=== PATIENT | female | born 1940 | race Caucasian/White ===

== ENCOUNTER → 2018-04-12 15:22 | Outpatient (CLI) | payer MEDICARE, OTHER, SELFPAY ==
[2018-04-11 13:44] VITALS: BMI 29.5
--- NOTE | 2018-04-12 15:36 | MRI_ITS ---
STUDY: MRI BRAIN WITH AND WITHOUT CONTRAST REASON FOR EXAM: Female, 77 years old. Headaches/staging TECHNIQUE: Standardized multiplanar fat and water weighted pulse sequences were obtained. 9 ml of Gadavist contrast material was administered intravenously for the contrast portion of the examination. COMPARISON: None. FINDINGS: There is mild cerebral atrophy with widening of the extra-axial spaces and ventricular dilatation. There are multiple white matter hyperintensities, distributed throughout the deep white matter tracts of the cerebral hemispheres, consistent with moderate chronic white matter ischemic changes. ex Vacuo Dilatation of the left temporal horn. There are prominent perivascular spaces (PVS) involving the basal ganglia. Normal thalami. There is no extra-axial fluid accumulation. Normal flow voids within the major intracranial circulation suggesting patency by spin echo criteria. Normal venous enhancement. There is no enhancing intra-axial or extra-axial abnormality. Normal sella turcica, pituitary gland, infundibular stalk, optic chiasm and hypothalamus. Normal tectal plate and pineal gland. Normal midbrain, michelle and medulla. Normal cerebellum. Normal basal cisterns. 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 Normal bilateral internal auditory canals. No demonstrated orbital abnormality, within the constraints of a routine brain study. Normal visualized paranasal sinuses. Normal calvarium and skull base. Normal visualized soft tissue structures. Normal visualized upper cervical spine. MRI/Brain W/WO Contrast IMPRESSION: Involutional changes of the brain, as described above. Electronically Signed: Lennox Schilling MD at 23:02 EDT , Service support ,
== END ==
PROVIDERS: Family Provider Family Medicine; PCP Family Medicine; Visit Provider Student in an Organized Health Care Education/Training Program
DX: C34.91 Malignant neoplasm of unspecified part of right bronchus or lung (principal)
CPT/HCPCS: 70553; A9585

== ENCOUNTER 2018-04-21 10:51 | Day surgery (SDC) | payer MEDICARE, OTHER, SELFPAY ==
[2018-04-13 09:34] VITALS: BMI 29.5
[2018-04-21] VITALS (7 sets, daily range): BP systolic 84–126; BP diastolic 46–67; PULSE 63–80; RESP 16–18; TEMP 36.3–36.6; O2SAT 93–97; BMI 29.3
[2018-04-21] MEDS: Cefazolin 2 GM in 0.9% Normal Saline 100 ML IV (12:30)
[2018-04-21] MEDS: Bupivacaine Mpf 0.5% 30 ML VIAL (13:10)
--- NOTE | 2018-04-21 13:28 | OP.PCM_ITS ---
Report of Operation Date of Procedure: 04/21/18 Pre-Operative Diagnosis: z45.2, right lung cancer Post-Operative Diagnosis: same Surgery/Procedure Performed:: 1. Placement of Left IJ port. 2. Use of U\S. 3. Use of fluoroscopy Type of Anesthesia:: MAC Anesthesiologist: Mikael Lerma Special Medications: ancef 2 grams IV x1 Estimated Blood Loss (mL): < 10cc Fluids Replaced: 700 cc Description of Procedure: After informed consent was given, the patient was brought to the operating room and placed in the supine position. Appropriate time out protocol was followed. He was then given IV conscious sedation for anesthesia. The patient 's left upper chest and neck were then prepped with a surgical skin preparation and sterile surgical drapes were placed. After proper landmarks were ascertained, the skin at the upper left chest area was then infiltrated with 1: 1 mixture of 1% lidocaine with epinephrine and 0.5% maricaine. A needle trocar was then inserted into the left internal jugular vein with ultrasound guidance-multiple vessels were viewed with u/s and the left IJ was chosen-- and there was good aspiration of venous blood. A wire was then threaded into the needle trocar and this was visualized under fluoroscopy to ensure that the wire was in the superior vena cava. Once this was done, then the needle trocar was removed. A small skin sherly was made with an 11 blade knife at the wire entrance site. The dilator with the introducer sheath attached was then placed over the wire into the left internal jugular vein via the Seldinger technique and this was visualized under fluoroscopy. The dilator and sheath were in proper position as visualized by fluoroscopy. A subcutaneous pocket was then created caudad to the catheter insertion site. A transverse skin incision was made after the skin and subcutaneous tissues were infiltrated with local anesthetic. Blunt dissection was then used to create a space large enough for placement of the subcutaneous port. The catheter was then tunneled into the subcutaneous pocket. The wire and dilator were then removed. The catheter was then threaded into the introducer sheath and was positioned with its tip at the junction of the superior vena cava and the right atrium as visualized under fluoroscopy. The excess catheter was transected. The catheter was then attached to the subcutaneous port using manufacturers guidelines. The catheter was flushed with a heparin saline mixture prior to placement. Hemostasis was carefully controlled with electrocautery. The port was sutured to the subcutaneous fascia using 3-0 PDS suture at two sites. The port was then placed in the subcutaneous pocket and the sutures were ligated. The incision were reapproximated with interrupted subdermal 3-0 vicryl sutures. The skin was reapproximated with 3-0 nylon suture in a interrupted fashion. Steristrips were used for reinforcement of the skin closure at IJ insertion site and a sterile opsite dressings were applied. The patient tolerated the procedure well. Implants Used: [employer] PowerPort isp M.R.I. 6Fr Lot [id number] Grafts/Implants Used: [employer] PowerPort isp M.R.I. 6Fr Lot [id number] - Complications none
--- NOTE | 2018-04-21 13:36 | PCM.DC.POR ---
Discharge Diet: No Restrictions Discharge Activity: May not drive while taking narcotic pain medications. May shower in (days): 5 - keep port clean/dry x5 days then ok to shower over port area Lifting Restrictions: no lifting > 15 lbs w left arm x 1 week Call your doctor if your incision/area has: Continuous Slow Oozing, Sudden Increased Bleeding, Increased Pain/ Swelling, Increased Redness, Foul Smelling Discharge, Swelling at the incision site Call your doctor if you observe: Fever of 101 or Higher Remove Dressing in (days):: 3 - ok to remove neck opsite tomorrow, keep port covered for 2-3 days, ok to remove to use for chemo/place lidocaine ointment/cream Allergies/Adverse Reactions: Allergies Sulfa (Sulfonamide Antibiotics) Adverse Reaction (Intermediate, Verified 04/20/18 15:59) Rash Medications to take at Discharge Amlodipine [Norvasc] 5 mg PO QHS 04/11/18 Atorvastatin Calcium [Lipitor] 40 mg PO QHS 04/11/18 Pantoprazole Sodium [Protonix] 40 mg PO DAILY 04/11/18 traMADol [Ultram (G)] 1 - 2 tab PO Q6H PRN PRN 04/11/18 Lidocaine/Prilocaine [Lidocaine-Prilocaine Cream] 30 gm TP DAILY PRN PRN #1 cream..g. 04/17/18 Ondansetron HCl [Zofran] 4 mg PO Q8H PRN PRN #30 tab 04/17/18 Methotrexate 7 tab PO Q7D 04/20/18 Primary Care Physician: Rick Macias [Primary Care Provider] - Test Results: Test results from this visit will be discussed in further detail at your follow-up appointment, if applicable. Please Follow Up With: Liliana Padron MD - after 5pm/weekends call [phone] with any concerns When: call office for an appt 10 days after surgery for suture removal Proposed Discharge Date: 04/21/18
--- NOTE | 2018-04-21 13:39 | DCINST_ITS ---
Discharge Diet: No Restrictions Discharge Activity: May not drive while taking narcotic pain medications. May shower in (days): 5 - keep port clean/dry x5 days then ok to shower over port area Lifting Restrictions: no lifting > 15 lbs w left arm x 1 week Call your doctor if your incision/area has: Continuous Slow Oozing, Sudden Increased Bleeding, Increased Pain/ Swelling, Increased Redness, Foul Smelling Discharge, Swelling at the incision site Call your doctor if you observe: Fever of 101 or Higher Remove Dressing in (days):: 3 - ok to remove neck opsite tomorrow, keep port covered for 2-3 days, ok to remove to use for chemo/place lidocaine ointment/ cream Allergies/Adverse Reactions: Allergies Sulfa (Sulfonamide Antibiotics) Adverse Reaction (Intermediate, Verified 15:59) Rash Medications to take at Discharge Amlodipine [Norvasc] 5 mg PO QHS 04/11/18 Atorvastatin Calcium [Lipitor] 40 mg PO QHS 04/11/18 Pantoprazole Sodium [Protonix] 40 mg PO DAILY 04/11/18 traMADol [Ultram (G)] 1 - 2 tab PO Q6H PRN PRN 04/11/18 Lidocaine/Prilocaine [Lidocaine-Prilocaine Cream] 30 gm TP DAILY PRN PRN #1 cream..g. 04/17/18 Ondansetron HCl [Zofran] 4 mg PO Q8H PRN PRN #30 tab 04/17/18 Methotrexate 7 tab PO Q7D 04/20/18 Primary Care Physician: Rick Macias [Primary Care Provider] - Test Results: Test results from this visit will be discussed in further detail at your follow- up appointment, if applicable. Please Follow Up With: Liliana Padron MD - after 5pm/weekends call with any concerns When: call office for an appt 10 days after surgery for suture removal Proposed Discharge Date: 04/21/18
--- NOTE | 2018-04-21 13:47 | RAD_ITS ---
STUDY: X-RAY CHEST REASON FOR EXAM: Female, 77 years old. Left port placement. TECHNIQUE: Single AP portable view of the chest. COMPARISON: None. FINDINGS: A left-sided Port-A-Cath has been placed. The tip is in the proximal portion of the superior vena cava. Hyperinflation. Mild increased markings at the left lung base suggestive of scarring. There is no demonstrated pleural abnormality. Normal size heart. Normal mediastinum and reji. Normal visualized pulmonary arteries. There is atherosclerotic calcification of the aortic arch with tortuosity. Normal visualized thoracic spine. Normal visualized ribs, clavicles, and shoulders. There is no demonstrated abnormality of the visualized soft tissue structures of the upper abdomen. RAD/CXR for Line Placement IMPRESSION: Status post left port placement. The tip is in the proximal portion of the superior vena cava.. Mild left basilar scarring. Electronically Signed: Misha Gore MD at 14:30 EDT Tel [phone], Service support ,
== END 2018-04-21 15:38 | disposition home or self-care (01) ==
LOC: SDC 10:52 → AC 10:53
PROVIDERS: Family Provider Family Medicine; PCP Family Medicine; Visit Provider Surgery
PROC: (CPT 36561; principal; 2018-04-21 12:15)
DX: Z45.2 Encounter for adjustment and management of vascular access device (principal); C34.91 Malignant neoplasm of unspecified part of right bronchus or lung; M06.9 Rheumatoid arthritis, unspecified; Z86.718 Personal history of other venous thrombosis and embolism; E78.00 Pure hypercholesterolemia, unspecified; K21.9 Gastro-esophageal reflux disease without esophagitis; Z79.899 Other long term (current) drug therapy; I10 Essential (primary) hypertension; Z87.891 Personal history of nicotine dependence
CPT/HCPCS: 00532; 36561; 71045; 77001; J7120; C1788

== ENCOUNTER → 2018-09-04 08:05 | Outpatient (CLI) | payer MEDICARE, OTHER, SELFPAY ==
[2018-04-13 09:34] VITALS: BMI 29.5
[2018-08-03 09:17] VITALS: BMI 28.5
--- NOTE | 2018-09-04 08:11 | NM_ITS ---
CLINICAL: 78-year-old female with reported history of primary lung carcinoma. WHOLE BODY 99m Tc MDP RADIONUCLIDE BONE SCINTIGRAPHY COMPARISON: CT of the chest, abdomen and pelvis reports 09/04/2018 FINDINGS: Following the intravenous administration of 26.7 mCi of 99m Tc MDP, whole body bone images reveal: 1. Increased radiopharmaceutical concentration is defined in the mid cervical spine posteriorly on the left and right, lower cervical spine posteriorly on the left, first thoracic vertebra posteriorly in the midline, the lumbar vertebra posteriorly on the left, the right hand, left sacroiliac joint, sternoclavicular compartments of both shoulders. 2. The remaining skeletal structures are scintigraphically unremarkable with normal-appearing renal images and urinary bladder activity identified. The visualized left hip arthroplasty demonstrates no evidence of abnormal increased radiopharmaceutical concentration. Facilitated uptake is defined in the bilateral maxillae and inter-orbital aspect of the calvarium consistent with periostitis. NM/Bone Scan Whole Body IMPRESSION: 1. The increase in radiopharmaceutical concentration identified in the cervical, thoracic and lumbar spine, left sacroiliac joint, right hand, bilateral shoulders most consistent with degenerative arthritis. 2. There is no definitive scintigraphic evidence of diffuse axial skeletal metastatic disease on the current examination. Electronically Signed: Hans Moran DO at 9:59 EST Tel , Service support ,
--- NOTE | 2018-09-04 11:37 | CT_ITS ---
STUDY: CT CHEST/THORAX WITH CONTRAST REASON FOR EXAM: Female, 78 years old. Lung cancer, restaging. RADIATION DOSAGE (If Supplied By Facility): CTDIvol = ( 14.62 ) mGy, DLP = ( 1186.88 ) mGycm TECHNIQUE: Transaxial imaging was performed following intravenous administration of 100 ml of Isovue 300 contrast material. Multiplanar coronal and sagittal images were reformatted. Individualized dose optimization techniques were used for this CT. COMPARISON: None. FINDINGS: A left chest wall chemotherapy port is in the subclavicular tissues, its catheter passing from the jugular vein to the superior vena cava. Emphysematous changes predominate in the upper lung zones. Spiculated 2.7 x 1.5 x 0.85 cm lesion in the medial right upper lobe is consistent with the patient's history of malignancy. There were a few tails extending to the medial pleural surface. Irregular, faint 6.5 mm density in the right lower lobe near the pleural fissure series 6 image 87, series 601 image 143 is of uncertain etiology. There is subsegmental atelectasis or scarring in the anteromedial periphery of the right middle lobe and inferior lingula of the left upper lobe. There is no demonstrated pleural abnormality. Normal heart and pericardium. There are calcifications of the coronary arteries. Normal mediastinum. Normal hilar regions. Normal enhanced pulmonary arteries. There is atherosclerotic calcification of the aortic arch, proximal brachiocephalic arteries, and descending thoracic aorta. Degenerative anterior endplate osteophytes seen in the lower most cervical spine and at T3-4. Leads of an epidural stimulator enter the spinal canal at T11-12, terminating at T7-8. Irregular 12 mm hyperdensity in the dome of the liver on series 2 image 120, series 601 image 150 suggests a hemangioma. This is virtually inapparent on the images of the liver also obtained on CT abdomen and pelvis today during the portal venous phase. Question of 2 similar, smaller lesions in the posterior lateral right lobe on images 131-132. There is a small hiatal hernia. CT/Chest WITH Contrast IMPRESSION: 1. 2.7 cm spiculated mass in the medial right upper lobe is consistent with patient's history of malignancy. A faint, irregular 6.5 mm density in the anterior right lower lobe near the pleural fissure is of uncertain etiology. 2. Emphysematous changes predominate in the upper lung zones. 3. Chemotherapy port in the soft tissues of the left anterior chest wall, its catheter tip in the superior vena cava. 4. Atherosclerotic vascular calcifications present. No demonstrated aneurysm. 5. Leads of an epidural stimulator terminate at T7-8. 6. Small hyperdensities in the liver may be hemangiomata. These do not clearly persist on portal vein phase imaging of the liver included with CT abdomen and pelvis also done today. 7. Small hiatal hernia. Electronically Signed: Mal Ortiz MD at 13:57 EST , Service support ,
--- NOTE | 2018-09-04 11:38 | CT_ITS ---
STUDY: CT ABDOMEN WITH CONTRAST REASON FOR EXAM: Female, 78 years old. Lung cancer, restaging. RADIATION DOSAGE (If Supplied By Facility): CTDIvol = ( 14.62 ) mGy, DLP = ( 1186.88 ) mGycm TECHNIQUE: Transaxial images were obtained post I.V. administration of 100 ml of Isovue 300 contrast, and oral contrast. Sagittal and coronal images were reconstructed. Individualized dose optimization techniques were used for this CT. COMPARISON: None. FINDINGS: Minor subsegmental atelectasis or scarring in the anteromedial right middle lobe and inferior lingula of the left upper lobe. The heart size is normal. Very small right anterolateral pericardial effusion/thickening. Atherosclerotic calcifications noted in the coronary arteries and visualized distal descending thoracic aorta. Smoothly lobulated, partially septated, well-defined 4.4 x 4.05 x 4.0 cm subcapsular cyst of 14-15 Hounsfield unit density seen in the medial lower right lobe of liver a second 1.55 x 1.45 x 1.4 cm cyst is suggested at the posterior margin of the falciform ligament. A pair of mildly heterogeneous or enhancing lesions in the posterior upper right lobe of liver (series 3 image 23) hypodensity over 55 Hounsfield units are more difficult to characterize. The more medial of these may incorporate vague fullness of the adjacent anterolateral limb of the right adrenal gland. 7.5 mm similar-appearing rounded low density noted in the dome of the liver (series 3 image 14); there is an 8 mm well-defined low-density in the anterior subcapsular aspect of the medial left lobe of the liver (series 604 image 35) and a 5 mm rounded low density in the anterior inferior left lobe liver on series 3 image 40, series 604 image 33. Possible 14 mm subcapsular mixed density structure at the inferior left lobe of the liver on series 604 image 41 may be artifact. The patent portal vein diameter is 13.5 mm. Normal gallbladder and extrahepatic biliary system. The common bile duct diameter is 5 mm. Normal spleen. Normal pancreas. Normal left adrenal gland. Normal right kidney. 7.5 mm subcapsular low density in the posterior cortex of the midpole the left kidney is likely a cyst. No hydronephrosis. There is a small hiatal hernia. Normal small intestine. There is redundant, elongated right colon with the cecum in the anterior mid right flank. There is non-visualization of the appendix. There is diffuse atherosclerotic calcification of the abdominal aorta and visualized proximal iliac arteries. 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 Normal inferior vena cava. Normal retroperitoneum. There is a small umbilical hernia containing fat. There are diffuse degenerative changes of the visualized lumbar spine as well as degenerative arthroses of the bilateral sacroiliac joints. The patient has undergone L3-S1 discectomies as well as plate posterior lumbosacral fusion, with bilateral transpedicular screws connected on either side by longitudinal metal rods from L3-S1. There is mild retrolisthesis of L2 on L3. The generator of a spinal stimulator resides in the soft tissues of the medial right back at the L2 level. Its leads enter the posterior epidural space at T11-12, continuing to a point outside the [id number]. CT/Abdomen WITH IV Contrast IMPRESSION: 1. There are number of low-density lesions in the liver, as described, some of which are cysts. Others are more difficult to characterize, with differential including complicated cysts, hemangiomata, or neoplasm of indeterminate etiology. One, at the posterior medial right lobe of liver (series 3 images 23-24) may involve fullness of the anterior limb of the right adrenal gland. Correlation with any previous outside imaging would be useful. If not available, one might consider characterization with ultrasound or, if clinically feasible, MRI. 2. The generator of a spinal stimulator is seen in the soft tissues of the mid right back. Its leads extend into the posterior epidural space to point outside the [id number]. 3. Prior L3-S1 discectomies with prostheses as well as posterior lumbosacral fusion with metal hardware, as noted. There are also degenerative changes of the spine and sacroiliac joints. 4. Aortoiliac atherosclerotic calcific plaquing which, by itself, portends at least moderate risk for future cardiovascular event, Abdominal Aortic Calcific Deposits Are an Important Predictor of Vascular Morbidity and Mortality; Edilberto Liriano et al. Circulation, Dec 2000;103:[id number]. 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 5. 7.5 mm posterior cortical low density at the mid pole of left kidney, likely a cyst. No hydronephrosis. 6. The bowel is unremarkable without signs of obstruction. The appendix is not visualized. 7. Electronically Signed: Mal Ortiz MD at 13:16 EST , Service support ,
--- OUTSIDE RECORDS SUMMARY | 2018-10-28 07:54 | XMS RPT_ITS ---
:1940 Author Organization [place] Support Name Relationship Address Phone MONICA COLES Unavailable Unavailable + R Unavailable Unavailable Unavailable TENRIISM, FLORIAN Unavailable Unavailable + MONICA COLES Unavailable Unavailable + R Unavailable Unavailable Unavailable TENRIISM, FLORIAN Unavailable Unavailable + MONICA COLES Unavailable Unavailable + R Unavailable Unavailable Unavailable TAMAR FLORIAN Unavailable Unavailable + MONICA COLES Unavailable Unavailable + R Unavailable Unavailable Unavailable TENRIISM, FLORIAN Unavailable Unavailable + MONICA COLES Unavailable Unavailable + [place] [address] R Unavailable Unavailable Unavailable TENRIISMFLORIAN GRAMAJO Unavailable Unavailable + [place] [address] MONICA COLES Unavailable Unavailable + R Unavailable Unavailable Unavailable FLORIAN GHOSH Unavailable Unavailable + MONICA COLES Unavailable Unavailable + R Unavailable Unavailable Unavailable TENRIISMFLORIAN GRAMAJO Unavailable Unavailable + MONICA COLES Unavailable Unavailable + R Unavailable Unavailable Unavailable TENRIISM, FLORIAN Unavailable Unavailable + MONICA COLES Unavailable Unavailable + R Unavailable Unavailable Unavailable TENRIISM FLORIAN Unavailable Unavailable + MONICA COLES Unavailable Unavailable + R Unavailable Unavailable Unavailable TENRIISM FLORIAN Unavailable Unavailable + MONICA COLES Unavailable Unavailable + R Unavailable Unavailable Unavailable TENRIISM FLORIAN Unavailable Unavailable + MONICA COLES Unavailable Unavailable + R Unavailable Unavailable Unavailable TENRIISM, FLORIAN Unavailable Unavailable + MONICA OCLES Unavailable Unavailable + R Unavailable Unavailable Unavailable TENRIISM, FLORIAN Unavailable Unavailable + COLES, MONICA Unavailable Unavailable + R Unavailable Unavailable Unavailable TENRIISM, FLORIAN Unavailable Unavailable + ANTHONY COLESLEY Unavailable Unavailable + R Unavailable Unavailable Unavailable TENRIISM, FLORIAN Unavailable Unavailable + COLES, MONICA Unavailable Unavailable + R Unavailable Unavailable Unavailable TENRIISM, FLORIAN Unavailable Unavailable + COLES, MONICA Unavailable Unavailable + R Unavailable Unavailable Unavailable TENRIISM, FLORIAN Unavailable Unavailable + ANTHONY COLESLEY Unavailable Unavailable + R Unavailable Unavailable Unavailable TENRIISM, FLORIAN Unavailable Unavailable + ANTHONY COLESLEY Unavailable Unavailable + R Unavailable Unavailable Unavailable TENRIISM, FLORIAN Unavailable Unavailable + COLES, MONICA Unavailable Unavailable + R Unavailable Unavailable Unavailable TENRIISM, FLORIAN Unavailable Unavailable + ANTHONY COLESLEY Unavailable Unavailable + R Unavailable Unavailable Unavailable TENRIISM, FLORIAN Unavailable Unavailable + ANTHONY COLESLEY Unavailable Unavailable + [place] [address] R Unavailable Unavailable Unavailable TENRIISM, FLORIAN Unavailable Unavailable + COLESANTHONYMONICA Unavailable Unavailable + [place] [address] R Unavailable Unavailable Unavailable TENRIISM, FLORIAN Unavailable Unavailable + COLESANTHONYMONICA Unavailable Unavailable + SHARYN MONICA Unavailable Unavailable + [place] [address] R Unavailable Unavailable Unavailable TENRIISM, FLORIAN Unavailable Unavailable + COLESANTHONYMONICA Unavailable Unavailable + [place] [address] R Unavailable Unavailable Unavailable TENRIISM, FLORIAN Unavailable Unavailable + COLES, MONICA Unavailable Unavailable + [place] [address] R Unavailable Unavailable Unavailable TENRIISM, FLORIAN Unavailable Unavailable + COLES, MONICA Unavailable Unavailable + [place] [address] R Unavailable Unavailable Unavailable TENRIISM, FLORIAN Unavailable Unavailable + COLES, MONICA Unavailable Unavailable + [place] [address] R Unavailable Unavailable Unavailable TENRIISM, FLORIAN Unavailable Unavailable + COLES, MONICA Unavailable . + [place] [address] R Unavailable Unavailable Unavailable COLES, MONICA Unavailable . + [place] [address] R Unavailable Unavailable Unavailable COLES, MONICA Unavailable Unavailable + R Unavailable Unavailable Unavailable COLES, MONICA Unavailable Unavailable + [place] [address] R Unavailable Unavailable Unavailable TENRIISM, FLORIAN Unavailable Unavailable + COLES, MONICA Unavailable Unavailable + R Unavailable Unavailable Unavailable COLES, MONICA Unavailable . + [place] [address] R Unavailable Unavailable Unavailable COLES, MONICA Unavailable Unavailable + TENRIISM, MARIETTA Unavailable Unavailable Unavailable COLES, MONICA Unavailable Unavailable + TENRIISM, MARIETTA Unavailable Unavailable Unavailable COLES, MONICA Unavailable Unavailable + TENRIISM, MARIETTA Unavailable Unavailable Unavailable COLES, MONICA Unavailable Unavailable + TENRIISM, MARIETTA Unavailable Unavailable Unavailable COLES, MONICA Unavailable Unavailable + TENRIISM, MARIETTA Unavailable Unavailable Unavailable COLES, MONICA Unavailable Unavailable + COLES, MONICA Unavailable Unavailable + TENRIISM, MARIETTA Unavailable Unavailable Unavailable COLES, MONICA Unavailable Unavailable + TENRIISM, MARIETTA Unavailable Unavailable Unavailable COLES, MONICA Unavailable Unavailable + TENRIISM, MARIETTA Unavailable Unavailable Unavailable COLES, MONICA Unavailable Unavailable + COLES, MONICA Unavailable Unavailable + TENRIISM, MARIETTA Unavailable Unavailable Unavailable COLES, MONICA Unavailable Unavailable + MARIETTA GHOSH Unavailable Unavailable Unavailable MONICA COLES Unavailable Unavailable + COLESMONICA Unavailable Unavailable + SHARYNANTHONYMONICA Unavailable Unavailable + Care Team Providers Name Role Phone Gonzales Kylee Attending Unavailable KAROLYN COLLINS Referring Unavailable TOMCHAK, THERESA Primary Care Unavailable Isckarus, Mansour Consulting Unavailable KAROLYN COLLINS Referring Unavailable TOMCHAK, THERESA Primary Care Unavailable Isckarus, Mansour Attending Unavailable Saroj, Junior Attending Unavailable KAROLYN COLLINS Referring Unavailable TOMCHAK, THERESA Primary Care Unavailable Saroj, Junior Consulting Unavailable Saroj, Junior Attending Unavailable Saroj, Junior Referring Unavailable TOMCHAK, THERESA Primary Care Unavailable Isckarus, Mansour Attending Unavailable KAROLYN COLLINS Referring Unavailable TOMCHAK, THERESA Primary Care Unavailable Saroj, Junior Consulting Unavailable Robotham, Liliana Attending Unavailable [facility], THERESA Referring Unavailable TOMCHAK, THERESA Primary Care Unavailable Linda Garciaa Attending Unavailable KAROLYN COLLINS Referring Unavailable TOMCHAK, THERESA Primary Care Unavailable Saroj, Junior Consulting Unavailable Robotham, Liliana Attending Unavailable Robotham, Liliana Referring Unavailable [facility], THERESA Primary Care Unavailable Robotham, Liliana Attending Unavailable Robotham, Liliana Referring Unavailable [facility], THERESA Primary Care Unavailable Robotham, Liliana Consulting Unavailable Magous, Mansour Attending Unavailable KAROLYN COLLINS Referring Unavailable TOMCHAK, THERESA Primary Care Unavailable Saroj, Junior Consulting Unavailable Saroj, Junior Attending Unavailable Saroj, Junior Referring Unavailable Saroj, Junior Attending Unavailable Saroj, Junior Referring Unavailable Saroj, Junior Attending Unavailable Saroj, Junior Referring Unavailable Saroj, Junior Attending Unavailable KAROLYN COLLINS Referring Unavailable TOMCHAK, THERESA Primary Care Unavailable Saroj, Junior Consulting Unavailable Waylon Daniel Attending Unavailable KAROLYN COLLINS Referring Unavailable TOMCHAK, THERESA Primary Care Unavailable Saroj, Junior Consulting Unavailable Saroj, Junior Attending Unavailable KAROLYN COLLINS Referring Unavailable TOMCHAK, THERESA Primary Care Unavailable Saroj, Junior Consulting Unavailable Isckarus, Mansour Attending Unavailable KAROLYN COLLINS Referring Unavailable TOMCHAK, THERESA Primary Care Unavailable Saroj, Junior Consulting Unavailable Saroj, Junior Attending Unavailable KAROLYN COLLINS Referring Unavailable TOMCHAK, THERESA Primary Care Unavailable Saroj, Junior Consulting Unavailable Isckarus, Mansour Attending Unavailable KAROLYN COLLINS Referring Unavailable TOMCHAK, THERESA Primary Care Unavailable Saroj, Junior Consulting Unavailable Saroj, Junior Attending Unavailable KAROLYN COLLINS Referring Unavailable TOMCHAK, THERESA Primary Care Unavailable Saroj, Junior Consulting Unavailable Isckarus, Mansour Attending Unavailable KAROLYN COLLINS Referring Unavailable TOMCHAK, THERESA Primary Care Unavailable Saroj, Junior Consulting Unavailable Saroj, Junior Attending Unavailable KAROLYN COLLINS Referring Unavailable TOMCHAK, THERESA Primary Care Unavailable Saroj, Junior Consulting Unavailable Isckarus, Mansour Attending Unavailable KAROLYN COLLINS Referring Unavailable TOMCHAK, [place] Primary Care Unavailable Saroj, Junior Consulting Unavailable Isckarus, Mansour Attending Unavailable KAROLYN COLLINS Referring Unavailable TOMCHAK, THERESA Primary Care Unavailable Saroj, Junior Consulting Unavailable Isckarus, Mansour Attending Unavailable KAROLYN COLLINS Referring Unavailable TOMCHAK, THERESA Primary Care Unavailable Saroj, Junior Consulting Unavailable Isckarus, Mansour Attending Unavailable KAROLYN COLLINS Referring Unavailable TOMCHAK, [place] Primary Care Unavailable Saroj, Junior Consulting Unavailable Saroj, Junior Attending Unavailable Linda Garciaa Attending Unavailable KAROLYN COLLINS Referring Unavailable TOMCHAK, [place] Primary Care Unavailable Isckarus, Mansour Consulting Unavailable Isckarus, Mansour Attending Unavailable Isckarus, Mansour Attending Unavailable KAROLYN COLLINS Referring Unavailable TOMCHAK, THERESA Primary Care Unavailable Isckarus, Mansour Consulting Unavailable Isckarus, Mansour Attending Unavailable KAROLYN COLLINS Referring Unavailable TOMCHAK, THERESA Primary Care Unavailable Isckarus, Mansour Consulting Unavailable Saroj, Junior Attending Unavailable Saroj, Junior Referring Unavailable TOMCHAK, THERESA Primary Care Unavailable Isckarus, Mansour Consulting Unavailable Isckarus, Mansour Attending Unavailable Isckarus, Mansour Referring Unavailable TOMCHAK, THERESA Primary Care Unavailable Isckarus, Mansour Attending Unavailable KAROLYN COLLINS Referring Unavailable TOMCHAK, THERESA Primary Care Unavailable Isckarus, Mansour Consulting Unavailable Lu BUTCHER, Dr. Jonathan Krause Admitting Unavailable Lu BUTCHER, Dr. Jonathan Krause Attending Unavailable STADNICK, THERESA CARNEY Attending Unavailable TOMCHAKTHERESA Primary Care Unavailable STADNICKTHERESA Attending Unavailable TOMCHAKTHERESA Primary Care Unavailable STADNTHERESA RICE Attending Unavailable TOMCHAKTHERESA Primary Care Unavailable TODD TO Attending Unavailable TOMTHERESA PAINTER Primary Care Unavailable ELIZABETH AVALOS Attending Unavailable TOMCHAKTHERESA Primary Care Unavailable SALVATORE BAHENA Attending Unavailable TOMTHERESA PAINTER Referring Unavailable TOMCHAKTHERESA Primary Care Unavailable KNEUERTZ, SALVATORE Attending Unavailable KNEUERTZSALVATORE Referring Unavailable KNEUERTZ, SALVATORE Attending Unavailable KNEUERTZ, SALVATORE Referring Unavailable KNEUERTZ, SALVATORE Attending Unavailable KNEUERTSALVATORE Boyle Referring Unavailable SARASYLVESTER HENLEY Attending Unavailable SARASYLVESTER HENLEY Referring Unavailable TOMCHAKTHERESA Primary Care Unavailable NINOSKA WADE Attending Unavailable SYLVESTER RUIZ Referring Unavailable TOMCHAKTHERESA Primary Care Unavailable SHRUTI, SALVATORE Attending Unavailable JUSTINEUERTSALVATORE Boyle Referring Unavailable TOMCHAKTHERESA Primary Care Unavailable JUSTINEUERTSALVATORE Boyle Admitting Unavailable SALVATORE BAHENA Attending Unavailable TOMTHERESA PAINTER Primary Care Unavailable TOMTHERESA PAINTER Referring Unavailable SYLVESTER RUIZ Attending Unavailable SYLVESTER RUIZ Referring Unavailable TOMTHERESA PAINTER Primary Care Unavailable SALVATORE BAHENA Attending Unavailable TOMTHERESA PAINTER Referring Unavailable TOMTHERESA PAINTER Primary Care Unavailable Montanaumbar, Jonathan Admitting Unavailable Lu, Jonathan Attending Unavailable TomTheresa painter Primary Care Unavailable TomTheresa painter Admitting Unavailable TomchaTheresa escamilla Attending Unavailable TomchakTheresa Primary Care Unavailable Zumbar, Jonathan Admitting Unavailable Zumbar, Jonathna Attending Unavailable TomchakTheresa Primary Care Unavailable Zumbar, Jonathan Admitting Unavailable Zumbar, Jonathan Attending Unavailable TomTheresa painter Primary Care Unavailable Zumbar, Jonathan Admitting Unavailable Zumbar, Jonathan Attending Unavailable TomalbinkTheresa Primary Care Unavailable Zumbar, Jonathan Admitting Unavailable Zumbar, Jonathan Attending Unavailable TomalbinkTheresa Primary Care Unavailable Zumbar, Jonathan Admitting Unavailable Zumbar, Jonathan Attending Unavailable TomchakTheresa Primary Care Unavailable Stadnick, Theresa Rene Admitting Unavailable Stadnick, Theresa Rene Attending Unavailable Tomchak, Theresa Knowles Primary Care Unavailable Zumbar, Jonathan Admitting Unavailable Zumbar, Jonathan Attending Unavailable Tomchak, Theresa Knowles Primary Care Unavailable Zumbar, Jonathan Admitting Unavailable Zumbar, Jonathan Attending Unavailable Tomchak, Theresa Knowles Primary Care Unavailable Zumbar, Jonathan Admitting Unavailable Zumbar, Jonathan Attending Unavailable Tomchak, Theresa Knowles Primary Care Unavailable Zumbar, Jonathan Admitting Unavailable Zumbar, Jonathan Attending Unavailable Tomchak, Theresa Knowles Primary Care Unavailable Zumbar, Jonathan Admitting Unavailable Zumbar, Jonathan Attending Unavailable Tomchak, Theresa Knowles Primary Care Unavailable Stadnick, Theresa Rene Admitting Unavailable Stadnick, Theresa Rene Attending Unavailable Tomchak, Theresa Knowles Primary Care Unavailable Zumbar, Jonathan Admitting Unavailable Zumbar, Jonathan Attending Unavailable Tomchak, Theresa Knowles Primary Care Unavailable Zumbar, Jonathan Admitting Unavailable Zumbar, Jonathan Attending Unavailable Tomchak, Theresa Knowles Primary Care Unavailable Tomchak, Theresa Knowles Admitting Unavailable Tomchak, Theresa Knowles Attending Unavailable Tomchak, Theresa Knowles Primary Care Unavailable Zumbar, Jonathan Admitting Unavailable Zumbar, Jonathan Attending Unavailable Tomchak, Theresa Knowles Primary Care Unavailable Tomchafrancine, Theresa Knowles Admitting Unavailable Tomchak, Theresa Knowles Attending Unavailable Tomchak, Theresa Knowles Primary Care Unavailable Zumbar, Jonathan Admitting Unavailable Zumbar, Jonathan Attending Unavailable Tomchak, Theresa Knowles Primary Care Unavailable Zumbar, Jonathan Attending Unavailable Tomchak, Theresa Knowles Primary Care Unavailable Zumbar, Jonathan Admitting Unavailable PROBLEMS PROBLEMS DATE TYPE CONDITION / CODE ATTENDING STATUS SOURCE 09/14/2018 Unknown C34.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, Active Micaela neoplasm of upper [facility] lobe, right bronchus Hospital or lung / Repository C34.11(ICD-10) 09/14/2018 Unknown C34.91 - Malignant Isckarus, Active Aspers neoplasm of [facility] unspecified part of Hospital right bronchus or Repository lung / C34.91(ICD-10) 09/14/2018 Unknown R94.8 - Abnormal Isckarus, Active [facility] results of function [facility] studies of other Hospital organs and systems / Repository R94.8(ICD-10) 09/06/2018 Unknown Z79.899 - Other long Isckarus, Active Micaela term (current) drug [facility] therapy / Hospital Z79.899(ICD-10) Repository 09/06/2018 Unknown 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, 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, Repository unspecified / C77.9(ICD-10) 09/06/2018 Unknown R59.0 - Localized Isckarus, Active Micaela enlarged lymph nodes [facility] / R59.0(ICD-10) Hospital Repository 07/18/2018 Unknown Z51.0 - Encounter Jose, Active [facility] for antineoplastic [facility] radiation therapy / Hospital Z51.0(ICD-10) Repository 07/18/2018 Unknown Z23 - Encounter for Isckarus, Active [facility] immunization / [facility] Z23(ICD-10) Hospital Repository 06/19/2018 Unknown K20.8 - Other Isckarus, Active Micaela esophagitis / [facility] K20.8(ICD-10) Hospital Repository 06/19/2018 Unknown R11.2 - Nausea with Isckarus, Active Micaela vomiting, [facility] unspecified / Hospital R11.2(ICD-10) Repository 06/19/2018 Unknown J40 - Bronchitis, Isckarus, Active Micaela not specified as [facility] acute or chronic / Hospital J40(ICD-10) Repository 06/19/2018 Unknown N39.0 - Urinary Isckarus, Active [facility] tract infection, [facility] site not specified / Hospital N39.0(ICD-10) Repository 06/15/2018 Unknown C34.90 - Malignant Isckarus, Active [facility] neoplasm of [facility] unspecified part of Hospital unspecified bronchus Repository or lung / C34.90(ICD-10) 05/08/2018 Unknown Z45.2 - Encounter Robotham, Active [facility] for adjustment and [facility] management of Hospital vascular access Repository device / Z45.2(ICD-10) 04/03/2018 Admitting Follow-up / 145() KNEUERTZ, Active [facility] diagnosis [facility] Repository 04/03/2018 Admitting Solitary pulmonary SYLVESTER RUIZ Active [facility] diagnosis nodule / [facility] R91.1(ICD-10) [facility] Repository 03/16/2018 Admitting Localized enlarged KNEUERTZ, [facility] diagnosis lymph nodes / [facility] R59.0(ICD-10) [facility] Repository 12/16/2017 Admitting Rheumatoid arthritis PETARDNICK, Active [facility] diagnosis with rheumatoid THERESA AYERSR Three factor of multiple Repository sites without organ or systems involvement / M05.79(ICD-10) PROCEDURES PROCEDURES No Procedure Records FoundRESULTS RESULTS ONCOLOGY FOLLOW-UP Observed: 09/14/2018 Status: F Source: SANDY VISIT 3:58 PM [facility] REPOSITORY [facility] Medical Records Department [address] [place] [address] Oncology Follow-Up Visit 09/14/18 [id number] MR#: [id number] Acct: [id number] Name: MARIETTA GHOSH Rep #: [id number] : 1940 78 From: Junior Kyle DO PCP: Theresa Macias MD Status: REG RCR Y Location: [facility] Date of Service: 09/06/18 Last Clinic Visit: 07/03/18 Diagnosis: Marietta Ghosh is a 77 year-old female diagnosed with 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 From 04/24/18 - 06/02/18: Received 6000 cGy in 30 fractions to the RUL and mediastinal disease. She was treated concurrently with weekly carbo/taxol. History of Present Illness: 09/22/2017: Bilateral screening mammography was performed which demonstrated a glandular pattern bilaterally and symmetrical, no spicular density or clustered microcalcification or mass lesion is noted. BI-RADS Category 2. 02/08/2018: MRI of the thoracic and lumbar spine was completed for back pain and she was found to have bilateral pulmonary nodules noted. 02/28/2018: CT chest was completed which demonstrated a dominant right upper lobe nodule measuring 2.1 x 1.7 x 2.5 cm, a left upper lobe nodule measuring 7 mm, and right hilar and right paratracheal adenopathy. 03/15/2018: PET scan was performed which demonstrated a hypermetabolic spiculated mass within the right upper lobe concerning for primary malignancy with a maximum SUV of 12.1, there is a small spiculated mass identified within the left upper lobe demonstrating mild FDG activity with SUV of 2.2, there are multiple hypermetabolic right hilar and right. Bronchial lymph nodes with maximum SUV of 11.1. Mildly hypermetabolic right paraesophageal/retrotracheal and precarinal lymph nodes are identified. Focal hypermetabolic activity is appreciated within the inferior right parotid gland and the trachea max SUV of 7.1. There is nonspecific FDG activity within the sella with no definite CT correlate appreciated, MRI may be beneficial as the etiology is unclear. 03/24/2018: Patient underwent bronchoscopy with a EBUS which demonstrated unremarkable airways, levels 4R, 4L, 7, and 11 are were all biopsied multiple times. Biopsies from 4R and 11R are consistent with adenocarcinoma and biopsies of 4L and level 7 showed no malignant cells were identified. Immunohistochemistry was nonspecific but suggested possibly breast origin. 04/03/18: PFTs were completed. FEV1 was 105% predicted and DLCO 122% predicted. Conclusion was normal pulmonary function test. 04/12/18: Brain MRI was completed which showed no evidence of brain metastases. From 04/24/18 - 06/02/18: Received 6000 cGy in 30 fractions to the RUL and mediastinal disease. She was treated concurrently with weekly carbo/taxol. 09/04/2018: CT chest abdomen and pelvis was completed which demonstrated a spiculated 2.7 x 1.5 x 0.85 cm lesion in the medial right upper lobe consistent with patient's history of prior malignancy with few tails extending to the medial pleural surface. An irregular faint 6.5 mm density in the right lower lobe near the pleural fissure is noted, this is on uncertain etiology. There is no mention of the left upper lobe lesion previously noted on CT imaging but upon my review this appears stable. There are number of low- density lesions in the liver some of which are characterized as cysts and others more difficult to characterize but could be complicated cyst, hemangiomata, or neoplasm of undetermined etiology. No evidence of metastatic disease is noted. 09/04/2018: Bone scan was completed which demonstrated evidence for multifocal arthritis but no evidence for metastatic disease. 09/06/2018: CT neck with contrast was performed to follow-up on PET enhancing intraparotid abnormality. An enhancing lymph node measuring 0.7 x 0.4 x 0.7 cm is noted behind the posterior caudal surface of the right parotid gland rather than intraparotid. There is a 0.9 cm hyperdense solid nodule in the left thyroid lobe. There is no definite CT evidence of any suspicious mass in the suprahyoid neck or infrahyoid neck. Radiation Treatment History: 1) From 04/24/18 - 06/02/18: Received 6000 cGy in 30 fractions to the RUL and mediastinal disease. She was treated concurrently with weekly carbo/taxol. Interval History: Patient returns for interval follow-up approximately 3.5 months after completing definitive chemoradiation therapy. She reports very mild occasional shortness of breath which is at her baseline, she does not take any medications for COPD and does not use oxygen. She denies having a cough or hemoptysis. She denies having chest wall pain, dysphagia, odynophagia, or unexpected weight loss. She does continue to have mild fatigue. She also continues to have diffuse pain involving her back and hips which are very much chronic in nature and she follows with pain physician to help manage this. She believes that she has some increase in weakness involving her bilateral legs and is unstable with walking. She continues to have numbness of her bilateral hands and feet which is likely from chemotherapy. She uses a cane to help her walk when needed and denies having recent falls. She lives alone and is able to complete all activities of daily living. She denies having any other problems or concerns at this time. I have reviewed the medical, surgical, and other pertinent history in details and have updated medication and allergy information in the electronic medical record. Review of Systems: A 12-point review of systems was completed and was negative except for what is noted in the HPI/Interval History and by the nurse. Height/Weight/BMI: Height: 5 ft 5.5 in Weight: 172 lbs Vital Signs Temperature 98.6 F 09/14/18 14:03 Temperature Source Oral 09/14/18 14:03 Pulse Rate 89 09/14/18 14:03 Respiratory Rate 18 09/14/18 14:03 Physical Exam: ECO KARNOFSKY SCORE: 70% CONSTITUTIONAL: Well-developed, well-nourished, and in no apparent distress. HEENT: Mucous membranes moist. No evidence of thrush or lesions within the visualized oropharynx or oral cavity. No trismus. Pupils are equal, round, and reactive to light and accommodation. Extraocular movements are intact. Sclerae are anicteric. NECK: Supple,with no thyromegaly, and non-tender. Trachea midline. No cervical or supraclavicular adenopathy noted. CARDIAC: Regular rate and rhythm. Normal S1, S2. No murmurs, rubs, or gallops. PULMONARY/CHEST: Lungs are clear to auscultation and percussion bilaterally. Mild wheezes in the right upper lung field otherwise no wheezes, rhonchi, or crackles noted. No increased work of breathing. ABDOMINAL: Abdomen soft, non-tender, non-distended. No hepatomegaly. Normoactive bowel sounds in all four quadrants. No guarding, rebound. BACK: Straight and aligned. No CVA tenderness. Axial skeleton with tenderness diffusely involving her spine, sacrum, and bilateral hips. EXTREMITIES: Full range of motion in all four extremities, with normal strength equally and symmetrically. No evidence of edema. No clubbing. NEUROLOGICAL EXAM: Alert and oriented x 3. Cranial nerves II through XII are grossly intact. No focal neurological deficit. Speech is fluent. There is no upper or lower extremity sensory deficit or motor deficit. Muscle strength is 5/5 in all muscle groups. Gait and posture are steady. PSYCHIATRIC: Appropriate mood and affect for the clinical situation. Imaging: I reviewed the CT chest, abdomen, pelvis, and neck completed in early September. The scans were not compared to the previous outside scans by the reading radiologist and this has been requested to get an official comparison report. By my comparison the treated right upper lobe and mediastinal disease appears to be improved but not completely resolved. The left upper lobe lesion that was being followed due to its small size and inability to biopsy appears to be stable. There is a new approximately 5 mm lesion noted near the major fissure in the right lower lobe, etiology of this lesion is unclear but it would be too small to biopsy and likely undetectable on PET so observation would be reasonable. Within the liver there are multiple lesions that are thought to be cysts or hemangiomas and appear to be stable when compared to the imaging completed in March 2018, furthermore on this imaging they were not PET avid and are very unlikely to represent metastatic disease. No other abnormalities were noted on the scans. The CT neck demonstrates a very small (7 mm) intra-/posterior parotid lymph node that is enhancing and was active on the PET scan in March 2018. This was felt to be intraparotid on the PET scan and still does appear to be intraparotid to me on the current scan and also appears stable. 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 From 04/24/18 - 06/02/18: Received 6000 cGy in 30 fractions to the RUL and mediastinal disease. She was treated concurrently with weekly carbo/taxol. Patient returns for a follow-up approximately 3.5 months after completing chemoradiation. I reviewed in detail with the patient and her family the imaging findings, see imaging to have above. I believe that the treated disease has improved, the left upper lobe lesion remains stable, the new right lower lobe 5 mm lesion is too small to characterize on PET and too small to biopsy, all the liver abnormalities appear to be benign and stable from March 2018, and the right intra-/posterior parotid lymph node also appears to be stable. Of note the images read by the radiologist were not compared to the pretreatment images which were done outside, we have re-requested that the outside images be obtained for a true comparison. She will be referred to ENT for further workup of this intra-/posterior parotid lymph node to consider biopsy if possible. Medical oncology has discussed the option of initiating Durvalumab and she has considered this and will likely initiate treatment in October. I would plan to continue observation with a PET scan in 3 months to evaluate for disease response and ensure the left upper lobe and right lower lobe small lesions are stable and not PET avid. 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 I recommended continuing to eat a healthy well-balanced diet to maintain a stable weight and improve strength. I also encouraged increasing activity at home as tolerated to avoid physical deconditioning. I will have the patient return to clinic for follow-up following the PET scan in 3 months. The patient was instructed to follow-up with her primary care physician for other medical concerns and to call with any further questions or concerns in the interim. Junior Kyle DO, MS Chalk Machine Operator, Department of Radiation Oncology [facility] 09/14/18 1554 <Electronically signed by Junior Kyle DO> Date Junior Kyle DO CC: Amando Alston MD; Glenn Loza MD Signed SOFT TISSUE NECK WITH Observed: 09/06/2018 Status: F Source: MICAELA CONTRAST 12:27 PM [facility] REPOSITORY [facility] Imaging Services [address] [place] [id number] Soft Tissue Neck WITH Contrast MR#: [id number] Acct: [id number] Name: MARIETTA GHOSH Rep #: [id number] : 1940 F 78 From: Chai Chen MD PCP: Theresa Macias MD Status: [facility] CLI Study: Soft Tissue Neck WITH Contrast Date of Exam: 09/06/18 Exam# [id number] Ordering Dr: Glenn Loza MD ADDENDUM by Misha Gore MD on 09/15/18 at 0848 ADDENDUM This is an addendum report. Comparison is made with prior outside PET scan dated March 15, 2018. On the PET scan of the cervical region, there is a focal area of increased radiopharmaceutical uptake corresponding to the small enhancing lymph node seen on the CT scan. According to the CT scan, this lies posterior to the right parotid gland. Electronically Signed: Misha Gore MD at 8:48 EST Tel [phone], Service support , 09/15/18 0848 Date cc: Theresa Macias MD; Glenn Loza MD * Signed ADDENDUM by Misha Gore MD on 09/15/[address]/Soft Tissue Neck WITH Contrast 09/15/18 0855 Date cc: Theresa Macias MD; Glenn Loza MD * Signed STUDY: CT SOFT TISSUE NECK WITH CONTRAST REASON FOR EXAM: Female, 78 years old. Right parotid mass found on PET scan. RADIATION DOSAGE (If Supplied By Facility): CTDIvol = ( 18.56 ) mGy, DLP = ( 635.18 ) mGycm TECHNIQUE: The patient was scanned in a multi-detector CT scanner. High resolution transaxial imaging was performed following intravenous administration of 100 ml of Isovue 300 contrast material. Sagittal and coronal images were reconstructed. Individualized dose optimization techniques were used for this CT. COMPARISON: The PET scan with the right parotid mass was not submitted for comparison. FINDINGS: 0.7 x 0.4 x 0.7 cm enhancing lymph node behind the posterior caudal surface of the right parotid gland rather than intraparotid mass such as benign mixed tumor or intraparotid lymph node (series 2, images 86- 88; series 601, images 24-25; series 602, images 50-51). Normal bilateral parotid glands. Normal bilateral door patcher spaces. Normal bilateral parapharyngeal spaces. No suspicious mass in both carotid sheaths. Calcified plaques in both internal carotid artery bulbs causing approximately 50% stenosis of the right internal carotid artery but the left internal carotid artery remains widely patent. Medial posterior pharyngeal course of both cervical internal carotid arteries are developmental variations of normal. Normal bilateral sublingual and submandibular glands and spaces. Normal visualized nasopharynx. Normal retropharyngeal space. Normal perivertebral space. Normal visualized bilateral faucial tonsils. The visualized tongue, tongue base and oropharynx are normal. The visualized cervical lymph nodes (levels I-) are within normal size limits, and maintain normal morphology. There is no demonstrated solid or cystic mass lesion. There is no abnormal contrast enhancement. Normal epiglottis, bilateral vallecula and hypopharynx. The pre-epiglottic and paraglottic adipose spaces are normal. Normal visualized bilateral piriform sinuses, aryepiglottic folds, vocal cords, and arytenoid-cricoid articulations. Normal subglottic trachea. 0.9 cm hyperdense nodule in the left thyroid lobe. Multiple intralobular cysts in both lung apices. Mild interlobular septal thickening of the lung apices. Normal visualized paranasal sinuses. Pronounced disc space height narrowing at C3-C4 down to C6-C7 disc space levels. Moderately pronounced left C2-C3 degenerative facet arthropathy. Moderate left C3-C4 and C4-C5 degenerative facet arthropathy. OPINION: 1. 0.7 x 0.4 x 0.7 cm enhancing lymph node behind the posterior cortical surface of the right parotid gland rather than an intraparotid enhancing lymph node or benign enhancing mixed tumor. 2. No definite CT evidence of intraparotid mass. 3. 0.9 cm hyperdense solid nodule in the left thyroid lobe. 4. Mild interlobular septal thickening of the lung apices with multiple small intralobular cysts. 5. Suspicious 50% stenosis of the right proximal internal carotid artery bulb due to calcified atherosclerotic plaques. 6. No definite CT evidence of any suspicious mass in the suprahyoid neck and infrahyoid neck. 7. Pronounced disc space height narrowing at C3-C4 down to C6-C7 disc space levels. 8. Moderately pronounced left C2-C3 degenerative facet hypertrophy. 9. Moderate left C3-C4 and left C4-C5 degenerative facet arthropathy. Electronically Signed: Chai Chen MD at 15:03 EST , Service support , CT/Soft Tissue Neck WITH Contrast CC: Theresa Macias MD; Glenn Loza MD Programming Manager: Signed ONCOLOGY VISIT REPORT Observed: 09/06/2018 Status: F Source: SANDY 12:26 PM [facility] REPOSITORY [facility] [place] [address] OFFICE VISIT Date of Service: 09/06/18 1201 MR#: [id number] Acct: [id number] Name: MARIETTA GHOSH Rep #: [id number] : 1940 From: Glenn Loza MD Age/Sex: 78/F Location: OMD Status: Signed - Problem List (1) Primary cancer of right upper lobe of lung Status: Acute (2) Regional lymph node metastasis present Status: Acute (3) Nodule of left lung Status: Acute - Date of Service Date of Service:: 09/06/18 - Chief Complaint Lung cancer - History of Present Illness Patient is a 77-year-old female, smoker (till the diagnosis of cancer in April 2018) with a medical history notable for rheumatoid disease, chronic back pain due to spinal stenosis, dyslipidemia and GERD. She had an MRI in January 2018 to evaluate increasing back pain and two lung nodules were noted. 02/28/2018: CT chest demonstrated a dominant right upper lobe nodule measuring 2.1 x 1.7 x 2.5 cm, a left upper lobe nodule measuring 7 mm, and right hilar and right paratracheal adenopathy. 03/15/2018: PET scan demonstrated a hypermetabolic spiculated mass within the right upper lobe concerning for primary malignancy with a maximum SUV of 12.1, there is a small spiculated mass identified within the left upper lobe demonstrating mild FDG activity with SUV of 2.2, there are multiple hypermetabolic right hilar and right. Bronchial lymph nodes with maximum SUV of 11.1. Mildly hypermetabolic right paraesophageal/retrotracheal and precarinal lymph nodes are identified. Focal hypermetabolic activity is appreciated within the inferior right parotid gland and the trachea max SUV of 7.1. 03/24/2018: Patient underwent bronchoscopy with EBUS which demonstrated unremarkable airways, levels 4R, 4L, 7, and 11 are were all biopsied multiple times. Biopsies from 4R and 11R are consistent with adenocarcinoma and biopsies of 4L and level 7 showed no malignant cells were identified. Immunohistochemistry was nonspecific . She had bilateral screening mammograms -2017. 04/03/18: PFTs were completed. FEV1 was 105% predicted and DLCO 122% predicted. Conclusion was normal pulmonary function test. The left upper lung nodule is sub centimeters, with indeterminate SUV uptake and not amenable to guided biopsy and therefore will need to be followed up. Her workup was done at [facility]. Given the extent of her disease, suboptimal performance status and comorbidities she was felt not to be a surgical candidate and was referred for definitive concomitant chemoradiation. Treatment: * Combined chemoradiation with weekly carbo-taxol April 24, 2018-May 29, 2018 (6 weeks) Radiation treatment summary: 6000 cGy of 6 MV photons in 30 fractions to the RUL and mediastinal disease with a VMAT technique consisting of 2 arcs. Date of First Treatment: 04/24/18 Date of Last Treatment: 06/02/18 * Carbo-Taxol - Past Medical/Social History Past Medical History Cancer: Lung cancer Social History Social History: No changes Smoking Status Former smoker Review of Systems Constitutional:: Reports: Weakness, Fatigue - Chronic, a bit better since she finished her chemotherapy, Pain - Chronic back pain limits activities. Denies: Fever, Sweats, Weight loss, Appetite change, Chills Cardiovascular:: Denies: Chest pain, Palpitations, Dyspnea on exertion, Orthopnea, PND, Shortness of breath Respiratory: Reports: Cough, Sputum production - Mostly clear. Denies: Hemoptysis, Shortness of Breath, Wheezing Gastrointestinal:: Denies: Abdominal pain, Nausea, Vomiting, Diarrhea, Constipation, Hematochezia Genitourinary: Denies: Dysuria, Hematuria, 15, Flank pain Musculoskeletal:: Reports: Back pain - Chronic, limiting activities Has a nerve stimulator and is followed up by pain management, Does not wish to undergo back surgery in my age and condition. Denies: Myalgia, Arthralgia Skin: Denies: Rash, Skin Changes, Wounds Neurological:: Denies: Headache, Dizziness, Visual changes, Tinnitus, Hearing loss Psychiatric: Denies: Anxiety, Depression, Homicidal Ideations, Suicidal Ideations Vital Signs Height 5 ft 5.5 in Weight: 77.746 kg Weight in Pounds 171.4 lbs BMI 29.5 Pulse Ox 99 - Physical Exam General: Alert, Oriented x3, No apparent distress, - - ECOG 2 Seen in a wheelchair HEENT: Atraumatic, PERRLA, EOMI, Normocephalic, - - No parotid masses Oropharynx:: Dry mucosa Neck:: Supple, Trachea midline, - - Port okay. Negative for: JVD, bilateral Cardiac:: Regular rate, Regular rhythm, Normal S1, Normal S2. Negative for: Murmur Lungs: Clear to auscultation, Diminished, Excusion symmetrical. Negative for: Rhonchi, Wheezes Abdomen:: Soft, Non-tender, Non-distended. Negative for: Hepatosplenomegaly Extremities:: Negative for: Cyanosis, Edema Neurological: Neuro grossly intact Skin:: Negative for: Lesions, Rash, Petechiae, Ecchymosis Psychiatric:: Appropriate affect, Euthymic Lymphatics:: Negative for: Cervical lymphadenopathy, Supraclavicular lymphadenopathy Laboratory Data: Laboratory Tests WBC 5.3 (4.4-11.0) K/mm3 RBC 3.90 L (4.2-5.4) M/mm3 Hgb 12.5 (12.0-15.0) g/dl Hct 38.6 (37-47) % Diagnostic Data: Bone scan September 2018: IMPRESSION: 1. The increase in radiopharmaceutical concentration identified in the cervical, thoracic and lumbar spine, left sacroiliac joint, right hand, bilateral shoulders most consistent with degenerative arthritis. 2. There is no definitive scintigraphic evidence of diffuse axial skeletal metastatic disease on the current examination. CT chest September 2018: IMPRESSION: 1. 2.7 cm spiculated mass in the medial right upper lobe is consistent with patient's history of malignancy. A faint, irregular 6.5 mm density in the anterior right lower lobe near the pleural fissure is of uncertain etiology. 2. Emphysematous changes predominate in the upper lung zones. 3. Chemotherapy port in the soft tissues of the left anterior chest wall, its catheter tip in the superior vena cava. 4. Atherosclerotic vascular calcifications present. No demonstrated aneurysm. 5. Leads of an epidural stimulator terminate at T7-8. 6. Small hyperdensities in the liver may be hemangiomata. These do not clearly persist on portal vein phase imaging of the liver included with CT abdomen and pelvis also done today. 7. Small hiatal hernia. CT abdomen September 2018: IMPRESSION: 1. There are number of low-density lesions in the liver, as described, some of which are cysts. Others are more difficult to characterize, with differential including complicated cysts, hemangiomata, or neoplasm of indeterminate etiology. One, at the posterior medial right lobe of liver (series 3 images 23-24) may involve fullness of the anterior limb of the right adrenal gland. Correlation with any previous outside imaging would be useful. If not available, one might consider characterization with ultrasound or, if clinically feasible, MRI. 2. The generator of a spinal stimulator is seen in the soft tissues of the mid right back. Its leads extend into the posterior epidural space to point outside the [id number]. 3. Prior L3-S1 discectomies with prostheses as well as posterior lumbosacral fusion with metal hardware, as noted. There are also degenerative changes of the spine and sacroiliac joints. 4. Aortoiliac atherosclerotic calcific plaquing which, by itself, portends at least moderate risk for future cardiovascular event, Abdominal Aortic Calcific Deposits Are an Important Predictor of Vascular Morbidity and Mortality; Salvatore Liriano, et al. Circulation, Dec 2000;103:0503-7224. 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 5. 7.5 mm posterior cortical low density at the mid pole of left kidney, likely a cyst. No hydronephrosis. 6. The bowel is unremarkable without signs of obstruction. The appendix is not visualized. Assessment and Plan #1. 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 She concluded the combined modality phase June 02, 2018 , and 2 cycles of consolidation systemic chemotherapy July 26, 2018. CT imaging September 2018 does not suggest distant metastatic disease (initial reading), final comparison to PET/CT of March 2018 pending. #2. An indeterminate right parotid gland uptake noted March 2018 will follow up with a dedicated CT of the soft tissues of the neck. If concerning will refer to ENT for a biopsy #3. Discussed consolidation with Durvalumab (anti-PDL 1 immune therapy) maintenance for 1 year which in clinical trials was shown to increase progression free survival from the median of about 6 months to 18 months. Patient was provided with patient educational material and she requested a week before she makes up a decision. #4. Chronic back pain and spinal stenosis, no evidence of bone metastatic disease by bone scan September 2018. Continue treatment and follow-up with pain management . Impression and plan discussed with patient and multiple family members. If she declines Durva, we will follow-up in 3 months with a PET/CT. Medications: Prescriptions This Visit Medication Instructions Recorded Primary Care Provider: Theresa Macias Referring Provider: SALVATORE BAHENA 09/06/18 1226 <Electronically signed by Glenn Loza MD> Date Glenn Loza MD Cosigner Signature: Date (if applicable) CC: Theresa Macias MD; Junior Kyle DO CBC W/DIFF, AUTOMATED Collected: 09/06/2018 Status: F Source: MICAELA 10:53 AM [facility] REPOSITORY Order Comment: Reason for Laboratory Test . TYPE CODE TESTS RESULT OUT OF RANGE REFERENCE UNITS LAB L100.1000 4.4-11.0 K/mm3 Normal WBC 5.3 LAB L100.1200 4.2-5.4 M/mm3 Low RBC 3.90 LAB L100.1300 12.0-15.0 g/dl Normal HGB 12.5 LAB L100.1400 37-47 % Normal HCT 38.6 LAB L100.1500 81-99 fL Normal MCV 99.0 LAB L100.1600 27.0-32.0 pg High MCH 32.1 LAB L100.1700 32-36 g/gl Normal MCHC 32.4 LAB L100.1810 11.6-14.6 % High RDW CV 14.9 LAB L100.1820 35.1-43.9 fl High RDW SD 53.6 LAB L100.1900 150-450 K/mm3 Normal PLT 164 LAB L100.2000 6.2-12.0 fl Normal MPV 10.8 LAB L100.2100 47-70 % High NEUT% 77.6 LAB L100.2200 19-41 % Low LY% 12.3 LAB L100.2300 0-10 % Normal MONO% 9.1 LAB L100.2400 0-5 % Normal EO% 0.8 LAB L100.2500 0-1 % Normal BASO% 0.2 LAB L100.2550 0.0-0.9 % Normal IM GRAN % 0.000 Result Comment: IG% - Immature Granulocytes (promyelocytes, myelocytes and metamyelocytes) > 1% indicates that a LEFT SHIFT is Present. LAB L100.2620 2.0-7.7 X10 3/uL Normal Absolute Neut 4.1 LAB L100.2720 0.83-4.51 X10 3/ul Low Absolute Lymph 0.65 Performed By: #### L100.0100 #### [facility] [address] [place], [place], [address] COMPREHENSIVE METABOLIC Collected: 09/06/2018 Status: F Source: [facility] 10:53 AM [facility] REPOSITORY Order Comment: Reason for Laboratory Test . TYPE CODE TESTS RESULT OUT OF RANGE REFERENCE UNITS LAB L501.0100 74-106 mg/dL High GLU 111 Result Comment: Fasting Glucose result from 100 to 125 mg/dL suggests IMPAIRED HOMEOSTASIS per A.D.A. criteria. Please note revised GLUCOSE reference range effective 2017. LAB L501.1000 7-18 mg/dL Normal BUN 18 LAB L501.1100 0.55-1.02 mg/dL Normal CREAT,SERUM 0.80 Result Comment: The validity of the calculated GFR AND GFRAA in patients over 70 years has not been determined. Clinical correlation is essential. LAB L501.1110 >60 mL/min Normal EST GFR 74 Result Comment: Non- GFR Calc LAB L501.1115 >60 mL/min Normal EST GFR - AA 90 Result Comment: GFR Calc LAB L501.1255 ml/min Normal Estimated CRCL 52.99 LAB L501.1300 10-20 RATIO High BUN/CRE 22.6 LAB L501.1500 6.4-8. g/dL Normal 2 T PROT 7.6 LAB L501.1800 3.2-5. g/dL Normal 0 ALB 3.3 LAB L501.1950 2.2-4. g/dL High 2 GLOB 4.3 LAB L501.2000 0.9-2. RATIO Low 4 A/G 0.8 LAB L501.2200 8.5-10 mg/dL Normal .1 CA 8.8 LAB L501.4100 15-37 U/L Low AST 9 LAB L501.4305 45-117 U/L High ALK P 120 LAB L501.4405 13-56 U/L Normal ALT 13 LAB L501.4600 0.20-1 mg/dL Normal .00 T BILI 0.30 LAB L501.5300 136-14 mmol/L Normal 5 NA 141 LAB L501.5600 3.5-5. mmol/L Normal 1 K 3.9 LAB L501.5900 98-107 mmol/L High CL 109 LAB L501.6100 21.0-3 mmol/L Normal 2.0 CO2 27.0 LAB L501.6200 5-15 Normal GAP 5 Performed By: #### L500.4050 #### [facility] [address] [place], [address] CREATININE FINGERSTICK Collected: 09/04/2018 Status: F Source: MICAELA 11:47 AM [facility] REPOSITORY TYPE CODE TESTS RESULT OUT OF RANGE REFERENCE UNITS LAB L9100.0210 0.55-1.02 mg/dL Normal CREATININE WB 1.0 Performed By: #### L9100.0200 #### [facility] Point of Care [address] [facility] [place] [address] ABDOMEN WITH IV Observed: 09/04/2018 Status: F Source: MICAELA CONTRAST 11:38 AM [facility] REPOSITORY [facility] Imaging Services [address] [place] [address] Abdomen WITH IV Contrast MR#: [id number] Acct: [id number] Name: MARIETTA GHOSH Rep #: [id number] : 1940 F 78 From: Alex Ortiz MD PCP: Theresa Macias MD Status: REG CLI Study: Abdomen WITH IV Contrast Date of Exam: 09/04/18 Exam# [id number] Ordering Dr: Junior Kyle DO ADDENDUM by Misha Gore MD on 09/15/18 at 0840 ADDENDUM This is an addendum report. Comparison is made with prior outside PET scan dated March 15, 2018. Increased radiopharmaceutical uptake is seen in the right hilar tracheal and right hilar regions. No abnormal uptake is seen within the abdomen. Electronically Signed: Misha Gore MD at 8:40 EST Tel [phone], Service support , 09/15/18 0840 Date cc: Theresa Macias MD; DO Shelbie Brown Signed ADDENDUM by Mal Ortiz on 09/04/18 at 1448 ADDENDUM No oral contrast was given. Electronically Signed: Mal Ortiz MD at 14:48 EST , Service support , 09/04/18 1448 Date cc: Theresa Macias MD; DO Shelbie Brown Signed ADDENDUM by Misha Gore MD on 09/15/[address]/Abdomen WITH IV Contrast 09/15/18 0846 Date cc: Theresa Macias MD; Junior Kyle DO * Signed ADDENDUM by Mal Ortiz on 09/04/[address]/Abdomen WITH IV Contrast 09/04/18 1454 Date cc: Theresa Macias MD; Junior Kyle DO * Signed STUDY: CT ABDOMEN WITH CONTRAST REASON FOR EXAM: Female, 78 years old. Lung cancer, restaging. RADIATION DOSAGE (If Supplied By Facility): CTDIvol = ( 14.62 ) mGy, DLP = ( 1186.88 ) mGycm TECHNIQUE: Transaxial images were obtained post I.V. administration of 100 ml of Isovue 300 contrast, and oral contrast. Sagittal and coronal images were reconstructed. Individualized dose optimization techniques were used for this CT. COMPARISON: None. FINDINGS: Minor subsegmental atelectasis or scarring in the anteromedial right middle lobe and inferior lingula of the left upper lobe. The heart size is normal. Very small right anterolateral pericardial effusion/thickening. Atherosclerotic calcifications noted in the coronary arteries and visualized distal descending thoracic aorta. Smoothly lobulated, partially septated, well-defined 4.4 x 4.05 x 4.0 cm subcapsular cyst of 14-15 Hounsfield unit density seen in the medial lower right lobe of liver a second 1.55 x 1.45 x 1.4 cm cyst is suggested at the posterior margin of the falciform ligament. A pair of mildly heterogeneous or enhancing lesions in the posterior upper right lobe of liver (series 3 image 23) hypodensity over 55 Hounsfield units are more difficult to characterize. The more medial of these may incorporate vague fullness of the adjacent anterolateral limb of the right adrenal gland. 7.5 mm similar-appearing rounded low density noted in the dome of the liver (series 3 image 14); there is an 8 mm well-defined low-density in the anterior subcapsular aspect of the medial left lobe of the liver (series 604 image 35) and a 5 mm rounded low density in the anterior inferior left lobe liver on series 3 image 40, series 604 image 33. Possible 14 mm subcapsular mixed density structure at the inferior left lobe of the liver on series 604 image 41 may be artifact. The patent portal vein diameter is 13.5 mm. Normal gallbladder and extrahepatic biliary system. The common bile duct diameter is 5 mm. Normal spleen. Normal pancreas. Normal left adrenal gland. Normal right kidney. 7.5 mm subcapsular low density in the posterior cortex of the midpole the left kidney is likely a cyst. No hydronephrosis. There is a small hiatal hernia. Normal small intestine. There is redundant, elongated right colon with the cecum in the anterior mid right flank. There is non-visualization of the appendix. There is diffuse atherosclerotic calcification of the abdominal aorta and visualized proximal iliac arteries. 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 Normal inferior vena cava. Normal retroperitoneum. There is a small umbilical hernia containing fat. There are diffuse degenerative changes of the visualized lumbar spine as well as degenerative arthroses of the bilateral sacroiliac joints. The patient has undergone L3-S1 discectomies as well as plate posterior lumbosacral fusion, with bilateral transpedicular screws connected on either side by longitudinal metal rods from L3-S1. There is mild retrolisthesis of L2 on L3. The generator of a spinal stimulator resides in the soft tissues of the medial right back at the L2 level. Its leads enter the posterior epidural space at T11-12, continuing to a point outside the [id number]. CT/Abdomen WITH IV Contrast IMPRESSION: 1. There are number of low-density lesions in the liver, as described, some of which are cysts. Others are more difficult to characterize, with differential including complicated cysts, hemangiomata, or neoplasm of indeterminate etiology. One, at the posterior medial right lobe of liver (series 3 images 23-24) may involve fullness of the anterior limb of the right adrenal gland. Correlation with any previous outside imaging would be useful. If not available, one might consider characterization with ultrasound or, if clinically feasible, MRI. 2. The generator of a spinal stimulator is seen in the soft tissues of the mid right back. Its leads extend into the posterior epidural space to point outside the [id number]. 3. Prior L3-S1 discectomies with prostheses as well as posterior lumbosacral fusion with metal hardware, as noted. There are also degenerative changes of the spine and sacroiliac joints. 4. Aortoiliac atherosclerotic calcific plaquing which, by itself, portends at least moderate risk for future cardiovascular event, Abdominal Aortic Calcific Deposits Are an Important Predictor of Vascular Morbidity and Mortality; Salvatore Liriano et al. Circulation, Dec 2000;103:2495-2788. 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 5. 7.5 mm posterior cortical low density at the mid pole of left kidney, likely a cyst. No hydronephrosis. 6. The bowel is unremarkable without signs of obstruction. The appendix is not visualized. 7. Electronically Signed: Mal Ortiz MD at 13:16 EST , Service support , CC: Theresa Macias MD; Junior Kyle DO Programming Manager: Signed CHEST WITH CONTRAST Observed: 09/04/2018 Status: F Source: MICAELA 11:38 AM [facility] REPOSITORY [facility] Services [address] [place] [id number] Chest WITH Contrast MR#: [id number] Acct: [id number] Name: MARIETTA GHOSH Rep #: [id number] : 1940 F 78 From: Alex Ortiz MD PCP: Theresa Macias MD Status: REG CLI Study: Chest WITH Contrast Date of Exam: 09/04/18 Exam# [id number] Ordering Dr: Junior Kyle DO ADDENDUM by Mal Ortiz on 09/18/18 at 1227 ADDENDUM PET/CT March 15, 2018 made available for comparison following this report: - The 2.7 cm spiculated mass lesion in the medial right upper lobe is grossly unchanged. - Faint, irregular 6.5 mm density in the anterior right lower lobe was not apparent on the PET/CT, nor was there a typical glucose uptake at this site. As such, this remains of indeterminate etiology. - Hyperdensities near the dome of the liver also were not seen on the PET/CT, likely in large part is that was a non- IV contrast exam. There is no demonstrated abnormal glucose uptake at this site, again lending to be identified these are hemangiomata. - The small hiatal hernia is mildly increased in size on this exam. - Chemotherapy port in the soft tissues of the left anterior chest wall is new since the PET/CT. The epidural stimulator is stable. Electronically Signed: Mal Ortiz MD at 12:27 EST , Service support , 09/18/18 1227 Date cc: Theresa Macias MD; Junior Kyle DO * Signed ADDENDUM by Mal Ortiz on 09/18/[address]/Chest WITH Contrast 09/18/18 1233 Date cc: Theresa Macias MD; Junior Kyle DO * Signed STUDY: CT CHEST/THORAX WITH CONTRAST REASON FOR EXAM: Female, 78 years old. Lung cancer, restaging. RADIATION DOSAGE (If Supplied By Facility): CTDIvol = ( 14.62 ) mGy, DLP = ( 1186.88 ) mGycm TECHNIQUE: Transaxial imaging was performed following intravenous administration of 100 ml of Isovue 300 contrast material. Multiplanar coronal and sagittal images were reformatted. Individualized dose optimization techniques were used for this CT. COMPARISON: None. FINDINGS: A left chest wall chemotherapy port is in the subclavicular tissues, its catheter passing from the jugular vein to the superior vena cava. Emphysematous changes predominate in the upper lung zones. Spiculated 2.7 x 1.5 x 0.85 cm lesion in the medial right upper lobe is consistent with the patient's history of malignancy. There were a few tails extending to the medial pleural surface. Irregular, faint 6.5 mm density in the right lower lobe near the pleural fissure series 6 image 87, series 601 image 143 is of uncertain etiology. There is subsegmental atelectasis or scarring in the anteromedial periphery of the right middle lobe and inferior lingula of the left upper lobe. There is no demonstrated pleural abnormality. Normal heart and pericardium. There are calcifications of the coronary arteries. Normal mediastinum. Normal hilar regions. Normal enhanced pulmonary arteries. There is atherosclerotic calcification of the aortic arch, proximal brachiocephalic arteries, and descending thoracic aorta. Degenerative anterior endplate osteophytes seen in the lower most cervical spine and at T3-4. Leads of an epidural stimulator enter the spinal canal at T11-12, terminating at T7-8. Irregular 12 mm hyperdensity in the dome of the liver on series 2 image 120, series 601 image 150 suggests a hemangioma. This is virtually inapparent on the images of the liver also obtained on CT abdomen and pelvis today during the portal venous phase. Question of 2 similar, smaller lesions in the posterior lateral right lobe on images 131-132. There is a small hiatal hernia. CT/Chest WITH Contrast IMPRESSION: 1. 2.7 cm spiculated mass in the medial right upper lobe is consistent with patient's history of malignancy. A faint, irregular 6.5 mm density in the anterior right lower lobe near the pleural fissure is of uncertain etiology. 2. Emphysematous changes predominate in the upper lung zones. 3. Chemotherapy port in the soft tissues of the left anterior chest wall, its catheter tip in the superior vena cava. 4. Atherosclerotic vascular calcifications present. No demonstrated aneurysm. 5. Leads of an epidural stimulator terminate at T7-8. 6. Small hyperdensities in the liver may be hemangiomata. These do not clearly persist on portal vein phase imaging of the liver included with CT abdomen and pelvis also done today. 7. Small hiatal hernia. Electronically Signed: Mal Ortiz MD at 13:57 EST , Service support , CC: Theresa Macias MD; Junior Kyle DO Programming Manager: Signed BONE SCAN WHOLE Observed: 09/04/2018 Status: F Source: SANDY BODY 8:11 AM [facility] REPOSITORY [facility] Imaging Services [address] [place] [address] Bone Scan Whole Body MR#: [id number] Acct: [id number] Name: MARIETTA GHOSH Rep #: [id number] : 1940 F 78 From: Hans Moran DO PCP: Theresa Macias MD Status: REG CLI Study: Bone Scan Whole Body Date of Exam: 09/04/18 Exam# [id number] Ordering Dr: Junior Kyle DO CLINICAL: 78-year-old female with reported history of primary lung carcinoma. WHOLE BODY 99m Tc MDP RADIONUCLIDE BONE SCINTIGRAPHY COMPARISON: CT of the chest, abdomen and pelvis reports 09/04/2018 FINDINGS: Following the intravenous administration of 26.7 mCi of 99m Tc MDP, whole body bone images reveal: 1. Increased radiopharmaceutical concentration is defined in the mid cervical spine posteriorly on the left and right, lower cervical spine posteriorly on the left, first thoracic vertebra posteriorly in the midline, the lumbar vertebra posteriorly on the left, the right hand, left sacroiliac joint, sternoclavicular compartments of both shoulders. 2. The remaining skeletal structures are scintigraphically unremarkable with normal-appearing renal images and urinary bladder activity identified. The visualized left hip arthroplasty demonstrates no evidence of abnormal increased radiopharmaceutical concentration. Facilitated uptake is defined in the bilateral maxillae and inter-orbital aspect of the calvarium consistent with periostitis. NM/Bone Scan Whole Body IMPRESSION: 1. The increase in radiopharmaceutical concentration identified in the cervical, thoracic and lumbar spine, left sacroiliac joint, right hand, bilateral shoulders most consistent with degenerative arthritis. 2. There is no definitive scintigraphic evidence of diffuse axial skeletal metastatic disease on the current examination. Electronically Signed: Hans Moran DO at 9:59 EST Tel , Service support , CC: Theresa Macias MD; Junior Kyle DO Programming Manager: Signed ONCOLOGY VISIT REPORT Observed: 08/03/2018 Status: F Source: MICAELA 10:00 AM [facility] REPOSITORY [facility] [address] [place] [address] OFFICE VISIT Date of Service: 08/03/18 0937 MR#: [id number] Acct: [id number] Name: MARIETTA GHOSH Rep #: [id number] : 1940 From: Glenn Loza MD Age/Sex: 78/F Location: OMD Status: Signed - Problem List (1) Primary cancer of right upper lobe of lung Status: Acute (2) Regional lymph node metastasis present Status: Acute (3) Nodule of left lung Status: Acute - Date of Service Date of Service:: 08/03/18 - Chief Complaint Lung cancer - History of Present Illness Patient is a 77-year-old female, smoker (till the diagnosis of cancer in April 2018) with a medical history notable for rheumatoid disease, chronic back pain due to spinal stenosis, dyslipidemia and GERD. She had an MRI in January 2018 to evaluate increasing back pain and two lung nodules were noted. 02/28/2018: CT chest demonstrated a dominant right upper lobe nodule measuring 2.1 x 1.7 x 2.5 cm, a left upper lobe nodule measuring 7 mm, and right hilar and right paratracheal adenopathy. 03/15/2018: PET scan demonstrated a hypermetabolic spiculated mass within the right upper lobe concerning for primary malignancy with a maximum SUV of 12.1, there is a small spiculated mass identified within the left upper lobe demonstrating mild FDG activity with SUV of 2.2, there are multiple hypermetabolic right hilar and right. Bronchial lymph nodes with maximum SUV of 11.1. Mildly hypermetabolic right paraesophageal/retrotracheal and precarinal lymph nodes are identified. Focal hypermetabolic activity is appreciated within the inferior right parotid gland and the trachea max SUV of 7.1. 03/24/2018: Patient underwent bronchoscopy with EBUS which demonstrated unremarkable airways, levels 4R, 4L, 7, and 11 are were all biopsied multiple times. Biopsies from 4R and 11R are consistent with adenocarcinoma and biopsies of 4L and level 7 showed no malignant cells were identified. Immunohistochemistry was nonspecific . She had bilateral screening mammograms -2017. 04/03/18: PFTs were completed. FEV1 was 105% predicted and DLCO 122% predicted. Conclusion was normal pulmonary function test. The left upper lung nodule is sub centimeters, with indeterminate SUV uptake and not amenable to guided biopsy and therefore will need to be followed up. Her workup was done at [facility]. Given the extent of her disease, suboptimal performance status and comorbidities she was felt not to be a surgical candidate and was referred for definitive concomitant chemoradiation. Treatment: * Combined chemoradiation with weekly carbo-taxol April 24, 2018-May 29, 2018 (6 weeks) Radiation treatment summary: 6000 cGy of 6 MV photons in 30 fractions to the RUL and mediastinal disease with a VMAT technique consisting of 2 arcs. Date of First Treatment: 04/24/18 Date of Last Treatment: 06/02/18 * Carbo-Taxol - Interval History Toxicity check visit - Past Medical/Social History Past Medical History Cancer: Lung cancer Social History Social History: No changes Smoking Status Former smoker Review of Systems Constitutional:: Reports: Weakness, Fatigue, Appetite change. Denies: Fever, Sweats, Weight loss, Chills Cardiovascular:: Reports: Dyspnea on exertion. Denies: Chest pain, Palpitations, Orthopnea, PND, Shortness of breath Respiratory: Reports: Cough, Shortness of breath upon exertion, Sputum production - Chronic. Denies: Hemoptysis, Shortness of Breath, Wheezing Gastrointestinal:: Denies: Abdominal pain, Nausea, Vomiting, Diarrhea, Constipation, Hematochezia Genitourinary: Denies: Dysuria, Hematuria, 15, Flank pain Musculoskeletal:: Reports: Back pain - Chronic due to spinal stenosis. Denies: Myalgia, Arthralgia Skin: Denies: Rash, Skin Changes, Wounds Neurological:: Denies: Headache, Dizziness, Visual changes, Tinnitus, Hearing loss Psychiatric: Denies: Anxiety, Depression, Homicidal Ideations, Suicidal Ideations Vital Signs Height 5 ft 5.5 in Weight: 78.925 kg Weight in Pounds 174.0 lbs BMI 29.5 Pulse Ox 97 - Physical Exam General: Alert, Oriented x3, No apparent distress, - - ECOG 2 Seen in a wheelchair HEENT: Atraumatic, PERRLA, EOMI, Normocephalic Oropharynx:: Dry mucosa Neck:: Supple, Trachea midline, - - Port okay. Negative for: JVD, bilateral Cardiac:: Regular rate, Regular rhythm, Normal S1, Normal S2. Negative for: Murmur Lungs: Clear to auscultation, Diminished, Excusion symmetrical. Negative for: Rhonchi, Wheezes Abdomen:: Soft, Non-tender, Non-distended. Negative for: Hepatosplenomegaly Extremities:: Negative for: Cyanosis, Edema Neurological: Neuro grossly intact Skin:: Negative for: Lesions, Rash, Petechiae, Ecchymosis Psychiatric:: Appropriate affect, Euthymic Lymphatics:: Negative for: Cervical lymphadenopathy, Supraclavicular lymphadenopathy Laboratory Data: Laboratory Tests Assessment and Plan #1. 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 Patient has indeterminate sub-centimeters left upper lobe nodule that will need to be followed up. Patient is not a surgical candidate due to extent of disease and comorbid conditions. She is a candidate for definitive chemoradiation with an intent to cure. She concluded the combined modality phase June 02, 2018 , She concluded 2 cycles of consolidation systemic chemotherapy July 26, 2018. A toxicity check, anemia not severe enough to require transfusion and thrombocytopenia less than 50 K, hold aspirin for 1 week pending bone marrow recovery. #2. An indeterminate right parotid gland uptake will be followed up. #3. CT chest and abdomen and bone scan to reevaluate disease first week of September 2018. If in remission will consider consolidation with Durvalumab (anti- PDL 1 immune therapy) maintenance for 1 year. #4. Chronic back pain and spinal stenosis, continue tramadol with ibuprofen and follow-up with pain management in 1 month (recovery from her last chemotherapy) Impression and plan discussed with patient and family Medications: Prescriptions This Visit Medication Instructions Recorded Primary Care Provider: Theresa Macias Referring Provider: SALVATORE BAHENA 08/03/18 1000 <Electronically signed by Glenn Loza MD> Date Glenn Loza MD Cosigner Signature: Date (if applicable) CC: CBC W/DIFF, AUTOMATED Collected: 08/03/2018 Status: C Source: MICAELA 8:41 AM [facility] REPOSITORY Order Comment: Reason for Laboratory Test ALSO DRAW BLOODBANK TUBE FOR TYPE AND HOLD TYPE CODE TESTS RESULT OUT OF RANGE REFERENCE UNITS LAB L100.1000 4.4-11.0 K/mm3 Normal WBC 4.5 LAB L100.1200 4.2-5.4 M/mm3 Low RBC 3.41 LAB L100.1300 12.0-15.0 g/dl Low HGB 10.8 LAB L100.1400 37-47 % Low HCT 34.1 LAB L100.1500 81-99 fL High MCV 100.0 LAB L100.1600 27.0-32.0 pg Normal MCH 31.7 LAB L100.1700 32-36 g/gl Low MCHC 31.7 LAB L100.1810 11.6-14.6 % High RDW CV 16.0 LAB L100.1820 35.1-43.9 fl High RDW SD 58.5 LAB L100.1900 150-450 K/mm3 Low alert PLT 30 Result Comment: RESULTS CALLED TO JOYCE HUNTER 08/03/18 0918 Francisca Sims. REPORT READ BACK BY SAME. LAB L100.2100 47-70 % Normal NEUT% 60.8 LAB L100.2200 19-41 % Low LY% 17.0 LAB L100.2300 0-10 % High MONO% 20.0 LAB L100.2400 0-5 % Normal EO% 1.8 LAB L100.2500 0-1 % Normal BASO% 0.2 LAB L100.2550 0.0-0.9 % Normal IM GRAN % 0.200 Result Comment: IG% - Immature Granulocytes (promyelocytes, myelocytes and metamyelocytes) > 1% indicates that a LEFT SHIFT is Present. LAB L100.2620 2.0-7.7 X10 3/uL Normal Absolute Neut 2.8 LAB L100.2720 0.83-4.51 X10 3/ul Low Absolute Lymph 0.77 LAB L100.4500 Normal SMEAR COMMENT SCANNED Result Comment: FEW BANDS NOTED LAB L100.5500 ADEQ Normal MKD PLT EST DEC LAB L100.5650 Normal LARGE PLT MORPH LAB L100.9900 Normal PATH REV Reviewed Result Comment: Macrocytic anemia. Marked Thrombocytopenia. Clinical correlation necessary. Jaquan Dowling D.O. 08/07/18 AMENDED REPORT 08/07/18 0843 PATH REV previously reported as: January velma Performed By: #### L100.0100 #### [facility] [address] [place], [address] ONCOLOGY VISIT REPORT Observed: 07/26/2018 Status: F Source: SANDY 9:49 AM [facility] REPOSITORY [facility] [address] [place] [address] OFFICE VISIT Date of Service: 07/26/18909 MR#: [id number] Acct: [id number] Name: MARIETTA GHOSH Rep #: [id number] : 1940 From: Glenn Loza MD Age/Sex: 78/F Location: OMD Status: Signed - Problem List (1) Primary cancer of right upper lobe of lung Status: Acute (2) Regional lymph node metastasis present Status: Acute (3) Nodule of left lung Status: Acute - Date of Service Date of Service:: 07/26/18 - Chief Complaint Lung cancer on treatment - History of Present Illness Patient is a 77-year-old female, smoker (till the diagnosis of cancer in April 2018) with a medical history notable for rheumatoid disease, chronic back pain due to spinal stenosis, dyslipidemia and GERD. She had an MRI in January 2018 to evaluate increasing back pain and two lung nodules were noted. 02/28/2018: CT chest demonstrated a dominant right upper lobe nodule measuring 2.1 x 1.7 x 2.5 cm, a left upper lobe nodule measuring 7 mm, and right hilar and right paratracheal adenopathy. 03/15/2018: PET scan demonstrated a hypermetabolic spiculated mass within the right upper lobe concerning for primary malignancy with a maximum SUV of 12.1, there is a small spiculated mass identified within the left upper lobe demonstrating mild FDG activity with SUV of 2.2, there are multiple hypermetabolic right hilar and right. Bronchial lymph nodes with maximum SUV of 11.1. Mildly hypermetabolic right paraesophageal/retrotracheal and precarinal lymph nodes are identified. Focal hypermetabolic activity is appreciated within the inferior right parotid gland and the trachea max SUV of 7.1. 03/24/2018: Patient underwent bronchoscopy with EBUS which demonstrated unremarkable airways, levels 4R, 4L, 7, and 11 are were all biopsied multiple times. Biopsies from 4R and 11R are consistent with adenocarcinoma and biopsies of 4L and level 7 showed no malignant cells were identified. Immunohistochemistry was nonspecific . She had bilateral screening mammograms -2017. 04/03/18: PFTs were completed. FEV1 was 105% predicted and DLCO 122% predicted. Conclusion was normal pulmonary function test. The left upper lung nodule is sub centimeters, with indeterminate SUV uptake and not amenable to guided biopsy and therefore will need to be followed up. Her workup was done at [facility]. Given the extent of her disease, suboptimal performance status and comorbidities she was felt not to be a surgical candidate and was referred for definitive concomitant chemoradiation. Treatment: * Combined chemoradiation with weekly carbo-taxol April 24, 2018-May 29, 2018 (6 weeks) Radiation treatment summary: 6000 cGy of 6 MV photons in 30 fractions to the RUL and mediastinal disease with a VMAT technique consisting of 2 arcs. Date of First Treatment: 04/24/18 Date of Last Treatment: 06/02/18 * Carbo-Taxol - Past Medical/Social History Past Medical History Cancer: Lung cancer Social History Social History: No changes Smoking Status Former smoker Review of Systems Constitutional:: Reports: Weakness, Fatigue - Chronic unchanged. Denies: Fever, Sweats, Weight loss, Appetite change, Chills Cardiovascular:: Reports: Dyspnea on exertion. Denies: Chest pain, Palpitations, Orthopnea, PND, Shortness of breath Respiratory: Reports: Cough, Shortness of breath upon exertion, Sputum production. Denies: Hemoptysis, Shortness of Breath, Wheezing Gastrointestinal:: Reports: Nausea - Occasional response to as needed Zofran, Constipation. Denies: Abdominal pain, Vomiting, Diarrhea, Hematochezia Genitourinary: Denies: Dysuria, Hematuria, 15, Flank pain Musculoskeletal:: Reports: Back pain - Chronic, acting up this week uses tramadol and ibuprofen with relief. Denies: Myalgia, Arthralgia Skin: Denies: Rash, Skin Changes, Wounds Neurological:: Reports: Numbness - Tips of fingers, not interfering with function. Denies: Headache, Dizziness, Visual changes, Tinnitus, Hearing loss Psychiatric: Denies: Anxiety, Depression, Homicidal Ideations, Suicidal Ideations Vital Signs Height 5 ft 5.5 in Weight: 80.104 kg Weight in Pounds 176.6 lbs BMI 29.5 Pulse Ox 98 - Physical Exam General: Alert, Oriented x3, No apparent distress, - - Seen in a wheelchair, ECOG 2, overweight HEENT: Atraumatic, PERRLA, EOMI, Normocephalic Oropharynx:: Dry mucosa Neck:: Supple, Trachea midline, - - Port okay. Negative for: JVD, bilateral Cardiac:: Regular rate, Regular rhythm, Normal S1, Normal S2. Negative for: Murmur Lungs: Clear to auscultation, Diminished, Excusion symmetrical. Negative for: Rhonchi, Wheezes Abdomen:: Soft, Non-tender, Non-distended. Negative for: Hepatosplenomegaly Extremities:: Negative for: Cyanosis, Edema Neurological: Neuro grossly intact Skin:: Negative for: Lesions, Rash, Petechiae, Ecchymosis Psychiatric:: Appropriate affect, Euthymic Lymphatics:: Negative for: Cervical lymphadenopathy, Supraclavicular lymphadenopathy Laboratory Data: CBC and CMP reviewed in EMR Assessment and Plan #1. 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 Patient has indeterminate sub-centimeters left upper lobe nodule that will need to be followed up. Patient is not a surgical candidate due to extent of disease and comorbid conditions. She is a candidate for definitive chemoradiation with an intent to cure. She concluded the combined modality phase June 02, 2018 , She is to conclude 2 cycles of consolidation systemic chemotherapy today. #2. An indeterminate right parotid gland uptake will be followed up. #3. CT chest and abdomen and bone scan to reevaluate disease first week of September 2018. If in remission will consider consolidation with Durvalumab (anti- PDL 1 immune therapy) maintenance for 1 year. #4. Chronic back pain and spinal stenosis, continue tramadol with ibuprofen and follow-up with pain management in 1 month (recovery from her last chemotherapy) Impression and plan discussed with patient and family Medications: Prescriptions This Visit Medication Instructions Recorded Primary Care Provider: Theresa Macias Referring Provider: SALVATORE BAHENA 07/26/18 0949 <Electronically signed by Glenn Loza MD> Date Glenn Loza MD Cosigner Signature: Date (if applicable) CC: Theresa Macias MD CBC W/DIFF, AUTOMATED Collected: 07/26/2018 Status: F Source: SANDY 8:46 AM [facility] REPOSITORY TYPE CODE TESTS RESULT OUT OF RANGE REFERENCE UNITS LAB L100.1000 4.4-11.0 K/mm3 Normal WBC 7.2 LAB L100.1200 4.2-5.4 M/mm3 Low RBC 3.74 LAB L100.1300 12.0-15.0 g/dl Low HGB 11.8 LAB L100.1400 37-47 % Normal HCT 37.3 LAB L100.1500 81-99 fL High MCV 99.7 LAB L100.1600 27.0-32.0 pg Normal MCH 31.6 LAB L100.1700 32-36 g/gl Low MCHC 31.6 LAB L100.1810 11.6-14.6 % High RDW CV 16.7 LAB L100.1820 35.1-43.9 fl High RDW SD 61.0 LAB L100.1900 150-450 K/mm3 Normal PLT 218 LAB L100.2000 6.2-12.0 fl Normal MPV 10.5 LAB L100.2100 47-70 % High NEUT% 94.1 LAB L100.2200 19-41 % Low LY% 3.9 LAB L100.2300 0-10 % Normal MONO% 1.8 LAB L100.2400 0-5 % Normal EO% 0.1 LAB L100.2500 0-1 % Normal BASO% 0.0 LAB L100.2550 0.0-0.9 % Normal IM GRAN % 0.100 Result Comment: IG% - Immature Granulocytes (promyelocytes, myelocytes and metamyelocytes) > 1% indicates that a LEFT SHIFT is Present. LAB L100.2620 2.0-7.7 X10 3/uL Normal Absolute Neut 6.8 LAB L100.2720 0.83-4.51 X10 3/ul Low Absolute Lymph 0.28 LAB L100.4500 Normal SMEAR COMMENT COMMENT Result Comment: SLIDE SCANNED - LYMPHOPENIA NOTED. Performed By: #### L100.0100 #### [facility] [address] [place], [address] COMPREHENSIVE METABOLIC Collected: 07/26/2018 Status: F Source: SANDY RENE 8:46 AM [facility] REPOSITORY Order Comment: Reason for Laboratory Test Chemotherapy TYPE CODE TESTS RESULT OUT OF RANGE REFERENCE UNITS LAB L501.0100 74-106 mg/dL High GLU 180 Result Comment: Fasting Glucose result greater than or equal to 126 mg/dL suggests DIABETES MELLITUS per A.D.A. criteria. Please note revised GLUCOSE reference range effective 2017. LAB L501.1000 7-18 mg/dL Normal BUN 17 LAB L501.1100 0.55-1.02 mg/dL Normal CREAT,SERUM 0.80 Result Comment: The validity of the calculated GFR AND GFRAA in patients over 70 years has not been determined. Clinical correlation is essential. LAB L501.1110 >60 mL/min Normal EST GFR 74 Result Comment: Non- GFR Calc LAB L501.1115 >60 mL/min Normal EST GFR - AA 90 Result Comment: GFR Calc LAB L501.1255 ml/min Normal Estimated CRCL 52.99 LAB L501.1300 10-20 RATIO High BUN/CRE 21.3 LAB L501.1500 6.4-8. g/dL Normal 2 T PROT 7.7 LAB L501.1800 3.2-5. g/dL Low 0 ALB 3.1 LAB L501.1950 2.2-4. g/dL High 2 GLOB 4.6 LAB L501.2000 0.9-2. RATIO Low 4 A/G 0.7 LAB L501.2200 8.5-10 mg/dL Normal .1 CA 8.9 LAB L501.4100 15-37 U/L Low AST 12 LAB L501.4305 45-117 U/L High ALK P 120 LAB L501.4405 13-56 U/L Normal ALT 18 LAB L501.4600 0.20-1 mg/dL Normal .00 T BILI 0.30 LAB L501.5300 136-14 mmol/L Normal 5 NA 138 LAB L501.5600 3.5-5. mmol/L Normal 1 K 4.0 LAB L501.5900 98-107 mmol/L Normal CL 103 LAB L501.6100 21.0-3 mmol/L Normal 2.0 CO2 27.0 LAB L501.6200 5-15 Normal GAP 8 Performed By: #### L500.4050 #### [facility] [address] [facility] [place], [address] ONCOLOGY VISIT REPORT Observed: 07/13/2018 Status: F Source: SANDY 2:21 PM [facility] REPOSITORY [facility] [address] [place] [address]. [place] [address] OFFICE VISIT Date of Service: 07/13/18 0930 MR#: [id number] Acct: [id number] Name: MARIETTA GHOSH Emily Rep #: [id number] : 1940 From: Ana COOK Age/Sex: 78/F Location: ONC Status: Signed Subjective - Date of Service Date of Service:: 07/13/18 - Chief Complaint Toxicity assessment- cycle 1 Carboplatin/Taxol - History of Present Illness Patient is a 77-year-old female, smoker (till the diagnosis of cancer in April 2018) with a medical history notable for rheumatoid disease, chronic back pain due to spinal stenosis, dyslipidemia and GERD. She had an MRI in January 2018 to evaluate increasing back pain and two lung nodules were noted. 02/28/2018: CT chest demonstrated a dominant right upper lobe nodule measuring 2.1 x 1.7 x 2.5 cm, a left upper lobe nodule measuring 7 mm, and right hilar and right paratracheal adenopathy. 03/15/2018: PET scan demonstrated a hypermetabolic spiculated mass within the right upper lobe concerning for primary malignancy with a maximum SUV of 12.1, there is a small spiculated mass identified within the left upper lobe demonstrating mild FDG activity with SUV of 2.2, there are multiple hypermetabolic right hilar and right. Bronchial lymph nodes with maximum SUV of 11.1. Mildly hypermetabolic right paraesophageal/retrotracheal and precarinal lymph nodes are identified. Focal hypermetabolic activity is appreciated within the inferior right parotid gland and the trachea max SUV of 7.1. 03/24/2018: Patient underwent bronchoscopy with EBUS which demonstrated unremarkable airways, levels 4R, 4L, 7, and 11 are were all biopsied multiple times. Biopsies from 4R and 11R are consistent with adenocarcinoma and biopsies of 4L and level 7 showed no malignant cells were identified. Immunohistochemistry was nonspecific . She had bilateral screening mammograms -2017. 04/03/18: PFTs were completed. FEV1 was 105% predicted and DLCO 122% predicted. Conclusion was normal pulmonary function test. The left upper lung nodule is sub centimeters, with indeterminate SUV uptake and not amenable to guided biopsy and therefore will need to be followed up. Her workup was done at [facility]. Given the extent of her disease, suboptimal performance status and comorbidities she was felt not to be a surgical candidate and was referred for definitive concomitant chemoradiation. Treatment: * Combined chemoradiation with weekly carbo-taxol April 24, 2018-May 29, 2018 (6 weeks) Radiation treatment summary: 6000 cGy of 6 MV photons in 30 fractions to the RUL and mediastinal disease with a VMAT technique consisting of 2 arcs. Date of First Treatment: 04/24/18 Date of Last Treatment: 06/02/18 * Carbo-Taxol 07/05/18 - Interval History The patient is presenting to clinic accompanied by sonFlorian for 1 week follow up. Received first full dose of carboplatin/Taxol on 07/05/18. Concerns today include diffuse bone ache x 1 week and dizziness accompanied by moderate to severe fatigue. + Intermittent nausea, well controlled with prn antiemetics, has not resulted in any episodes of emesis. Appetite poor, but states I'm forcing myself to eat. PO fluid intake likely inadequate. Numbness/tingling in fingertips and toes increased, is not interfering with ADLs. Denies any changes in exertional dyspnea or productive cough from baseline. Did receive flu shot on 06/29/18. H/o of chronic back pain. - Past Medical/Social History Past Medical History Cancer: Lung cancer Social History Social History: No changes Smoking Status Former smoker Review of Systems Constitutional:: Reports: Weakness, Fatigue. Denies: Fever, Sweats, Weight loss, Appetite change, Chills Cardiovascular:: Denies: Chest pain, Palpitations, Orthopnea, PND, Shortness of breath Respiratory: Reports: Shortness of Breath, Shortness of breath upon exertion. Denies: Cough, Hemoptysis, Wheezing Gastrointestinal:: Reports: Nausea. Denies: Abdominal pain, Vomiting, Diarrhea, Constipation, Melena, Hematochezia Genitourinary: Denies: Dysuria, Hematuria, Urinary frequency, Flank pain Musculoskeletal:: Reports: Back pain - chronic. Denies: Myalgia, Arthralgia Skin: Denies: Rash, Skin Changes, Wounds Neurological:: Reports: Numbness, Tingling - see HPI, Muscle weakness. Denies: Headache, Dizziness, Frequent falls, Visual changes, Tinnitus, Hearing loss Psychiatric: Denies: Anxiety, Depression, Homicidal Ideations, Suicidal Ideations Vital Signs Height 5 ft 5.5 in - Physical Exam General: Alert, Oriented x3, No apparent distress, - - Wheelchair HEENT: Atraumatic, Normocephalic Oropharynx:: Negative for: Dry mucosa, Ulcerated lesions Neck:: Supple, Trachea midline. Negative for: JVD, bilateral Cardiac:: Regular rate, Regular rhythm, Normal S1, Normal S2. Negative for: Murmur Lungs: Clear to auscultation, Wheezes - faint expiratory wheeze, Excusion symmetrical. Negative for: Rhonchi, Tachypneic, Increased respiratory effort Abdomen:: Bowel sounds x 4, Soft, Non-tender, Non-distended. Negative for: Hepatosplenomegaly Extremities:: Negative for: Cyanosis, Edema Neurological: Neuro grossly intact Skin:: - - Port left upper chest accessed with gripper covered with DSD. 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 Patient has indeterminate sub-centimeters left upper lobe nodule that will need to be followed up. Patient is not a surgical candidate due to extent of disease and comorbid conditions. She is a candidate for definitive chemoradiation with an intent to cure. 1. Stage IIIa NSCLC RUL- She concluded the combined modality phase June 02, 2018, commenced with cycle 1 of 2 full dose carboplatin/Taxol consolidation on 07/05/18. Tolerated fair with c/o intermittent nausea (well controlled with prn antiemetics) and fatigue. + Body ache likely attributable to Neulasta. CBC reviewed and acceptable for ZEB, platelets 60,000 WBC reflect G CSF, Hgb 11.8. HR 96, baseline is in the 70s and she is symptomatic by way of dizziness, thus will support with IVFs today. 2. An indeterminate right parotid gland uptake will be followed up. RTO 07/26/18 for consideration of cycle 2. Patient was in agreement with aforementioned plan. Ana Garcia, MSN, GRINDING OPERATOR, AOCNP Medications: Prescriptions This Visit Medication Instructions Recorded Primary Care Provider: Theresa Macias Referring Provider: SALVATORE BAHENA - Problem List (1) Non-small cell lung cancer Status: Chronic Qualifiers: Laterality: right Qualified Code(s): C34.91 - Malignant neoplasm of unspecified part of right bronchus or lung 07/13/18 1421 <Electronically signed by Ana SHORTC> Date Ana SHORTC Cosigner Signature: Date (if applicable) CC: ROSA W/DIFF, AUTOMATED Collected: 07/13/2018 Status: C Source: MICAELA 9:43 AM [facility] REPOSITORY Order Comment: Draw blood bank tube for type and hold. REDRAW. PREVIOUS SPECIMEN REJECTED DUE TO POSSIBLE CONTAMINATION. 07/13/18 0941 Chelsie Casiano. TYPE CODE TESTS RESULT OUT OF RANGE REFERENCE UNITS LAB L100.1000 4.4-11.0 K/mm3 High WBC 18.1 LAB L100.1200 4.2-5.4 M/mm3 Low RBC 3.78 LAB L100.1300 12.0-15.0 g/dl Low HGB 11.9 LAB L100.1400 37-47 % Normal HCT 37.1 LAB L100.1500 81-99 fL Normal MCV 98.1 LAB L100.1600 27.0-32.0 pg Normal MCH 31.5 LAB L100.1700 32-36 g/gl Normal MCHC 32.1 LAB L100.1810 11.6-14.6 % High RDW CV 16.4 LAB L100.1820 35.1-43.9 fl High RDW SD 58.8 LAB L100.1900 150-450 K/mm3 Low 60 PLT LAB L100.2000 6.2-12.0 fl High MPV 13.2 LAB L100.3100 MANUAL DIFF Normal CELLS COUNTED 100 LAB L100.3200 47-70 % 56 Normal SEGS LAB L100.3300 0-5 % High 6 BAND LAB L100.3400 0-1 % High 5 META LAB L100.3500 0-0 High 1 MYELO LAB L100.3600 0-0 High 8 PROMYELO LAB L100.3700 0-0 % High 2 alert BLAST LAB L100.3800 19-41 % Low 11 LYMPH LAB L100.3900 0-10 % 6 Normal MONOCYTE LAB L100.4000 0-5 % 3 Normal EOS LAB L100.4100 0-1 % 1 Normal BASOPHIL LAB L100.4200 % 1 Normal PLASMA CELL LAB L100.5500 ADEQ Normal PLT EST MOD DEC LAB L100.7000 NORM C AND C NORMAL Normal RED CELL MORPH NORM C+C LAB L100.2620 2.0-7.7 X10 3/uL High Absolute Neut 11.2 LAB L100.2720 0.83-4.51 X10 3/ul Normal Absolute Lymph 1.99 LAB L100.9900 Normal PATH REV Reviewed Result Comment: Leukocytosis and Neutrophilic left shift. A few immature cells consistent with blasts are noted. Clinical correlation necessary. Claus Burch M.D. 07/14/18 AMENDED REPORT 07/14/18 1115 PATH REV previously reported as: January velma Performed By: #### L100.0100 #### [facility] [address] [place], [address] ONCOLOGY FOLLOW-UP Observed: 07/03/2018 Status: F Source: SANDY VISIT 12:20 PM [facility] REPOSITORY [facility] Medical Records Department [address] [place] [address] Oncology Follow-Up Visit 07/03/18 1207 MR#: [id number] Acct: [id number] Name: MARIETTA GHOSH Rep #: [id number] : 1940 78 From: Junior Kyle DO PCP: Theresa Macias MD Status: REG RCR Y Location: [facility] Date of Service: 07/03/18 Last Clinic Visit: 06/02/18 Diagnosis: Marietta Ghosh is a 77 year-old female diagnosed with 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 From 04/24/18 - 06/02/18: Received 6000 cGy in 30 fractions to the RUL and mediastinal disease. She was treated concurrently with weekly carbo/taxol. History of Present Illness: 09/22/2017: Bilateral screening mammography was performed which demonstrated a glandular pattern bilaterally and symmetrical, no spicular density or clustered microcalcification or mass lesion is noted. BI-RADS Category 2. 02/08/2018: MRI of the thoracic and lumbar spine was completed for back pain and she was found to have bilateral pulmonary nodules noted. 02/28/2018: CT chest was completed which demonstrated a dominant right upper lobe nodule measuring 2.1 x 1.7 x 2.5 cm, a left upper lobe nodule measuring 7 mm, and right hilar and right paratracheal adenopathy. 03/15/2018: PET scan was performed which demonstrated a hypermetabolic spiculated mass within the right upper lobe concerning for primary malignancy with a maximum SUV of 12.1, there is a small spiculated mass identified within the left upper lobe demonstrating mild FDG activity with SUV of 2.2, there are multiple hypermetabolic right hilar and right. Bronchial lymph nodes with maximum SUV of 11.1. Mildly hypermetabolic right paraesophageal/retrotracheal and precarinal lymph nodes are identified. Focal hypermetabolic activity is appreciated within the inferior right parotid gland and the trachea max SUV of 7.1. There is nonspecific FDG activity within the sella with no definite CT correlate appreciated, MRI may be beneficial as the etiology is unclear. 03/24/2018: Patient underwent bronchoscopy with a EBUS which demonstrated unremarkable airways, levels 4R, 4L, 7, and 11 are were all biopsied multiple times. Biopsies from 4R and 11R are consistent with adenocarcinoma and biopsies of 4L and level 7 showed no malignant cells were identified. Immunohistochemistry was nonspecific but suggested possibly breast origin. 04/03/18: PFTs were completed. FEV1 was 105% predicted and DLCO 122% predicted. Conclusion was normal pulmonary function test. 04/12/18: Brain MRI was completed which showed no evidence of brain metastases. From 04/24/18 - 06/02/18: Received 6000 cGy in 30 fractions to the RUL and mediastinal disease. She was treated concurrently with weekly carbo/taxol. Radiation Treatment History: 1) From 04/24/18 - 06/02/18: Received 6000 cGy in 30 fractions to the RUL and mediastinal disease. She was treated concurrently with weekly carbo/taxol. Interval History: Patient returns for a one-month follow-up after completing definitive chemoradiation therapy. She reports healing well after a few weeks from completing treatment. She reports no pain with swallowing and no dysphasia or choking/coughing with swallowing. She denies having any skin irritation and denies having any worsening shortness of breath or cough. She denies hemoptysis or chest pain. She does report chronic but stable low back pain. She denies headaches, vision changes, ataxia, new bone pain. Patient reports a regular appetite and is eating an unrestricted diet with no difficulty, she reports her weight is stable. Energy is still mildly low but has improved. Patient lives alone and reports being able to complete all activities of daily living with minimal difficulty. She does use a cane to assist with her walking he denies having any falls. She reports no other problems or concerns at this time. I have reviewed the medical, surgical, and other pertinent history in details and have updated medication and allergy information in the electronic medical record. Review of Systems: A 12-point review of systems was completed and was negative except for what is noted in the HPI/Interval History and by the nurse. Height/Weight/BMI: Height: 5 ft 5.5 in Weight: 79.832 kg BMI: 29.5 Vital Signs Temperature 98.2 F 07/03/18 11:25 Temperature Source Oral 07/03/18 11:25 Pulse Rate 87 07/03/18 11:46 Respiratory Rate 16 07/03/18 11:46 Physical Exam: ECO KARNOFSKY SCORE: 70% CONSTITUTIONAL: Well-developed, well-nourished, and in no apparent distress. HEENT: Mucous membranes moist. No evidence of thrush or lesions within the visualized oropharynx or oral cavity. No trismus. Pupils are equal, round, and reactive to light and accommodation. Extraocular movements are intact. Sclerae are anicteric. NECK: Supple,with no thyromegaly, and non-tender. Trachea midline. No cervical or supraclavicular adenopathy noted. CARDIAC: Regular rate and rhythm. Normal S1, S2. No murmurs, rubs, or gallops. PULMONARY/CHEST: Lungs are clear to auscultation and percussion bilaterally. Mild wheezes in the right upper lung field otherwise no wheezes, rhonchi, or crackles noted. No increased work of breathing. ABDOMINAL: Abdomen soft, non-tender, non-distended. No hepatomegaly. Normoactive bowel sounds in all four quadrants. No guarding, rebound. BACK: Straight and aligned. No CVA tenderness. Axial skeleton with tenderness in the low spine but otherwise non-tender to percussion. EXTREMITIES: Full range of motion in all four extremities, with normal strength equally and symmetrically. No evidence of edema. No clubbing. NEUROLOGICAL EXAM: Alert and oriented x 3. Cranial nerves II through XII are grossly intact. No focal neurological deficit. Speech is fluent. There is no upper or lower extremity sensory deficit or motor deficit. Muscle strength is 5/5 in all muscle groups. Gait and posture are steady. PSYCHIATRIC: Appropriate mood and affect for the clinical situation. 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 From 04/24/18 - 06/02/18: Received 6000 cGy in 30 fractions to the RUL and mediastinal disease. She was treated concurrently with weekly carbo/taxol. Clinically the patient has healed very well and recovered from the noted radiation associated toxicities that she developed during concurrent chemoradiation. She met with medical oncology today and is planning to initiate 2 cycles of consolidative chemotherapy within the next week. I discussed with the patient the follow-up recommendation including a CT scan of the chest in 2 months (3 months after completion of chemoradiation) to evaluate the treated disease and also the very small left upper lobe lesion of unknown etiology that was found during workup but too small to be biopsied. I recommended continuing to eat a healthy well-balanced diet to maintain a stable weight and improve strength. I also encouraged increasing activity at home as tolerated to avoid physical deconditioning. I will have the patient return to clinic for follow-up following the CT chest in 2 months. The patient was instructed to follow-up with her primary care physician for other medical concerns and to call with any further questions or concerns in the interim. Junior Kyle DO, MS Chalk Machine Operator, Department of Radiation Oncology [facility] 07/03/18 1220 <Electronically signed by Junior Kyle DO> Date Junior Kyle DO CC: Glenn Loza MD Signed ONCOLOGY VISIT REPORT Observed: 07/03/2018 Status: F Source: MICAELA 11:53 AM [facility] [address] [place] [address] [place] [address] OFFICE VISIT Date of Service: 07/03/18 1050 MR#: [id number] Acct: [id number] Name: MARIETTA GHOSH Rep #: [id number] : 1940 From: Glenn Loza MD Age/Sex: 78/F Location: OMD Status: Signed - Problem List (1) Primary cancer of right upper lobe of lung Status: Acute (2) Regional lymph node metastasis present Status: Acute (3) Nodule of left lung Status: Acute - Date of Service Date of Service:: 07/03/18 - Chief Complaint Lung cancer - History of Present Illness Patient is a 77-year-old female, smoker (till the diagnosis of cancer in April 2018) with a medical history notable for rheumatoid disease, chronic back pain due to spinal stenosis, dyslipidemia and GERD. She had an MRI in January 2018 to evaluate increasing back pain and two lung nodules were noted. 02/28/2018: CT chest demonstrated a dominant right upper lobe nodule measuring 2.1 x 1.7 x 2.5 cm, a left upper lobe nodule measuring 7 mm, and right hilar and right paratracheal adenopathy. 03/15/2018: PET scan demonstrated a hypermetabolic spiculated mass within the right upper lobe concerning for primary malignancy with a maximum SUV of 12.1, there is a small spiculated mass identified within the left upper lobe demonstrating mild FDG activity with SUV of 2.2, there are multiple hypermetabolic right hilar and right. Bronchial lymph nodes with maximum SUV of 11.1. Mildly hypermetabolic right paraesophageal/retrotracheal and precarinal lymph nodes are identified. Focal hypermetabolic activity is appreciated within the inferior right parotid gland and the trachea max SUV of 7.1. 03/24/2018: Patient underwent bronchoscopy with EBUS which demonstrated unremarkable airways, levels 4R, 4L, 7, and 11 are were all biopsied multiple times. Biopsies from 4R and 11R are consistent with adenocarcinoma and biopsies of 4L and level 7 showed no malignant cells were identified. Immunohistochemistry was nonspecific . She had bilateral screening mammograms -2017. 04/03/18: PFTs were completed. FEV1 was 105% predicted and DLCO 122% predicted. Conclusion was normal pulmonary function test. The left upper lung nodule is sub centimeters, with indeterminate SUV uptake and not amenable to guided biopsy and therefore will need to be followed up. Her workup was done at [facility]. Given the extent of her disease, suboptimal performance status and comorbidities she was felt not to be a surgical candidate and was referred for definitive concomitant chemoradiation. Treatment: * Combined chemoradiation with weekly carbo-taxol April 24, 2018-May 29, 2018 (6 weeks) Radiation treatment summary: 6000 cGy of 6 MV photons in 30 fractions to the RUL and mediastinal disease with a VMAT technique consisting of 2 arcs. Date of First Treatment: 04/24/18 Date of Last Treatment: 06/02/18 * Carbo-Taxol - Past Medical/Social History Past Medical History Cancer: Lung cancer Social History Social History: No changes Smoking Status Former smoker Review of Systems Constitutional:: Reports: Weakness, Fatigue - Back to baseline prior to chemoradiation. Denies: Fever, Sweats, Weight loss, Appetite change, Chills Cardiovascular:: Reports: Dyspnea on exertion. Denies: Chest pain, Palpitations, Orthopnea, PND, Shortness of breath Respiratory: Reports: Shortness of breath upon exertion. Denies: Cough, Hemoptysis, Shortness of Breath, Wheezing Gastrointestinal:: Reports: Dysphagia - Normal and resuming normal diet. Denies: Abdominal pain, Nausea, Vomiting, Diarrhea, Constipation, Hematochezia Genitourinary: Denies: Dysuria, Hematuria, 15, Flank pain Musculoskeletal:: Reports: Back pain - Chronic. Denies: Myalgia, Arthralgia Skin: Denies: Rash, Skin Changes, Wounds Neurological:: Denies: Headache, Dizziness, Visual changes, Tinnitus, Hearing loss Psychiatric: Denies: Anxiety, Depression, Homicidal Ideations, Suicidal Ideations Vital Signs Height 5 ft 5.5 in Weight: 80.739 kg Weight in Pounds 178.0 lbs BMI 29.5 Pulse Ox 97 - Physical Exam General: Alert, Oriented x3, No apparent distress, - - ECOG 2 Seen in a wheelchair HEENT: Atraumatic, PERRLA, EOMI, Normocephalic Oropharynx:: Dry mucosa Neck:: Supple, Trachea midline, - - Port okay. Negative for: JVD, bilateral Cardiac:: Regular rate, Regular rhythm, Normal S1, Normal S2. Negative for: Murmur Lungs: Clear to auscultation, Diminished, Excusion symmetrical. Negative for: Rhonchi, Wheezes Abdomen:: Soft, Non-tender, Non-distended. Negative for: Hepatosplenomegaly Extremities:: Negative for: Cyanosis, Edema Neurological: Neuro grossly intact Skin:: Negative for: Lesions, Rash, Petechiae, Ecchymosis Psychiatric:: Appropriate affect, Euthymic Lymphatics:: Negative for: Cervical lymphadenopathy, Supraclavicular lymphadenopathy Laboratory Data: Reviewed in EMR Assessment and Plan #1. 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 Patient has indeterminate sub-centimeters left upper lobe nodule that will need to be followed up. Patient is not a surgical candidate due to extent of disease and comorbid conditions. She is a candidate for definitive chemoradiation with an intent to cure. She concluded the combined modality phase June 02, 2018 , She is to receive 2 full dose cycles of systemic chemotherapy to start within 1 week. #2. An indeterminate right parotid gland uptake will be followed up. Impression and plan discussed with patient and family Medications: Prescriptions This Visit Medication Instructions Recorded Amlodipine [Norvasc] 5 mg PO QHS 04/11/18 Atorvastatin Calcium [Lipitor] 40 mg PO QHS 04/11/18 Pantoprazole Sodium [Protonix] 40 mg PO DAILY 04/11/18 Primary Care Provider: Theresa Macias Referring Provider: SALVATORE BAHENA 07/03/18 1153 <Electronically signed by Glenn Loza MD> Date Glenn Loza MD Cosigner Signature: Date (if applicable) CC: CBC W/DIFF, AUTOMATED Collected: 07/03/2018 Status: F Source: MICAELA 10:57 AM [facility] REPOSITORY Order Comment: Reason for Laboratory Test . TYPE CODE TESTS RESULT OUT OF RANGE REFERENCE UNITS LAB L100.1000 4.4-11.0 K/mm3 Normal WBC 6.4 LAB L100.1200 4.2-5.4 M/mm3 Low RBC 4.00 LAB L100.1300 12.0-15.0 g/dl Normal HGB 12.5 LAB L100.1400 37-47 % Normal HCT 39.7 LAB L100.1500 81-99 fL High MCV 99.3 LAB L100.1600 27.0-32.0 pg Normal MCH 31.3 LAB L100.1700 32-36 g/gl Low MCHC 31.5 LAB L100.1810 11.6-14.6 % High RDW CV 17.8 LAB L100.1820 35.1-43.9 fl High RDW SD 64.6 LAB L100.1900 150-450 K/mm3 Normal PLT 204 LAB L100.2000 6.2-12.0 fl Normal MPV 11.1 LAB L100.2100 47-70 % High NEUT% 72.4 LAB L100.2200 19-41 % Low LY% 14.1 LAB L100.2300 0-10 % High MONO% 11.1 LAB L100.2400 0-5 % Normal EO% 1.9 LAB L100.2500 0-1 % Normal BASO% 0.3 LAB L100.2550 0.0-0.9 % Normal IM GRAN % 0.200 Result Comment: IG% - Immature Granulocytes (promyelocytes, myelocytes and metamyelocytes) > 1% indicates that a LEFT SHIFT is Present. LAB L100.2620 2.0-7.7 X10 3/uL Normal Absolute Neut 4.6 LAB L100.2720 0.83-4.51 X10 3/ul Normal Absolute Lymph 0.90 Performed By: #### L100.0100, L500.4050 #### [facility] [address] [place], [address] COMPREHENSIVE METABOLIC Collected: 07/03/2018 Status: F Source: SANDY REEN 10:57 AM [facility] REPOSITORY Order Comment: Reason for Laboratory Test . TYPE CODE TESTS RESULT OUT OF RANGE REFERENCE UNITS LAB L501.0100 74-106 mg/dL Normal GLU 77 Result Comment: Please note revised GLUCOSE reference range effective 2017. LAB L501.1000 7-18 mg/dL Normal BUN 16 LAB L501.1100 0.55-1.02 mg/dL Normal CREAT,SERUM 0.77 Result Comment: The validity of the calculated GFR AND GFRAA in patients over 70 years has not been determined. Clinical correlation is essential. LAB L501.1110 >60 mL/min Normal EST GFR 78 Result Comment: Non- GFR Calc LAB L501.1115 >60 mL/min Normal EST GFR - AA 94 Result Comment: GFR Calc LAB L501.1255 ml/min Normal Estimated CRCL 42.39 LAB L501.1300 10-20 RATIO High BUN/CRE 20.9 LAB L501.1500 6.4-8. g/dL Normal 2 T PROT 7.6 LAB L501.1800 3.2-5. g/dL Normal 0 ALB 3.3 LAB L501.1950 2.2-4. g/dL High 2 GLOB 4.3 LAB L501.2000 0.9-2. RATIO Low 4 A/G 0.8 LAB L501.2200 8.5-10 mg/dL Normal .1 CA 9.4 LAB L501.4100 15-37 U/L Low AST 11 LAB L501.4305 45-117 U/L Normal ALK P 94 LAB L501.4405 13-56 U/L Normal ALT 18 LAB L501.4600 0.20-1 mg/dL Normal .00 T BILI 0.50 LAB L501.5300 136-14 mmol/L Normal 5 NA 142 LAB L501.5600 3.5-5. mmol/L Normal 1 K 4.0 LAB L501.5900 98-107 mmol/L Normal CL 106 LAB L501.6100 21.0-3 mmol/L Normal 2.0 CO2 29.0 LAB L501.6200 5-15 Normal GAP 7 Performed By: #### L100.0100, L500.4050 #### [facility] [address] [place], [place], [id number] ONCOLOGY VISIT REPORT Observed: 06/19/2018 Status: F Source: MICAELA 10:43 AM [facility] REPOSITORY [facility] [address] [place] [address] OFFICE VISIT Date of Service: 06/19/18 1001 MR#: [id number] Acct: [id number] Name: MARIETTA GHOSH Rep #: [id number] : 1940 From: Glenn Loza MD Age/Sex: 78/F Location: ONC Status: Signed - Problem List (1) Primary cancer of right upper lobe of lung Status: Acute (2) Regional lymph node metastasis present Status: Acute (3) Nodule of left lung Status: Acute - Date of Service Date of Service:: 06/19/18 - Chief Complaint Lung cancer - History of Present Illness Patient is a 77-year-old female, smoker (till the diagnosis of cancer in April 2018) with a medical history notable for rheumatoid disease, chronic back pain due to spinal stenosis, dyslipidemia and GERD. She had an MRI in January 2018 to evaluate increasing back pain and two lung nodules were noted. 02/28/2018: CT chest demonstrated a dominant right upper lobe nodule measuring 2.1 x 1.7 x 2.5 cm, a left upper lobe nodule measuring 7 mm, and right hilar and right paratracheal adenopathy. 03/15/2018: PET scan demonstrated a hypermetabolic spiculated mass within the right upper lobe concerning for primary malignancy with a maximum SUV of 12.1, there is a small spiculated mass identified within the left upper lobe demonstrating mild FDG activity with SUV of 2.2, there are multiple hypermetabolic right hilar and right. Bronchial lymph nodes with maximum SUV of 11.1. Mildly hypermetabolic right paraesophageal/retrotracheal and precarinal lymph nodes are identified. Focal hypermetabolic activity is appreciated within the inferior right parotid gland and the trachea max SUV of 7.1. 03/24/2018: Patient underwent bronchoscopy with EBUS which demonstrated unremarkable airways, levels 4R, 4L, 7, and 11 are were all biopsied multiple times. Biopsies from 4R and 11R are consistent with adenocarcinoma and biopsies of 4L and level 7 showed no malignant cells were identified. Immunohistochemistry was nonspecific . She had bilateral screening mammograms -2017. 04/03/18: PFTs were completed. FEV1 was 105% predicted and DLCO 122% predicted. Conclusion was normal pulmonary function test. The left upper lung nodule is sub centimeters, with indeterminate SUV uptake and not amenable to guided biopsy and therefore will need to be followed up. Her workup was done at [facility]. Given the extent of her disease, suboptimal performance status and comorbidities she was felt not to be a surgical candidate and was referred for definitive concomitant chemoradiation. Treatment: * Combined chemoradiation with weekly carbo-taxol April 24, 2018-May 29, 2018 (6 weeks) Radiation treatment summary: 6000 cGy of 6 MV photons in 30 fractions to the RUL and mediastinal disease with a VMAT technique consisting of 2 arcs. Date of First Treatment: 04/24/18 Date of Last Treatment: 06/02/18 * Carbo-Taxol - Past Medical/Social History Past Medical History Cancer: Lung cancer Social History Social History: No changes Smoking Status Former smoker Review of Systems Constitutional:: Reports: Weakness, Fatigue. Denies: Fever, Sweats, Weight loss, Appetite change, Chills Cardiovascular:: Denies: Chest pain, Palpitations, Dyspnea on exertion, Orthopnea, PND, Shortness of breath Respiratory: Denies: Cough, Hemoptysis, Shortness of Breath, Wheezing Gastrointestinal:: Reports: Dysphagia - Improving. Denies: Abdominal pain, Nausea - Occasional response to as needed antinausea, Vomiting, Diarrhea - Over the weekend but none overnight [place] a.m., Constipation, Hematochezia Genitourinary: Denies: Dysuria, Hematuria, 15, Flank pain Musculoskeletal:: Denies: Back pain, Myalgia, Arthralgia Skin: Denies: Rash, Skin Changes, Wounds Neurological:: Denies: Headache, Dizziness, Visual changes, Tinnitus, Hearing loss Psychiatric: Denies: Anxiety, Depression, Homicidal Ideations, Suicidal Ideations Vital Signs Height 5 ft 5.5 in Weight: 80.467 kg Weight in Pounds 177.4 lbs BMI 29.5 Pulse Ox 97 - Physical Exam General: Alert, Oriented x3, No apparent distress, - - ECOG 2 HEENT: Atraumatic, PERRLA, EOMI, Normocephalic Oropharynx:: Dry mucosa Neck:: Supple, Trachea midline. Negative for: JVD, bilateral Cardiac:: Regular rate, Regular rhythm, Normal S1, Normal S2. Negative for: Murmur Lungs: Clear to auscultation, Diminished, Excusion symmetrical. Negative for: Rhonchi, Wheezes Abdomen:: Soft, Non-tender, Non-distended. Negative for: Hepatosplenomegaly Extremities:: Negative for: Cyanosis, Edema Neurological: Neuro grossly intact Skin:: Negative for: Lesions, Rash, Petechiae, Ecchymosis Psychiatric:: Appropriate affect, Euthymic Lymphatics:: Negative for: Cervical lymphadenopathy, Supraclavicular lymphadenopathy Laboratory Data: Reviewed in EMR Assessment and Plan #1. 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 Patient has indeterminate sub-centimeters left upper lobe nodule that will need to be followed up. Patient is not a surgical candidate due to extent of disease and comorbid conditions. She is a candidate for definitive chemoradiation with an intent to cure. She concluded the combined modality phase June 02, 2018 , will continue to be seen on a weekly basis and reassess needs for IV fluid hydration (Tuesday this week, Tuesday and the following week gradually weaning to oral) until able to recover p.o. intake. She is to receive 2 full dose cycles of systemic chemotherapy in approximately 1 month (july,). #2. An indeterminate right parotid gland uptake will be followed up. Impression and plan discussed with patient and family Medications: Prescriptions This Visit Medication Instructions Recorded Amlodipine [Norvasc] 5 mg PO QHS 04/11/18 Atorvastatin Calcium [Lipitor] 40 mg PO QHS 04/11/18 Pantoprazole Sodium [Protonix] 40 mg PO DAILY 04/11/18 Primary Care Provider: Theresa Macias Referring Provider: SALVATORE BAHENA 06/19/18 1043 <Electronically signed by Glenn Loza MD> Date Glenn Loza MD Cosigner Signature: Date (if applicable) CC: CBC W/DIFF, AUTOMATED Collected: 06/19/2018 Status: F Source: MICAELA 9:50 AM [facility] REPOSITORY Order Comment: Reason for Laboratory Test . TYPE CODE TESTS RESULT OUT OF RANGE REFERENCE UNITS LAB L100.1000 4.4-11.0 K/mm3 Low WBC 3.6 LAB L100.1200 4.2-5.4 M/mm3 Low RBC 3.51 LAB L100.1300 12.0-15.0 g/dl Low HGB 10.9 LAB L100.1400 37-47 % Low HCT 34.4 LAB L100.1500 81-99 fL Normal MCV 98.0 LAB L100.1600 27.0-32.0 pg Normal MCH 31.1 LAB L100.1700 32-36 g/gl Low MCHC 31.7 LAB L100.1810 11.6-14.6 % High RDW CV 18.7 LAB L100.1820 35.1-43.9 fl High RDW SD 66.6 LAB L100.1900 150-450 K/mm3 Normal PLT 160 LAB L100.2000 6.2-12.0 fl Normal MPV 12.0 LAB L100.2100 47-70 % Normal NEUT% 59.9 LAB L100.2200 19-41 % Normal LY% 30.3 LAB L100.2300 0-10 % Normal MONO% 6.4 LAB L100.2400 0-5 % Normal EO% 2.8 LAB L100.2500 0-1 % Normal BASO% 0.3 LAB L100.2550 0.0-0.9 % Normal IM GRAN % 0.300 Result Comment: IG% - Immature Granulocytes (promyelocytes, myelocytes and metamyelocytes) > 1% indicates that a LEFT SHIFT is Present. LAB L100.2620 2.0-7.7 X10 3/uL Normal Absolute Neut 2.2 LAB L100.2720 0.83-4.51 X10 3/ul Normal Absolute Lymph 1.09 LAB L100.4500 Normal SMEAR COMMENT COMMENT Result Comment: SLIDE SCANNED - 1+ ANISO. Performed By: #### L100.0100 #### [facility] [address] [place], [address] COMPREHENSIVE METABOLIC Collected: 06/19/2018 Status: F Source: MICAELA LÓPEZ 9:50 AM [facility] REPOSITORY Order Comment: Reason for Laboratory Test . TYPE CODE TESTS RESULT OUT OF RANGE REFERENCE UNITS LAB L501.0100 74-106 mg/dL Normal GLU 98 Result Comment: Please note revised GLUCOSE reference range effective 2017. LAB L501.1000 7-18 mg/dL Normal BUN 15 LAB L501.1100 0.55-1.02 mg/dL Normal CREAT,SERUM 0.71 Result Comment: The validity of the calculated GFR AND GFRAA in patients over 70 years has not been determined. Clinical correlation is essential. LAB L501.1110 >60 mL/min Normal EST GFR 85 Result Comment: Non- GFR Calc LAB L501.1115 >60 mL/min Normal EST GFR - AA 102 Result Comment: GFR Calc LAB L501.1255 ml/min Normal Estimated CRCL 42.39 LAB L501.1300 10-20 RATIO High BUN/CRE 21.1 LAB L501.1500 6.4-8. g/dL Normal 2 T PROT 6.8 LAB L501.1800 3.2-5. g/dL Low 0 ALB 2.8 LAB L501.1950 2.2-4. g/dL Normal 2 GLOB 4.0 LAB L501.2000 0.9-2. RATIO Low 4 A/G 0.7 LAB L501.2200 8.5-10 mg/dL Normal .1 CA 8.6 LAB L501.4100 15-37 U/L Low AST 14 LAB L501.4305 45-117 U/L Normal ALK P 84 LAB L501.4405 13-56 U/L Normal ALT 21 LAB L501.4600 0.20-1 mg/dL Normal .00 T BILI 0.30 LAB L501.5300 136-14 mmol/L Normal 5 NA 143 LAB L501.5600 3.5-5. mmol/L Normal 1 K 3.7 LAB L501.5900 98-107 mmol/L High CL 108 LAB L501.6100 21.0-3 mmol/L Normal 2.0 CO2 28.0 LAB L501.6200 5-15 Normal GAP 7 Performed By: #### L500.4050 #### [facility] [place], [address] URINALYSIS, COMPLETE Collected: 06/12/2018 Status: F Source: MICAELA 1:34 PM [facility] REPOSITORY Order Comment: Reason for Laboratory Test . How was Urine Obtained? CLEAN CATCH TYPE CODE TESTS RESULT OUT OF RANGE REFERENCE UNITS LAB L400.3000 Yellow COLOR Normal Yellow LAB L400.3050 Clear Normal CLARITY Sl. Cloudy LAB L400.3200 Normal mg/dl Normal GLUCOSE, UR Normal LAB L400.3300 Negative mg/dL Normal BILIRUBIN URINE Negative LAB L400.3400 Negative mg/dl Normal KETONE UR Negative LAB L400.3465 1.002-1.030 Normal SP.GR. DIPSTX 1.005 LAB L400.3550 5.0 - 8.0 pH UR Normal 7.0 LAB L400.3600 Negative mg/dl PROT Normal DIPSTX Negative LAB L400.3700 Normal mg/dl Normal UROBILI Normal LAB L400.3750 Negative Normal NITRITE UR Negative LAB L400.3780 Negative /ul High 25 OCCULT BLOOD-UR LAB L400.3800 Negative /ul High LEUK ESTERASE 500 LAB L400.4050 0-5 /hpf WBC Normal 25-50 SEEN LAB L400.4100 0-5 /hpf 0 Normal RBC-UA SEEN LAB L400.4150 5-10 /hpf SQUAM Normal EPI 0-5 SEEN LAB L400.4300 None Seen /hpf 1+ Normal BACTERIA LAB L400.4350 <or=2+ /hpf 0 Normal MUCUS, URINE SEEN LAB L400.5200 None Seen /hpf Normal YEAST-URINE RARE Performed By: #### L400.0001 #### [facility] [address] [facility] [place], [address] ONCOLOGY VISIT REPORT Observed: 06/12/2018 Status: F Source: SANDY 10:28 AM [facility] REPOSITORY [facility] [address] [place] [address]. [place] [address] OFFICE VISIT Date of Service: 06/12/1859 MR#: [id number] Acct: [id number] Name: MARIETTA GHOSH Rep #: [id number] : 1940 From: Glenn Loza MD Age/Sex: 77/F Location: OMD Status: Signed - Problem List (1) Primary cancer of right upper lobe of lung Status: Acute (2) Regional lymph node metastasis present Status: Acute (3) Nodule of left lung Status: Acute - Date of Service Date of Service:: 06/12/18 - Chief Complaint Lung cancer - History of Present Illness Patient is a 77-year-old female, smoker (till the diagnosis of cancer in April 2018) with a medical history notable for rheumatoid disease, chronic back pain due to spinal stenosis, dyslipidemia and GERD. She had an MRI in January 2018 to evaluate increasing back pain and two lung nodules were noted. 02/28/2018: CT chest demonstrated a dominant right upper lobe nodule measuring 2.1 x 1.7 x 2.5 cm, a left upper lobe nodule measuring 7 mm, and right hilar and right paratracheal adenopathy. 03/15/2018: PET scan demonstrated a hypermetabolic spiculated mass within the right upper lobe concerning for primary malignancy with a maximum SUV of 12.1, there is a small spiculated mass identified within the left upper lobe demonstrating mild FDG activity with SUV of 2.2, there are multiple hypermetabolic right hilar and right. Bronchial lymph nodes with maximum SUV of 11.1. Mildly hypermetabolic right paraesophageal/retrotracheal and precarinal lymph nodes are identified. Focal hypermetabolic activity is appreciated within the inferior right parotid gland and the trachea max SUV of 7.1. 03/24/2018: Patient underwent bronchoscopy with EBUS which demonstrated unremarkable airways, levels 4R, 4L, 7, and 11 are were all biopsied multiple times. Biopsies from 4R and 11R are consistent with adenocarcinoma and biopsies of 4L and level 7 showed no malignant cells were identified. Immunohistochemistry was nonspecific . She had bilateral screening mammograms -2017. 04/03/18: PFTs were completed. FEV1 was 105% predicted and DLCO 122% predicted. Conclusion was normal pulmonary function test. The left upper lung nodule is sub centimeters, with indeterminate SUV uptake and not amenable to guided biopsy and therefore will need to be followed up. Her workup was done at [facility]. Given the extent of her disease, suboptimal performance status and comorbidities she was felt not to be a surgical candidate and was referred for definitive concomitant chemoradiation. Treatment: * Combined chemoradiation with weekly carbo-taxol April 24, 2018-May 29, 2018 (6 weeks) Radiation treatment summary: 6000 cGy of 6 MV photons in 30 fractions to the RUL and mediastinal disease with a VMAT technique consisting of 2 arcs. Date of First Treatment: 04/24/18 Date of Last Treatment: 06/02/18 * - Past Medical/Social History Past Medical History Cancer: Lung cancer Social History Social History: No changes Smoking Status Former smoker Review of Systems Constitutional:: Reports: Weakness, Fatigue. Denies: Fever, Sweats, Weight loss, Appetite change, Chills Cardiovascular:: Reports: Dyspnea on exertion. Denies: Chest pain, Palpitations, Orthopnea, PND, Shortness of breath Respiratory: Reports: Shortness of breath upon exertion. Denies: Cough, Hemoptysis, Shortness of Breath, Wheezing Gastrointestinal:: Reports: Dysphagia - Bit better able to take fluids and soft food. Denies: Abdominal pain, Nausea, Vomiting, Diarrhea, Constipation, Hematochezia Genitourinary: Reports: Dysuria. Denies: Hematuria, Flank pain Musculoskeletal:: Denies: Back pain, Myalgia, Arthralgia Skin: Denies: Rash, Skin Changes, Wounds Neurological:: Denies: Headache, Dizziness, Visual changes, Tinnitus, Hearing loss Psychiatric: Denies: Anxiety, Depression, Homicidal Ideations, Suicidal Ideations Vital Signs Height 5 ft 5.5 in Weight: 80.014 kg Weight in Pounds 176.4 lbs BMI 29.5 Pulse Ox 93 - Physical Exam General: Alert, Oriented x3, No apparent distress, - - ECOG 2 Seen in a wheelchair HEENT: Atraumatic, PERRLA, EOMI, Normocephalic Oropharynx:: Dry mucosa Neck:: Supple, Trachea midline, - - Port okay. Negative for: JVD, bilateral Cardiac:: Regular rate, Regular rhythm, Normal S1, Normal S2. Negative for: Murmur Lungs: Clear to auscultation, Diminished, Excusion symmetrical. Negative for: Rhonchi, Wheezes Abdomen:: Soft, Non-tender, Non-distended. Negative for: Hepatosplenomegaly Extremities:: Negative for: Cyanosis, Edema Neurological: Neuro grossly intact Skin:: Negative for: Lesions, Rash, Petechiae, Ecchymosis Psychiatric:: Appropriate affect, Euthymic Lymphatics:: Negative for: Cervical lymphadenopathy, Supraclavicular lymphadenopathy Assessment and Plan #1. 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 Patient has indeterminate sub-centimeters left upper lobe nodule that will need to be followed up. Patient is not a surgical candidate due to extent of disease and comorbid conditions. She is a candidate for definitive chemoradiation with an intent to cure. She concluded the combined modality phase May 29, 2018 , will continue to be seen on a weekly basis and reassess needs for IV fluid hydration (Tuesday this week) until able to recover p.o. intake. She is to receive 2 full dose cycles of systemic chemotherapy in approximately 1 month. #2. An indeterminate right parotid gland uptake will be followed up. #3. For dysuria will check UA to rule out UTI. Impression and plan discussed with patient and family Medications: Prescriptions This Visit Medication Instructions Recorded Amlodipine [Norvasc] 5 mg PO QHS 04/11/18 Atorvastatin Calcium [Lipitor] 40 mg PO QHS 04/11/18 Primary Care Provider: Theresa Macias Referring Provider: SALVATORE BAHENA 06/12/18 1028 <Electronically signed by Glenn Loza MD> Date Glenn Loza MD Cosigner Signature: Date (if applicable) CC: CBC W/DIFF, AUTOMATED Collected: 06/12/2018 Status: F Source: MICAELA 9:37 AM [facility] REPOSITORY Order Comment: Reason for Laboratory Test . TYPE CODE TESTS RESULT OUT OF RANGE REFERENCE UNITS LAB L100.1000 4.4-11.0 K/mm3 Low WBC 4.0 LAB L100.1200 4.2-5.4 M/mm3 Low RBC 3.42 LAB L100.1300 12.0-15.0 g/dl Low HGB 10.5 LAB L100.1400 37-47 % Low HCT 33.3 LAB L100.1500 81-99 fL Normal MCV 97.4 LAB L100.1600 27.0-32.0 pg Normal MCH 30.7 LAB L100.1700 32-36 g/gl Low MCHC 31.5 LAB L100.1810 11.6-14.6 % High RDW CV 18.4 LAB L100.1820 35.1-43.9 fl High RDW SD 65.0 LAB L100.1900 150-450 K/mm3 Normal PLT 177 LAB L100.2000 6.2-12.0 fl Normal MPV 11.5 LAB L100.2100 47-70 % Normal NEUT% 69.7 LAB L100.2200 19-41 % Normal LY% 22.9 LAB L100.2300 0-10 % Normal MONO% 6.7 LAB L100.2400 0-5 % Normal EO% 0.7 LAB L100.2500 0-1 % Normal BASO% 0.0 LAB L100.2550 0.0-0.9 % Normal IM GRAN % 0.000 Result Comment: IG% - Immature Granulocytes (promyelocytes, myelocytes and metamyelocytes) > 1% indicates that a LEFT SHIFT is Present. LAB L100.2620 2.0-7.7 X10 3/uL Normal Absolute Neut 2.8 LAB L100.2720 0.83-4.51 X10 3/ul Normal Absolute Lymph 0.92 Performed By: #### L100.0100 #### [facility] [address] [place], [address] COMPREHENSIVE METABOLIC Collected: 06/12/2018 Status: F Source: [facility] 9:37 AM [facility] REPOSITORY Order Comment: Reason for Laboratory Test . TYPE CODE TESTS RESULT OUT OF RANGE REFERENCE UNITS LAB L501.0100 74-106 mg/dL Normal GLU 92 Result Comment: Please note revised GLUCOSE reference range effective 2017. LAB L501.1000 7-18 mg/dL Normal BUN 13 LAB L501.1100 0.55-1.02 mg/dL Normal CREAT,SERUM 0.67 Result Comment: The validity of the calculated GFR AND GFRAA in patients over 70 years has not been determined. Clinical correlation is essential. LAB L501.1110 >60 mL/min Normal EST GFR 91 Result Comment: Non- GFR Calc LAB L501.1115 >60 mL/min Normal EST GFR - AA 110 Result Comment: GFR Calc LAB L501.1255 ml/min Normal Estimated CRCL 43.07 LAB L501.1300 10-20 RATIO Normal BUN/CRE 19.5 LAB L501.1500 6.4-8. g/dL Normal 2 T PROT 6.7 LAB L501.1800 3.2-5. g/dL Low 0 ALB 2.7 LAB L501.1950 2.2-4. g/dL Normal 2 GLOB 4.0 LAB L501.2000 0.9-2. RATIO Low 4 A/G 0.7 LAB L501.2200 8.5-10 mg/dL Normal .1 CA 8.8 LAB L501.4100 15-37 U/L Normal AST 17 LAB L501.4305 45-117 U/L Normal ALK P 80 LAB L501.4405 13-56 U/L Normal ALT 21 LAB L501.4600 0.20-1 mg/dL Normal .00 T BILI 0.30 LAB L501.5300 136-14 mmol/L Normal 5 NA 141 LAB L501.5600 3.5-5. mmol/L Normal 1 K 3.5 LAB L501.5900 98-107 mmol/L Normal CL 107 LAB L501.6100 21.0-3 mmol/L Normal 2.0 CO2 27.0 LAB L501.6200 5-15 Normal GAP 7 Performed By: #### L500.4050 #### [facility] [address] [place], [address] CBC W/DIFF, AUTOMATED Collected: 06/09/2018 Status: C Source: SANDY 12:57 PM [facility] REPOSITORY Order Comment: Reason for Laboratory Test . TYPE CODE TESTS RESULT OUT OF RANGE REFERENCE UNITS LAB L100.1000 4.4-11.0 K/mm3 Low WBC 2.5 LAB L100.1200 4.2-5.4 M/mm3 Low RBC 3.35 LAB L100.1300 12.0-15.0 g/dl Low HGB 10.4 LAB L100.1400 37-47 % Low HCT 32.1 LAB L100.1500 81-99 fL Normal MCV 95.8 LAB L100.1600 27.0-32.0 pg Normal MCH 31.0 LAB L100.1700 32-36 g/gl Normal MCHC 32.4 LAB L100.1810 11.6-14.6 % High RDW CV 18.0 LAB L100.1820 35.1-43.9 fl High RDW SD 62.0 LAB L100.1900 150-450 K/mm3 Normal PLT 167 LAB L100.2000 6.2-12.0 fl Normal MPV 11.8 LAB L100.2100 47-70 % Normal NEUT% 56.2 LAB L100.2200 19-41 % Low LY% 18.3 LAB L100.2300 0-10 % High MONO% 24.3 LAB L100.2400 0-5 % Normal EO% 1.2 LAB L100.2500 0-1 % Normal BASO% 0.0 LAB L100.2550 0.0-0.9 % Normal IM GRAN % 0.000 Result Comment: IG% - Immature Granulocytes (promyelocytes, myelocytes and metamyelocytes) > 1% indicates that a LEFT SHIFT is Present. LAB L100.2620 2.0-7.7 X10 3/uL Low Absolute Neut 1.4 LAB L100.2720 0.83-4.51 X10 3/ul Low Absolute Lymph 0.46 LAB L100.4500 SMEAR Normal COMMENT Result Comment: NEUTROPENIA LAB L100.9900 Normal Reviewed PATH REV Result Comment: Leukopenia, neutropenia and Normocytic anemia. Clinical correlation necessary. Claus Burch M.D. 06/12/18 AMENDED REPORT 06/12/18 1339 PATH REV previously reported as: January Performed By: #### L100.0100 #### [facility] [place], [address] END OF TREATMENT Observed: 06/06/2018 Status: F Source: SANDY SUMMARY 3:51 PM [facility] REPOSITORY [facility] [address] [place] [address] 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 Plan was made to complete definitive chemoradiation therapy consisting of 6000 cGy in 30 fractions to the right upper lobe primary tumor and mediastinal adenopathy. There is a small borderline PET avid lesion in the left upper lobe with an SUV of 2.2 which was too small for interventional radiology to complete biopsy so plan was made to monitor this lesion and potentially have to complete SBRT in the future. Oncologic History: 09/22/2017: Bilateral screening mammography was performed which demonstrated a glandular pattern bilaterally and symmetrical, no spicular density or clustered microcalcification or mass lesion is noted. BI-RADS Category 2. 02/08/2018: MRI of the thoracic and lumbar spine was completed for back pain and she was found to have bilateral pulmonary nodules noted. 02/28/2018: CT chest was completed which demonstrated a dominant right upper lobe nodule measuring 2.1 x 1.7 x 2.5 cm, a left upper lobe nodule measuring 7 mm, and right hilar and right paratracheal adenopathy. 03/15/2018: PET scan was performed which demonstrated a hypermetabolic spiculated mass within the right upper lobe concerning for primary malignancy with a maximum SUV of 12.1, there is a small spiculated mass identified within the left upper lobe demonstrating mild FDG activity with SUV of 2.2, there are multiple hypermetabolic right hilar and right. Bronchial lymph nodes with maximum SUV of 11.1. Mildly hypermetabolic right paraesophageal/retrotracheal and precarinal lymph nodes are identified. Focal hypermetabolic activity is appreciated within the inferior right parotid gland and the trachea max SUV of 7.1. There is nonspecific FDG activity within the sella with no definite CT correlate appreciated, MRI may be beneficial as the etiology is unclear. 03/24/2018: Patient underwent bronchoscopy with a EBUS which demonstrated unremarkable airways, levels 4R, 4L, 7, and 11 are were all biopsied multiple times. Biopsies from 4R and 11R are consistent with adenocarcinoma and biopsies of 4L and level 7 showed no malignant cells were identified. Immunohistochemistry was nonspecific but suggested possibly breast origin. 04/03/18: PFTs were completed. FEV1 was 105% predicted and DLCO 122% predicted. Conclusion was normal pulmonary function test. 04/12/18: Brain MRI was completed which showed no evidence of brain metastases. The patient completed a course of external beam radiotherapy in our department. This treatment was delivered for curative intent. Treatment was given according to the following parameters: MARIETTA GHOSH received 6000 cGy of 6 MV photons in 30 fractions to the RUL and mediastinal disease with a VMAT technique consisting of 2 arcs. The patient did receive concurrent chemotherapy consisting of weekly carbo/taxol. Date of First Treatment: 04/24/18 Date of Last Treatment: 06/02/18 Total Elapsed Days (including weekend and holidays): 39 Missed Treatments: 0 Response and Tolerance: The patient tolerated this course of radiotherapy well overall. The following radiation related toxicities developed during the course of radiation therapy: * Grade 1 fatigue * Grade 2 esophagitis which was treated with MMW, Carafate, and Protonix * occasional nausea treated with Zofran and Compazine * Pancytopenia with zeb neutrophil count of 1.9. Total weight change during therapy: gained 2 lbs Disposition: The patient tolerated the planned course of radiation therapy well without unexpected toxicity in an appropriate time course. I will have the patient follow- up in 4 weeks for a routine visit to assess resolution of radiation toxicity. She will continue to return for IVF support for the next two weeks while the esophagitis heals. The patient will maintain scheduled follow-up visits with the other providers. She was instructed to call with any further questions or concerns in the interim. If we can provide any further information on this patient's course of care, please do not hesitate to ask. We would like to thank you very much for allowing us to participate in the care of this patient. Sincerely, Junior Kyle DO, MS Chalk Machine Operator, Department of Radiation Oncology [facility] 06/06/18 7946 <Electronically signed by Junior Kyle DO> Date Junior Medleyigndoris Signature: Date (if applicable) CC: Theresa Macias MD; Glenn Loza MD; OUT OF TOWN DOCTOR ONCOLOGY VISIT REPORT Observed: 06/06/2018 Status: F Source: MICAELA 11:20 AM [facility] REPOSITORY [facility] [place] [address] OFFICE VISIT Date of Service: 06/06/18 1036 MR#: [id number] Acct: [id number] Name: MARIETTA GHOSH Rep #: [id number] : 1940 From: Glenn Loza MD Age/Sex: 77/F Location: ONC Status: Signed - Problem List (1) Primary cancer of right upper lobe of lung Status: Acute (2) Regional lymph node metastasis present Status: Acute (3) Nodule of left lung Status: Acute - Date of Service Date of Service:: 06/06/18 - Chief Complaint Lung cancer - History of Present Illness Patient is a 77-year-old female, smoker (till the diagnosis of cancer in April 2018) with a medical history notable for rheumatoid disease, chronic back pain due to spinal stenosis, dyslipidemia and GERD. She had an MRI in January 2018 to evaluate increasing back pain and two lung nodules were noted. 02/28/2018: CT chest demonstrated a dominant right upper lobe nodule measuring 2.1 x 1.7 x 2.5 cm, a left upper lobe nodule measuring 7 mm, and right hilar and right paratracheal adenopathy. 03/15/2018: PET scan demonstrated a hypermetabolic spiculated mass within the right upper lobe concerning for primary malignancy with a maximum SUV of 12.1, there is a small spiculated mass identified within the left upper lobe demonstrating mild FDG activity with SUV of 2.2, there are multiple hypermetabolic right hilar and right. Bronchial lymph nodes with maximum SUV of 11.1. Mildly hypermetabolic right paraesophageal/retrotracheal and precarinal lymph nodes are identified. Focal hypermetabolic activity is appreciated within the inferior right parotid gland and the trachea max SUV of 7.1. 03/24/2018: Patient underwent bronchoscopy with EBUS which demonstrated unremarkable airways, levels 4R, 4L, 7, and 11 are were all biopsied multiple times. Biopsies from 4R and 11R are consistent with adenocarcinoma and biopsies of 4L and level 7 showed no malignant cells were identified. Immunohistochemistry was nonspecific . She had bilateral screening mammograms -2018. 04/03/18: PFTs were completed. FEV1 was 105% predicted and DLCO 122% predicted. Conclusion was normal pulmonary function test. The left upper lung nodule is sub centimeters, with indeterminate SUV uptake and not amenable to guided biopsy and therefore will need to be followed up. Her workup was done at [facility]. Given the extent of her disease, suboptimal performance status and comorbidities she was felt not to be a surgical candidate and was referred for definitive concomitant chemoradiation. Treatment: Combined chemoradiation with weekly carbo-taxol April 24, 2018- May 29, 2018 (6 weeks) - Interval History On antibiotics for bronchitis - Past Medical/Social History Past Medical History Cancer: Lung cancer Social History Social History: No changes Smoking Status Former smoker Review of Systems Constitutional:: Reports: Weakness, Fatigue, Weight loss. Denies: Fever, Sweats, Appetite change, Chills Cardiovascular:: Denies: Chest pain, Palpitations, Dyspnea on exertion, Orthopnea, PND, Shortness of breath Respiratory: Reports: Cough - Sputum is less and is clear since she has been on antibiotics, Hemoptysis - One episode of minor hemoptysis following about a vigorous cough, Shortness of breath upon exertion. Denies: Shortness of Breath, Wheezing Gastrointestinal:: Reports: Diarrhea - Had a bout of diarrhea lasted a little over 1 day as she started antibiotics but resolved without any specific treatment, Dysphagia - Painful, able to take fluids and soft diet such as Jell-O and pudding. Denies: Abdominal pain, Nausea, Vomiting, Constipation, Hematochezia Genitourinary: Denies: Dysuria, Hematuria, 15, Flank pain Musculoskeletal:: Denies: Back pain, Myalgia, Arthralgia Skin: Denies: Rash, Skin Changes, Wounds Neurological:: Reports: Numbness - in feet. Denies: Headache, Dizziness, Visual changes, Tinnitus, Hearing loss Psychiatric: Denies: Anxiety, Depression, Homicidal Ideations, Suicidal Ideations Vital Signs Height 5 ft 5.5 in Weight: 80.014 kg Weight in Pounds 176.4 lbs BMI 29.5 Pulse Ox 97 - Physical Exam General: Alert, Oriented x3, No apparent distress, - - Elderly and frail, seen in a wheelchair, ECOG 2 HEENT: Atraumatic, PERRLA, EOMI, Normocephalic Oropharynx:: Dry mucosa Neck:: Supple, Trachea midline. Negative for: JVD, bilateral Cardiac:: Regular rate, Regular rhythm, Normal S1, Normal S2. Negative for: Murmur Lungs: Clear to auscultation, Diminished, Excusion symmetrical. Negative for: Rhonchi, Wheezes Abdomen:: Soft, Non-tender, Non-distended. Negative for: Hepatosplenomegaly Extremities:: Negative for: Cyanosis, Edema Neurological: Neuro grossly intact Skin:: Negative for: Lesions, Rash, Petechiae, Ecchymosis Psychiatric:: Appropriate affect, Euthymic Lymphatics:: Negative for: Cervical lymphadenopathy, Supraclavicular lymphadenopathy Laboratory Data: Laboratory Tests WBC 2.5 L (4.4-11.0) K/mm3 RBC 3.40 L (4.2-5.4) M/mm3 Hgb 10.4 L (12.0-15.0) g/dl Hct 32.4 L (37-47) % MCV 95.3 (81-99) fL Assessment and Plan #1. 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 Patient has indeterminate sub-centimeters left upper lobe nodule that will need to be followed up. Patient is not a surgical candidate due to extent of disease and comorbid conditions. She is a candidate for definitive chemoradiation with an intent to cure. She concluded the combined modality phase May 29, 2018 , will continue to be seen on a weekly basis and reassess needs for IV fluid hydration until able to recover p.o. intake. She is to receive 2 full dose cycles of systemic chemotherapy in approximately 1 month. #2. An indeterminate right parotid gland uptake will be followed up. Impression and plan discussed with patient and family Medications: Prescriptions This Visit Medication Instructions Recorded Amlodipine [Norvasc] 5 mg PO QHS 04/11/18 Atorvastatin Calcium [Lipitor] 40 mg PO QHS 04/11/18 Medications Added to Medication List This Visit 0.9% Normal Saline 1,000 ml Med 06/07/18 08:00 Active IV 500 mls/hr 0.9% Normal Saline 1,000 ml Med 06/09/18 08:00 Active IV 500 mls/hr Primary Care Provider: Theresa Macias Referring Provider: SALVATORE BAHENA 06/06/18 1120 <Electronically signed by Glenn Loza MD> Date Glenn Loza MD Cosigner Signature: Date (if applicable) CC: CBC W/DIFF, AUTOMATED Collected: 06/06/2018 Status: F Source: MICAELA 9:31 AM [facility] REPOSITORY Order Comment: Reason for Laboratory Test . TYPE CODE TESTS RESULT OUT OF RANGE REFERENCE UNITS LAB L100.1000 4.4-11.0 K/mm3 Low WBC 2.5 LAB L100.1200 4.2-5.4 M/mm3 Low RBC 3.40 LAB L100.1300 12.0-15.0 g/dl Low HGB 10.4 LAB L100.1400 37-47 % Low HCT 32.4 LAB L100.1500 81-99 fL Normal MCV 95.3 LAB L100.1600 27.0-32.0 pg Normal MCH 30.6 LAB L100.1700 32-36 g/gl Normal MCHC 32.1 LAB L100.1810 11.6-14.6 % High RDW CV 17.4 LAB L100.1820 35.1-43.9 fl High RDW SD 59.3 LAB L100.1900 150-450 K/mm3 Low PLT 90 LAB L100.2000 6.2-12.0 fl High MPV 12.7 LAB L100.2100 47-70 % Normal NEUT% 64.9 LAB L100.2200 19-41 % Normal LY% 20.4 LAB L100.2300 0-10 % High MONO% 12.7 LAB L100.2400 0-5 % Normal EO% 1.2 LAB L100.2500 0-1 % Normal BASO% 0.4 LAB L100.2550 0.0-0.9 % Normal IM GRAN % 0.400 Result Comment: IG% - Immature Granulocytes (promyelocytes, myelocytes and metamyelocytes) > 1% indicates that a LEFT SHIFT is Present. LAB L100.2620 2.0-7.7 X10 3/uL Low Absolute Neut 1.6 LAB L100.2720 0.83-4.51 X10 3/ul Low Absolute Lymph 0.50 LAB L100.4500 Normal SMEAR COMMENT COMMENT Result Comment: SLIDE SCANNED - LYMPHOPENIA NOTED. Performed By: #### L100.0100 #### [facility] [place], [address] COMPREHENSIVE METABOLIC Collected: 06/06/2018 Status: F Source: MICAELA [facility] 9:31 AM [facility] REPOSITORY Order Comment: Reason for Laboratory Test . TYPE CODE TESTS RESULT OUT OF RANGE REFERENCE UNITS LAB L501.0100 74-106 mg/dL Normal GLU 106 Result Comment: Fasting Glucose result from 100 to 125 mg/dL suggests IMPAIRED HOMEOSTASIS per A.D.A. criteria. Please note revised GLUCOSE reference range effective 2017. LAB L501.1000 7-18 mg/dL Normal BUN 16 LAB L501.1100 0.55-1.02 mg/dL Normal CREAT,SERUM 0.68 Result Comment: The validity of the calculated GFR AND GFRAA in patients over 70 years has not been determined. Clinical correlation is essential. LAB L501.1110 >60 mL/min Normal EST GFR 89 Result Comment: Non- GFR Calc LAB L501.1115 >60 mL/min Normal EST GFR - AA 108 Result Comment: GFR Calc LAB L501.1255 ml/min Normal Estimated CRCL 43.07 LAB L501.1300 10-20 RATIO High BUN/CRE 23.5 LAB L501.1500 6.4-8. g/dL Normal 2 T PROT 7.0 LAB L501.1800 3.2-5. g/dL Low 0 ALB 2.8 LAB L501.1950 2.2-4. g/dL Normal 2 GLOB 4.2 LAB L501.2000 0.9-2. RATIO Low 4 A/G 0.7 LAB L501.2200 8.5-10 mg/dL Normal .1 CA 8.7 LAB L501.4100 15-37 U/L Normal AST 16 LAB L501.4305 45-117 U/L Normal ALK P 67 LAB L501.4405 13-56 U/L Normal ALT 28 LAB L501.4600 0.20-1 mg/dL Normal .00 T BILI 0.30 LAB L501.5300 136-14 mmol/L Normal 5 NA 143 LAB L501.5600 3.5-5. mmol/L Normal 1 K 3.6 LAB L501.5900 98-107 mmol/L Normal CL 107 LAB L501.6100 21.0-3 mmol/L Normal 2.0 CO2 28.0 LAB L501.6200 5-15 Normal GAP 8 Performed By: #### L500.4050 #### [facility] [address] [place], [address] CBC W/DIFF, AUTOMATED Collected: 06/01/2018 Status: F Source: SANDY 4:00 PM [facility] REPOSITORY TYPE CODE TESTS RESULT OUT OF RANGE REFERENCE UNITS LAB L100.1000 4.4-11.0 K/mm3 Low WBC 2.9 LAB L100.1200 4.2-5.4 M/mm3 Low RBC 3.30 LAB L100.1300 12.0-15.0 g/dl Low HGB 10.2 LAB L100.1400 37-47 % Low HCT 31.2 LAB L100.1500 81-99 fL Normal MCV 94.5 LAB L100.1600 27.0-32.0 pg Normal MCH 30.9 LAB L100.1700 32-36 g/gl Normal MCHC 32.7 LAB L100.1810 11.6-14.6 % High RDW CV 17.0 LAB L100.1820 35.1-43.9 fl High RDW SD 58.2 LAB L100.1900 150-450 K/mm3 Low PLT 59 LAB L100.2000 6.2-12.0 fl High MPV 13.0 LAB L100.2100 47-70 % High NEUT% 83.7 LAB L100.2200 19-41 % Low LY% 13.3 LAB L100.2300 0-10 % Normal MONO% 2.7 LAB L100.2400 0-5 % Normal EO% 0.3 LAB L100.2500 0-1 % Normal BASO% 0.0 LAB L100.2550 0.0-0.9 % Normal IM GRAN % 0.000 Result Comment: IG% - Immature Granulocytes (promyelocytes, myelocytes and metamyelocytes) > 1% indicates that a LEFT SHIFT is Present. LAB L100.2620 2.0-7.7 X10 3/uL Normal Absolute Neut 2.5 LAB L100.2720 0.83-4.51 X10 3/ul Low Absolute Lymph 0.39 LAB L100.4500 Normal SMEAR COMMENT SEE COMMENT Result Comment: LYMPHOPENIA NOTED LAB L100.5500 ADEQ Normal PLT EST MOD DEC LAB L100.5650 Normal PLT MORPH LARGE LAB L100.7300 Normal ANISO RARE LAB L100.7800 Normal MACROCYTE RARE Performed By: #### L100.0100 #### [facility] [address] [facility] [place], [address] RADIATION ONCOLOGY Observed: 05/31/2018 Status: F Source: SANDY VISIT 2:53 PM [facility] REPOSITORY [facility] [address] [facility] 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 Plan was made to complete definitive chemoradiation therapy consisting of 6000 cGy in 30 fractions to the right upper lobe primary tumor and mediastinal adenopathy. Treatment Data: Treatment Site: Right upper lobe and mediastinum Current total dose/Total dose planned: 5600 / 6000 cGy Fraction number: Chemotherapy: Concurrent carbo/taxol weekly (Tuesday) Subjective: She reported having intermittent dizziness and mild sore throat last week, no fevers/chills. Dizziness is improved and only upon standing occasionally. Sore throat is actually more in the submandibular region and not with swallowing. She denies focal neuro deficits including diplopia, field cuts or changes in cognition. Denies hand or foot incoordination. She denies worsening cough, SOB, or CP. Pain: none, other than sore throat 02/09 Breathing: no SOB or hemoptysis. Cough at baseline, some worsening with sputum production Swallowing: mild food sticking. moderate odynophagia, MMW tid currently and tramadol (taking for back pain) Fatigue: grade 1 Nausea: worse this week, no vomiting. Taking Zofran and Compazine Height/Weight/BMI: Height: 5 ft 5.5 in Weight: at sim: 180 lbs (05/03/18: 181.6 lbs, 05/10/18: 183.3 lbs, 05/24/18: 182 lbs) Vital Signs Temperature 98.1 F 05/29/18 09:58 Temperature Source Oral 05/29/18 09:58 Pulse Rate 89 05/31/18 12:05 Respiratory Rate 16 05/31/18 12:05 Laboratory Tests WBC 3.6 L Hgb 12.0 Plt Count 113 L Absolute Neuts (auto) 2.9 BUN 21 H Creatinine 0.63 Est GFR (MDRD) Non-Af 98 Laboratory Tests WBC 2.9 L Hgb 11.9 L Plt Count 135 L Laboratory Tests WBC 2.7 L Hgb 11.3 L Plt Count 90 L Absolute Neuts (auto) 1.9 L CMP 05/29 unremarkable Objective: NEURO: Grossly nonfocal. Responsive to detailed questions. Finger to nose normal without dysmetria. Gait slow with mild unsteadiness. CN II-XII intact, no nystagmus. No new weakness/numbness. OC/OP: No thrush. Prominent tonsillar lymphatic tissue, uvula midline. no mucositis, ulcer, or erythema. No cervical lymphadenopathy. pain when palpating the bilateral submandibular area Skin: mild erythema in anterior neck Resp: lungs CTAB, no w/r/r CV: RRR Ext: no edema Assessment: Tolerating chemoradiation therapy well overall. All treatment related imaging has been reviewed and approved. Dizziness: Improved, encouraged increase in fluids as it seems to be more related to dehydration this week, will have her discuss with med onc to determine if this could be related to chemo. Sore throat: Only with swallowing, limiting diet (grade 2 esophagitis) oral exam normal. Fatigue: grade 1 Plan: Continue treatment at this time Dizziness: stable Dysphagia/odynophagia: continue MMW continue protonix for GERD, continue carafate qid weight stable but encouraged increase in supplements given the increase in esophagitis and likely increase pain with swallowing the next couple weeks Follow-up in one month or sooner if needed. Will get IVF for 2 weeks for continued support. 05/31/18 1453 <Electronically signed by Junior Kyle DO> Date Junior Kyle DO Cosigner Signature: Date (if applicable) CC: ONCOLOGY VISIT REPORT Observed: 05/29/2018 Status: F Source: SANDY 10:16 AM [facility] REPOSITORY [facility] [address] [place] [id number] OFFICE VISIT Date of Service: 05/29/18 1013 MR#: [id number] Acct: [id number] Name: MARIETTA GHOSH Rep #: [id number] : 1940 From: Glenn Loza MD Age/Sex: 77/F Location: ONC Status: Signed - Problem List (1) Primary cancer of right upper lobe of lung Status: Acute (2) Regional lymph node metastasis present Status: Acute (3) Nodule of left lung Status: Acute - Date of Service Date of Service:: 05/29/18 - Chief Complaint Lung cancer - History of Present Illness Patient is a 77-year-old female, smoker (till the diagnosis of cancer in April 2018) with a medical history notable for rheumatoid disease, chronic back pain due to spinal stenosis, dyslipidemia and GERD. She had an MRI in January 2018 to evaluate increasing back pain and two lung nodules were noted. 02/28/2018: CT chest demonstrated a dominant right upper lobe nodule measuring 2.1 x 1.7 x 2.5 cm, a left upper lobe nodule measuring 7 mm, and right hilar and right paratracheal adenopathy. 03/15/2018: PET scan demonstrated a hypermetabolic spiculated mass within the right upper lobe concerning for primary malignancy with a maximum SUV of 12.1, there is a small spiculated mass identified within the left upper lobe demonstrating mild FDG activity with SUV of 2.2, there are multiple hypermetabolic right hilar and right. Bronchial lymph nodes with maximum SUV of 11.1. Mildly hypermetabolic right paraesophageal/retrotracheal and precarinal lymph nodes are identified. Focal hypermetabolic activity is appreciated within the inferior right parotid gland and the trachea max SUV of 7.1. 03/24/2018: Patient underwent bronchoscopy with EBUS which demonstrated unremarkable airways, levels 4R, 4L, 7, and 11 are were all biopsied multiple times. Biopsies from 4R and 11R are consistent with adenocarcinoma and biopsies of 4L and level 7 showed no malignant cells were identified. Immunohistochemistry was nonspecific . She had bilateral screening mammograms -2017. 04/03/18: PFTs were completed. FEV1 was 105% predicted and DLCO 122% predicted. Conclusion was normal pulmonary function test. The left upper lung nodule is sub centimeters, with indeterminate SUV uptake and not amenable to guided biopsy and therefore will need to be followed up. Her workup was done at [facility]. Given the extent of her disease, suboptimal performance status and comorbidities she was felt not to be a surgical candidate and was referred for definitive concomitant chemoradiation. Treatment: Combined chemoradiation with weekly carbotaxol April 24, 2018- May 29, 2018 (6 weeks) - Past Medical/Social History Past Medical History Cancer: Lung cancer Social History Social History: No changes Smoking Status Former smoker Review of Systems Constitutional:: Reports: Weakness, Fatigue. Denies: Fever, Sweats, Weight loss, Appetite change, Chills Cardiovascular:: Denies: Chest pain, Palpitations, Dyspnea on exertion, Orthopnea, PND, Shortness of breath Respiratory: Denies: Cough, Hemoptysis, Shortness of Breath, Wheezing Gastrointestinal:: Reports: Nausea - Controlled was Reglan 4 times daily and as needed Zofran, Dysphagia. Denies: Abdominal pain, Vomiting, Diarrhea, Constipation, Hematochezia Genitourinary: Denies: Dysuria, Hematuria, 15, Flank pain Musculoskeletal:: Denies: Back pain, Myalgia, Arthralgia Skin: Denies: Rash, Skin Changes, Wounds Neurological:: Denies: Headache, Dizziness, Visual changes, Tinnitus, Hearing loss Psychiatric: Denies: Anxiety, Depression, Homicidal Ideations, Suicidal Ideations Vital Signs Height 5 ft 5.5 in Weight: 80.739 kg Weight in Pounds 178.0 lbs BMI 29.5 Pulse Ox 94 - Physical Exam General: Alert, Oriented x3, No apparent distress, - - ECOG 2, seen in a wheelchair HEENT: Atraumatic, PERRLA, EOMI, Normocephalic Oropharynx:: Dry mucosa Neck:: Supple, Trachea midline, - - Port okay. Negative for: JVD, bilateral Cardiac:: Regular rate, Regular rhythm, Normal S1, Normal S2. Negative for: Murmur Lungs: Clear to auscultation, Diminished, Excusion symmetrical. Negative for: Rhonchi, Wheezes Abdomen:: Soft, Non-tender, Non-distended. Negative for: Hepatosplenomegaly Extremities:: Negative for: Cyanosis, Edema Neurological: Neuro grossly intact Skin:: Negative for: Lesions, Rash, Petechiae, Ecchymosis Psychiatric:: Appropriate affect, Euthymic Lymphatics:: Negative for: Cervical lymphadenopathy, Supraclavicular lymphadenopathy Laboratory Data: Laboratory Tests WBC 2.7 L (4.4-11.0) K/mm3 RBC 3.72 L (4.2-5.4) M/mm3 Hgb 11.3 L (12.0-15.0) g/dl Hct 35.6 L (37-47) % MCV 95.7 (81-99) fL Assessment and Plan #1. 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 Patient has indeterminate sub-centimeters left upper lobe nodule that will need to be followed up. Patient is not a surgical candidate due to extent of disease and comorbid conditions. She is a candidate for definitive chemoradiation with an intent to cure. I reviewed the most recent NCCN guidelines and advice weekly carbotaxol concomitant with radiation followed by 2 full dose cycles of the same chemotherapy after the conclusion of the concomitant treatment phase. She started the combined modality phase April 24, 2018 , will continue to be seen on a weekly basis during this phase. She will be supported with IV fluid hydration to maintain adequate intake until she is able to resume normal oral intake. #2. An indeterminate right parotid gland uptake will be followed up. Impression and plan discussed with patient and family Medications: Prescriptions This Visit Medication Instructions Recorded Amlodipine [Norvasc] 5 mg PO QHS 04/11/18 Atorvastatin Calcium [Lipitor] 40 mg PO QHS 04/11/18 Pantoprazole Sodium [Protonix] 40 mg PO DAILY 04/11/18 traMADol [Ultram (G)] 1 - 2 tab PO Q6H PRN PRN 04/11/18 Medications Added to Medication List This Visit 0.9% Normal Saline 1,000 ml Med 05/29/18 11:55 Active IV 500 mls/hr 0.9% Normal Saline 1,000 ml Med 06/02/18 08:00 Active IV 500 mls/hr Primary Care Provider: Theresa Macias Referring Provider: SALVATORE BAHENA 05/29/18 1016 <Electronically signed by Glenn Loza MD> Date Glenn Loza MD Cosigner Signature: Date (if applicable) CC: CBC W/DIFF, AUTOMATED Collected: 05/29/2018 Status: F Source: [facility] 9:18 AM [facility] REPOSITORY TYPE CODE TESTS RESULT OUT OF RANGE REFERENCE UNITS LAB L100.1000 4.4-11.0 K/mm3 Low WBC 2.7 LAB L100.1200 4.2-5.4 M/mm3 Low RBC 3.72 LAB L100.1300 12.0-15.0 g/dl Low HGB 11.3 LAB L100.1400 37-47 % Low HCT 35.6 LAB L100.1500 81-99 fL Normal MCV 95.7 LAB L100.1600 27.0-32.0 pg Normal MCH 30.4 LAB L100.1700 32-36 g/gl Low MCHC 31.7 LAB L100.1810 11.6-14.6 % High RDW CV 17.2 LAB L100.1820 35.1-43.9 fl High RDW SD 59.1 LAB L100.1900 150-450 K/mm3 Low PLT 90 LAB L100.2000 6.2-12.0 fl Normal MPV 11.9 LAB L100.2100 47-70 % Normal NEUT% 67.9 LAB L100.2200 19-41 % Normal LY% 22.8 LAB L100.2300 0-10 % Normal MONO% 7.4 LAB L100.2400 0-5 % Normal EO% 1.1 LAB L100.2500 0-1 % Normal BASO% 0.4 LAB L100.2550 0.0-0.9 % Normal IM GRAN % 0.400 Result Comment: IG% - Immature Granulocytes (promyelocytes, myelocytes and metamyelocytes) > 1% indicates that a LEFT SHIFT is Present. LAB L100.2620 2.0-7.7 X10 3/uL Low Absolute Neut 1.9 LAB L100.2720 0.83-4.51 X10 3/ul Low Absolute Lymph 0.62 Performed By: #### L100.0100 #### [facility] [address] [place], [address] COMPREHENSIVE METABOLIC Collected: 05/29/2018 Status: F Source: [facility] 9:18 AM [facility] REPOSITORY Order Comment: Reason for Laboratory Test Chemotherapy TYPE CODE TESTS RESULT OUT OF RANGE REFERENCE UNITS LAB L501.0100 74-106 mg/dL High GLU 108 Result Comment: Fasting Glucose result from 100 to 125 mg/dL suggests IMPAIRED HOMEOSTASIS per A.D.A. criteria. Please note revised GLUCOSE reference range effective 2017. LAB L501.1000 7-18 mg/dL Normal BUN 13 LAB L501.1100 0.55-1.02 mg/dL Normal CREAT,SERUM 0.75 Result Comment: The validity of the calculated GFR AND GFRAA in patients over 70 years has not been determined. Clinical correlation is essential. LAB L501.1110 >60 mL/min Normal EST GFR 80 Result Comment: Non- GFR Calc LAB L501.1115 >60 mL/min Normal EST GFR - AA 96 Result Comment: GFR Calc LAB L501.1255 ml/min Normal Estimated CRCL 43.07 LAB L501.1300 10-20 RATIO Normal BUN/CRE 17.3 LAB L501.1500 6.4-8. g/dL Normal 2 T PROT 7.0 LAB L501.1800 3.2-5. g/dL Low 0 ALB 3.0 LAB L501.1950 2.2-4. g/dL Normal 2 GLOB 4.0 LAB L501.2000 0.9-2. RATIO Low 4 A/G 0.8 LAB L501.2200 8.5-10 mg/dL Normal .1 CA 9.2 LAB L501.4100 15-37 U/L Low AST 13 LAB L501.4305 45-117 U/L Normal ALK P 71 LAB L501.4405 13-56 U/L Normal ALT 21 LAB L501.4600 0.20-1 mg/dL Normal .00 T BILI 0.40 LAB L501.5300 136-14 mmol/L Normal 5 NA 140 LAB L501.5600 3.5-5. mmol/L Normal 1 K 3.8 LAB L501.5900 98-107 mmol/L Normal CL 104 LAB L501.6100 21.0-3 mmol/L Normal 2.0 CO2 27.0 LAB L501.6200 5-15 Normal GAP 9 Performed By: #### L500.4050, L501.2300 #### [facility] [address] [facility] [place], [address] PHOSPHORUS Collected: 05/29/2018 Status: F Source: [facility] 9:18 AM [facility] REPOSITORY Order Comment: Reason for Laboratory Test Chemotherapy TYPE CODE TESTS RESULT OUT OF RANGE REFERENCE UNITS LAB L501.2300 2.5-4.9 mg/dL Normal PHOS 3.3 Performed By: #### L500.4050, L501.2300 #### [facility] [address] [place], [address] RADIATION ONCOLOGY Observed: 05/24/2018 Status: F Source: [facility] VISIT 4:31 PM [facility] REPOSITORY [facility] [address] [facility] [place] [address] OFFICE VISIT Date of Service: 05/24/18 1625 MR#: [id number] Acct: [id number] Name: TENRIISMMARIETTA GRAMAJO Rep #: [id number] : 1940 From: Junior Kyle DO Age/Sex: 77/F Location: [facility]C Status: Signed Date of Service: 05/24/18 Diagnosis: Marietta Ghosh is a 77 year-old female diagnosed with 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 Plan was made to complete definitive chemoradiation therapy consisting of 6000 cGy in 30 fractions to the right upper lobe primary tumor and mediastinal adenopathy. Treatment Data: Treatment Site: Right upper lobe and mediastinum Current total dose/Total dose planned: 4600 / 6000 cGy Fraction number: Chemotherapy: Concurrent carbo/taxol weekly (Tuesday) Subjective: She reported having intermittent dizziness and mild sore throat last week, no fevers/chills. Dizziness is improved and only upon standing occasionally. Sore throat is actually more in the submandibular region and not with swallowing. She denies focal neuro deficits including diplopia, field cuts or changes in cognition. Denies hand or foot incoordination. She denies worsening cough, SOB, or CP. Pain: none, other than sore throat 02/09 Breathing: no SOB or hemoptysis. Cough at baseline, some worsening with sputum production Swallowing: mild food sticking. moderate odynophagia, MMW tid currently and tramadol (taking for back pain) Fatigue: grade 1 Nausea: worse this week, no vomiting. Taking Zofran and Compazine Height/Weight/BMI: Height: 5 ft 5.5 in Weight: at sim: 180 lbs (05/03/18: 181.6 lbs, 05/10/18: 183.3 lbs, 05/24/18: 182 lbs) Vital Signs Temperature 98 F 05/17/18 14:50 Temperature Source Oral 05/17/18 14:50 Pulse Rate 80 05/17/18 14:50 Respiratory Rate 16 05/17/18 14:50 Laboratory Tests WBC 3.6 L Hgb 12.0 Plt Count 113 L Absolute Neuts (auto) 2.9 BUN 21 H Creatinine 0.63 Est GFR (MDRD) Non-Af 98 Laboratory Tests WBC 2.9 L Hgb 11.9 L Plt Count 135 L CMP 05/22 unremarkable Objective: NEURO: Grossly nonfocal. Responsive to detailed questions. Finger to nose normal without dysmetria. Gait slow with mild unsteadiness. CN II-XII intact, no nystagmus. No new weakness/numbness. OC/OP: No thrush. Prominent tonsillar lymphatic tissue, uvula midline. no mucositis, ulcer, or erythema. No cervical lymphadenopathy. pain when palpating the bilateral submandibular area Skin: mild erythema in anterior neck Resp: lungs CTAB, no w/r/r CV: RRR Ext: no edema Assessment: Tolerating chemoradiation therapy well overall. All treatment related imaging has been reviewed and approved. Dizziness: Improved, encouraged increase in fluids as it seems to be more related to dehydration this week, will have her discuss with med onc to determine if this could be related to chemo. Sore throat: Only with swallowing, limiting diet (grade 2 esophagitis) oral exam normal. Fatigue Plan: Continue treatment at this time Dizziness: stable Dysphagia/odynophagia: continue MMW continue protonix for GERD, initiate carafate qid weight stable but encouraged increase in supplements given the increase in esophagitis and likely increase pain with swallowing the next couple weeks Follow-up next week or sooner if needed. 05/24/18 1631 <Electronically signed by Juinor yKle DO> Date Junior Medleyigndoris Signature: Date (if applicable) CC: ONCOLOGY VISIT REPORT Observed: 05/22/2018 Status: F Source: [facility] 11:12 AM [facility] REPOSITORY [facility] [place] [address] OFFICE VISIT Date of Service: 05/22/18 1054 MR#: [id number] Acct: [id number] Name: MARIETTA GHOSH Emily Rep #: [id number] : 1940 From: Glenn Loza MD Age/Sex: 77/F Location: [facility] Status: Signed - Problem List (1) Primary cancer of right upper lobe of lung Status: Acute (2) Regional lymph node metastasis present Status: Acute (3) Nodule of left lung Status: Acute - Date of Service Date of Service:: 05/22/18 - Chief Complaint Lung cancer - History of Present Illness Patient is a 77-year-old female, smoker (till the diagnosis of cancer in April 2018) with a medical history notable for rheumatoid disease, chronic back pain due to spinal stenosis, dyslipidemia and GERD. She had an MRI in January 2018 to evaluate increasing back pain and two lung nodules were noted. 02/28/2018: CT chest demonstrated a dominant right upper lobe nodule measuring 2.1 x 1.7 x 2.5 cm, a left upper lobe nodule measuring 7 mm, and right hilar and right paratracheal adenopathy. 03/15/2018: PET scan demonstrated a hypermetabolic spiculated mass within the right upper lobe concerning for primary malignancy with a maximum SUV of 12.1, there is a small spiculated mass identified within the left upper lobe demonstrating mild FDG activity with SUV of 2.2, there are multiple hypermetabolic right hilar and right. Bronchial lymph nodes with maximum SUV of 11.1. Mildly hypermetabolic right paraesophageal/retrotracheal and precarinal lymph nodes are identified. Focal hypermetabolic activity is appreciated within the inferior right parotid gland and the trachea max SUV of 7.1. 03/24/2018: Patient underwent bronchoscopy with EBUS which demonstrated unremarkable airways, levels 4R, 4L, 7, and 11 are were all biopsied multiple times. Biopsies from 4R and 11R are consistent with adenocarcinoma and biopsies of 4L and level 7 showed no malignant cells were identified. Immunohistochemistry was nonspecific . She had bilateral screening mammograms -2017. 04/03/18: PFTs were completed. FEV1 was 105% predicted and DLCO 122% predicted. Conclusion was normal pulmonary function test. The left upper lung nodule is sub centimeters, with indeterminate SUV uptake and not amenable to guided biopsy and therefore will need to be followed up. Her workup was done at [facility]. Given the extent of her disease, suboptimal performance status and comorbidities she was felt not to be a surgical candidate and was referred for definitive concomitant chemoradiation. Treatment: Combined chemoradiation with weekly carbotaxol April 24, 2018 - Past Medical/Social History Past Medical History Cancer: Lung cancer Social History Social History: No changes Smoking Status Former smoker Review of Systems Constitutional:: Reports: Weakness, Fatigue. Denies: Fever, Sweats, Weight loss, Appetite change, Chills Cardiovascular:: Denies: Chest pain, Palpitations, Dyspnea on exertion, Orthopnea, PND, Shortness of breath Respiratory: Denies: Cough, Hemoptysis, Shortness of Breath, Wheezing Gastrointestinal:: Reports: Reflux, Dysphagia - Painful, using miracle mouthwash with some relief. Denies: Abdominal pain, Nausea, Vomiting, Diarrhea, Constipation, Hematochezia Genitourinary: Denies: Dysuria, Hematuria, 15, Flank pain Musculoskeletal:: Denies: Back pain, Myalgia, Arthralgia Skin: Denies: Rash, Skin Changes, Wounds Neurological:: Denies: Headache, Dizziness, Visual changes, Tinnitus, Hearing loss Psychiatric: Denies: Anxiety, Depression, Homicidal Ideations, Suicidal Ideations Vital Signs Height 5 ft 5.5 in Weight: 83.007 kg Weight in Pounds 183.0 lbs BMI 29.5 Pulse Ox 99 - Physical Exam General: Alert, Oriented x3, No apparent distress, - - ECOG 2 Seen in a wheelchair HEENT: Atraumatic, PERRLA, EOMI, Normocephalic Oropharynx:: Dry mucosa Neck:: Supple, Trachea midline, - - Port okay. Negative for: JVD, bilateral Cardiac:: Regular rate, Regular rhythm, Normal S1, Normal S2. Negative for: Murmur Lungs: Clear to auscultation, Diminished, Excusion symmetrical. Negative for: Rhonchi, Wheezes Abdomen:: Soft, Non-tender, Non-distended. Negative for: Hepatosplenomegaly Extremities:: Negative for: Cyanosis, Edema Neurological: Neuro grossly intact Skin:: Negative for: Lesions, Rash, Petechiae, Ecchymosis Psychiatric:: Appropriate affect, Euthymic Lymphatics:: Negative for: Cervical lymphadenopathy, Supraclavicular lymphadenopathy Laboratory Data: Laboratory Tests WBC 2.9 L (4.4-11.0) K/mm3 RBC 3.86 L (4.2-5.4) M/mm3 Assessment and Plan #1. 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 Patient has indeterminate sub-centimeters left upper lobe nodule that will need to be followed up. Patient is not a surgical candidate due to extent of disease and comorbid conditions. She is a candidate for definitive chemoradiation with an intent to cure. I reviewed the most recent NCCN guidelines and advice weekly carbotaxol concomitant with radiation followed by 2 full dose cycles of the same chemotherapy after the conclusion of the concomitant treatment phase. She started the combined modality phase April 24, 2018 , will be seen on a weekly basis during this phase. She will be supported with IV fluid hydration to maintain adequate intake until she is able to resume normal oral intake. #2. An indeterminate right parotid gland uptake will be followed up. Impression and plan discussed with patient and family Medications: Prescriptions This Visit Medication Instructions Recorded Amlodipine [Norvasc] 5 mg PO QHS 04/11/18 Primary Care Provider: Theresa Macias Referring Provider: SALVATORE BAHENA 05/22/18 1112 <Electronically signed by Glenn Loza MD> Date Glenn Loza MD Cosigner Signature: Date (if applicable) CC: CBC W/DIFF, AUTOMATED Collected: 05/22/2018 Status: F Source: [facility] 10:14 AM [facility] REPOSITORY TYPE CODE TESTS RESULT OUT OF RANGE REFERENCE UNITS LAB L100.1000 4.4-11.0 K/mm3 Low WBC 2.9 LAB L100.1200 4.2-5.4 M/mm3 Low RBC 3.86 LAB L100.1300 12.0-15.0 g/dl Low HGB 11.9 LAB L100.1400 37-47 % Normal HCT 37.1 LAB L100.1500 81-99 fL Normal MCV 96.1 LAB L100.1600 27.0-32.0 pg Normal MCH 30.8 LAB L100.1700 32-36 g/gl Normal MCHC 32.1 LAB L100.1810 11.6-14.6 % High RDW CV 16.4 LAB L100.1820 35.1-43.9 fl High RDW SD 56.1 LAB L100.1900 150-450 K/mm3 Low PLT 135 LAB L100.2000 6.2-12.0 fl Normal MPV 11.2 LAB L100.2100 47-70 % High NEUT% 71.1 LAB L100.2200 19-41 % Low LY% 18.3 LAB L100.2300 0-10 % Normal MONO% 10.0 LAB L100.2400 0-5 % Normal EO% 0.0 LAB L100.2500 0-1 % Normal BASO% 0.3 LAB L100.2550 0.0-0.9 % Normal IM GRAN % 0.300 Result Comment: IG% - Immature Granulocytes (promyelocytes, myelocytes and metamyelocytes) > 1% indicates that a LEFT SHIFT is Present. LAB L100.2620 2.0-7.7 X10 3/uL Normal Absolute Neut 2.1 LAB L100.2720 0.83-4.51 X10 3/ul Low Absolute Lymph 0.53 LAB L100.4500 Normal SMEAR COMMENT COMMENT Result Comment: SLIDE SCANNED - LYMPHOPENIA NOTED. Performed By: #### L100.0100 #### [facility] [place], [address] COMPREHENSIVE METABOLIC Collected: 05/22/2018 Status: F Source: [facility] 10:14 AM [facility] REPOSITORY Order Comment: Reason for Laboratory Test Chemotherapy TYPE CODE TESTS RESULT OUT OF RANGE REFERENCE UNITS LAB L501.0100 74-106 mg/dL Normal GLU 92 Result Comment: Please note revised GLUCOSE reference range effective 2017. LAB L501.1000 7-18 mg/dL Normal BUN 16 LAB L501.1100 0.55-1.02 mg/dL Normal CREAT,SERUM 0.66 Result Comment: The validity of the calculated GFR AND GFRAA in patients over 70 years has not been determined. Clinical correlation is essential. LAB L501.1110 >60 mL/min Normal EST GFR 92 Result Comment: Non- GFR Calc LAB L501.1115 >60 mL/min Normal EST GFR - AA 111 Result Comment: GFR Calc LAB L501.1255 ml/min Normal Estimated CRCL 43.07 LAB L501.1300 10-20 RATIO High BUN/CRE 24.1 LAB L501.1500 6.4-8. g/dL Normal 2 T PROT 7.2 LAB L501.1800 3.2-5. g/dL Low 0 ALB 3.1 LAB L501.1950 2.2-4. g/dL Normal 2 GLOB 4.1 LAB L501.2000 0.9-2. RATIO Low 4 A/G 0.8 LAB L501.2200 8.5-10 mg/dL Normal .1 CA 8.9 LAB L501.4100 15-37 U/L Low AST 13 LAB L501.4305 45-117 U/L Normal ALK P 74 LAB L501.4405 13-56 U/L Normal ALT 20 LAB L501.4600 0.20-1 mg/dL Normal .00 T BILI 0.30 LAB L501.5300 136-14 mmol/L Normal 5 NA 139 LAB L501.5600 3.5-5. mmol/L Normal 1 K 4.3 LAB L501.5900 98-107 mmol/L Normal CL 105 LAB L501.6100 21.0-3 mmol/L Normal 2.0 CO2 30.0 LAB L501.6200 5-15 Low GAP 4 Performed By: #### L500.4050, L501.2300 #### [facility] [address] [place], [address] PHOSPHORUS Collected: 05/22/2018 Status: F Source: [facility] 10:14 AM [facility] REPOSITORY Order Comment: Reason for Laboratory Test Chemotherapy TYPE CODE TESTS RESULT OUT OF RANGE REFERENCE UNITS LAB L501.2300 2.5-4.9 mg/dL Normal PHOS 2.8 Performed By: #### L500.4050, L501.2300 #### [facility] [address] [facility] [place], [address] RADIATION ONCOLOGY Observed: 05/17/2018 Status: F Source: [facility] VISIT 3:47 PM [facility] REPOSITORY [facility] [address] [place], [place] [address] [address] OFFICE VISIT Date of Service: 05/17/18 1542 MR#: [id number] Acct: [id number] Name: MARIETTA GHOSH Rep #: [id number] : 1940 From: Junior Kyle DO Age/Sex: 77/F Location: [facility] Status: Signed Date of Service: 05/17/18 Diagnosis: Marietta Ghosh is a 77 year-old female diagnosed with 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 Plan was made to complete definitive chemoradiation therapy consisting of 6000 cGy in 30 fractions to the right upper lobe primary tumor and mediastinal adenopathy. Treatment Data: Treatment Site: Right upper lobe and mediastinum Current total dose/Total dose planned: 3600 / 6000 cGy Fraction number: Chemotherapy: Concurrent carbo/taxol weekly (Tuesday) Subjective: She reported having intermittent dizziness and mild sore throat last week, no fevers/chills. Dizziness is improved and only upon standing occasionally. Sore throat is actually more in the submandibular region and not with swallowing. She denies focal neuro deficits including diplopia, field cuts or changes in cognition. Denies hand or foot incoordination. She denies worsening cough, SOB, or CP. She has mild difficulty with swallowing due to food sticking, no pain. Pain: none, other than sore throat Breathing: no SOB or hemoptysis. Cough at baseline Energy: normal Swallowing: mild food sticking. mild odynophagia, MMW tid Fatigue: grade 1 Height/Weight/BMI: Height: 5 ft 5.5 in Weight: at sim: 180 lbs (05/03/18: 181.6 lbs, 05/10/18: 183.3 lbs) Vital Signs Temperature 98 F 05/17/18 14:50 Temperature Source Oral 05/17/18 14:50 Pulse Rate 80 05/17/18 14:50 Respiratory Rate 16 05/17/18 14:50 Laboratory Tests WBC 3.6 L Hgb 12.0 Plt Count 113 L Absolute Neuts (auto) 2.9 BUN 21 H Creatinine 0.63 Est GFR (MDRD) Non-Af 98 CMP 05/15 unremarkable Objective: NEURO: Grossly nonfocal. Responsive to detailed questions. Finger to nose normal without dysmetria. Gait slow with mild unsteadiness. CN II-XII intact, no nystagmus. No new weakness/numbness. OC/OP: No thrush. Prominent tonsillar lymphatic tissue, uvula midline. no mucositis, ulcer, or erythema. No cervical lymphadenopathy. pain when palpating the bilateral submandibular area Resp: lungs CTAB, no w/r/r CV: RRR Ext: no edema Assessment: Tolerating chemoradiation therapy well overall. All treatment related imaging has been reviewed and approved. Dizziness: Improved, encouraged increase in fluids as it seems to be more related to dehydration this week, will have her discuss with med onc to determine if this could be related to chemo. Sore throat: Not with swallowing, only with palpation of the submandibular area, no masses present and no skin irritation. oral exam normal. Fatigue Plan: Continue treatment at this time Dizziness: improved from last week. No meclizine started, will have her follow up with med onc Upper Sore throat: Unlikely to be related to treatment will monitor Dysphagia/odynophagia: continue MMW continue protonix for GERD Follow-up next week or sooner if needed. 05/17/18 1547 <Electronically signed by Junior Kyle DO> Date Junior Aguilar Signature: Date (if applicable) CC: ONCOLOGY VISIT REPORT Observed: 05/15/2018 Status: F Source: [facility] 4:49 PM [facility] REPOSITORY [facility] [address] [place] [address] [place] [address] OFFICE VISIT Date of Service: 05/15/18 1106 MR#: [id number] Acct: [id number] Name: MARIETTA GHOSH Rep #: [id number] : 1940 From: Glenn Loza MD Age/Sex: 77/F Location: [facility] Status: Signed - Problem List (1) Primary cancer of right upper lobe of lung Status: Acute (2) Regional lymph node metastasis present Status: Acute (3) Nodule of left lung Status: Acute - Date of Service Date of Service:: 05/15/18 - Chief Complaint Lung cancer on treatment - History of Present Illness Patient is a 77-year-old female, smoker (till the diagnosis of cancer in April 2018) with a medical history notable for rheumatoid disease, chronic back pain due to spinal stenosis, dyslipidemia and GERD. She had an MRI in January 2018 to evaluate increasing back pain and two lung nodules were noted. 02/28/2018: CT chest demonstrated a dominant right upper lobe nodule measuring 2.1 x 1.7 x 2.5 cm, a left upper lobe nodule measuring 7 mm, and right hilar and right paratracheal adenopathy. 03/15/2018: PET scan demonstrated a hypermetabolic spiculated mass within the right upper lobe concerning for primary malignancy with a maximum SUV of 12.1, there is a small spiculated mass identified within the left upper lobe demonstrating mild FDG activity with SUV of 2.2, there are multiple hypermetabolic right hilar and right. Bronchial lymph nodes with maximum SUV of 11.1. Mildly hypermetabolic right paraesophageal/retrotracheal and precarinal lymph nodes are identified. Focal hypermetabolic activity is appreciated within the inferior right parotid gland and the trachea max SUV of 7.1. 03/24/2018: Patient underwent bronchoscopy with EBUS which demonstrated unremarkable airways, levels 4R, 4L, 7, and 11 are were all biopsied multiple times. Biopsies from 4R and 11R are consistent with adenocarcinoma and biopsies of 4L and level 7 showed no malignant cells were identified. Immunohistochemistry was nonspecific . She had bilateral screening mammograms -2017. 04/03/18: PFTs were completed. FEV1 was 105% predicted and DLCO 122% predicted. Conclusion was normal pulmonary function test. The left upper lung nodule is sub centimeters, with indeterminate SUV uptake and not amenable to guided biopsy and therefore will need to be followed up. Her workup was done at [facility]. Given the extent of her disease, suboptimal performance status and comorbidities she was felt not to be a surgical candidate and was referred for definitive concomitant chemoradiation. Treatment: Combined chemoradiation with weekly carbotaxol April 24, 2018 - Past Medical/Social History Past Medical History Cancer: Lung cancer Social History Social History: No changes Smoking Status Former smoker Review of Systems Constitutional:: Reports: Weakness, Fatigue, Weight loss, Appetite change. Denies: Fever, Sweats, Chills Cardiovascular:: Reports: Dyspnea on exertion. Denies: Chest pain, Palpitations, Orthopnea, PND, Shortness of breath Respiratory: Reports: Shortness of breath upon exertion. Denies: Cough, Hemoptysis, Shortness of Breath, Wheezing Gastrointestinal:: Reports: Constipation. Denies: Abdominal pain, Nausea, Vomiting, Diarrhea, Hematochezia Genitourinary: Denies: Dysuria, Hematuria, 15, Flank pain Musculoskeletal:: Denies: Back pain, Myalgia, Arthralgia Skin: Denies: Rash, Skin Changes, Wounds Neurological:: Denies: Headache, Dizziness, Visual changes, Tinnitus, Hearing loss Psychiatric: Denies: Anxiety, Depression, Homicidal Ideations, Suicidal Ideations Vital Signs Height 5 ft 5.5 in Weight: 81.647 kg Weight in Pounds 180.0 lbs BMI 29.5 Pulse Ox 99 - Physical Exam General: Alert, Oriented x3, No apparent distress, - - ECOG 1-2 HEENT: Atraumatic, PERRLA, EOMI, Normocephalic Oropharynx:: Dry mucosa Neck:: Supple, Trachea midline, - - Port okay. Negative for: JVD, bilateral Cardiac:: Regular rate, Regular rhythm, Normal S1, Normal S2. Negative for: Murmur Lungs: Clear to auscultation, Diminished, Excusion symmetrical. Negative for: Rhonchi, Wheezes Abdomen:: Soft, Non-tender, Non-distended. Negative for: Hepatosplenomegaly Extremities:: Negative for: Cyanosis, Edema Neurological: Neuro grossly intact Skin:: Negative for: Lesions, Rash, Petechiae, Ecchymosis Psychiatric:: Appropriate affect, Euthymic Lymphatics:: Negative for: Cervical lymphadenopathy, Supraclavicular lymphadenopathy Laboratory Data: Laboratory Tests WBC 3.6 L (4.4-11.0) K/mm3 RBC 3.90 L (4.2-5.4) M/mm3 Hgb 12.0 (12.0-15.0) g/dl Hct 37.4 (37-47) % MCV 95.9 (81-99) fL Laboratory Tests BUN 12 17 17 BUN 21 H Assessment and Plan #1. 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 Patient has indeterminate sub-centimeters left upper lobe nodule that will need to be followed up. Patient is not a surgical candidate due to extent of disease and comorbid conditions. She is a candidate for definitive chemoradiation with an intent to cure. I reviewed the most recent NCCN guidelines and advice weekly carbotaxol concomitant with radiation followed by 2 full dose cycles of the same chemotherapy after the conclusion of the concomitant treatment phase. She started the combined modality phase April 24, 2018 , will be seen on a weekly basis during this phase. Noted a rising BUN/creatinine most likely prerenal due to an adequate intake of fluids. She will be supported with IV fluid hydration to maintain adequate oral intake. #2. An indeterminate right parotid gland uptake will be followed up. Impression and plan discussed with patient and family Medications: Prescriptions This Visit Medication Instructions Recorded Amlodipine [Norvasc] 5 mg PO QHS 04/11/18 Primary Care Provider: Theresa Macias Referring Provider: SALVATORE BAHENA 05/15/18 0789 <Electronically signed by Glenn Loza MD> Date Glenn Loza MD Cosigner Signature: Date (if applicable) CC: CBC W/DIFF, AUTOMATED Collected: 05/15/2018 Status: F Source: MICAELA 9:31 AM [facility] REPOSITORY TYPE CODE TESTS RESULT OUT OF RANGE REFERENCE UNITS LAB L100.1000 4.4-11.0 K/mm3 Low WBC 3.6 LAB L100.1200 4.2-5.4 M/mm3 Low RBC 3.90 LAB L100.1300 12.0-15.0 g/dl Normal HGB 12.0 LAB L100.1400 37-47 % Normal HCT 37.4 LAB L100.1500 81-99 fL Normal MCV 95.9 LAB L100.1600 27.0-32.0 pg Normal MCH 30.8 LAB L100.1700 32-36 g/gl Normal MCHC 32.1 LAB L100.1810 11.6-14.6 % High RDW CV 15.9 LAB L100.1820 35.1-43.9 fl High RDW SD 54.6 LAB L100.1900 150-450 K/mm3 Low PLT 113 LAB L100.2000 6.2-12.0 fl High MPV 12.4 LAB L100.2100 47-70 % High NEUT% 80.3 LAB L100.2200 19-41 % Low LY% 12.6 LAB L100.2300 0-10 % Normal MONO% 6.3 LAB L100.2400 0-5 % Normal EO% 0.5 LAB L100.2500 0-1 % Normal BASO% 0.3 LAB L100.2550 0.0-0.9 % Normal IM GRAN % 0.000 Result Comment: IG% - Immature Granulocytes (promyelocytes, myelocytes and metamyelocytes) > 1% indicates that a LEFT SHIFT is Present. LAB L100.2620 2.0-7.7 X10 3/uL Normal Absolute Neut 2.9 LAB L100.2720 0.83-4.51 X10 3/ul Low Absolute Lymph 0.46 Performed By: #### L100.0100 #### [facility] [address] [place], [address] COMPREHENSIVE METABOLIC Collected: 05/15/2018 Status: F Source: [facility] 9:30 AM [facility] REPOSITORY Order Comment: Reason for Laboratory Test Chemotherapy TYPE CODE TESTS RESULT OUT OF RANGE REFERENCE UNITS LAB L501.0100 74-106 mg/dL Normal GLU 87 Result Comment: Please note revised GLUCOSE reference range effective 2017. LAB L501.1000 7-18 mg/dL High BUN 21 LAB L501.1100 0.55-1.02 mg/dL Normal CREAT,SERUM 0.63 Result Comment: The validity of the calculated GFR AND GFRAA in patients over 70 years has not been determined. Clinical correlation is essential. LAB L501.1110 >60 mL/min Normal EST GFR 98 Result Comment: Non- GFR Calc LAB L501.1115 >60 mL/min Normal EST GFR - AA 118 Result Comment: GFR Calc LAB L501.1255 ml/min Normal Estimated CRCL 43.07 LAB L501.1300 10-20 RATIO High BUN/CRE 33.4 LAB L501.1500 6.4-8. g/dL Normal 2 T PROT 7.0 LAB L501.1800 3.2-5. g/dL Low 0 ALB 3.0 LAB L501.1950 2.2-4. g/dL Normal 2 GLOB 4.0 LAB L501.2000 0.9-2. RATIO Low 4 A/G 0.8 LAB L501.2200 8.5-10 mg/dL Normal .1 CA 8.8 LAB L501.4100 15-37 U/L Low AST 14 LAB L501.4305 45-117 U/L Normal ALK P 77 LAB L501.4405 13-56 U/L Normal ALT 21 LAB L501.4600 0.20-1 mg/dL Normal .00 T BILI 0.30 LAB L501.5300 136-14 mmol/L Normal 5 NA 139 LAB L501.5600 3.5-5. mmol/L Normal 1 K 4.1 LAB L501.5900 98-107 mmol/L Normal CL 107 LAB L501.6100 21.0-3 mmol/L Normal 2.0 CO2 30.0 LAB L501.6200 5-15 Low GAP 2 Performed By: #### L500.4050, L501.2300 #### [facility] [address] [facility] [place], [address] PHOSPHORUS Collected: 05/15/2018 Status: F Source: M[facility]ELA 9:30 AM [facility] REPOSITORY Order Comment: Reason for Laboratory Test Chemotherapy TYPE CODE TESTS RESULT OUT OF RANGE REFERENCE UNITS LAB L501.2300 2.5-4.9 mg/dL Low PHOS 2.4 Performed By: #### L500.4050, L501.2300 #### [facility] [address] [place], [address] RADIATION ONCOLOGY Observed: 05/10/2018 Status: F Source: SANDY VISIT 4:04 PM [facility] REPOSITORY [facility] [address] [place] [address] OFFICE VISIT Date of Service: 05/10/18 1555 MR#: [id number] Acct: [id number] Name: MARIETTA GHOSH Rep #: [id number] : 1940 From: Junior Kyle Age/Sex: 77/F Location: [facility] Status: Signed Date of Service: 05/10/18 Diagnosis: Marietta Ghosh is a 77 year-old female diagnosed with 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 Plan was made to complete definitive chemoradiation therapy consisting of 6000 cGy in 30 fractions to the right upper lobe primary tumor and mediastinal adenopathy. Treatment Data: Treatment Site: Right upper lobe and mediastinum Current total dose/Total dose planned: 2600 / 6000 cGy Fraction number: Chemotherapy: Concurrent carbo/taxol weekly (Tuesday) Subjective: She reported having intermittent dizziness and mild sore throat last week, no fevers/chills. Dizziness is improved and only upon standing. Sore throat is actually more in the submandibular region and not with swallowing. She denies focal neuro deficits including diplopia, field cuts or changes in cognition. Denies hand or foot incoordination. She denies cough, SOB, or CP. She has mild difficulty with swallowing due to food sticking, no pain. Pain: none, other than sore throat Breathing: no SOB or hemoptysis. Cough at baseline Energy: normal Swallowing: mild food sticking. no odynophagia Height/Weight/BMI: Height: 5 ft 5.5 in Weight: at sim: 180 lbs (05/03/18: 181.6 lbs, 05/10/18: 183.3 lbs) Vital Signs Temperature 98 F 05/10/18 15:43 Temperature Source Oral 05/10/18 15:43 Pulse Rate 76 05/10/18 15:43 Respiratory Rate 16 05/10/18 15:43 Laboratory Tests WBC 4.1 L Hgb 11.9 L Plt Count 143 L Absolute Neuts (auto) 3.3 CMP 05/08 unremarkable Objective: NEURO: Grossly nonfocal. Responsive to detailed questions. Finger to nose normal without dysmetria. Gait slow with mild unsteadiness. CN II-XII intact, no nystagmus. No new weakness/numbness. OC/OP: No thrush. Prominent tonsillar lymphatic tissue, uvula midline. no mucositis, ulcer, or erythema. No cervical lymphadenopathy. pain when palpating the bilateral submandibular area Resp: lungs CTAB, no w/r/r CV: RRR Ext: no edema Assessment: Tolerating chemoradiation therapy well overall. All treatment related imaging has been reviewed and approved. Dizziness: Improved, encouraged increase in fluids as it seems to be more related to dehydration this week, will have her discuss with med onc to determine if this could be related to chemo. Sore throat: Not with swallowing, only with palpation of the submandibular area, no masses present and no skin irritation. oral exam normal. Plan: Continue treatment at this time Dizziness: improved from last week. No meclizine started, will have her follow up with med onc Sore throat: Unlikely to be related to treatment will monitor Dysphagia: initiate MMW, continue protonix for GERD Follow-up next week or sooner if needed. 05/10/18 1604 <Electronically signed by Junior Kyle DO> Date Junior Aguilar Signature: Date (if applicable) CC: ONCOLOGY VISIT REPORT Observed: 05/08/2018 Status: F Source: MICAELA 6:02 PM [facility] REPOSITORY [facility] [address] [place] [address] OFFICE VISIT Date of Service: 05/08/181756 MR#: [id number] Acct: [id number] Name: MARIETTA GHOSH Rep #: [id number] : 1940 From: Waylon Daniel MD Age/Sex: 77/F Location: [facility] Status: Signed Subjective - Date of Service Date of Service:: 05/08/18 - Chief Complaint F/u for Lung cancer/chemotherapy. - History of Present Illness Patient is a 77-year-old female, smoker (till the diagnosis of cancer in April 2018) with a medical history notable for rheumatoid disease, chronic back pain due to spinal stenosis, dyslipidemia and GERD. She had an MRI in January 2018 to evaluate increasing back pain and two lung nodules were noted. 02/28/2018: CT chest demonstrated a dominant right upper lobe nodule measuring 2.1 x 1.7 x 2.5 cm, a left upper lobe nodule measuring 7 mm, and right hilar and right paratracheal adenopathy. 03/15/2018: PET scan demonstrated a hypermetabolic spiculated mass within the right upper lobe concerning for primary malignancy with a maximum SUV of 12.1, there is a small spiculated mass identified within the left upper lobe demonstrating mild FDG activity with SUV of 2.2, there are multiple hypermetabolic right hilar and right. Bronchial lymph nodes with maximum SUV of 11.1. Mildly hypermetabolic right paraesophageal/retrotracheal and precarinal lymph nodes are identified. Focal hypermetabolic activity is appreciated within the inferior right parotid gland and the trachea max SUV of 7.1. 03/24/2018: Patient underwent bronchoscopy with EBUS which demonstrated unremarkable airways, levels 4R, 4L, 7, and 11 are were all biopsied multiple times. Biopsies from 4R and 11R are consistent with adenocarcinoma and biopsies of 4L and level 7 showed no malignant cells were identified. Immunohistochemistry was nonspecific . She had bilateral screening mammograms -2017. 04/03/18: PFTs were completed. FEV1 was 105% predicted and DLCO 122% predicted. Conclusion was normal pulmonary function test. The left upper lung nodule is sub centimeters, with indeterminate SUV uptake and not amenable to guided biopsy and therefore will need to be followed up. Her workup was done at [facility]. Given the extent of her disease, suboptimal performance status and comorbidities she was felt not to be a surgical candidate and was referred for definitive concomitant chemoradiation. Treatment: Combined chemoradiation with weekly Carbo/Taxol April 24, 2018 Comes for 3rd weekly therapy. - Past Medical/Social History Past Medical History Cancer: Lung cancer Social History Social History: No changes Smoking Status Former smoker Review of Systems Constitutional:: Reports: Pain - Lower back from RA.. Denies: Fatigue, Fever, Sweats Cardiovascular:: Denies: Chest pain, Palpitations, Dyspnea on exertion, Orthopnea, PND, Shortness of breath Respiratory: Denies: Cough, Hemoptysis, Shortness of Breath, Wheezing Gastrointestinal:: Denies: Abdominal pain, Nausea, Vomiting, Diarrhea, Constipation, Hematochezia Genitourinary: Denies: Dysuria, Hematuria, Flank pain Musculoskeletal:: Reports: Arthritis Neurological:: Denies: Headache, Dizziness, Visual changes, Tinnitus, Hearing loss Psychiatric: Denies: Anxiety, Depression, Homicidal Ideations, Suicidal Ideations Vital Signs Height 5 ft 5.5 in Weight: 82.1 kg Weight in Pounds 181.0 lbs BMI 29.5 Pulse Ox 97 - Physical Exam General: Alert, Oriented x3, No apparent distress, - HEENT: Atraumatic, PERRLA, EOMI, Normocephalic Oropharynx:: Dry mucosa Neck:: Supple, Trachea midline. Negative for: JVD, bilateral Cardiac:: Regular rate, Regular rhythm, Normal S1, Normal S2. Negative for: Murmur Lungs: Clear to auscultation, Excusion symmetrical. Negative for: Rhonchi, Wheezes Lymphatics:: Negative for: Cervical lymphadenopathy, Supraclavicular lymphadenopathy, Axillary lymphadenopathy Laboratory Data: Laboratory Tests Assessment and Plan Non-small cell lung cancer adenocarcinoma type right upper lobe stage IIIa(T1c N2 M0). On chemotherapy with Taxol/Carboplatin and Radiation therapy. Counts are OK. Plan is to proceed with second weekly dose of Taxol carboplatin. Return to clinic 1 week with CBC CMP for 4th cycle. Medications: Prescriptions This Visit Medication Instructions Recorded Primary Care Provider: Theresa Macias Referring Provider: SALVATORE BAHENA - Problem List (1) Non-small cell lung cancer Status: Chronic Qualifiers: Laterality: right Qualified Code(s): C34.91 - Malignant neoplasm of unspecified part of right bronchus or lung (2) Chemotherapy management, encounter for Status: Acute Code Visit Office Visits / Consults: [id number] OV L5 Est 05/08/18 180 <Electronically signed by Waylon Daniel MD> Date Waylon Daniel MD Cosigner Signature: Date (if applicable) CC: CBC W/DIFF, AUTOMATED Collected: 05/08/2018 Status: F Source: [facility] 9:22 AM [facility] REPOSITORY TYPE CODE TESTS RESULT OUT OF RANGE REFERENCE UNITS LAB L100.1000 4.4-11.0 K/mm3 Low WBC 4.1 LAB L100.1200 4.2-5.4 M/mm3 Low RBC 3.88 LAB L100.1300 12.0-15.0 g/dl Low HGB 11.9 LAB L100.1400 37-47 % Normal HCT 37.4 LAB L100.1500 81-99 fL Normal MCV 96.4 LAB L100.1600 27.0-32.0 pg Normal MCH 30.7 LAB L100.1700 32-36 g/gl Low MCHC 31.8 LAB L100.1810 11.6-14.6 % High RDW CV 15.8 LAB L100.1820 35.1-43.9 fl High RDW SD 54.3 LAB L100.1900 150-450 K/mm3 Low PLT 143 LAB L100.2000 6.2-12.0 fl Normal MPV 11.7 LAB L100.2100 47-70 % High NEUT% 79.6 LAB L100.2200 19-41 % Low LY% 13.4 LAB L100.2300 0-10 % Normal MONO% 5.4 LAB L100.2400 0-5 % Normal EO% 1.2 LAB L100.2500 0-1 % Normal BASO% 0.2 LAB L100.2550 0.0-0.9 % Normal IM GRAN % 0.200 Result Comment: IG% - Immature Granulocytes (promyelocytes, myelocytes and metamyelocytes) > 1% indicates that a LEFT SHIFT is Present. LAB L100.2620 2.0-7.7 X10 3/uL Normal Absolute Neut 3.3 LAB L100.2720 0.83-4.51 X10 3/ul Low Absolute Lymph 0.55 LAB L100.4500 Normal SMEAR COMMENT COMMENT Result Comment: SLIDE SCANNED - LYMPHOPENIA NOTED. Performed By: #### L100.0100 #### [facility] [address] [place], [place], [address] COMPREHENSIVE METABOLIC Collected: 05/08/2018 Status: F Source: MICAELA [facility] 9:22 AM [facility] REPOSITORY Order Comment: Reason for Laboratory Test Chemotherapy TYPE CODE TESTS RESULT OUT OF RANGE REFERENCE UNITS LAB L501.0100 74-106 mg/dL High GLU 109 Result Comment: Fasting Glucose result from 100 to 125 mg/dL suggests IMPAIRED HOMEOSTASIS per A.D.A. criteria. Please note revised GLUCOSE reference range effective 2017. LAB L501.1000 7-18 mg/dL Normal BUN 17 LAB L501.1100 0.55-1.02 mg/dL Normal CREAT,SERUM 0.65 Result Comment: The validity of the calculated GFR AND GFRAA in patients over 70 years has not been determined. Clinical correlation is essential. LAB L501.1110 >60 mL/min Normal EST GFR 93 Result Comment: Non- GFR Calc LAB L501.1115 >60 mL/min Normal EST GFR - AA 113 Result Comment: GFR Calc LAB L501.1255 ml/min Normal Estimated CRCL 43.07 LAB L501.1300 10-20 RATIO High BUN/CRE 26.0 LAB L501.1500 6.4-8. g/dL Normal 2 T PROT 6.9 LAB L501.1800 3.2-5. g/dL Low 0 ALB 2.9 LAB L501.1950 2.2-4. g/dL Normal 2 GLOB 4.0 LAB L501.2000 0.9-2. RATIO Low 4 A/G 0.7 LAB L501.2200 8.5-10 mg/dL Normal .1 CA 8.5 LAB L501.4100 15-37 U/L Low AST 12 LAB L501.4305 45-117 U/L Normal ALK P 82 LAB L501.4405 13-56 U/L Normal ALT 19 LAB L501.4600 0.20-1 mg/dL Normal .00 T BILI 0.30 LAB L501.5300 136-14 mmol/L Normal 5 NA 140 LAB L501.5600 3.5-5. mmol/L Normal 1 K 4.0 LAB L501.5900 98-107 mmol/L Normal CL 107 LAB L501.6100 21.0-3 mmol/L Normal 2.0 CO2 29.0 LAB L501.6200 5-15 Low GAP 4 Performed By: #### L500.4050, L501.2300 #### [facility] [address] [place], [address] PHOSPHORUS Collected: 05/08/2018 Status: F Source: [facility] 9:22 AM [facility] REPOSITORY Order Comment: Reason for Laboratory Test Chemotherapy TYPE CODE TESTS RESULT OUT OF RANGE REFERENCE UNITS LAB L501.2300 2.5-4.9 mg/dL Normal PHOS 2.5 Performed By: #### L500.4050, L501.2300 #### [facility] [address] [place], [address] ONCOLOGY VISIT REPORT Observed: 05/07/2018 Status: F Source: S[facility]Y 4:53 PM [facility] REPOSITORY [facility] [address] [place] [address]. [place] [address] OFFICE VISIT Date of Service: 05/01/18 1035 MR#: [id number] Acct: [id number] Name: MARIETTA GHOSH Rep #: [id number] : 1940 From: Waylon Daniel MD Age/Sex: 77/F Location: [facility] Status: Signed Subjective - Date of Service Date of Service:: 05/01/18 - Chief Complaint F/u for Lung cancer/chemotherapy. - History of Present Illness Patient is a 77-year-old female, smoker (till the diagnosis of cancer in April 2018) with a medical history notable for rheumatoid disease, chronic back pain due to spinal stenosis, dyslipidemia and GERD. She had an MRI in January 2018 to evaluate increasing back pain and two lung nodules were noted. 02/28/2018: CT chest demonstrated a dominant right upper lobe nodule measuring 2.1 x 1.7 x 2.5 cm, a left upper lobe nodule measuring 7 mm, and right hilar and right paratracheal adenopathy. 03/15/2018: PET scan demonstrated a hypermetabolic spiculated mass within the right upper lobe concerning for primary malignancy with a maximum SUV of 12.1, there is a small spiculated mass identified within the left upper lobe demonstrating mild FDG activity with SUV of 2.2, there are multiple hypermetabolic right hilar and right. Bronchial lymph nodes with maximum SUV of 11.1. Mildly hypermetabolic right paraesophageal/retrotracheal and precarinal lymph nodes are identified. Focal hypermetabolic activity is appreciated within the inferior right parotid gland and the trachea max SUV of 7.1. 03/24/2018: Patient underwent bronchoscopy with EBUS which demonstrated unremarkable airways, levels 4R, 4L, 7, and 11 are were all biopsied multiple times. Biopsies from 4R and 11R are consistent with adenocarcinoma and biopsies of 4L and level 7 showed no malignant cells were identified. Immunohistochemistry was nonspecific . She had bilateral screening mammograms -2018. 04/03/18: PFTs were completed. FEV1 was 105% predicted and DLCO 122% predicted. Conclusion was normal pulmonary function test. The left upper lung nodule is sub centimeters, with indeterminate SUV uptake and not amenable to guided biopsy and therefore will need to be followed up. Her workup was done at [facility]. Given the extent of her disease, suboptimal performance status and comorbidities she was felt not to be a surgical candidate and was referred for definitive concomitant chemoradiation. Treatment: Combined chemoradiation with weekly carbo/taxol April 24, 2018 Comes for 2nd weekly therapy. - Past Medical/Social History Past Medical History Cancer: Lung cancer Social History Social History: No changes Smoking Status Former smoker Review of Systems Constitutional:: Reports: Pain - Low back pain which is chronic due Rheumatoid arthritis.. Denies: Fever, Sweats Cardiovascular:: Denies: Chest pain, Palpitations, Dyspnea on exertion, Orthopnea, PND, Shortness of breath Respiratory: Denies: Cough, Hemoptysis, Shortness of Breath, Wheezing Gastrointestinal:: Denies: Abdominal pain, Nausea, Vomiting, Diarrhea, Constipation, Hematochezia Genitourinary: Denies: Dysuria, Hematuria, 15, Flank pain Musculoskeletal:: Reports: Arthritis, Backache. Denies: Back pain, Myalgia, Arthralgia Skin: Denies: Rash, Skin Changes, Wounds Neurological:: Denies: Headache, Dizziness, Visual changes, Tinnitus, Hearing loss Vital Signs Height 5 ft 5.5 in Weight: 82.1 kg Weight in Pounds 181.0 lbs BMI 29.5 Pulse Ox 95 - Physical Exam General: Alert, Oriented x3, No apparent distress HEENT: Atraumatic, PERRLA, EOMI, Normocephalic Oropharynx:: Dry mucosa Neck:: Supple, Trachea midline. Negative for: JVD, bilateral Cardiac:: Regular rate, Regular rhythm, Normal S1, Normal S2. Negative for: Murmur Lungs: Clear to auscultation, Excusion symmetrical. Negative for: Rhonchi, Wheezes Lymphatics:: Negative for: Cervical lymphadenopathy, Supraclavicular lymphadenopathy, Axillary lymphadenopathy Laboratory Data: Laboratory Tests WBC 5.9 (4.4-11.0) K/mm3 RBC 4.23 (4.2-5.4) M/mm3 Hgb 13.2 (12.0-15.0) g/dl Hct 40.6 (37-47) % MCV 96.0 (81-99) fL Assessment and Plan Non-small cell lung cancer adenocarcinoma type right upper lobe stage IIIa(T1c N2 M0). On chemotherapy with Taxol/Carboplatin and Radiation therapy. Counts are OK. Plan is to proceed with second weekly dose of Taxol carboplatin. Return to clinic 1 week with CBC CMP for third cycle. Medications: Prescriptions This Visit Medication Instructions Recorded Primary Care Provider: Theresa Macias Referring Provider: SALVATORE BAHENA - Problem List (1) Non-small cell lung cancer Status: Chronic Qualifiers: Laterality: right Qualified Code(s): C34.91 - Malignant neoplasm of unspecified part of right bronchus or lung (2) Chemotherapy management, encounter for Status: Acute Code Visit Office Visits / Consults: [id number] OV L5 Est 05/07/18 9253 <Electronically signed by Waylon Daniel MD> Date Waylon Daniel MD Cosigner Signature: Date (if applicable) CC: RADIATION ONCOLOGY Observed: 05/03/2018 Status: F Source: SANDY VISIT 5:54 PM [facility] REPOSITORY [facility] [place] [address] OFFICE VISIT Date of Service: 05/03/18 1740 MR#: [id number] Acct: [id number] Name: MARIETTA GHOSH Rep #: [id number] : 1940 From: Junior Kyle DO Age/Sex: 77/F Location: D Status: Signed Date of Service: 05/03/18 Diagnosis: Marietta Ghosh is a 77 year-old female diagnosed with 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 Plan was made to complete definitive chemoradiation therapy consisting of 6000 cGy in 30 fractions to the right upper lobe primary tumor and mediastinal adenopathy. Treatment Data: Treatment Site: Right upper lobe and mediastinum Current total dose/Total dose planned: 1600 / 6000 cGy Fraction number: Chemotherapy: Concurrent carbo/taxol weekly Subjective: She reports having intermittent dizziness and mild sore throat, no fevers/chills. Her dizziness is not accompanied by position changes or recent weight loss, essentially occurring at random for brief periods, describes this as the room spinning at times and feeling as if she is floating at times. She denies focal neuro deficits including diplopia, field cuts or changes in cognition (also denied by accompanying family member). Denies hand or foot incoordination. She denies cough, SOB, or CP. Patient has been drinking 4 L of water per day, she had mistakenly thought this was what she was supposed to be doing. She reports urinating often, has clear urine. Pain: none, other than sore throat Breathing: no SOB or hemoptysis. Cough at baseline Energy: normal Swallowing: sore throat in upper throat, no dysphagia Height/Weight/BMI: Height: 5 ft 5.5 in Weight: at sim: 180 lbs (05/03/18: 181.6 lbs) Vital Signs Temperature 97.8 F 05/03/18 15:43 Temperature Source Oral 05/03/18 15:43 Pulse Rate 76 05/03/18 15:43 Respiratory Rate 16 05/03/18 15:43 Laboratory Tests WBC 5.9 Hgb 13.2 Plt Count 131 L Sodium 137 Potassium 4.2 Chloride 103 BUN 17 Creatinine 0.76 Objective: NEURO: Grossly nonfocal. Responsive to detailed questions. Finger to nose normal without dysmetria. Gait slow with mild unsteadiness. CN II-XII intact, no nystagmus. No new weakness/numbness. OC/OP: No thrush. Prominent tonsillar lymphatic tissue, uvula midline. no mucositis, ulcer, or erythema. No cervical lymphadenopathy. Resp: lungs CTAB, no w/r/r CV: RRR Ext: no edema Assessment: Tolerating chemoradiation therapy well overall. All treatment related imaging has been reviewed and approved. Dizziness: Appears to be vestibular intermittent and brief episodes, but no other associated symptoms such as hearing loss. Discussed with medical oncology, likely related to chemotherapy and possibly to increased water intake/overload, labs normal. Given the timing I agree that it is likely associated with chemotherapy. Brain MRI completed on 04/12/2018 showed no evidence of metastatic disease or other abnormality, no repeat imaging indicated at this time. Sore throat: Upper sore throat without other associated symptoms, normal exam. Unlikely to be related to relate radiation therapy given the location and due to the fact that is very early treatment. Plan: Continue treatment at this time Dizziness: We will reduce water to the appropriate consumption and reevaluate in 48 hours, if persistent will consider meclizine. Sore throat: Unlikely to be related to treatment will monitor Follow-up next week or sooner if needed. 05/03/18 9290 <Electronically signed by Junior Kyle DO> Date Junior Aguilar Signature: Date (if applicable) CC: CBC W/DIFF, AUTOMATED Collected: 05/01/2018 Status: F Source: [place] 9:16 AM [facility] REPOSITORY TYPE CODE TESTS RESULT OUT OF RANGE REFERENCE UNITS LAB L100.1000 4.4-11.0 K/mm3 Normal WBC 5.9 LAB L100.1200 4.2-5.4 M/mm3 Normal RBC 4.23 LAB L100.1300 12.0-15.0 g/dl Normal HGB 13.2 LAB L100.1400 37-47 % Normal HCT 40.6 LAB L100.1500 81-99 fL Normal MCV 96.0 LAB L100.1600 27.0-32.0 pg Normal MCH 31.2 LAB L100.1700 32-36 g/gl Normal MCHC 32.5 LAB L100.1810 11.6-14.6 % High RDW CV 15.7 LAB L100.1820 35.1-43.9 fl High RDW SD 54.3 LAB L100.1900 150-450 K/mm3 Low PLT 131 LAB L100.2000 6.2-12.0 fl High MPV 13.0 LAB L100.2100 47-70 % High NEUT% 80.3 LAB L100.2200 19-41 % Low LY% 12.1 LAB L100.2300 0-10 % Normal MONO% 5.4 LAB L100.2400 0-5 % Normal EO% 1.7 LAB L100.2500 0-1 % Normal BASO% 0.2 LAB L100.2550 0.0-0.9 % Normal IM GRAN % 0.300 Result Comment: IG% - Immature Granulocytes (promyelocytes, myelocytes and metamyelocytes) > 1% indicates that a LEFT SHIFT is Present. LAB L100.2620 2.0-7.7 X10 3/uL Normal Absolute Neut 4.8 LAB L100.2720 0.83-4.51 X10 3/ul Low Absolute Lymph 0.72 Performed By: #### L100.0100 #### [facility] [address] [place], [address] COMPREHENSIVE METABOLIC Collected: 05/01/2018 Status: F Source: [facility] 9:16 AM [facility] REPOSITORY Order Comment: Reason for Laboratory Test Chemotherapy TYPE CODE TESTS RESULT OUT OF RANGE REFERENCE UNITS LAB L501.0100 74-106 mg/dL Normal GLU 77 Result Comment: Please note revised GLUCOSE reference range effective 2017. LAB L501.1000 7-18 mg/dL Normal BUN 17 LAB L501.1100 0.55-1.02 mg/dL Normal CREAT,SERUM 0.76 Result Comment: The validity of the calculated GFR AND GFRAA in patients over 70 years has not been determined. Clinical correlation is essential. LAB L501.1110 >60 mL/min Normal EST GFR 78 Result Comment: Non- GFR Calc LAB L501.1115 >60 mL/min Normal EST GFR - AA 95 Result Comment: GFR Calc LAB L501.1255 ml/min Normal Estimated CRCL 43.07 LAB L501.1300 10-20 RATIO High BUN/CRE 22.3 LAB L501.1500 6.4-8. g/dL Normal 2 T PROT 7.5 LAB L501.1800 3.2-5. g/dL Normal 0 ALB 3.3 LAB L501.1950 2.2-4. g/dL Normal 2 GLOB 4.2 LAB L501.2000 0.9-2. RATIO Low 4 A/G 0.8 LAB L501.2200 8.5-10 mg/dL Normal .1 CA 9.2 LAB L501.4100 15-37 U/L Low AST 14 LAB L501.4305 45-117 U/L Normal ALK P 90 LAB L501.4405 13-56 U/L Normal ALT 18 LAB L501.4600 0.20-1 mg/dL Normal .00 T BILI 0.40 LAB L501.5300 136-14 mmol/L Normal 5 NA 137 LAB L501.5600 3.5-5. mmol/L Normal 1 K 4.2 LAB L501.5900 98-107 mmol/L Normal CL 103 LAB L501.6100 21.0-3 mmol/L Normal 2.0 CO2 32.0 LAB L501.6200 5-15 Low GAP 2 Performed By: #### L500.4050, L501.2300 #### [facility] [address] [place], [place], [id number] PHOSPHORUS Collected: 05/01/2018 Status: F Source: [place] 9:16 AM [facility] REPOSITORY Order Comment: Reason for Laboratory Test Chemotherapy TYPE CODE TESTS RESULT OUT OF RANGE REFERENCE UNITS LAB L501.2300 2.5-4.9 mg/dL Normal PHOS 3.4 Performed By: #### L500.4050, L501.2300 #### [facility] [address] [place], [address] RADIATION ONCOLOGY Observed: 04/26/2018 Status: F Source: SANDY VISIT 3:54 PM [facility] REPOSITORY [facility] [address] [place] [address] OFFICE VISIT Date of Service: 04/26/18 1549 MR#: [id number] Acct: [id number] Name: MARIETTA GHOSH Rep #: [id number] : 1940 From: Gómez Doherty MD Age/Sex: 77/F Location: [facility] Status: Signed Date of Service: 04/26/18 Diagnosis: [IIIA Adenocarcinoma of the RUL] Treatment Data: Treatment Site: [Lung] Current total dose/Total dose planned: [600 / 6000 cGy] Fraction number: [] Chemotherapy: [Concurrent carbotaxol weekly] Subjective: She reports having intermittent dizziness and mild sore throat. Her dizziness is not accompanied by position changes or recent weight loss, essentially occurring at random for brief periods. She denies focal neuro deficits including diplopia, field cuts or changes in cognition (also denied by accompanying family member). She denies cough, SOB, or CP. Review of her bloodwork demonstrated nothing remarkable. Height/Weight/BMI: Height: 5 ft 5.5 in Weight: 83.189 kg Previous/Normal Weight: BMI: 29.5 Today's weight 182.4 (last week 183 per RN) Objective: VS: BP 148/61 P 63 R 16 T 97.9 98% NEURO: Grossly nonfocal. Responsive to detailed questions. OC/OP: No thrush. Prominent tonsillar lymphatic tissue, uvula midline. Assessment: Beginning of XRT for lung ca concurrent with chemo. Some mild symptoms of uncertain etiology. Plan: Referred her back to her Medical Oncologist to discuss her complaints. If her symptoms worsen she was instructed to notify her physician. 04/26/18 9341 <Electronically signed by Gómez Doherty MD> Date Gómez Doherty MD Cosigner Signature: Date (if applicable) CC: ONCOLOGY VISIT REPORT Observed: 04/24/2018 Status: F Source: [place] 9:38 AM [facility] REPOSITORY [facility] [place] [address] OFFICE VISIT Date of Service: 04/24/18 0907 MR#: [id number] Acct: [id number] Name: MARIETTA GHOSH Rep #: [id number] : 1940 From: Glenn Loza MD Age/Sex: 77/F Location: OMD Status: Signed - Problem List (1) Primary cancer of right upper lobe of lung Status: Acute (2) Regional lymph node metastasis present Status: Acute (3) Nodule of left lung Status: Acute - Date of Service Date of Service:: 04/24/18 - Chief Complaint Lung cancer - History of Present Illness Patient is a 77-year-old female, smoker (till the diagnosis of cancer in April 2018) with a medical history notable for rheumatoid disease, chronic back pain due to spinal stenosis, dyslipidemia and GERD. She had an MRI in January 2018 to evaluate increasing back pain and two lung nodules were noted. 02/28/2018: CT chest demonstrated a dominant right upper lobe nodule measuring 2.1 x 1.7 x 2.5 cm, a left upper lobe nodule measuring 7 mm, and right hilar and right paratracheal adenopathy. 03/15/2018: PET scan demonstrated a hypermetabolic spiculated mass within the right upper lobe concerning for primary malignancy with a maximum SUV of 12.1, there is a small spiculated mass identified within the left upper lobe demonstrating mild FDG activity with SUV of 2.2, there are multiple hypermetabolic right hilar and right. Bronchial lymph nodes with maximum SUV of 11.1. Mildly hypermetabolic right paraesophageal/retrotracheal and precarinal lymph nodes are identified. Focal hypermetabolic activity is appreciated within the inferior right parotid gland and the trachea max SUV of 7.1. 03/24/2018: Patient underwent bronchoscopy with EBUS which demonstrated unremarkable airways, levels 4R, 4L, 7, and 11 are were all biopsied multiple times. Biopsies from 4R and 11R are consistent with adenocarcinoma and biopsies of 4L and level 7 showed no malignant cells were identified. Immunohistochemistry was nonspecific . She had bilateral screening mammograms -2018. 04/03/18: PFTs were completed. FEV1 was 105% predicted and DLCO 122% predicted. Conclusion was normal pulmonary function test. The left upper lung nodule is sub centimeters, with indeterminate SUV uptake and not amenable to guided biopsy and therefore will need to be followed up. Her workup was done at [facility]. Given the extent of her disease, suboptimal performance status and comorbidities she was felt not to be a surgical candidate and was referred for definitive concomitant chemoradiation. Treatment: Combined chemoradiation with weekly carbotaxol April 24, 2018 - Past Medical/Social History Past Medical History Cancer: Lung cancer Social History Social History: No changes Smoking Status Former smoker Review of Systems Constitutional:: Denies: Fever, Sweats, Weight loss, Appetite change, Chills Cardiovascular:: Reports: Dyspnea on exertion. Denies: Chest pain, Palpitations, Orthopnea, PND, Shortness of breath Respiratory: Denies: Cough, Hemoptysis, Shortness of Breath, Wheezing Gastrointestinal:: Denies: Abdominal pain, Nausea, Vomiting, Diarrhea, Constipation, Hematochezia Genitourinary: Denies: Dysuria, Hematuria, 15, Flank pain Musculoskeletal:: Denies: Back pain, Myalgia, Arthralgia Skin: Denies: Rash, Skin Changes, Wounds Neurological:: Denies: Headache, Dizziness, Visual changes, Tinnitus, Hearing loss Psychiatric: Denies: Anxiety, Depression, Homicidal Ideations, Suicidal Ideations Vital Signs Height 5 ft 5.5 in Weight: 82.1 kg Weight in Pounds 181.0 lbs BMI 29.5 Pulse Ox 98 - Physical Exam General: Alert, Oriented x3, No apparent distress, - - ECOG 1-2Seen in a wheelchair HEENT: Atraumatic, PERRLA, EOMI, Normocephalic Oropharynx:: Dry mucosa Neck:: Supple, Trachea midline, - - Port okay. Negative for: JVD, bilateral Cardiac:: Regular rate, Regular rhythm, Normal S1, Normal S2. Negative for: Murmur Lungs: Clear to auscultation, Diminished, Excusion symmetrical. Negative for: Rhonchi, Wheezes Abdomen:: Bowel sounds x 4, Soft, Non-tender, Non-distended. Negative for: Hepatosplenomegaly Extremities:: Negative for: Cyanosis, Edema Neurological: Neuro grossly intact Skin:: Negative for: Lesions, Rash, Petechiae, Ecchymosis Psychiatric:: Appropriate affect, Euthymic Lymphatics:: Axillary lymphadenopathy. 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 Patient has indeterminate sub-centimeters left upper lobe nodule that will need to be followed up. Patient is not a surgical candidate due to extent of disease and comorbid conditions. She is a candidate for definitive chemoradiation with an intent to cure. An indeterminate right parotid gland uptake will be followed up. I reviewed the most recent NCCN guidelines and advice weekly carbotaxol concomitant with radiation followed by 2 full dose cycles of the same chemotherapy after the conclusion of the concomitant treatment phase. She will start the combined modality phase this week, will be seen on a weekly basis during this phase. Impression and plan discussed with patient, son Methotrexate is to be held during chemoradiation and I advice stopping HRT (she has been on since the 1970s) since she already has received the benefit for bone health, she is at a higher risk for venous thromboembolic disease due to malignancy and has a first-degree relative with breast cancer. Medications: Prescriptions This Visit Medication Instructions Recorded Primary Care Provider: Theresa Macias Referring Provider: SALVATORE BAHENA 04/24/18 0938 <Electronically signed by Glenn Loza MD> Date Glenn Loza MD Cosigner Signature: Date (if applicable) CC: CBC W/DIFF, AUTOMATED Collected: 04/24/2018 Status: F Source: [place] 8:53 AM [facility] REPOSITORY Order Comment: Reason for Laboratory Test PRE-CHEMO TYPE CODE TESTS RESULT OUT OF RANGE REFERENCE UNITS LAB L100.1000 4.4-11.0 K/mm3 Normal WBC 7.6 LAB L100.1200 4.2-5.4 M/mm3 Normal RBC 4.28 LAB L100.1300 12.0-15.0 g/dl Normal HGB 13.4 LAB L100.1400 37-47 % Normal HCT 41.1 LAB L100.1500 81-99 fL Normal MCV 96.0 LAB L100.1600 27.0-32.0 pg Normal MCH 31.3 LAB L100.1700 32-36 g/gl Normal MCHC 32.6 LAB L100.1810 11.6-14.6 % High RDW CV 15.8 LAB L100.1820 35.1-43.9 fl High RDW SD 54.6 LAB L100.1900 150-450 K/mm3 Normal PLT 203 LAB L100.2000 6.2-12.0 fl Normal MPV 11.5 LAB L100.2100 47-70 % High NEUT% 74.0 LAB L100.2200 19-41 % Low LY% 13.4 LAB L100.2300 0-10 % High MONO% 10.7 LAB L100.2400 0-5 % Normal EO% 1.5 LAB L100.2500 0-1 % Normal BASO% 0.3 LAB L100.2550 0.0-0.9 % Normal IM GRAN % 0.100 Result Comment: IG% - Immature Granulocytes (promyelocytes, myelocytes and metamyelocytes) > 1% indicates that a LEFT SHIFT is Present. LAB L100.2620 2.0-7.7 X10 3/uL Normal Absolute Neut 5.6 LAB L100.2720 0.83-4.51 X10 3/ul Normal Absolute Lymph 1.01 Performed By: #### L100.0100, L500.4050 #### [facility] [address] [place], [place], [address] COMPREHENSIVE METABOLIC Collected: 04/24/2018 Status: F Source: [place] 8:53 AM [facility] REPOSITORY Order Comment: Reason for Laboratory Test PRE-CHEMO TYPE CODE TESTS RESULT OUT OF RANGE REFERENCE UNITS LAB L501.0100 74-106 mg/dL Normal GLU 78 Result Comment: Please note revised GLUCOSE reference range effective 2017. LAB L501.1000 7-18 mg/dL Normal BUN 12 LAB L501.1100 0.55-1.02 mg/dL Normal CREAT,SERUM 0.81 Result Comment: The validity of the calculated GFR AND GFRAA in patients over 70 years has not been determined. Clinical correlation is essential. LAB L501.1110 >60 mL/min Normal EST GFR 73 Result Comment: Non- GFR Calc LAB L501.1115 >60 mL/min Normal EST GFR - AA 89 Result Comment: GFR Calc LAB L501.1255 ml/min Normal Estimated CRCL 53.17 LAB L501.1300 10-20 RATIO Normal BUN/CRE 14.9 LAB L501.1500 6.4-8. g/dL Normal 2 T PROT 7.4 LAB L501.1800 3.2-5. g/dL Normal 0 ALB 3.2 LAB L501.1950 2.2-4. g/dL Normal 2 GLOB 4.2 LAB L501.2000 0.9-2. RATIO Low 4 A/G 0.8 LAB L501.2200 8.5-10 mg/dL Normal .1 CA 8.9 LAB L501.4100 15-37 U/L Low AST 13 LAB L501.4305 45-117 U/L Normal ALK P 90 LAB L501.4405 13-56 U/L Normal ALT 18 LAB L501.4600 0.20-1 mg/dL Normal .00 T BILI 0.50 LAB L501.5300 136-14 mmol/L Normal 5 NA 137 LAB L501.5600 3.5-5. mmol/L Normal 1 K 4.3 LAB L501.5900 98-107 mmol/L Normal CL 104 LAB L501.6100 21.0-3 mmol/L Normal 2.0 CO2 29.0 LAB L501.6200 5-15 Low GAP 4 Performed By: #### L100.0100, L500.4050 #### [facility] [address] [facility] [place], [address] DISCHARGE INSTRUCTION Observed: 04/21/2018 Status: F Source: [place] 1:39 PM [facility] REPOSITORY [facility] Medical Records Department [address] [place] [address] [place] [address] Instructions for Home/Discharge Instructions 04/21/18 1336 MR#: [id number] Acct: [id number] Name: MARIETTA GHOSH Rep #: [id number] : 1940 77 From: Liliana Padron MD PCP: THERESA MACIAS Status: REG COC Discharge Diet: No Restrictions Discharge Activity: May not drive while taking narcotic pain medications. May shower in (days): 5 - keep port clean/dry x5 days then ok to shower over port area Lifting Restrictions: no lifting > 15 lbs w left arm x 1 week Call your doctor if your incision/area has: Continuous Slow Oozing, Sudden Increased Bleeding, Increased Pain/ Swelling, Increased Redness, Foul Smelling Discharge, Swelling at the incision site Call your doctor if you observe: Fever of 101 or Higher Remove Dressing in (days):: 3 - ok to remove neck opsite tomorrow, keep port covered for 2-3 days, ok to remove to use for chemo/place lidocaine ointment/cream Allergies/Adverse Reactions: Allergies Sulfa (Sulfonamide Antibiotics) Adverse Reaction (Intermediate, Verified 04/20/18 15:59) Rash Medications to take at Discharge Amlodipine [Norvasc] 5 mg PO QHS 04/11/18 Atorvastatin Calcium [Lipitor] 40 mg PO QHS 04/11/18 Pantoprazole Sodium [Protonix] 40 mg PO DAILY 04/11/18 traMADol [Ultram (G)] 1 - 2 tab PO Q6H PRN PRN 04/11/18 Lidocaine/Prilocaine [Lidocaine-Prilocaine Cream] 30 gm TP DAILY PRN PRN #1 cream..g. 04/17/18 Ondansetron HCl [Zofran] 4 mg PO Q8H PRN PRN #30 tab 04/17/18 Methotrexate 7 tab PO Q7D 04/20/18 Primary Care Physician: Theresa Macias [Primary Care Provider] - Test Results: Test results from this visit will be discussed in further detail at your follow-up appointment, if applicable. Please Follow Up With: Liliana Padron MD - after 5pm/weekends call [phone] with any concerns When: call office for an appt 10 days after surgery for suture removal Proposed Discharge Date: 04/21/18 04/21/18 1339 <Electronically signed by Lilinaa Padron MD> Date Liliana Padron MD CC: THERESA MACIAS OPERATIVE REPORT Observed: 04/21/2018 Status: F Source: [place] 1:35 PM [facility] REPOSITORY [facility] Medical Records Department [address] [place] [address] Operative Report 04/21/18 1326 MR#: [id number] Acct: [id number] Name: MARIETTA GHOSH Rep #: [id number] : 1940 77 From: Liliana Padron MD PCP: THERESA MACIAS Status: REG [facility] Location: [place] [address] Report of Operation Date of Procedure: 04/21/18 Pre-Operative Diagnosis: z45.2, right lung cancer Post-Operative Diagnosis: same Surgery/Procedure Performed:: 1. Placement of Left IJ port. 2. Use of U\S. 3. Use of fluoroscopy Type of Anesthesia:: MAC Anesthesiologist: Mikael Lerma Special Medications: ancef 2 grams IV x1 Estimated Blood Loss (mL): < 10cc Fluids Replaced: 700 cc Description of Procedure: After informed consent was given, the patient was brought to the operating room and placed in the supine position. Appropriate time out protocol was followed. He was then given IV conscious sedation for anesthesia. The patient's left upper chest and neck were then prepped with a surgical skin preparation and sterile surgical drapes were placed. After proper landmarks were ascertained, the skin at the upper left chest area was then infiltrated with 1:1 mixture of 1% lidocaine with epinephrine and 0.5% maricaine. A needle trocar was then inserted into the left internal jugular vein with ultrasound guidance-multiple vessels were viewed with u/s and the left IJ was chosen-- and there was good aspiration of venous blood. A wire was then threaded into the needle trocar and this was visualized under fluoroscopy to ensure that the wire was in the superior vena cava. Once this was done, then the needle trocar was removed. A small skin sherly was made with an 11 blade knife at the wire entrance site. The dilator with the introducer sheath attached was then placed over the wire into the left internal jugular vein via the Seldinger technique and this was visualized under fluoroscopy. The dilator and sheath were in proper position as visualized by fluoroscopy. A subcutaneous pocket was then created caudad to the catheter insertion site. A transverse skin incision was made after the skin and subcutaneous tissues were infiltrated with local anesthetic. Blunt dissection was then used to create a space large enough for placement of the subcutaneous port. The catheter was then tunneled into the subcutaneous pocket. The wire and dilator were then removed. The catheter was then threaded into the introducer sheath and was positioned with its tip at the junction of the superior vena cava and the right atrium as visualized under fluoroscopy. The excess catheter was transected. The catheter was then attached to the subcutaneous port using manufacturers guidelines. The catheter was flushed with a heparin saline mixture prior to placement. Hemostasis was carefully controlled with electrocautery. The port was sutured to the subcutaneous fascia using 3-0 PDS suture at two sites. The port was then placed in the subcutaneous pocket and the sutures were ligated. The incision were reapproximated with interrupted subdermal 3-0 vicryl sutures. The skin was reapproximated with 3-0 nylon suture in a interrupted fashion. Steristrips were used for reinforcement of the skin closure at IJ insertion site and a sterile opsite dressings were applied. The patient tolerated the procedure well. Implants Used: [employer] isp M.R.I. 6Fr Lot [id number] Grafts/Implants Used: [employer] is[employer] M.R.[employer]. 6Fr Lot [id number] - Complications none 04/21/18 1335 <Electronically signed by Liliana Padron MD> Date Liliana Padrno MD CC: THERESA MACIAS; Lilinaa Padron MD Signed CXR FOR LINE PLACEMENT Observed: 04/21/2018 Status: F Source: SANDY 1:31 PM [facility] REPOSITORY [facility] Imaging Services [address] [place] [address] CXR for Line Placement MR#: [id number] Acct: [id number] Name: MARIETTA GHOSH Emily Rep #: [id number] : 1940 F 77 From: Misha Gore MD PCP: THERESA MACIAS Status: REG [facility] Study: CXR for Line Placement Date of Exam: 04/21/18 Exam# [id number] Ordering Dr: Liliana Padron MD STUDY: X-RAY CHEST REASON FOR EXAM: Female, 77 years old. Left port placement. TECHNIQUE: Single AP portable view of the chest. COMPARISON: None. FINDINGS: A left-sided Port-A-Cath has been placed. The tip is in the proximal portion of the superior vena cava. Hyperinflation. Mild increased markings at the left lung base suggestive of scarring. There is no demonstrated pleural abnormality. Normal size heart. Normal mediastinum and reji. Normal visualized pulmonary arteries. There is atherosclerotic calcification of the aortic arch with tortuosity. Normal visualized thoracic spine. Normal visualized ribs, clavicles, and shoulders. There is no demonstrated abnormality of the visualized soft tissue structures of the upper abdomen. RAD/CXR for Line Placement IMPRESSION: Status post left port placement. The tip is in the proximal portion of the superior vena cava.. Mild left basilar scarring. Electronically Signed: Misha Gore MD at 14:30 EDT Tel [phone], Service support , CC: THERESA MACIAS; Liliana Padron MD Programming Manager: Signed ONCOLOGY VISIT REPORT Observed: 04/17/2018 Status: F Source: SANDY 2:02 PM [facility] REPOSITORY [facility] [place] [address] OFFICE VISIT Date of Service: 04/17/18 1117 MR#: [id number] Acct: [id number] Name: MARIETTA GHOSH Rep #: [id number] : 1940 From: Ana COOK Age/Sex: 77/F Location: OMD Status: Signed Subjective - Date of Service Date of Service:: 04/17/18 - Chief Complaint Chemotherapy education-Carboplatin/Taxol - History of Present Illness Patient is a 77-year-old female, smoker (till the diagnosis of cancer in April 2018) with a medical history notable for rheumatoid disease, chronic back pain due to spinal stenosis, dyslipidemia and GERD. She had an MRI in January 2018 to evaluate increasing back pain and two lung nodules were noted. 02/08/2018: MRI of the thoracic and lumbar spine was completed for back pain and she was found to have bilateral pulmonary nodules noted. 02/28/2018: CT chest demonstrated a dominant right upper lobe nodule measuring 2.1 x 1.7 x 2.5 cm, a left upper lobe nodule measuring 7 mm, and right hilar and right paratracheal adenopathy. 03/15/2018: PET scan demonstrated a hypermetabolic spiculated mass within the right upper lobe concerning for primary malignancy with a maximum SUV of 12.1, there is a small spiculated mass identified within the left upper lobe demonstrating mild FDG activity with SUV of 2.2, there are multiple hypermetabolic right hilar and right. Bronchial lymph nodes with maximum SUV of 11.1. Mildly hypermetabolic right paraesophageal/retrotracheal and precarinal lymph nodes are identified. Focal hypermetabolic activity is appreciated within the inferior right parotid gland and the trachea max SUV of 7.1. 03/24/2018: Patient underwent bronchoscopy with EBUS which demonstrated unremarkable airways, levels 4R, 4L, 7, and 11 are were all biopsied multiple times. Biopsies from 4R and 11R are consistent with adenocarcinoma and biopsies of 4L and level 7 showed no malignant cells were identified. Immunohistochemistry was nonspecific . She had bilateral screening mammograms -2017. 04/03/18: PFTs were completed. FEV1 was 105% predicted and DLCO 122% predicted. Conclusion was normal pulmonary function test. The left upper lung nodule is sub centimeters, with indeterminate SUV uptake and not amenable to guided biopsy and therefore will need to be followed up. Her workup was done at [facility]. Given the extent of her disease, suboptimal performance status and comorbidities she was felt not to be a surgical candidate and was referred for definitive concomitant chemoradiation. - Interval History The patient is presenting to clinic accompanied by her daughter, Monica for chemotherapy education. C/o intermittent, mild nausea and decreased appetite. Describes good support system at home. Port to be placed 04/21/18 under the care of Dr. Padron. - Past Medical/Social History Past Medical History Cancer: Lung cancer Social History Social History: No changes Smoking Status Former smoker Review of Systems Constitutional:: Denies: Fever, Sweats, Weight loss, Appetite change, Chills Cardiovascular:: Reports: Dyspnea on exertion. Denies: Chest pain, Palpitations, Orthopnea, PND, Shortness of breath Respiratory: Reports: Shortness of breath upon exertion. Denies: Cough, Hemoptysis, Shortness of Breath, Wheezing Gastrointestinal:: Reports: Nausea. Denies: Abdominal pain, Vomiting, Diarrhea, Constipation, Hematochezia Genitourinary: Denies: Dysuria, Hematuria, 15, Flank pain Musculoskeletal:: Denies: Back pain, Myalgia, Arthralgia Skin: Denies: Rash, Skin Changes, Wounds Neurological:: Denies: Headache, Dizziness, Visual changes, Tinnitus, Hearing loss Psychiatric: Denies: Anxiety, Depression, Homicidal Ideations, Suicidal Ideations Vital Signs Height 5 ft 5.5 in Weight: 180 lb Weight in Pounds 180.0 lbs BMI 29.5 Pulse Ox 98 - Physical Exam General: Alert, Oriented x3, No apparent distress HEENT: Atraumatic, Normocephalic Psychiatric:: Appropriate affect, Euthymic Assessment and Plan 77-year-old female with stage IIIa (T1c, N2, 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 Patient has indeterminate sub-centimeters left upper lobe nodule that will need to be followed up. Patient is not a surgical candidate due to extent of disease and comorbid conditions. She is a candidate for definitive chemoradiation with an intent to cure. An indeterminate right parotid gland uptake will be followed up. 1. Stage IIIa NSCLC- It has been proposed the patient begin definitive treatment with carboplatin/Taxol concomitantly with radiation followed by 2 cycles of consolidation with carbo/Taxol. The patient has been thoroughly educated to risks/benefits associated with carboplatin/Taxol. Specifically, she has been educated to potential side effects, recommendations for symptom management, and circumstances in which she should contact provider immediately, such as the development of any signs/symptoms of infection inclusive of temperature > 100.4. Encouraged to go directly to ED should fever occur outside normal clinic hours. She has been provided written educational information and after hours contact information and prescriptions for prn antiemetics/EMLA cream. Greater than 50% of this one hour visit was spent in counseling and a significant amount of time was allotted for questions. All the patient's concerns were addressed to her satisfaction and she is agreeable to proceed. Tentatively, she will commence with cycle 1 on 04/24/18. Port to be placed 04/21/18. Ana Garcia, MSN, GRINDING OPERATOR, AOCNP Medications: Prescriptions This Visit Medication Instructions Recorded Amlodipine [Norvasc] 5 mg PO DAILY 04/11/18 Atorvastatin Calcium [Lipitor] 40 mg PO QHS 04/11/18 Estradiol [Estrace] 2 mg PO DAILY 04/11/18 Folic Acid 1 mg PO DAILY 04/11/18 Primary Care Provider: Theresa Macias Referring Provider: SALVATORE BAHENA - Problem List (1) Non-small cell lung cancer Status: Acute Qualifiers: Laterality: left Qualified Code(s): C34.92 - Malignant neoplasm of unspecified part of left bronchus or lung (2) Educational circumstance Status: Acute 04/17/18 1402 <Electronically signed by Ana COOK> Date Ana COOK Cosigner Signature: Date (if applicable) CC: SURGERY VISIT REPORT Observed: 04/17/2018 Status: F Source: [place] 9:39 AM [facility] REPOSITORY [facility] [address] [place] [address] [address] [place] [address] OFFICE VISIT Date of Service: 04/17/18 MR#: [id number] Acct: [id number] Name: MARIETTA GHOSH Rep #: [id number] : 1940 Provider: Liliana Padron MD Age/Sex: 77/F Location: [facility] Status: Signed Intake Vital Signs04/17/18 Height 5 ft 5.5 in 04/17/18 Weight: 180 lb Intake Visit Reasons: Port Placement Consult Chief Complaint: Lung cancer Freight Flow Sales Leader Required: No Is patient in pain?: Yes (back and legs) Pain scale (1-10): 7 Allergies Sulfa (Sulfonamide Antibiotics) Allergy (Verified 04/13/18 08:41) Rash Medications Amlodipine [Norvasc] 5 mg PO DAILY 04/11/18 [History Confirmed 04/13/18] Atorvastatin Calcium [Lipitor] 40 mg PO QHS 04/11/18 [History Confirmed 04/13/18] Estradiol [Estrace] 2 mg PO DAILY 04/11/18 [History Confirmed 04/13/18] Folic Acid 1 mg PO DAILY 04/11/18 [History Confirmed 04/13/18] Methotrexate [Methotrexate] 17.5 mg PO QWEEK 04/11/18 [History Confirmed 04/13/18] Pantoprazole Sodium [Protonix] 40 mg PO DAILY 04/11/18 [History Confirmed 04/13/18] traMADol [Ultram (G)] 100 mg PO Q6H PRN PRN 04/11/18 [History Confirmed 04/13/18] PFSH Family History Mother Uterine cancer Father Prostate cancer Brother Prostate cancer Leukemia Sister Breast cancer Other Cancer Social History Smoking Status: Former smoker alcohol intake: never substance use type: does not use caffeine: Yes what type of physical activity do you participate in: none frequency: does not exercise seatbelt use: always HPI HPI HPI: MARIETTA GHOSH, is a 77 F who presents to the office today for port placement due to clinical stage IIIa adenocarcinoma of the right upper lobe status post PET scan from cystoscopy with Cubicin biopsy. Patient is planning to have chemo and radiation starting Tuesday. Patient currently denies any weight loss but does have fatigue denies any shortness of breath. ROS General General: Yes fatigue; no weight change, colon cancer or breast cancer Cardio Cardiovascular: Yes high blood pressure; no pacemaker, heart disease, atrial fibrillation, heart attack, heart stent, palpitations, shortness of breat with exertion, chest pain or murmur Resp Respiratory: No shortness of breath, No sleep apnea, No cough, No COPD, No asthma, No emphysema, No wheezing Exam Const General: cooperative, comfortable, no acute distress Neck Neck: supple Chest Other: Inspection and palpation of the upper chest no Resp Auscultation: clear to auscultation bilaterally Cardio Rate: regular rate Rhythm: regular rhythm Heart Sounds: no murmurs Assessment AND Plan Problems 1. Encounter for adjustment or management of vascular access device Z45.2 2. Non-small cell cancer of right lung C34.91 Plan I have discussed above with the patient and her daughter Port-a-Cath placement, patient will hold her aspirin until the procedure. Patient has been counseled as to the risks/benefits of the procedure. I have explained the risks of the surgery, including but not limited to: infection, bleeding, injury to any blood vessels/nerves, injury to lungs (such as pneumothorax or hemothorax and need for chest tube), not having any access, nonfunctioning of port due to thrombosis, infection of port, etc. the patient understands and agrees to proceed. I have answered all the patient's questions to the patient s satisfaction and the patient has no further questions. plan for a left IJ Port-A-Cath placement on 04/21/18. Liliana Padron M.D. Pager: [phone] [facility] [address] [place] [address], [address] [place] [address] Office: [phone] Plan Detail Follow Up Will place left port Coding Level of Care Code Off vis,new,level 3 Diagnoses Encounter for adjustment or management of vascular access device Z45.2 Non-small cell cancer of right lung C34.91 04/17/18 0939 <Electronically signed by Liliana Padron MD> Date Liliana Padron MD Cosigner Signature: Date (if applicable) CC: THERESA MACIAS; Glenn Loza MD; Junior Kyle DO ONCOLOGY HISTORY AND Observed: 04/13/2018 Status: F Source: SANDY PHYSICAL 9:35 AM [facility] REPOSITORY [facility] Medical Records Department [address] [place] [address] History and Physical 04/13/18 0831 MR#: [id number] Acct: [id number] Name: MARIETTA GHOSH Rep #: [id number] : 1940 77 From: Glenn Loza MD PCP: THERESA MACIAS Status: REG RCR Y Location: OMD - Problem List (1) Primary cancer of right upper lobe of lung Status: Acute (2) Regional lymph node metastasis present Status: Acute (3) Nodule of left lung Status: Acute Subjective Date of Service:: 04/13/18 Chief Complaint: Lung cancer History of Present Illness: Patient is a 77-year-old female, smoker (till the diagnosis of cancer in April 2018) with a medical history notable for rheumatoid disease, chronic back pain due to spinal stenosis, dyslipidemia and GERD. She had an MRI in January 2018 to evaluate increasing back pain and two lung nodules were noted. 02/08/2018: MRI of the thoracic and lumbar spine was completed for back pain and she was found to have bilateral pulmonary nodules noted. 02/28/2018: CT chest demonstrated a dominant right upper lobe nodule measuring 2.1 x 1.7 x 2.5 cm, a left upper lobe nodule measuring 7 mm, and right hilar and right paratracheal adenopathy. 03/15/2018: PET scan demonstrated a hypermetabolic spiculated mass within the right upper lobe concerning for primary malignancy with a maximum SUV of 12.1, there is a small spiculated mass identified within the left upper lobe demonstrating mild FDG activity with SUV of 2.2, there are multiple hypermetabolic right hilar and right. Bronchial lymph nodes with maximum SUV of 11.1. Mildly hypermetabolic right paraesophageal/retrotracheal and precarinal lymph nodes are identified. Focal hypermetabolic activity is appreciated within the inferior right parotid gland and the trachea max SUV of 7.1. 03/24/2018: Patient underwent bronchoscopy with EBUS which demonstrated unremarkable airways, levels 4R, 4L, 7, and 11 are were all biopsied multiple times. Biopsies from 4R and 11R are consistent with adenocarcinoma and biopsies of 4L and level 7 showed no malignant cells were identified. Immunohistochemistry was nonspecific . She had bilateral screening mammograms -2018. 04/03/18: PFTs were completed. FEV1 was 105% predicted and DLCO 122% predicted. Conclusion was normal pulmonary function test. The left upper lung nodule is sub centimeters, with indeterminate SUV uptake and not amenable to guided biopsy and therefore will need to be followed up. Her workup was done at [facility]. Given the extent of her disease, suboptimal performance status and comorbidities she was felt not to be a surgical candidate and was referred for definitive concomitant chemoradiation. Health History: Past Medical History Cancer: Lung cancer Past Medical History (Last Updated 04/11/18 @ 14:48 by Kristine Carr RN) Cataracts, both eyes (Acute) Localized enlarged lymph nodes (Acute) Non-small cell lung cancer (Acute) Chronic back pain (Acute) GERD (gastroesophageal reflux disease) (Acute) Hyperlipidemia (Acute) Non-small cell cancer of right lung (Acute) Rheumatoid arthritis (Acute) Past Surgical History (Last Reviewed 04/11/18 @ 14:48 by Kristine Carr RN) Hip joint replacement status (Acute) History of back surgery (Acute) History of hysterectomy (Acute) Hx of appendectomy (Acute) History of bronchoscopy (Acute) Family History (Last Updated 04/11/18 @ 14:00 by Kristine Carr RN) Mother Uterine cancer Father Prostate cancer Brother Prostate cancer Leukemia Sister Breast cancer Other Cancer Allergies/Adverse Reactions: Allergy/AdvReac Type Severity Reaction Status Date / Time Sulfa (Sulfonamide Allergy Rash Verified 04/13/18 08:41 Antibiotics) Risk Factors Social History Social History: No changes Smoking Status Former smoker Tobacco Risk Data: Tobacco Risk Smoking Status Former smoker Type of tobacco: Smokeless tobacco usage: Former Items/Day: Year started: Years used: 61 Counseled to quit/cut down: Reason for no counseling performed: Reason for no pharmacotherapy: Tobacco use comments: Passive smoke exposure: No Substance Risk Drug use: No Caffeine use [drinks/day]: Alcohol use: No Type of alcohol: Drinks per day: Has patient felt the need to cut down: Has the patient been annoyed by complaints: Has the patient felt guilty about drinking: Has the patient needed an eye furniture sprayer in the mornings: Comments: BMI: 29.5 Date of last colonoscopy:: 10/03/05 Date of last mammogram:: 09/02/17 Review of Systems Constitutional:: Reports: - - Her activities are limited by chronic back pain. Denies: Fever, Sweats, Weight loss, Appetite change, Chills Cardiovascular:: Reports: Dyspnea on exertion. Denies: Chest pain, Palpitations, Orthopnea, PND, Shortness of breath Respiratory: Reports: Shortness of breath upon exertion. Denies: Cough, Hemoptysis, Shortness of Breath, Wheezing Gastrointestinal:: Reports: Abdominal pain - Epigastric discomfort usually responds to acid suppressant therapy, Constipation - Chronic, Reflux. Denies: Nausea, Vomiting, Diarrhea, Hematochezia Genitourinary: Reports: Incontinence - Urge and stress, chronic. Denies: Dysuria, Hematuria, Flank pain Musculoskeletal:: Reports: Arthritis - Chronic degenerative back disease and rheumatoid arthritis of the small joints of the hands controlled with methotrexate, Arthralgia. Denies: Back pain, Myalgia Skin: Denies: Rash, Skin Changes, Wounds Neurological:: Reports: Headache - Occasional chronic, Dizziness - Occasional chronic. Denies: Visual changes, Tinnitus, Hearing loss Psychiatric: Denies: Anxiety, Depression, Homicidal Ideations, Suicidal Ideations Vital Signs Height 5 ft 5.5 in Weight: 81.647 kg Weight in Pounds 180.0 lbs BMI 29.5 Pulse Ox 94 - Physical Exam General: Alert, Oriented x3, No apparent distress, - - Seen in a wheelchair ECOG 2 HEENT: Atraumatic, PERRLA, EOMI, Normocephalic Oropharynx:: Dry mucosa Neck:: Supple, Trachea midline. Negative for: JVD, bilateral Cardiac:: Regular rate, Regular rhythm, Normal S1, Normal S2. Negative for: Murmur Lungs: Clear to auscultation, Diminished, Excusion symmetrical. Negative for: Rhonchi, Wheezes Abdomen:: Soft, Non-tender, Non-distended. Negative for: Hepatosplenomegaly Extremities:: - - No active arthritis. Negative for: Cyanosis, Edema Neurological: Neuro grossly intact Skin:: Negative for: Lesions, Rash, Petechiae, Ecchymosis Psychiatric:: Appropriate affect, Euthymic Lymphatics:: Negative for: Cervical lymphadenopathy, Supraclavicular lymphadenopathy Laboratory Data: Recent CBC and CMP from [facility] March 2018 reviewed to scan into EMR Diagnostic Data: PET/CT images I personally reviewed with Dr. 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 Patient has indeterminate sub-centimeters left upper lobe nodule that will need to be followed up. Patient is not a surgical candidate due to extent of disease and comorbid conditions. She is a candidate for definitive chemoradiation with an intent to cure. An indeterminate right parotid gland uptake will be followed up. I reviewed the most recent NCCN guidelines and advice weekly carbotaxol concomitant with radiation followed by 2 full dose cycles of the same chemotherapy after the conclusion of the concomitant treatment phase. Impression and plan discussed with patient, son and daughter. Benefits and risks of chemotherapy discussed. She will attend a formal chemotherapy teaching session was MANAGER FILM and in nutrition class. Central venous access for chemotherapy requested. Methotrexate is to be held during chemoradiation and I advice stopping HRT (she has been on since the 1970s) since she already has received the benefit for bone health, she is at a higher risk for venous thromboembolic disease due to malignancy and has a first-degree relative with breast cancer. Medications: Prescriptions This Visit Medication Instructions Recorded Amlodipine [Norvasc] 5 mg PO DAILY 04/11/18 Atorvastatin Calcium [Lipitor] 40 mg PO QHS 04/11/18 Estradiol [Estrace] 2 mg PO DAILY 04/11/18 Folic Acid 1 mg PO DAILY 04/11/18 Primary Care Provider: Theresa Macias Referring Provider: SALVATORE BAHENA 04/13/18 0935 <Electronically signed by Glenn Loza MD> Date Glenn Loza MD Cosigner Signature: Date (if applicable) CC: Salvatore bahena; THERESA MACIAS; Glenn Loza MD; OUT OF TOWN DOCTOR; Junior Kyle DO Signed CREATININE FINGERSTICK Collected: 04/13/2018 Status: F Source: [place] 7:41 AM [facility] REPOSITORY TYPE CODE TESTS RESULT OUT OF RANGE REFERENCE UNITS LAB L9100.0210 0.55-1.02 mg/dL Normal CREATININE WB 0.8 Performed By: #### L9100.0200 #### [facility] Point of Care [address] [place] [address] BRAIN W/WO CONTRAST Observed: 04/12/2018 Status: F Source: [place] 3:36 PM [facility] REPOSITORY [facility] Imaging Services [address] [place] [address] Brain W/WO Contrast MR#: [id number] Acct: [id number] Name: MARIETTA GHOSH Rep #: [id number] : 1940 F 77 From: Lennox Schilling MD PCP: THERESA MACIAS Status: REG CLI Study: Brain W/WO Contrast Date of Exam: 04/12/18 Exam# [id number] Ordering Dr: Junior Kyle DO STUDY: MRI BRAIN WITH AND WITHOUT CONTRAST REASON FOR EXAM: Female, 77 years old. Headaches/staging TECHNIQUE: Standardized multiplanar fat and water weighted pulse sequences were obtained. 9 ml of Gadavist contrast material was administered intravenously for the contrast portion of the examination. COMPARISON: None. FINDINGS: There is mild cerebral atrophy with widening of the extra- axial spaces and ventricular dilatation. There are multiple white matter hyperintensities, distributed throughout the deep white matter tracts of the cerebral hemispheres, consistent with moderate chronic white matter ischemic changes. ex Vacuo Dilatation of the left temporal horn. There are prominent perivascular spaces (PVS) involving the basal ganglia. Normal thalami. There is no extra-axial fluid accumulation. Normal flow voids within the major intracranial circulation suggesting patency by spin echo criteria. Normal venous enhancement. There is no enhancing intra-axial or extra-axial abnormality. Normal sella turcica, pituitary gland, infundibular stalk, optic chiasm and hypothalamus. Normal tectal plate and pineal gland. Normal midbrain, michelle and medulla. Normal cerebellum. Normal basal cisterns. 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 Normal bilateral internal auditory canals. No demonstrated orbital abnormality, within the constraints of a routine brain study. Normal visualized paranasal sinuses. Normal calvarium and skull base. Normal visualized soft tissue structures. Normal visualized upper cervical spine. MRI/Brain W/WO Contrast IMPRESSION: Involutional changes of the brain, as described above. Electronically Signed: Lennox Schilling MD at 23:02 EDT , Service support , CC: THERESA MACIAS; Junior Kyle DO Programming Manager: Signed CONSULTATION Observed: 04/11/2018 Status: F Source: [place] 3:40 PM [facility] REPOSITORY [facility] Medical Records Department [address] [place] [address] Consultation 04/11/18 1518 MR#: [id number] Acct: [id number] Name: MARIETTA GHOSH Rep #: [id number] : 1940 77 From: Junior Kyle DO PCP: THERESA MACIAS Status: REG RCR Y Location: [facility] Date of Service: 04/11/18 Referring Provider: Salvatore Bahena M.D. Diagnosis: Marietta Ghosh is a 77 year-old female diagnosed with 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 History of Present Illness: 09/22/2017: Bilateral screening mammography was performed which demonstrated a glandular pattern bilaterally and symmetrical, no spicular density or clustered microcalcification or mass lesion is noted. BI-RADS Category 2. 02/08/2018: MRI of the thoracic and lumbar spine was completed for back pain and she was found to have bilateral pulmonary nodules noted. 02/28/2018: CT chest was completed which demonstrated a dominant right upper lobe nodule measuring 2.1 x 1.7 x 2.5 cm, a left upper lobe nodule measuring 7 mm, and right hilar and right paratracheal adenopathy. 03/15/2018: PET scan was performed which demonstrated a hypermetabolic spiculated mass within the right upper lobe concerning for primary malignancy with a maximum SUV of 12.1, there is a small spiculated mass identified within the left upper lobe demonstrating mild FDG activity with SUV of 2.2, there are multiple hypermetabolic right hilar and right. Bronchial lymph nodes with maximum SUV of 11.1. Mildly hypermetabolic right paraesophageal/retrotracheal and precarinal lymph nodes are identified. Focal hypermetabolic activity is appreciated within the inferior right parotid gland and the trachea max SUV of 7.1. There is nonspecific FDG activity within the sella with no definite CT correlate appreciated, MRI may be beneficial as the etiology is unclear. 03/24/2018: Patient underwent bronchoscopy with a EBUS which demonstrated unremarkable airways, levels 4R, 4L, 7, and 11 are were all biopsied multiple times. Biopsies from 4R and 11R are consistent with adenocarcinoma and biopsies of 4L and level 7 showed no malignant cells were identified. Immunohistochemistry was nonspecific but suggested possibly breast origin. 04/03/18: PFTs were completed. FEV1 was 105% predicted and DLCO 122% predicted. Conclusion was normal pulmonary function test. Radiation Treatment History: 1) None Denies having a pacemaker and denies having a diagnosis of collagen vascular disease. Interval History: Patient presents for initial consultation. She reports that over the last several months she has felt like she was in her normal state of health. She does have chronic back pain and has had 3 previous back surgeries and also complains of pain involving her hip and pelvis area which is also chronic in nature. Back pain is related to rheumatoid arthritis and she is taking low-dose methotrexate right now for treatment. She continues to take tramadol for pain relief. Pain does limit her mobility and she uses a cane for stabilization. She denies having any unexpected weight loss but does have some mild decrease in her appetite. She denies having any fatigue and can complete all activities of daily living without much difficulty, she does complete activities slowly due to pain. She denies having cough, shortness of breath, hemoptysis, dysphagia, odynophagia. She admits to having a chronic history of headaches which are a little more severe in the last month or so. She denies dyspnea on exertion but is unable to exert very much due to her chronic pain, she has never had to use oxygen. She has a chronic smoking history with 60 pack years and recently quit. She denies having any focal areas of weakness/numbness, ataxia, worsening memory or other cognitive problems, vision changes, or other neurologic changes. She denies having any other problems or concerns at this time. Family History (Last Updated 04/11/18 @ 14:00 by Kristine Carr RN) Mother Uterine cancer Father Prostate cancer Brother Prostate cancer Leukemia Sister Breast cancer Other Cancer Medical History (Last Updated 04/11/18 @ 14:48 by Kristine Carr RN) Cataracts, both eyes (Acute) Localized enlarged lymph nodes (Acute) Non-small cell lung cancer (Acute) Chronic back pain (Acute) GERD (gastroesophageal reflux disease) (Acute) Hyperlipidemia (Acute) Non-small cell cancer of right lung (Acute) Rheumatoid arthritis (Acute) Surgical History (Last Reviewed 04/11/18 @ 14:48 by Kristine Carr RN) Hip joint replacement status (Acute) 2009 History of back surgery (Acute) FUSIONS/ AMBROSIO PLACEMENT History of hysterectomy (Acute) Hx of appendectomy (Acute) History of bronchoscopy (Acute) Social History - Tobacco Smoking Status Former smoker, quit recently Smokeless tobacco usage: Former Years used: 60 Passive smoke exposure: No Social History - Substance Drug use: No Alcohol use: No Social History - Living Arrangements Patients Living Arrangements Alone Home Medications Medication Instructions Recorded Amlodipine [Norvasc] 5 mg PO DAILY 04/11/18 Atorvastatin Calcium [Lipitor] 40 mg PO QHS 04/11/18 Estradiol [Estrace] 2 mg PO DAILY 04/11/18 Folic Acid 1 mg PO DAILY 04/11/18 Allergy/AdvReac Type Severity Reaction Status Date / Time Sulfa (Sulfonamide Allergy Rash Verified 04/11/18 13:43 Antibiotics) Health Maintenance Do you regularly see your Yes primary care physician? Have you ever had a Yes colonoscopy? Date of last colonoscopy: 10/03/05 I have reviewed the medical, surgical, and other pertinent history in details and have updated medication and allergy information in the electronic medical record. Review of Systems: A 12-point review of systems was completed and was negative except for what is noted in the HPI/Interval History and by the nurse. Height/Weight/BMI: Height: 5 ft 5.5 in Weight: 81.647 kg BMI: 29.5 Vital Signs Temperature 97.8 F 04/11/18 13:44 Temperature Source Oral 04/11/18 13:44 Physical Exam: ECO KARNOFSKY SCORE: 70-80% CONSTITUTIONAL: Well-developed, well-nourished, and in no apparent distress. HEENT: Mucous membranes moist. No evidence of thrush or lesions within the visualized oropharynx or oral cavity. No trismus. Pupils are equal, round, and reactive to light and accommodation. Extraocular movements are intact. Sclerae are anicteric. NECK: Supple,with no thyromegaly, and non-tender. Trachea midline. No cervical or supraclavicular adenopathy noted. CARDIAC: Regular rate and rhythm. Normal S1, S2. PULMONARY/CHEST: Lungs are clear to auscultation and percussion bilaterally. No wheezes, rhonchi, or crackles noted. No increased work of breathing. ABDOMINAL: Abdomen soft, non-tender, non-distended. No hepatomegaly. Normoactive bowel sounds in all four quadrants. No guarding, rebound. BACK: multifocal back pain. No CVA tenderness. EXTREMITIES: Full range of motion in all four extremities, with normal strength equally and symmetrically. No evidence of edema. No clubbing. NEUROLOGICAL EXAM: Alert and oriented x 3. Cranial nerves II through XII are grossly intact. No focal neurological deficit. Speech is fluent. There is no upper or lower extremity sensory deficit or motor deficit. Muscle strength is 5/5 in all muscle groups. 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 Plan: I had a detailed discussion with the patient regarding the diagnosis and treatment options for locally advanced non-small cell lung cancer. I reviewed the findings the PET scan which demonstrated evidence for disease involving the right lung and mediastinum. I also explained that there is some concern for a 7 mm nodule that is mildly PET avid in the left upper lobe. I have discussed the option of biopsy with interventional radiology and the biopsy would be very challenging given the location and size. Therefore, I recommend that we would follow this area in the future but should not preclude her for having definitive management of the currently identified right-sided lung cancer. I discussed that we will need to get a MRI of the brain to ensure that there is no metastatic spread there. I discussed that definitive management for stage III lung cancer generally includes concurrent chemoradiation therapy for patients with sufficient performance status to tolerate aggressive treatment, given the multifocal mediastinal disease I do not think that surgery would be a good option and she has already been evaluated by thoracic surgery who has recommended definitive chemoradiation. I discussed that if metastatic disease is identified on the MRI that the treatment strategy will likely change. If she is felt to not be a good candidate for chemotherapy then it would be reasonable to use radiation therapy alone. The logistics of radiation therapy were discussed in detail including CT simulation, treatment planning, and daily fractionated radiation for 6-6-1/2 weeks with weekly physician visits. I discussed the potential acute and late toxicities associated with radiation therapy to the lung and mediastinum and this would include but is not limited to fatigue, skin irritation, esophagitis, nausea/vomiting, weight loss, pneumonitis/cough, chronic worsening of lung function/lung fibrosis, esophageal stenosis, potential for increased risk of cardiac event (myocardial infarction, congestive heart failure), nerve damage including to the brachial plexus or spinal cord, and secondary malignancy. After full discussion of the risks, benefits, and alternatives to radiation therapy the patient was in agreement with my recommendation to complete definitive chemoradiation and informed consent was obtained. She will return for MRI brain tomorrow and CT simulation and evaluation by medical oncology on 04/13/18. The patient is unable to drive but does report having rides from family and friends, she met with our social worker psychiatric today to further discuss logistical issues. She was instructed to call with any further questions or concerns in the interim. Thank you for allowing me to participate in the management and care of your patient. If I may answer any questions in the interim, please do not hesitate to contact me at any time. Junior Kyle DO, MS Chalk Machine Operator, Department of Radiation Oncology [facility] 04/11/18 4503 <Electronically signed by Junior Kyle DO> Date Junior Kyle DO Mandi Signature (if applicable): Date CC: THERESA MACIAS; Glenn Loza MD; OUT OF TOWN DOCTOR Signed CYTOLOGY- NON-SAFETY DEPOSIT SUPERVISOR Observed: 03/24/2018 Status: F Source: [facility] 4:02 PM [facility] REPOSITORY Cytology Report Patient Name: MARIETTA GHOSH [facility] [place]. Rec. #: [id number] Submitting Physician: SALVATORE BAHENA ---Clinical History:--- - 77 year old female with lung nodules,hilar LAD and former smoker ---Source of Specimen(s):--- A: Lymph Node, FNA B: Lymph Node, FNA C: Lymph Node, FNA D: Lymph Node, FNA Cytologic Diagnosis A. LEVEL 7 LYMPH NODE, FINE NEEDLE ASPIRATION (CYTOLOGY AND CELL BLOCK): FINAL DIAGNOSIS: - No Malignant Cells Are Identified. - Benign Respiratory Tissue And Rare Lymphoid Tissue. Immediate Study: Adequacy/Preliminary Diagnosis: - Not Adequate. SCARLET Roman (ASCP), March 24, 2018 B. 11R LYMPH NODE, FINE NEEDLE ASPIRATION (CYTOLOGY AND CELL BLOCK): FINAL DIAGNOSIS: - Positive For Adenocarcinoma of Possible Breast Origin, see note. Note: Immunohistochemistry performed on the cell block are as follows: Positive: GATA3, CK7 Negative: CK20, ER, SC, mammaglobin, PAX8, TTF-1, p40, NapsinA All controls show appropriate reactivity. Note: Although not entirely specific, this morphology and immunostaining-pattern is suggestive of breast origin. Clinical and surgical correlation is recommended. Immediate Study: Adequacy/Preliminary Diagnosis: - Adequate. SCARLET Roman (ASCP), March 24, 2018 C. 4R LYMPH NODE, FINE NEEDLE ASPIRATION (CYTOLOGY AND CELL BLOCK): FINAL DIAGNOSIS: - Positive For Adenocarcinoma. Immediate Study: Adequacy/Preliminary Diagnosis: - Adequate. SCARLET Roman (ASCP), March 24, 2018 D. 4L LYMPH NODE, FINE NEEDLE ASPIRATION (CYTOLOGY AND CELL BLOCK): FINAL DIAGNOSIS: - No Malignant Cells Are Identified. - Benign Respiratory Tissue And Rare Lymphoid Tissue. Immediate Study: Adequacy/Preliminary Diagnosis: - Adequate For Lymphocytes. Manuel Figueredo, SCARLET (ASCP), March 24, 2018 FNA Performed By: Clinician paulino/MIREYASX:03/29/2018 ---Electronically Signed Out By Erwin Lenz MD--- ---Procedures/Addenda--- Performed By: #### NONGN #### [facility] [address] [place] [address] XR CHEST PORTABLE Observed: 03/24/2018 Status: F Source: [facility] 3:49 PM [facility] REPOSITORY EXAM: XR CHEST PORTABLE, 03/24/2018 15:24 PM COMPARISON: No prior studies available for comparison. CLINICAL INDICATIONS: Pneumothorax RELEVANT CLINICAL HISTORY: In PACU.; FINDINGS: (Adequate technique) Life Support Devices: Partially visualized intraspinal neurostimulator leads Chest Wall: Normal Reji: Normal Mediastinum: Normal Pleural Spaces: No definite pleural effusion. No definite pneumothorax. Lungs: Minimal left basilar atelectasis. No focal consolidation. Cardiac Silhouette: Normal, without overall or specific chamber enlargement, or abnormal calcification Thoracic Aorta: Significant atherosclerotic changes Pulmonary Vessels: Normal, without PVH IMPRESSION: No acute cardiopulmonary disease. 7 Collected: 03/24/2018 Status: F Source: [facility] 9:46 AM [facility] REPOSITORY TYPE CODE TESTS RESULT OUT OF REFERENCE UNITS RANGE LAB BUN 7-22 mg/dL BUN 11 LAB NA 133-143 mmol/L Sodium 141 LAB K 3.5-5.0 mmol/L Potassium 4.3 LAB CL 98-108 mmol/L Chloride 105 LAB CO2 22-30 mmol/L Carbon Dioxide 29 LAB GLUC 70-99 mg/dL Glucose 90 LAB CREA 0.50-1.20 mg/dL Creatinine 0.74 LAB GAP 7-17 mmol/L Anion Gap 11 LAB BC BUN/CREA Ratio 15 LAB OSMC 278-305 mOsm/kg Osmolality 294 (Calc) LAB GFR >60 mL/min/1.73 sqM Est GFR,non >60 [place] LAB GFRA >60 mL/min/1.73 sqM Est GFR, >60 Performed By: #### CHM7 #### [facility] [address] [place] [address] [facility] [address] [place], [place] [address] LAB MISCELLANEOUS Collected: 03/20/2018 Status: F Source: [facility] 4:45 PM [facility] REPOSITORY TYPE CODE TESTS RESULT OUT OF REFERENCE UNITS RANGE LAB [id number](L OINC) COMPREHENSIVE Normal Test Name P LAB [id number](L OINC) See Ref Lab Normal Status Report Performed By: #### [id number] #### [facility] [employer] [address] [address] NUC PET PULMONARY Observed: 03/15/2018 Status: F Source: [facility] 6:57 PM [facility] REPOSITORY EXAM: NUC PET PULMONARY, 03/15/2018 14:20 PM CLINICAL INDICATIONS: 77-year-old woman who presents with a right upper lobe pulmonary nodule. The study is requested to evaluate for suspected malignancy and initial staging. Initial treatment strategy. COMPARISON: No prior PET/CT study is available for comparison. CT DOSE: DLP: 507 mGy x cm kVp: 120 TECHNIQUE: The patient's fasting blood glucose was 98 mg/dl. Approximately 79 minutes following the injection of 12.3 mCi of F-18 FDG, the patient was positioned on the Siemens Biograph mCT TOF< PET/CT-64, Reymundo imaging unit. A low resolution non-contrast CT was obtained from the top of the head through the proximal thighs for use in attenuation correction and anatomic correlation. PET emission scans of this anatomic region were acquired shortly thereafter. Axial, sagittal, coronal and maximal intensity projection reconstruction images were presented for interpretation. No intravenous or oral contrast was administered. FINDINGS: There is increased FDG uptake noted within the adipose tissues of the bilateral axillary and paraspinal regions which likely relates to physiologic FDG uptake within brown adipose tissue. There is nonspecific FDG activity noted within the musculature of the neck. Head/Neck: Normal, intense physiologic uptake is noted in the cerebral cortex michaels matter and subcortical nuclei without gross hypermetabolic abnormality. Nonspecific focal FDG uptake is noted in the region of the sella with no definite CT abnormality appreciated. There is a nonspecific small very mildly FDG avid focus in the left perimandibular region without definite CT correlate. Physiologic FDG uptake is noted in the tonsillar tissue. Focal hypermetabolic activity is appreciated within the inferior right parotid gland which demonstrates a max SUV of 7.1. There is no other suspicious hypermetabolic cervical or supraclavicular lymphadenopathy. Chest: Moderate emphysematous changes appreciated within the upper lobes bilaterally. A small spiculated mass is identified within the left upper lobe which demonstrates mild FDG activity with a max SUV of 2.2. A larger spiculated mass within the right upper lobe demonstrates significant hypermetabolic activity with a maximum SUV of 12.1. There are multiple hypermetabolic right hilar and right peribronchial lymph nodes with a maximum SUV of 11.1. Mildly hypermetabolic right periesophageal/retrotracheal and precarinal lymph nodes are identified. Physiologic FDG uptake is seen in the myocardium. Multivessel coronary artery disease and extensive atherosclerotic disease of the aortic arch and its branches noted. Small hiatal hernia is present. Abdomen/Pelvis: Two hypodense, photopenic cystic lesions are identified within the inferior right hepatic lobe. Physiologic FDG uptake is seen throughout the remaining liver parenchyma, spleen and bowel. A photopenic hypodense cyst is appreciated arising from the inferior pole of the left kidney, likely simple cyst. Physiologic FDG excretion is seen in the kidneys, ureters, and urinary bladder. There are no hypermetabolic lesions in the adrenal glands. There is no hypermetabolic abdominal, pelvic or inguinal lymphadenopathy. Postsurgical change of prior hysterectomy. Musculoskeletal: Postsurgical change from prior L3-S1 spinal fusion and left total hip arthroplasty. A spinal stimulator is appreciated within the subcutaneous soft tissue of the right back with leads entering the epidural space at T11-T12. Multilevel degenerative changes are seen throughout the cervical and lumbar spine with mild associated increased FDG activity. There is physiologic FDG uptake throughout the axial and visualized proximal appendicular skeleton. No suspicious hypermetabolic osseous lesions are identified. IMPRESSION: 1. Hypermetabolic spiculated mass within the right upper lobe is concerning for primary malignancy. Smaller spiculated left upper lobe lesion demonstrates metabolic activity is nonspecific but may also relate to an underlying malignant/metastatic process. Correlation with tissue sampling is recommended. 2. Multiple hypermetabolic right hilar and mediastinal lymph nodes which are concerning for metastatic cintia involvement. 3. Hypermetabolic nodular lesion in the right parotid gland could represent a pleomorphic adenoma or Warthin's tumors. A metastatic lymph node is possible but considered less likely. 4. Nonspecific FDG activity within the sella with no definite CT abnormality appreciated. Although this may possibly relate to a pituitary adenoma, other benign/malignant etiologies are not excluded. If the clinical concern is high, further evaluation with pituitary MRI may be helpful. I personally viewed and interpreted these images and I have reviewed and approved this report. *POC GLUCOSE BATTERY Collected: 03/15/2018 Status: F Source: [facility] 12:32 PM [facility] REPOSITORY TYPE CODE TESTS RESULT OUT OF REFERENCE UNITS RANGE LAB GLUP 70-99 mg/dL Glucose (poc 96 device) Result Comment: No BRAVE per RN: PATIENT TYPE LAB PCSTYP *POC Capillary SAMPLE TYPE Blood *POC GLUCOSE BATTERY Collected: 03/15/2018 Status: F Source: [facility] 11:45 AM [facility] REPOSITORY TYPE CODE TESTS RESULT OUT OF REFERENCE UNITS RANGE LAB GLUP 70-99 mg/dL Glucose (poc 98 device) Result Comment: No BRAVE per RN: PATIENT TYPE LAB PCSTYP *POC Capillary SAMPLE TYPE Blood PT/INR (POC DEVICE) Collected: 03/15/2018 Status: F Source: [facility] BRIT 11:09 AM [facility] REPOSITORY TYPE CODE TESTS RESULT OUT OF REFERENCE UNITS RANGE LAB INRPCJ 0.9-1.1 *PT/INR 1.1 (poc device) HEMOGRAM (CBC AND Collected: 03/15/2018 Status: F Source: [facility] PLATELET) 10:51 AM [facility] REPOSITORY TYPE CODE TESTS RESULT OUT OF REFERENCE UNITS RANGE LAB WBC 3.98-10.04 K/uL WBC Count 6.78 LAB RBC 3.93-5.22 M/uL RBC Count 4.27 LAB HGB 11.2-15.7 g/dL Hemoglobin 13.6 LAB HCT 34.1-44.9 % Hematocrit 40.5 LAB MCV 79.4-94.8 fL Mean Cell Volume 94.8 LAB MCH 25.6-32.2 pg Mean Cell Hgb 31.9 LAB MCHC 32.2-35.5 g/dL Mean Cell Hgb Conc 33.6 LAB RDW 11.7-14.4 % RBC High Distribution 16.0 LAB PLT 182-369 K/uL Platelet Count 255 LAB MPV 9.4-12.3 fL Mean Platelet Volume 11.9 LAB NRBC 0.0-0.2 /100 WBC NUCLEATED RBC 0.0 Performed By: #### HEMOGC #### [facility] [address] [place] [address] [facility] [address] [place] [address] [place] THORAX W/ CONTRAST Observed: 02/28/2018 Status: F Source: [facility] 3:06 PM [facility] REPOSITORY Exam Date/Time: 02/28/2018 15:19 EDT Reason for Exam: PULMONARY NODULE Report EXAM: CT Thorax w/ Contrast CLINICAL STATEMENT: Mass right lung seen on a prior MRI thoracic spine. COMPARISON: MRI thoracic spine of 02/08/2018. TECHNIQUE: CT examination of the chest?following the administration of 75 mL Omnipaque 300 intravenous contrast. ?Coronal and sagittal reformations were performed. Dose reduction techniques were achieved by using automated exposure control and/or adjustment of mA and/or kV according to patient size and/or use of iterative reconstruction technique. FINDINGS: Centrilobular emphysema is present in both the upper lobes of moderate degree. A spiculated mass is seen, in the right upper lobe in a paraspinal location in the posterior segment, with spiculations, reaching up to the pleural margin. The mass measures 2.1 x 1.7 x 2.5 cm in size. No other mass is seen in the right lung. There is mild bronchiectasis in the right lower lobe. A smaller spiculated mass is seen, in the left upper lobe, measuring about 7 mm in diameter in the apical posterior segment of the left upper lobe. Mild left lower lobe bronchiectasis is also seen. There is no pleural effusion. No pretracheal or aortopulmonary lymphadenopathy is seen. There is a mildly enlarged right hilar lymph node measuring about 10 x 12 mm in size at image 83, series 3. Lymphadenopathy is also seen, adjacent to the anterior aspect of the right main bronchus, at image 70, series 3 and coronal image 67, series 6, with the lymph node measuring about 11 x 10 x 11 mm. No lytic or blastic lesion is seen, in the visualized bones. Both lobes of the thyroid are normal in size and enhancement pattern. No axillary lymphadenopathy is seen. IMPRESSION: Spiculated mass lesions in both upper lobes, larger on the right side, highly suspicious for primary lung carcinomas. Suspect right hilar and tracheobronchial lymphadenopathy. PET scanning Exam Date/Time: 02/28/2018 15:19 EDT Report recommended for further workup. FINAL REPORT Dictated: 03/01/2018 5:39 pm Wali Spain MD Signed (Electronic Signature): 03/01/2018 5:39 pm Signed by: Wali Spain MD Technologist: SERJIO MRI THORACIC SPINE Observed: 02/08/2018 Status: F Source: [facility] W/OANDW/ CONT 5:26 PM [facility] REPOSITORY Final Report Accession No: [id number] Performed: Feb 08 2018 5:26PM Examination: MRI THORACIC SPINE W/OANDW/ CONT MRI THORACIC SPINE without and with contrast HISTORY: Back pain, pain, numbness down both legs to toes, difficulty walking. COMPARISON: 08/31/2016. Chest radiograph 03/31/2015. TECHNIQUE: Multiplanar, multisequence MRI images of the thoracic spine were obtained prior to and following the administration of intravenous gadolinium contrast. CONTRAST: Dotarem, 17 mL IV. FINDINGS: The thoracic cord is normal in size and contour. Conus medullaris terminates at T12. There is a stable small focus of T2 hyperintensity in the right ventral aspect of the thoracic spinal cord at the C2- C3 level measuring 8 mm in the craniocaudal dimension. There is thin T2 hyperintensity within the thoracic spinal cord, most prominent at the T7 through the T9 level. This measures at most 1.5 mm in diameter. This is stable. There is no associated pathologic contrast enhancement. Thoracic kyphosis is maintained. No subluxation. Bone marrow signal appears within normal limits. Disc space heights are preserved. Minimal disc bulges at T1-T2 and T2-T3. No levels of central spinal canal stenosis. No levels of foraminal stenosis. There is a nodular density at the right upper lung measuring 2.0 x 2.4 cm in the axial and 3.5 cm in the craniocaudal dimension, with adjacent scarring present. This is partially included in the [id number]. Nodular density in the contralateral left lung measuring 11 mm. This was not present on the prior chest radiograph. IMPRESSION: 1. Partial visualization of a right upper lobe pulmonary nodule measuring at least 3.5 cm. This was not present on the prior available chest radiograph from 03/31/2015. There is also a smaller nodule in the left upper lung. This can be compatible with malignancy, and should be correlated with dedicated CT imaging of the chest if not recently performed. Differential would include infectious or inflammatory process. 2. No disc herniations. No levels of central spinal canal stenosis, cord compression, or significant foraminal stenosis in the thoracic spine. 3. Stable small T2 hyperintense intramedullary lesion at the T2-T3 level at the right ventral aspect of the thoracic cord. This appears to be secondary to nonspecific focus of myelomalacia and less likely demyelination. This is unchanged compared to 08/31/2016. 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 No enhancing mass lesions in the thoracic spine. Interpreting Physician: AMANDO LARA M.D. Trans: md : cc: MRI LUMBAR SPINE Observed: 02/08/2018 Status: F Source: [facility] W/OANDW/ CONT 5:26 PM [facility] REPOSITORY Final Report Accession No: [id number] Performed: Feb 08 2018 5:26PM Examination: MRI LUMBAR SPINE W/OANDW/ CONT MRI lumbar SPINE without and with contrast HISTORY: Patient with pain, numbness down both legs, toes, difficulty walking. COMPARISON: MRI lumbar spine from [facility] 01/19/2017. TECHNIQUE: Multiplanar, multisequence MRI images of the lumbar spine were obtained prior to and following the administration of intravenous gadolinium contrast. CONTRAST: Dotarem, 17 mL IV. FINDINGS: Redemonstration of findings from posterior fusion at L3 through S1 with interbody fusion. There is stable grade 1 retrolisthesis at L2-L3. There is severe disc space narrowing at L2-L3, with adjacent prominent Modic type I edema, which has increased. The remaining nonfused disc space heights are preserved. Conus medullaris terminates at T12-L1. No abnormal signal or enhancement in the included distal spinal cord and conus. L5-S1: Status post laminectomy. There is no significant central spinal canal stenosis. There are bilateral foraminal zone osteophytes. There is moderate bilateral foraminal stenosis, similar to the prior exam. L4-L5: Status post laminectomy. No spinal canal or significant neural foraminal stenosis. L3-L4: Laminectomy. Bilateral foraminal zone osteophytes. No spinal canal or foraminal stenosis. L2-L3: Grade 1 retrolisthesis. Uncovering of disc material. There is severe facet arthropathy and marked ligamentum flavum hypertrophy. There is narrowing of the AP thecal sac dimension to approximately 5 mm with bilateral lateral recess stenosis. Mild to moderate bilateral foraminal stenosis, similar to the prior exam. T12-L1 and L1-L2: Mild disc bulges. No spinal canal or significant neural foraminal stenosis. There is a fluid collection in the left laminectomy bed, with no mass effect on the underlying spinal canal. This is most likely a postsurgical seroma. Partial visualization of nonspecific cysts or cystic lesions in the right lobe of the liver, which was also present on the prior MRI from 01/19/2017. IMPRESSION: 1. Redemonstration of postoperative changes from posterior fusion at L3 through S1 with laminectomy. The spinal canal is posteriorly decompressed in the postoperative levels. 2. At L2-L3, there is stable degenerative grade 1 retrolisthesis secondary to facet arthropathy. There is progression of severe disc degeneration at this level with severe disc space narrowing and increased Modic type I edema in the adjacent endplates. There is stable moderate to severe central spinal canal and bilateral lateral recess stenosis as described. Interpreting Physician: AMANDO LARA M.D. Trans: whitney : cc: BUN Collected: 02/01/2018 Status: F Source: [facility] 9:27 AM [facility] REPOSITORY TYPE CODE TESTS RESULT OUT OF RANGE REFERENCE UNITS LAB [id number](LO 7-18 mg/dL INC) Normal BUN 16 Performed By: #### [id number] #### [place] [address] EGFR Collected: 02/01/2018 Status: F Source: [facility] 9:27 AM [facility] REPOSITORY Order Comment: Order added by Discern Expert. TYPE CODE TESTS RESULT OUT OF RANGE REFERENCE UNITS LAB [id number](LO mL/min/1.73 INC) m2 Normal eGFR >60 LAB 53650898(LO mL/min/1.73 INC) m2 Normal eGFR AA >60 Performed By: #### [id number] #### KAYLI [facility] [place] [address] CREATININE Collected: 02/01/2018 Status: F Source: [facility] 9:27 AM [facility] REPOSITORY TYPE CODE TESTS RESULT OUT OF RANGE REFERENCE UNITS LAB [id number](LO 0.6-1.3 mg/dL INC) Normal Creatinine 0.8 Performed By: #### [id number] #### KAYLI [facility] [address] [place], [place] [id number] CBC W/ AUTO DIFF Collected: 01/16/2018 Status: F Source: [facility] 9:55 AM [facility] REPOSITORY TYPE CODE TESTS RESULT OUT OF RANGE REFERENCE UNITS LAB [id number](L 3.6-11.0 E3/mcL OINC) Normal WBC 7.5 LAB 60803704(L 3.90-5.40 E6/mcL OINC) Normal RBC 4.56 LAB 02329878(L 12.0-16.0 G/DL OINC) Normal Hgb 14.7 LAB 30837359(L 36.0-48.0 % OINC) Normal Hct 44.6 LAB 07617010(L 11.5-14.5 % OINC) High RDW 15.8 LAB 20448031(L 27.0-31.0 pg OINC) High MCH 32.2 LAB 23083489(L 33.0-37.0 G/DL OINC) Normal MCHC 33.0 LAB 21667694(L 78.0-100.0 fL OINC) Normal MCV 97.6 LAB 94211664(L 7.4-11.0 fL OINC) High MPV 11.8 LAB 12334801(L 130-400 E3/mcL OINC) Normal Platelet 211 Performed By: #### [id number] #### KAYLI [employer] [address] [place], [place] [id number] AUTO DIFF Collected: 01/16/2018 Status: F Source: [facility] 9:55 AM [facility] REPOSITORY Order Comment: Order Added by Discern Expert. TYPE CODE TESTS RESULT OUT OF RANGE REFERENCE UNITS LAB 79341738(L 37.0-75.0 % OINC) Normal Neutro Auto 74.0 LAB 46998603(L 20.0-55.0 % OINC) Low Lymph Auto 14.5 LAB 42499707(L 0.0-10.0 % OINC) Normal Wheeler Auto 9.3 LAB 56846986(L 0.0-11.0 % OINC) Normal Eos Auto 1.6 LAB 24460837(L 0.0-2.0 % OINC) Normal Basophil Auto 0.6 LAB 30862865(L 1.4-6.5 E3/mcL OINC) Normal Neutro 5.5 Absolute LAB 83837515(L 1.2-3.4 E3/mcL OINC) Low Lymph Absolute 1.1 LAB 07801677(L 0.0-0.7 E3/mcL OINC) Normal Wheeler Absolute 0.7 LAB 44402789(L 0.0-0.7 E3/mcL OINC) Normal Eos Absolute 0.1 LAB 75021852(L 0.0-0.2 E3/mcL OINC) Normal Basophil 0.0 Absolute Performed By: #### [id number] #### KAYLI [facility] [address] [place] [address] BUN Collected: 01/16/2018 Status: F Source: [facility] 9:55 AM [facility] REPOSITORY TYPE CODE TESTS RESULT OUT OF RANGE REFERENCE UNITS LAB 59833431(LO 7-18 mg/dL INC) Normal BUN 14 Performed By: #### [id number] #### KAYLI [facility] [address] [place] [address] CREATININE Collected: 01/16/2018 Status: F Source: [facility] 9:55 AM [facility] REPOSITORY TYPE CODE TESTS RESULT OUT OF RANGE REFERENCE UNITS LAB 0625736(LO 0.6-1.3 mg/dL INC) Normal Creatinine 0.8 Performed By: #### [id number] #### KAYLI [facility] [address] [place] [address] EGFR Collected: 01/16/2018 Status: F Source: [facility] 9:55 AM [facility] REPOSITORY Order Comment: Order added by Discern Expert. TYPE CODE TESTS RESULT OUT OF RANGE REFERENCE UNITS LAB 27230292(LO mL/min/1.73 INC) m2 Normal eGFR >60 LAB 94703000(LO mL/min/1.73 INC) m2 Normal eGFR AA >60 Performed By: #### [id number] #### K[facility]LI [facility] [place] [id number] HEP FUNC PANEL Collected: 01/16/2018 Status: F Source: [facility] 9:55 AM [facility] REPOSITORY TYPE CODE TESTS RESULT OUT OF RANGE REFERENCE UNITS LAB 87787753(L 10-40 Int._Unit/L OINC) Normal ALT 19 LAB 68686194(L 10-42 Int._Unit/L OINC) Normal AST 19 LAB 69219430(L 3.2-5.0 G/DL OINC) Normal Albumin Lvl 3.7 LAB 39320055(L 2.0-4.0 G/DL OINC) Normal Globulin 3.5 LAB 16520911(L 1.1-1.9 ratio OINC) Normal A/G Ratio 1.1 LAB 61978884(L 42-121 Int._Unit/L OINC) Normal Alk Phos 68 LAB 09612837(L .00-.20 mg/dL OINC) Normal Bili Direct .13 LAB 88768639(L OINC) Normal Bili Indirect 0.4 Result Comment: No established ranges available for the Indirect Biliruben. LAB 98380269(LOINC) 0.2-1.0 mg/dL Normal Bili Total 0.5 LAB 84537215(LOINC) 6.4-8.3 G/DL Normal Total Protein 7.2 Performed By: #### [id number] #### K[facility]LI [facility] [place] [address] XR PELVIS 1 OR 2 Observed: 12/27/2017 Status: F Source: [facility] 1:40 PM [facility] REPOSITORY Exam Date/Time: 12/27/2017 13:48 EDT Reason for Exam: Bilateral Hip OA Report XR Pelvis 1 or 2 Views CLINICAL STATEMENT: Pain in the groin and hips. COMPARISON: Left hip series January 19, 2017. TECHNIQUE: Single AP view of the pelvis. FINDINGS: There is a left hip arthroplasty appearing in normal alignment on the AP view without obvious evidence of prosthetic loosening. There are postoperative changes of posterior decompression laminectomy and fusion that is partially imaged. There are mild to moderate changes of osteoarthritis of the right hip. There is no diastases of the sacroiliac joints or pubic symphysis. There are mild degenerative changes of the SI joints. No obvious osseous destructive lesion. Generator overlies the right abdomen likely related to a stimulator. IMPRESSION: 1. No obvious acute osseous abnormality. 2. Left hip arthroplasty appears in normal alignment. 3. Mild to moderate degenerative changes of the right hip joint and mild degenerative spurring of the SI joints. FINAL REPORT Dictated: 12/28/2017 11:57 am Alden Garrido DO Signed (Electronic Signature): 12/28/2017 11:57 am Signed by: Alden Garrido DO Technologist: JUAN MANUEL CBC W/ AUTO DIFF Collected: 10/24/2017 Status: F Source: [facility] 11:00 AM [facility] REPOSITORY TYPE CODE TESTS RESULT OUT OF RANGE REFERENCE UNITS LAB 21399601(L 3.6-11.0 E3/mcL OINC) Normal WBC 9.0 LAB 48847870(L 3.90-5.40 E6/mcL OINC) Normal RBC 4.46 LAB 19382134(L 12.0-16.0 G/DL OINC) Normal Hgb 14.4 LAB 43157501(L 36.0-48.0 % OINC) Normal Hct 43.7 LAB 05136253(L 11.5-14.5 % OINC) High RDW 16.3 LAB 69963184(L 27.0-31.0 pg OINC) High MCH 32.2 LAB 31205697(L 33.0-37.0 G/DL OINC) Low MCHC 32.9 LAB 23349343(L 78.0-100.0 fL OINC) Normal MCV 98.0 LAB 44742611(L 7.4-11.0 fL OINC) High MPV 11.7 LAB 72987996(L 130-400 E3/mcL OINC) Normal Platelet 207 Performed By: #### [id number] #### KAYLI [facility] [address] [place] [address] AUTO DIFF Collected: 10/24/2017 Status: F Source: [facility] 11:00 AM [facility] REPOSITORY Order Comment: Order Added by Discern Expert. TYPE CODE TESTS RESULT OUT OF RANGE REFERENCE UNITS LAB 48713024(L 37.0-75.0 % OINC) High Neutro Auto 78.1 LAB 21683329(L 20.0-55.0 % OINC) Low Lymph Auto 12.2 LAB 90836096(L 0.0-10.0 % OINC) Normal Wheeler Auto 7.9 LAB 12377613(L 0.0-11.0 % OINC) Normal Eos Auto 1.1 LAB 93164928(L 0.0-2.0 % OINC) Normal Basophil Auto 0.7 LAB 93006906(L 1.4-6.5 E3/mcL OINC) High Neutro 7.0 Absolute LAB 84739355(L 1.2-3.4 E3/mcL OINC) Low Lymph Absolute 1.1 LAB 48550960(L 0.0-0.7 E3/mcL OINC) Normal Wheeler Absolute 0.7 LAB 98579670(L 0.0-0.7 E3/mcL OINC) Normal Eos Absolute 0.1 LAB 59528091(L 0.0-0.2 E3/mcL OINC) Normal Basophil 0.1 Absolute Performed By: #### [id number] #### KAYLI [facility] [address] [place] [address] BUN Collected: 10/24/2017 Status: F Source: [facility] 11:00 [facility] REPOSITORY TYPE CODE TESTS RESULT OUT OF RANGE REFERENCE UNITS LAB 05841165(LO 7-18 mg/dL INC) Normal BUN 13 Performed By: #### [id number] #### KAYLI [facility] [place] [address] CREATININE Collected: 10/24/2017 Status: F Source: [facility] 11:00 AM [facility] REPOSITORY TYPE CODE TESTS RESULT OUT OF RANGE REFERENCE UNITS LAB 1219148(LO 0.6-1.3 mg/dL INC) Normal Creatinine 0.7 Performed By: #### [id number] #### [facility]LI [facility] [place] [address] EGFR Collected: 10/24/2017 Status: F Source: [facility] 11:00 [facility] REPOSITORY Order Comment: Order added by Discern Expert. TYPE CODE TESTS RESULT OUT OF RANGE REFERENCE UNITS LAB 47748086(LO mL/min/1.73 INC) m2 Normal eGFR >60 LAB 06625258(LO mL/min/1.73 INC) m2 Normal eGFR AA >60 Performed By: #### [id number] #### [facility] [place] [address] HEP FUNC PANEL Collected: 10/24/2017 Status: F Source: [facility] 11:00 AM [facility] REPOSITORY TYPE CODE TESTS RESULT OUT OF RANGE REFERENCE UNITS LAB 49795878(L 10-40 Int._Unit/L OINC) Normal ALT 27 LAB 43996493(L 10-42 Int._Unit/L OINC) Normal AST 28 LAB 91918734(L 3.2-5.0 G/DL OINC) Normal Albumin Lvl 3.8 LAB 65122792(L 2.0-4.0 G/DL OINC) Normal Globulin 3.5 LAB 35745360(L 1.1-1.9 ratio OINC) Normal A/G Ratio 1.1 LAB 94168510(L 42-121 Int._Unit/L OINC) Normal Alk Phos 59 LAB 90352234(L .00-.20 mg/dL OINC) Normal Bili Direct .13 LAB 43512875(L OINC) Normal Bili Indirect 0.5 Result Comment: No established ranges available for the Indirect Biliruben. LAB 96060086(LOINC) 0.2-1.0 mg/dL Normal Bili Total 0.6 LAB 73879190(LOINC) 6.4-8.3 G/DL Normal Total Protein 7.3 Performed By: #### [id number] #### K[facility]LI [facility] [place] [address] MA MAMM SCREEN W/CAD Observed: 09/22/2017 Status: F Source: [facility] IF PERFORMED BILAT 10:12 AM [facility] REPOSITORY Exam Date/Time: 09/22/2017 10:45 EST Reason for Exam: ARTHROSCLEROSIS OF BOTH CAROTID ARTERIES SCREENING Report BILATERAL DIGITAL SCREENING MAMMOGRAMS WITH CAD [employer] V2.1.3.1 HISTORY: Screening. COMPARISON: 09/20/2016, 09/19/2015, and 09/03/2014. FINDINGS: The glandular pattern is bilaterally symmetrical. There is no spiculated density, clustered microcalcification, or mass lesion seen. No architectural distortion is seen. The skin thickness is normal. IMPRESSION: Stable breast parenchyma from prior studies. BI-RADS 2 - Benign, no evidence of malignancy. Normal interval followup is recommended in 12 months. OVERALL ASSESSMENT- BENIGN A letter of notification will be sent to the patient regarding the results. Assessment / Recommendation: 2-1 Normal interval follow-up Breast density: Heterogeneously Dense Recall interval: 012 months FINAL REPORT Dictated: 09/22/2017 5:34 pm Wali Spain MD Signed (Electronic Signature): 09/22/2017 5:34 pm Signed by: Wali Spain MD Technologist: CEC Assessment: BI-RADS Category 2-Benign finding Recommendation: Normal interval follow-up ALLERGIES ALLERGIES DATE TYPE / CODE NAME / CODE REACTION SEVERITY SOURCE 09/14/2018 Drug Sulfa Rash [place] [facility] Allergy/416 (Sulfonamide [facility] 341859(SNOM Antibiotics)/F[address]) 8954899(RXNORM) Repository 10/09/2015 Drug SULFA Hives [facility] Class/71388 (SULFONAMIDE Three Repository 1003(SNOMED ANTIBIOTICS) CT) Drug/366414 No Known [facility] 003(SNOMED Allergies [facility] CT) System Repository Drug/987073 sulfa drugs 109127003 [facility] 003(SNOMED [facility]) System Repository ENCOUNTERS ENCOUNTERS ADMIT/DISCHARGE ACCOUNT NUMBER ADMITTING ENCOUNTER LOCATION SOURCE CLASS 09/14/2018 [id number] Ambulatory BMSBuilding: [place] [facility] Repository 09/14/2018 [id number] Ambulatory [facility] ding:OMD Repository 09/06/2018 [id number] Ambulatory [facility] ding:CT Repository 09/06/2018 [id number] Ambulatory BMSBuilding: [facility] Repository 09/04/2018 [id number] Ambulatory [facility] ding:[place] Repository 08/03/2018 [id number] Ambulatory BMSBuilding: [place] [facility] Repository 07/26/2018 [id number] Ambulatory BMSBuilding: [place] Repository 07/13/2018 [id number] Ambulatory BMSBuilding: [place] [facility] Repository 07/03/2018 [id number] Ambulatory BMSBuilding: [place] [facility] Repository 07/03/2018 [id number] Ambulatory BMSBuilding: [place] [facility] Repository 07/03/2018 [id number] Ambulatory BMSBuilding: [place] [facility] Repository 06/19/2018/06/19/20 [id number] Zumbar, Ambulatory [address] Regional ding:[facility] Repository 06/19/2018 [id number] Ambulatory BMSBuilding: [place] [facility]MS[facility]CF[facility] Repository 06/12/2018 [id number] Ambulatory BMSBuilding: [place] [facility] Repository 06/06/2018 [id number] Ambulatory BMSBuilding: [place] [facility] Repository 05/31/2018 [id number] Ambulatory BMSBuilding: [place] [facility] Repository 05/29/2018 [id number] Ambulatory BMSBuilding: [place] [facility] Repository 05/24/2018 [id number] Ambulatory BMSBuilding: [place] [facility] Repository 05/22/2018 [id number] Ambulatory BMSBuilding: [place] [facility] Repository 05/17/2018 [id number] Ambulatory BMSBuilding: [place] [facility] Repository 05/15/2018 [id number] Ambulatory BMSBuilding: [place] [facility] Repository 05/10/2018 [id number] Ambulatory BMSBuilding: [place] [facility] Repository 05/08/2018 [id number] Ambulatory BMSBuilding: [place] [facility] Repository 05/03/2018 [id number] Ambulatory B[facility]: [place] [facility] Repository 05/01/2018 [id number] Ambulatory Building:[facility] Repository 04/24/2018 [id number] Ambulatory BMSBuilding: [place] [facility] Repository 04/21/2018/04/21/20 [id number] Ambulatory [address] Hospital ding:[facility] Repository 04/21/2018 [id number] Ambulatory BMSBuilding: [place] [facility] Repository 04/20/2018 [id number] Ambulatory BMSBuilding: [place] Repository 04/18/2018 [id number] [facility] 04/17/2018 [id number] Ambulatory BMSBuilding: [place] [facility] Repository 04/17/2018/04/17/20 [id number] Ambulatory BMSBuilding: [place] 18 BMS.[facility] Repository 04/13/2018 [id number] Ambulatory BMSBuilding: [place] [facility]MS[facility]CF[facility] Repository 04/13/2018 [id number] Ambulatory BMSBuilding: [place] Repository 04/12/2018 [id number] Ambulatory [facility] Hospital ding:MRI Repository 04/11/2018 [id number] Ambulatory BMSBuilding: [place] [facility] Repository 04/03/2018 [id number] Ambulatory Building:BS2 [facility] Repository 04/03/2018 [id number] Ambulatory Building:D8E [facility] Repository 03/24/2018/03/24/20 [id number] SHRUTI, Ambulatory [address] [facility] Repository 03/20/2018/03/20/20 [id number] Zumbar, Ambulatory [address] Regional ding:[facility] Repository 03/20/2018/03/20/20 [id number] Zumbar, Ambulatory [address] Regional ding:[facility] Repository 03/20/2018 [id number] Ambulatory [address] [place] [address] Repository 03/15/2018 [id number] Ambulatory Building:[facility] Repository 03/15/2018 [id number] Ambulatory Building:CT4 [facility] Repository 03/15/2018 [id number] Ambulatory Building:[facility] MOCVCOLENTAN Three GYRIVERRD Repository 03/13/2018 [id number] Ambulatory Building:[facility] Repository 03/13/2018 [id number] Ambulatory Building:BS2 [facility] Repository 02/28/2018/02/29/20 [id number] Tomchak, Ambulatory [facility] Regional ding:[facility] Repository 02/28/2018 [id number] Ambulatory Building:[facility] Repository 02/28/2018 [id number] Ambulatory [address] [place] [address] Repository 02/15/2018/02/16/20 [id number] Tomchak, Ambulatory [facility] Regional ding:[facility] Repository 02/13/2018/02/14/20 [id number] Zumbar, Ambulatory [facility] [address] [place] [address] Regional ding:[facility] Repository 02/08/2018 [id number] Lu BUTCHER, Ambulatory [facility] [place] [facility] Repository 02/08/2018 [id number] Ambulatory Building:[facility] Repository 02/08/2018 [id number] Ambulatory Building:[facility] Repository 02/01/2018/02/02/20 [id number] Zumbar, [facility] Repository 01/31/2018/02/01/[id number] Zumbar, [facility] Regional ding:[facility] Repository 01/16/2018/01/17/20 [id number] Stadnnita, Ambulatory [facility] 18 [facility] Regional ding:[facility] Repository 01/16/2018 [id number] Ambulatory Building:[facility] ORTHOGLESSNE Three R Repository 12/27/2017/12/28/[id number] Zumbar, Ambulatory [facility] Repository 12/27/2017/12/28/[id number] Zumbar, Ambulatory [address] [facility] Regional ding:[facility] Repository 12/16/2017/12/17/19 [id number] Ambulatory Building:[place] [address] ORTHOGLESSNE Three R Repository 12/06/2017/12/07/[id number] Zumbar, Ambulatory [address] [facility] Regional ding:[facility] Repository 11/22/2017/11/22/[id number] Zumbar, Ambulatory [address] [facility] Regional ding:[facility] Repository 10/28/2017/10/28/[id number] Zumbar, Ambulatory [address] [facility] Regional ding:[facility] Repository 10/25/2017 [id number] [facility] Repository 10/24/2017/10/24/[id number] Stadnick, Ambulatory [address] [facility] Regional ding:[facility] Repository 10/21/2017/10/21/[id number] Zumbar, Ambulatory [address] [facility] Regional ding:[facility] Repository 10/10/2017/10/10/[id number] Zumbar, Ambulatory [address] [facility] Regional ding:[facility] Repository 10/04/2017/10/04/[id number] Zumbar, Ambulatory [address] [facility] Regional ding:[facility] Repository 10/04/[id number] Zumbar, Ambulatory [facility] Regional ding:[facility] Repository 09/30/2017/09/30/[id number] Zumbar, Ambulatory [facility] ding:[facility] Repository 09/22/2017/09/22/[id number] [facility] ding:[facility] IO Repository PAYERS PAYERS ENCOUNTER GUARANTOR PAYER SUBSCRIBER SOURCE 09/14/2018 MARIETTA A Primary MARIETTA Diaz Aspers [id number] [place] Insurance:MEDICARE TEMPLEDOB: Community JOHN PART A BPolicy Number: [id number] [facility], [id number] [place]ository [place] [address]Cdh: Date:2018-04-07 () 09/14/2018 Secondary MARIETTA A Aspers Insurance:HUMANA TEMPLEDOB: Community [facility] [id number] Hospital Number: Repository [id number] Date:6817-39-16SS [address] [address]JW: 09/14/2018 Tertiary NOT GIVENUNK Micaela Insurance:SELF PAY [facility] Number: Effective Repository Date:2018-09-14 09/14/2018 MARIETTA A Primary MARIETTA Diaz Aspers [id number] [address] [place] Insurance:MEDICARE TEMPLEDOB: Community JOHN PART A BPolicy Number: [id number] Regional Medical Center, [id number] [place]ository [place] [address]Dcr: Date:2018-04-07 () 09/14/2018 Secondary MARIETTA A Micaela Insurance:HUMANA TEMPLEDOB: [facility] [id number] Hospital Number: Repository [id number] Date:7832-66-82ON [address] [address]UK: 09/14/2018 Tertiary NOT GIVENUNK Micaela Insurance:SELF PAY [facility] Number: Effective Repository Date:2018-04-07 09/06/2018 MARIETTA A Primary MARIETTA Diaz Micaela [id number] [place] Insurance:MEDICARE TEMPLEDOB: Community JOHN PART A BPolicy Number: [id number] Regional Medical Center, [id number] [place]ository [place] [address]Hmg: Date:2018-09-06 () 09/06/2018 Secondary MARIETTA A Micaela Insurance:HUMANA TEMPLEDOB: Community COMMERCIALPolicy [id number] Hospital Number: Repository [id number] Date:7110-03-44FZ[address] [address]UG: 09/06/2018 Tertiary NOT GIVENUNK Micaela Insurance:SELF PAY Community [facility] Number: Effective Repository Date:2018-09-06 09/06/2018 MARIETTA A Primary MARIETTA A Aspers [id number] [place] Insurance:MEDICARE TEMPLEDOB: Community JOHN PART A BPolicy Number: [id number] Regional Medical Center, [id number] [place]ository [place] [address]Pxy: Date:2018-04-07 () 09/06/2018 Secondary MARIETTA A Aspers Insurance:HUMANA TEMPLEDOB: Community COMMERCIALPolicy [id number] Hospital Number: Repository [id number] Date:9633-76-89FS[address] [address]NX: 09/06/2018 Tertiary NOT GIVENUNK Micaela Insurance:SELF PAY Community [facility] Number: Effective Repository Date:2018-09-06 09/04/2018 MARIETTA A Primary MARIETTA Diaz Micaela [id number] [place] Insurance:MEDICARE TEMPLEDOB: Community JOHN PART A BPolicy Number: [id number] Regional Medical Center, [id number] Repository [place] [address]Uyj: Date:2018-07-04 () 09/04/2018 Secondary MARIETTA A Aspers Insurance:HUMANA TEMPLEDOB: Community COMMERCIALPolicy [id number] Hospital Number: Repository [id number] Date:7578-21-62LA[address] [address]UF: 09/04/2018 Tertiary NOT GIVENUNK Aspers Insurance:SELF PAY Community [facility] Number: Effective Repository Date:2018-07-04 08/03/2018 MARIETTA A Primary MARIETTA A Aspers [id number] [place] Insurance:MEDICARE TEMPLEDOB: Community JOHN PART A olicy Number: [id number] Regional Medical Center, [id number] [place]ository [place] [address]Niu: Date:2018-04-07 () 08/03/2018 Secondary MARIETTA A Micaela Insurance:HUMANA TEMPLEDOB: Community COMMERCIALPolicy [id number] Hospital Number: Repository [id number] Date:8260-45-78CZ[address] [address]VG: 08/03/2018 Tertiary NOT GIVENUNK Aspers Insurance:SELF PAY [facility] Hospital Number: Effective Repository Date:2018-08-03 07/26/2018 MARIETTA A Primary MARIETTA Hinojosa [id number] [place] Insurance:MEDICARE TEMPLEDOB: Community JOHN PART A BPolicy Number: [id number] [facility] [id number] Repository [place] [address]Ssa: Date:2018-04-07 () 07/26/2018 Secondary MARIETTA A Micaela Insurance:HUMANA TEMPLEDOB: Community [facility]CIALWell[facility] Hospitaly [id number] Hospital Number: Repository [id number] Date:5539-61-09ZD[address] [address]MJ: 07/26/2018 Tertiary NOT GIVENUNK Aspers Insurance:SELF PAY [facility] Number: Effective Repository Date:2018-07-26 07/13/2018 MARIETTA A Primary MARIETTA A Aspers [id number] [place] Insurance:MEDICARE TEMPLEDOB: Community JOHN PART A BPolicy Number: [id number] Dade City [id number] Repository [place] [address]Irv: Date:2018-04-07 () 07/13/2018 Secondary MARIETTA A Micaela Insurance:HUMANA TEMPLEDOB: Community COMMERCIALBannericy [id number] Hospital Number: Repository [id number] Date:1426-73-83DN[address] [address]FS: 07/13/2018 Tertiary NOT GIVENUNK Aspers Insurance:SELF PAY [facility] Number: Effective Repository Date:2018-07-13 07/03/2018 MARIETTA A Primary MARIETTA Diaz Micaela [id number] [place] Insurance:MEDICARE TEMPLEDOB: Community JOHN PART A BPolicy Number: [id number] [facility] [id number] [place]ository [place] [address]Jto: Date:2018-04-07 () 07/03/2018 Secondary MARIETTA A Aspers Insurance:HUMANA TEMPLEDOB: Community COMMERCIALPolicy [id number] Hospital Number: Repository [id number] Date:5374-68-54ZT[address] [address]OL: 07/03/2018 Tertiary NOT GIVENUNK Aspers Insurance:SELF PAY [facility] Number: Effective Repository Date:2018-07-03 07/03/2018 MARIETTA A Primary MARIETTA A Micaela [id number] [place] Insurance:MEDICARE TEMPLEDOB: Community JOHN PART A BPolicy Number: [id number] Dade City [id number] Repository [place] [address]Taz: Date:2018-04-07 () 07/03/2018 Secondary MARIETTA A Aspers Insurance:HUMANA TEMPLEDOB: Community COMMERCIALBannericy [id number] Hospital Number: Repository [id number] Date:7857-44-89FR[address] [address]HI: 07/03/2018 Tertiary NOT GIVENUNK Micaela Insurance:SELF PAY [facility] Number: Effective Repository Date:2018-07-03 07/03/2018 MARIETTA A Primary MARIETTA A Micaela [id number] [place] Insurance:MEDICARE TEMPLEDOB: Community JOHN PART A olicy Number: [id number] Dade City [id number] Repository [place] [address]Ive: Date:2018-04-07 () 07/03/2018 Secondary MARIETTA A Aspers Insurance:HUMANA TEMPLEDOB: Community COMMERCIALPolicy [id number] Hospital Number: Repository [id number] Date:9741-61-48YN [address] [place] [address]PE: 07/03/2018 Tertiary NOT GIVENUNK Aspers Insurance:SELF PAY [facility] Number: Effective Repository Date:2018-07-03 06/19/2018 BRAD Primary MARIETTA Vacaaritan TEMPLEDOB: Insurance:MedicarePoli TEMPLEDOB: [facility] cy Number: Effective [id number] System [place] Date:2018-03-20 [facility], 7423-97-88[place], [place] Name:CD:397322CJTENET [address] [place] [address]Vse: 093992SJWRQYLPTUALEXIS VILLE [address]42[address]Tel: [address]WP: [phone] ([phone] (HP) (WP) 06/19/2018 Secondary MARIETTA Mendez Insurance:HUMANAPolicy TEMPLEDOB: [facility] Number: Effective [id number] System Date:2018-03-20 [facility] 5733-24-92Iwpg[address] [place] [address], Name:CD:[id number] [facility] 07227LDRDGDUTI[address] [place] [address]Wvb: [id number]: [phone] (HP) (WP) 06/19/2018 Tertiary MARIETTA Mendez Insurance:TRICAREPolic TEMPLEDOB: [facility] y Number: Effective [id number] System Date:2018-03-20 [facility] 1419-87-82NgdfSentara [facility], Name:GovernmentTENET [address] [place] 130730QZRPBODOWILLIAM VILLE [address]142[address]Tel: [place] [phone]: [phone] (HP) (WP) 06/19/2018 MARIETTA A Primary MARIETTA A Aspers [id number] [place] Insurance:MEDICARE TEMPLEDOB: Community JOHN PART A BPolicy Number: [id number] Dade City [id number] Repository [place] [address]Ute: Date:2018-04-07 () 06/19/2018 Secondary MARIETTA A Micaela Insurance:HUMANA TEMPLEDOB: Community COMMERCIALPolicy [id number] Hospital Number: Repository [id number] Date:8613-38-31OR[address] [address]HH: 06/19/2018 Tertiary NOT GIVENUNK Micaela Insurance:SELF PAY [facility] Hospital Number: Effective Repository Date:2018-06-19 06/12/2018 MARIETTA A Primary MARIETTA Diaz Aspers [id number] [place] Insurance:MEDICARE TEMPLEDOB: Community JOHN PART A BPolicy Number: [id number] Dade City [id number] Repository [place] [address]Tip: Date:2018-04-07 () 06/12/2018 Secondary MARIETTA A Micaela Insurance:HUMANA TEMPLEDOB: Community COMM[facility]CIALWell[facility] Hospitaly [id number] Hospital Number: Repository [id number] Date:7374-32-36EZ[address] [address]MW: 06/12/2018 Tertiary NOT GIVENUNK Micaela Insurance:SELF PAY [facility] Number: Effective Repository Date:2018-06-12 06/06/2018 MARIETTA A Primary MARIETTA A Micaela [id number] [place] Insurance:MEDICARE TEMPLEDOB: Community JOHN PART A BPolicy Number: [id number] D[facility] City [id number] Repository [place] [address]Evn: Date:2018-04-07 () 06/06/2018 Secondary MARIETTA A Micaela Insurance:HUMANA TEMPLEDOB: Community COMMERCIALPolicy [id number] Hospital Number: Repository [id number] Date:0472-18-23PS[address] [address]HX: 06/06/2018 Tertiary NOT GIVENUNK Micaela Insurance:SELF PAY [facility] Number: Effective Repository Date:2018-06-06 05/31/2018 MARIETTA A Primary MARIETTA Diaz Micaela [id number] [place] Insurance:MEDICARE TEMPLEDOB: Community JOHN PART A BPolicy Number: [id number] D[facility] City [id number] [place]ository [place] [address]Jbg: Date:2018-04-07 () 05/31/2018 Secondary MARIETTA A Micaela Insurance:HUMANA TEMPLEDOB: Community COMMERCIALBannericy [id number] Hospital Number: Repository [id number] Date:2051-73-92XZ[address] [address]XQ: 05/31/2018 Tertiary NOT GIVENUNK Micaela Insurance:SELF PAY [facility] Number: Effective Repository Date:2018-05-31 05/29/2018 MARIETTA A Primary MARIETTA A Micaela [id number] [place] Insurance:MEDICARE TEMPLEDOB: Community JOHN PART A BPolicy Number: [id number] Dade City [id number] Repository [place] [address]Uzm: Date:2018-04-07 () 05/29/2018 Secondary MARIETTA A Aspers Insurance:HUMANA TEMPLEDOB: Community COMM[facility]CIALWell[facility] Hospitaly [id number] Hospital Number: Repository [id number] Date:3815-22-34GJ[address] [address]NS: 05/29/2018 Tertiary NOT GIVENUNK Aspers Insurance:SELF PAY [facility] Number: Effective Repository Date:2018-05-29 05/24/2018 MARIETTA A Primary MARIETTA Diaz Micaela [id number] [place] Insurance:MEDICARE TEMPLEDOB: Community JOHN PART A BPolicy Number: [id number] Dade City [id number] Repository [place] [address]Sxe: Date:2018-04-07 () 05/24/2018 Secondary MARIETTA A Aspers Insurance:HUMANA TEMPLEDOB: Community COMMERCIALPolicy [id number] Hospital Number: Repository [id number] Date:6147-89-29YF[address] [address]LQ: 05/24/2018 Tertiary NOT GIVENUNK Aspers Insurance:SELF PAY Community [facility] Number: Effective Repository Date:2018-05-24 05/22/2018 MARIETTA A Primary MARIETTA Diaz Aspers [id number] [place] Insurance:MEDICARE TEMPLEDOB: Community JOHN PART A BPolicy Number: [id number] Regional Medical Center, [id number] [place]ository [place] [address]Fvq: Date:2018-04-07 () 05/22/2018 Secondary MARIETTA A Micaela Insurance:HUMANA TEMPLEDOB: Community COMMERCIALPolicy [id number] Hospital Number: Repository [id number] Date:1253-80-65GE[address] [address]LG: 05/22/2018 Tertiary NOT GIVENUNK Aspers Insurance:SELF PAY Community [facility] Number: Effective Repository Date:2018-05-22 05/17/2018 MARIETTA A Primary MARIETTA Diaz Micaela [id number] [place] Insurance:MEDICARE TEMPLEDOB: Community JOHN PART A BPolicy Number: [id number] Regional Medical Center, [id number] Repository [place] [address]Bwr: Date:2018-04-07 () 05/17/2018 Secondary MARIETTA A Micaela Insurance:HUMANA TEMPLEDOB: Community COMMERCIALPolicy [id number] Hospital Number: Repository [id number] Date:2509-12-42KZ[address] [address]UG: 05/17/2018 Tertiary NOT GIVENUNK Micaela Insurance:SELF PAY Community [facility] Number: Effective Repository Date:2018-05-17 05/15/2018 MARIETTA A Primary MARIETTA Diaz Micaela [id number] [place] Insurance:MEDICARE TEMPLEDOB: Community JOHN PART A BPolicy Number: [id number] Regional Medical Center, [id number] Repository [place] [address]Pbo: Date:2018-04-07 () 05/15/2018 Secondary MARIETTA A Micaela Insurance:HUMANA TEMPLEDOB: Community COMMERCIALPolicy [id number] Hospital Number: Repository [id number] Date:3606-12-26FC[address] [address]XT: 05/15/2018 Tertiary NOT GIVENUNK Micaela Insurance:SELF PAY [facility] Number: Effective Repository Date:2018-05-15 05/10/2018 MARIETTA A Primary MARIETTA A Aspers [id number] [place] Insurance:MEDICARE TEMPLEDOB: Community JOHN PART A olicy Number: [id number] D[facility] City [id number] Repository [place] [address]Wqu: Date:2018-04-07 () 05/10/2018 Secondary MARIETTA A Aspers Insurance:HUMANA TEMPLEDOB: Community COMMERCIALBannericy [id number] Hospital Number: Repository [id number] Date:5511-75-47LK[address] [address]XZ: 05/10/2018 Tertiary NOT GIVENUNK Micaela Insurance:SELF PAY [facility] Number: Effective Repository Date:2018-05-10 05/08/2018 MARIETTA A Primary MARIETTA A Aspers [id number] [place] Insurance:MEDICARE TEMPLEDOB: Community JOHN PART A olicy Number: [id number] Dade City [id number] Repository [place] [address]Cyx: Date:2018-04-07 () 05/08/2018 Secondary MARIETTA A Micaela Insurance:HUMANA TEMPLEDOB: Community COMMERCIALBanneric [id number] Hospital Number: Repository [id number] Date:6456-41-40KW[address] [address]TW: 05/08/2018 Tertiary NOT GIVENUNK Micaela Insurance:SELF PAY [facility] Number: Effective Repository Date:2018-05-08 05/03/2018 MARIETTA A Primary MARIETTA A Aspers [id number] [address] [place] Insurance:MEDICARE TEMPLEDOB: [facility] JOHN PART A BPolicy Number: [id number] [facility] [id number] Repository [place] [address]Iso: Date:2018-04-07 (HP) 05/03/2018 Secondary MARIETTA A Aspers Insurance:HUMANA TEMPLEDOB: Community COMMERCIALPolicy [id number] Hospital Number: Repository [id number] Date:1117-99-85AR [address] [place] [address]PE: 05/03/2018 Tertiary NOT GIVENUNK Aspers Insurance:SELF PAY [facility] Number: Effective Repository Date:2018-05-03 05/01/2018 MARIETTA A Primary MARIETTA Diaz [facility] TEMPLEDOB: Insurance:MEDICAREPoli TEMPLEDOB: Three Repository S cy Number: [id number] [place] [id number] S [facility], Date:4852-61-50EKF [address] [place], [place] [address]Qym: PART A [facility] [address] [place] [address]Oyd: [id number] [place] [address] (HP) [address]ZT: [phone] ([phone] 05/01/2018 Secondary MARIETTA Emily [facility] Insurance:COMMERCIALPo TEMPLEDOB: Three Repository licy Number: [id number] S [place] Date:2015-10-03 - [facility], 7685-39-84QI [address] [place] [address]Yzi: [address] [place] [address]WP: [phone] ([phone] 05/01/2018 Tertiary MARIETTA Diaz [facility] Insurance:HUMANAPolicy TEMPLEDOB: Three Repository Number: [id number] S [place] Date:1407-81-38RS[address] [place] [address]Zxa: [address]MA: [phone] (HP) 05/01/2018 Tertiary MARIETTA Diaz [facility] Insurance:VAPolicy TEMPLEDOB: Three Repository Number: [id number] Edgard LOPEZ Date:2697-75-56DY[address] [place] [address]Zsg: [address]UR: [phone] (HP) 05/01/2018 Tertiary MARIETTA Emily [facility] Insurance:HUMANA TEMPLEDOB: Three Repository MANAGED MEDICAREPolicy [id number] Number: Edgard LOPEZ [id number] [facility], Date:2012-10-03 - [place] [address] 5266-02-55HJ[address] [address]IO: 04/24/2018 MARIETTA A Primary MARIETTA A Aspers [id number] [place] Insurance:MEDICARE TEMPLEDOB: Community JOHN PART A BPolicy Number: [id number] Dade City [id number] Repository [place] [address]Iyf: Date:2018-04-07 () 04/24/2018 Secondary MARIETTA A Micaela Insurance:HUMANA TEMPLEDOB: [facility] [place] [id number] Hospital Number: Repository [id number] Date:9435-36-17PN[address] [address]MZ: 04/24/2018 Tertiary NOT GIVENUNK Aspers Insurance:SELF PAY [facility] Number: Effective Repository Date:2018-04-24 04/21/2018 MARIETTA A Primary MARIETTA A Aspers [id number] [place] Insurance:MEDICARE TEMPLEDOB: Community JOHN PART A BPolicy Number: [id number] Regional Medical Center, [id number] Repository [place] [address]Mwd: Date:2018-04-19 () 04/21/2018 Secondary MARIETTA A Micaela Insurance:HUMANA TEMPLEDOB: Community COMMERCIALPolicy [id number] Hospital Number: Repository [id number] Date:3966-48-20AK[address] [address]UI: 04/21/2018 Tertiary NOT GIVENUNK Micaela Insurance:SELF PAY Community [facility] Number: Effective Repository Date:2018-04-19 04/21/2018 MARIETTA A Primary MARIETTA A Micaela [id number] [place] Insurance:MEDICARE TEMPLEDOB: Community JOHN PART A BPolicy Number: [id number] Dade City [id number] Repository [place] [address]Qpz: Date:2018-04-21 () 04/21/2018 Secondary MARIETTA A Aspers Insurance:HUMANA TEMPLEDOB: Community COMMERCIALPolicy [id number] Hospital Number: Repository [id number] Date:2712-77-43AN[address] [address]OO: 04/21/2018 Tertiary NOT GIVENUNK Aspers Insurance:SELF PAY Community [facility] Number: Effective Repository Date:2018-04-21 04/20/2018 MARIETTA A Primary MARIETTA A Aspers [id number] [place] Insurance:MEDICARE TEMPLEDOB: Community JOHN PART A BPolicy Number: [id number] Dade City [id number] Repository [place] [address]Tpu: Date:2018-04-07 () 04/20/2018 Secondary MARIETTA A Micaela Insurance:HUMANA TEMPLEDOB: Community COMMERCIALPolicy [id number] Hospital Number: Repository [id number] Date:9781-76-87ZK[address] [address]MY: 04/20/2018 Tertiary NOT GIVENUNK Aspers Insurance:SELF PAY Community [facility] Number: Effective Repository Date:2018-04-20 04/18/2018 MARIETTA A Primary MARIETTA A Micaela [id number] [place] Insurance:MEDICARE TEMPLEDOB: Community JOHN PART A BPolicy Number: [id number] Regional Medical Center, [id number] Repository [place] [address]Uzn: Date:2018-04-07 () 04/18/2018 Secondary MARIETTA A Aspers Insurance:HUMANA TEMPLEDOB: [facility] [id number] Hospital Number: Repository [id number] Date:6291-13-21EQ[address] [address]IG: 04/18/2018 Tertiary NOT GIVENUNK Aspers Insurance:SELF PAY [facility] Hospital Number: Effective Repository Date:2018-04-18 04/17/2018 MARIETTA A Primary MARIETTA A Aspers [id number] S Insurance:MEDICARE TEMPLEDOB: [facility] [place] PART A BPolicy Number: [id number] Regional Medical Center, [id number] Repository [place] [address]Qih: Date:2018-04-07 () 04/17/2018 Secondary MARIETTA A Aspers Insurance:HUMANA TEMPLEDOB: [facility] [id number] Hospital Number: Repository [id number] Date:0670-44-19JC[address] [address]EQ: 04/17/2018 Tertiary NOT GIVENUNK Micaela Insurance:SELF PAY [facility] Hospital Number: Effective Repository Date:2018-04-17 04/17/2018 MARIETTA A Primary MARIETTA A Micaela [id number] S Insurance:MEDICARE TEMPLEDOB: [facility] JOHN PART A BPolicy Number: [id number] [facility] [id number] Repository [place] [address]Lag: Date:2018-04-13 () 04/17/2018 Secondary MARIETTA A Aspers Insurance:HUMANA TEMPLEDOB: [facility] [id number] Hospital Number: Repository [id number] Date:7872-84-55TR [address] [address]DX: 04/17/2018 Tertiary NOT GIVENUNK Micaela Insurance:SELF PAY [facility] Number: Effective Repository Date:2018-04-17 04/13/2018 MARIETTA A Primary MARIETTA A Micaela [id number] S Insurance:MEDICARE TEMPLEDOB: Community [facility] PART A olicy Number: [id number] D[facility] City [id number] Repository [place] [address]Vhd: Date:2018-04-07 () 04/13/2018 Secondary MARIETTA A Micaela Insurance:HUMANA TEMPLEDOB: Community COMMERCIALPolicy [id number] Hospital Number: Repository [id number] Date:5753-69-78AT[address] [address]GC: 04/13/2018 Tertiary NOT GIVENUNK Aspers Insurance:SELF PAY [facility] Number: Effective Repository Date:2018-04-13 04/13/2018 MARIETTA A Primary MARIETTA A Aspers [id number] [place] Insurance:MEDICARE TEMPLEDOB: Community JOHN PART A [facility] Number: [id number] [place] [place] [id number] Repository [place] [address]Gza: Date:2018-04-07 () 04/13/2018 Secondary MARIETTA A Aspers Insurance:HUMANA TEMPLEDOB: [facility] [id number] Hospital Number: Repository [id number] Date:7811-93-78BG[address] [address]MM: 04/13/2018 Tertiary NOT GIVENUNK Micaela Insurance:SELF PAY [facility] Hospital Number: Effective Repository Date:2018-04-13 04/12/2018 MARIETTA A Primary MARIETTA A Micaela [id number] S Insurance:MEDICARE TEMPLEDOB: [facility] [place] PART A [facility] Number: [id number] [place] [id number] Repository [place] [address]Dof: Date:2018-04-11 () 04/12/2018 Secondary MARIETTA A Micaela Insurance:HUMANA TEMPLEDOB: [facility] COMMERCIALBannericy [id number] Hospital Number: Repository [id number] Date:4246-46-13RE [address] [address]BO: 04/12/2018 Tertiary NOT GIVENUNK Micaela Insurance:SELF PAY [facility] Number: Effective Repository Date:2018-04-11 04/11/2018 MARIETTA A Primary MARIETTA A Micaela [id number] S Insurance:MEDICARE TEMPLEDOB: [facility] PART A BPolicy Number: [id number] Dade City [id number] Repository [place] [address]Csg: Date:2018-04-07 (HP) 04/11/2018 Secondary [place] A Micaela Insurance:HUMANA TEMPLEDOB: Community MEDICARE PPOPolicy [id number] Hospital Number: Repository [id number] Date:4989-13-20RB[address] [address]FA: 04/11/2018 Tertiary NOT GIVENUNK [place] Insurance:SELF PAY [facility] Number: Effective Repository Date:2018-04-11 04/03/2018 [place] Primary [place] TEMPLEDOB: [facility] TEMPLEDOB: Insurance:MEDICARE A [id number] University S AND BPolicy Number: [facility] [id number] [facility], Date:0386-26-79Viiq [place] [address]Axd: Repository [place] [address]Qxu: Name:CARE (HP) (HP) 04/03/2018 Secondary [place] TEMPLEDOB: [facility] Insurance:HUMANAPoly [id number] [place] Number: S [facility] [id number] [facility] Date:5497-65-08Isek [place] [address]Llo: Repository Name:MANAGED CARE (HP) 04/03/2018 [place] Primary [place] TEMPLEDOB: [facility] TEMPLEDOB: Insurance:MEDICARE A [id number] [place] S AND BPolicy Number: [facility] [id number] [place], Date:2897-87-09Esid [place] [address]Avs: Repository [place] [address]Udo: Name:CARE (HP) (HP) 04/03/2018 Secondary [place] TEMPLEDOB: [facility] Insurance:[facility] [id number] [place] Number: S [facility] [id number] [facility] Date:0002-93-85Vtcu [place] [address]Xht: Repository Name:MANAGED CARE () 03/24/2018 [place] Primary [place] TEMPLEDOB: [facility] TEMPLEDOB: Insurance:MEDICARE A [id number] [place] S AND BPolicy Number: S [facility] [id number] [place] Date:1178-49-06[place] [address]Nsk: Repository [place] [address]Yac: Name:CARE (HP) (HP) 03/24/2018 Secondary [place] TEMPLEDOB: [facility] Insurance:HUMANCentra Health [id number] [place] Number: Edgard [facility] [id number] [facility] Hospital Date:5447-04-09Iprl [place] [address]Tfa: Repository Name:MANAGED CARE () 03/20/2018 BRAD Primary BRAD Jewish TEMPLEDOB: Insurance:MedicarePoli TEMPLEDOB: [facility] S cy Number: Effective [id number] System [place] Date:2018-03-20 [facility] 3468-49-28[place], [place] Name:CD:[id number] [facility] [address]Tmp: 065563TQJMDFKYM[place]OC[place]ETY [place] [address]Jin: [address]SI: ([phone]) (HP) [phone] (HP) (WP) 03/20/2018 Secondary [place] Vacaaritan Insurance:HUMANAPolicy TEMPLEDOB: [facility] Number: Effective [id number] System Date:2018-03-20 [facility] 3394-72-92Qisu[address], Name:CD:[id number] [place] [address]Tel: [phone]: [phone] (HP) (WP) 03/20/2018 BRAD [facility] MARIETTA Mendez TEMPLEDOB: Insurance:MedicarePoli TEMPLEDOB: [facility] cy Number: Effective [id number] System [place] Date:2018-02-13 [facility] 1445-91-22Ygah[address] Name:CD:[id number] [facility] [address]Hmn: [id number], [place] [address]Gef: [address]WP: [phone]) (HP) [phone] (HP) (WP) 03/20/2018 Secondary [place] Mendez Insurance:HUMANAPolicy TEMPLEDOB: [facility] Number: Effective [id number] System Date:2018-02-13 [facility] 8041-99-41Eokb[address], Name:CD:[id number] [address] [address]Dix: [id number]: [phone] (HP) (WP) 03/20/2018 Tertiary [place] Mendez Insurance:TRICAREPolic TEMPLEDOB: [facility] y Number: Effective [id number] System Date:2018-02-13 [facility] 2892-36-93EmgzSentara [facility], Name:[facility] 350407CTXWFABJ [place], [address]Tbk: [place] [phone]: [phone] (HP) () 03/20/2018 [place] Primary [place] TEMPLEDOB: [place] TEMPLEDOB: Insurance:MedicarePoli [id number] Hospitals cy Number: [facility] [id number] [facility], Date:Plan Name:[facility] A [place] [id number]: [place] [id number]: (EK) (HP) 03/20/2018 Secondary [place] TEMPLEDOB: [place] Insurance:MedicarePoli [id number] [facility] cy Number: [facility] [id number] Medical Center, Date:Plan Name:[facility] [id number]: (HP) 03/20/2018 Tertiary [place] TEMPLEDOB: [place] Insurance:[facility] [id number] [facility] HumanaPolicy Number: [facility] [id number] Medical Center, Date:Plan Name:[facility] [id number]: (HP) 03/15/2018 [place] Primary [place] TEMPLEDOB: [facility] TEMPLEDOB: Insurance:MEDICARE A [id number] University S AND BPolicy Number: [facility] [id number] [place] Date:3671-45-79Zcnz [place] [address]Hcg: Repository [place] [address]Zil: Name:CARE (HP) (HP) 03/15/2018 Secondary [place] TEMPLEDOB: [facility] Insurance:HUMANCentra Health [id number] [place] Number: S [facility] [id number] [facility] Date:1957-88-15Sdww [place] [address]Ujs: Repository Name:MANAGED CARE () 03/15/2018 Tertiary FLORIAN TEMPLEDOB: [facility] Insurance: FOR [id number] [facility] Number: Edgard [facility] [id number] Date:9941-77-85Xsgu [place] [address]Bfq: Repository Name:OTHER GOVERN () 03/15/2018 [place] Primary [place] TEMPLEDOB: [facility] TEMPLEDOB: Insurance:MEDICARE A [id number] [place] S AND BPolicy Number: [facility] [id number] [facility] [place], Date:9170-09-67Dpug [place] [address]Xvo: Repository [place] [address]Wyx: Name:CARE () () 03/15/2018 Secondary [place] TEMPLEDOB: [facility] Insurance:HUMANCentra Health [id number] [place] Number: S [facility] [id number] Memorial Hospital Date:2708-56-90Jfto [place] [address]Luj: Repository Name:MANAGED CARE () 03/15/2018 Tertiary FLORIAN TEMPLEDOB: [facility] Insurance: FOR [id number] [facility] Number: Edgard [facility] [id number] Memorial [facility] Date:9613-32-83Xkhu [place] [address]Wml: Repository Name:OTHER GOVERN () 03/15/2018 [place] A Primary [place] A [facility] TEMPLEDOB: Insurance:MEDICAREPoli TEMPLEDOB: Three Repository S cy Number: [id number] [place] [id number] S [facility], Date:0685-70-69TIT [address] [place] [address]Hvp: PART A CLAIMSPO [place]OX [place] [address]Mee: [address]JLWYWEQKR, [place] (HP) [address]RL: [phone]) (HP) [phone] 03/15/2018 Secondary [place] A [facility] Insurance:COMMERCIALPo TEMPLEDOB: Three Repository licy Number: [id number] S RADHA LOPEZ Date:2015-10-03 - [facility], 9850-22-18MK [facility] [place] [address]Phe: [address] [place] [address]WP: ([phone]) (HP) [phone] 03/15/2018 Tertiary [place] A [facility] Insurance:HUMANAPolicy TEMPLEDOB: Three Repository Number: [id number] S RADHA LOPEZ Date:2364-81-95OS [address] [place] [address]Beo: [address]CX: [phone] (HP) 03/15/2018 Tertiary [place] A [facility] Insurance:VAPolicy TEMPLEDOB: Three Repository Number: [id number] S [facility] JOHN Date:3035-95-07SC[address] [place] [address]Osa: [address]AI: [phone] (HP) 03/15/2018 [facility] A [facility] Insurance:HUMANA TEMPLEDOB: Three Repository MANAGED MEDICAREPolicy [id number] Number: S [facility] JOHN [id number] [facility], Date:2012-10-03 - [place] [address] 9019-46-44XI [address] [address]NS: 03/13/2018 [place] Primary [place] TEMPLEDOB: [facility] TEMPLEDOB: Insurance:MEDICARE A [id number] [place] S AND BPolicy Number: [facility] [id number] [facility] [place], Date:6181-21-33Sfzt [place] [address]Cdy: Repository [place] [address]Sds: Name:CARE (HP) (HP) 03/13/2018 Secondary [place] TEMPLEDOB: [facility] Insurance:[facility] [id number] [place] Number: Edgard [facility] [id number] [place] Date:6212-44-13Dnsv [place] [address]Deo: Repository Name:MANAGED CARE () 03/13/2018 Tertiary FLORIAN TEMPLEDOB: [facility] Insurance: FOR [id number] [facility] Number: Ed[facility] [id number] [facility] Date:0962-91-21Qeij [place] [address]Voq: Repository Name:OTHER GOVERN () 03/13/2018 [place] Primary [place] TEMPLEDOB: [facility] TEMPLEDOB: Insurance:MEDICARE A [id number] [place] S AND BPolicy Number: [facility] [id number] Memorial Hospital [facility] [place], Date:8476-51-87Lrfb [place] [address]Iff: Repository [place] [address]Nhj: Name:CARE (HP) (HP) 03/13/2018 Secondary [place] TEMPLEDOB: [facility] Insurance:WebvantaMountain View HospitalKinoos [id number] [place] Number: Ed[facility] [id number] Medical Center, [place] Date:2253-07-76Jfan [place] [address]Isk: Repository Name:MANAGED CARE () 03/13/2018 Tertiary FLORIAN TEMPLEDOB: [facility] Insurance: FOR [id number] [place] LIFEPolicy Number: Ed[facility] [id number] [facility] Date:3902-09-74Uywt [place] [address]Zov: Repository Name:OTHER [facility] (HP) 02/28/2018 BRAD Primary BRAD Jewish TEMPLEDOB: Insurance:MedicarePoli TEMPLEDOB: [facility] S cy Number: Effective [id number] System [facility] JOHN Date:2018-02-17 [facility] JOHNAlbert B. [facility] 6490-69-84Xnsu [place] Name:CD:[id number] [facility] [address]Lod: [id number], [place] [address]Zeh: [address]WP: ([phone]) (HP) [phone] (HP) (WP) 02/28/2018 Secondary [place] Mendez Insurance:HUMANAPolicy TEMPLEDOB: [facility] Number: Effective [id number] System Date:2018-02-23 [facility] 6564-68-70YsmvSentara [facility]ifax [facility], Name:CD:[id number] [address] [address]Lyc: [phone]: [phone] (HP) (WP) 02/28/2018 Tertiary BRADANDREW Mendez Insurance:TRICAREPolic TEMPLEDOB: [facility] y Number: Effective [id number] System Date:2018-02-17 [facility] 3940-04-45IlulSentara [facility]ifax Regional [facility], Name:[facility] 347606HQINCNZUCOULEE MEDICAL CENTER [address]Xnf: [place] [phone]: [phone] (HP) (WP) 02/28/2018 [place] Primary [place] TEMPLEDOB: [facility] TEMPLEDOB: Insurance:HUMANAPolicy [id number] [place] S Number: S [facility] [id number] [facility], Date:1885-51-30Ocsz [place] [address]Adp: Repository [place] [address]Bep: Name:MANAGED CARE (HP) (HP) 02/28/2018 [place] Primary [place] TEMPLEDOB: [place] TEMPLEDOB: Insurance:MedicarePoli [id number] Hospitals S cy Number: S [facility] [id number] Children's Rehabilitation [facility], Date:Plan Name:[facility] [place] [id number]: [place] [phone]: (HP) (HP) 02/28/2018 Secondary [place] TEMPLEDOB: [place] Insurance:MedicarePoli [id number] [facility] cy Number: S [facility] [id number] Medical Center, Date:Plan Name:[facility] B [place] [phone]: (HP) 02/28/2018 Tertiary [place] TEMPLEDOB: [place] Insurance:[facility] [id number] [facility] HumanBallad Health Number: S [facility] [id number] Medical Center, Date:Plan Name:[facility] [id number]: (HP) 02/15/2018 BRAD Primary [place] Mendez TEMPLEDOB: Insurance:MedicarePoli TEMPLEDOB: [facility] S cy Number: Effective [id number] [facility] Date:2018-02-09 - [facility] 6222-12-37Doqe[place], [place] Name:CD:[id number] [address]Ivk: [id number], [place] [address]Tqi: [address]WP: [phone]) (HP) [phone] (HP) (WP) 02/15/2018 Secondary [place] Nashtan Insurance:HUMANAPolicy TEMPLEDOB: [facility] Number: Effective [id number] System Date:2018-02-09 [facility] 1915-58-54TtjmSentara Halifax [facility], Name:CD:[id number] [place] [place] [address]YVEBRMIGI[address] [place] [address]Zfa: [phone]: [phone] (HP) (WP) 02/15/2018 Tertiary [place] Vacaaritan Insurance:TRICAREPolic TEMPLEDOB: [facility] y Number: Effective [id number] System Date:2018-02-09 [facility] 1367-95-89UyznSentara [facility]ifax Regional Hospital, Name:Government [place] 589296TXAIZRRAWILLIAM [place]IL[place] [address]142[address]Tel: [place] [phone]: [phone] (HP) (WP) 02/13/2018 MAR[place] MORALES Primary BRAD Jewish TEMPLEDOB: Insurance:MedicarePoli TEMPLEDOB: [facility] S cy Number: Effective [id number] System [place] Date:2018-02-02 [facility] 2216-92-84EbupM[place], [place] Name:CD:[id number] [facility] [address]Tzt: 311133LZFWSGPYITALEXIS VILLE [address]23742[address]Tel: [address]WP: [phone]) (HP) [phone] (HP) (WP) 02/13/2018 Secondary [place] Vacaaritan Insurance:HUMANAPolicy TEMPLEDOB: [facility] Number: Effective [id number] System Date:2018-02-02 [facility] 7215-15-01MbasSentara Halifax Regional Hospital, Name:CD:[id number] [place] [place] [address]NWMAINTQG[address] [place] [address]Zje: [phone]: [phone] (HP) (WP) 02/13/2018 Tertiary [place] Mendez Insurance:TRICAREPolic TEMPLEDOB: [facility] Number: Effective [id number] System Date:2018-02-02 [place] Repository 6969-18-54WjoiSentara Halifax Regional Hospital, Name:[address], [address]Dee: [place] [phone]: [phone] (HP) (WP) 02/08/2018 Primary [place] A [facility] Insurance:MedicarePoli TEMPLEDOB: Haseeb Number: [id number] [facility] [id number] Fear/H[facility]ett Health Repository Date:8079-48-91NekqBon [facility], Name:[place] [address]Jcy: () 02/08/2018 Secondary [place] A [facility] Insurance:MedicarePoli TEMPLEDOB: [facility] ace Number: [id number] [facility] [id number] Fear/[facility] Repository Date:6195-41-69NndvBon Secours DePaul Medical Center, Name:N[place] [address]Amt: () 02/08/2018 Tertiary [place] A [facility] Insurance:Humana TEMPLEDOB: [place] dima [facility] HospitalCliftonje[facility] Number: [id number] [facility] [id number] Fear/Harnett Health Repository Date:Plan Name:[place], [place] [address]Ove: (HP) 02/08/2018 Tertiary [place] A [facility] Insurance: for TEMPLEDOB: [facility] Number: [id number] [facility] [id number] Fear/Harn[facility] Health Repository Date:Plan Name:[place], [place] [address]Fsi: (HP) 02/08/2018 [place] Primary [place] TEMPLEDOB: [facility] TEMPLEDOB: Insurance:HUMANAPolicy [id number] [place] S Number: [facility] [id number] Memorial Hospital [facility] [place], Date:8557-88-84Kadg [place] [address]Wfn: Repository [place] [address]Rgq: Name:MANAGED CARE (HP) (HP) 02/08/2018 [place] Primary [place] TEMPLEDOB: [facility] TEMPLEDOB: Insurance:HUMANAPolicy [id number] [place] S Number: [facility] [id number] Regional [facility] [place], Date:1780-79-89Sdio [place] [address]Jjx: Repository [place] [address]Tci: Name:MANAGED CARE (HP) (HP) 02/01/2018 [place] Mendez TEMPLEDOB: Insurance:MedicarePoli TEMPLEDOB: [facility] S cy Number: Effective [id number] System [place] Date:2018-02-01 [facility] 5448-03-83Ypyo[address] Name:CD:[id number] [facility] [address]Ekd: 544[address]SKGDHWMLRN, [place] [address]Vdx: ) [phone] [address]WP: [phone]) [phone]) (HP) [phone] (HP) (WP) 02/01/2018 Secondary [place] Mendez Insurance:HUMANAPolicy TEMPLEDOB: [facility] Number: Effective [id number] System Date:2018-02-01 [facility] 9597-66-55HuwzSentara [facility], Name:CD:[id number] [address] [address]Kxe: [phone]: [phone] (HP) (WP) 02/01/2018 Tertiary [place] Mendez Insurance:TRICAREPolic TEMPLEDOB: [facility] y Number: Effective [id number] System Date:2018-02-01 [facility] 2244-05-14Bjaw[address] [place] [address], Name:[facility] [place]OX [place] 190769AGMCAUMVWILLIAM VILLE 47[address]142[address]Tel: [place] [phone]: [phone] (HP) (WP) 01/31/2018 BRAD Primary MARI[place] Mendez TEMPLEDOB: Insurance:MedicarePoli TEMPLEDOB: [facility] S cy Number: Effective [id number] System [place] Date:2017-12-27 [facility] 7887-90-92Bpeu[address] [place] [address] Name:CD:[address] [place] [address]Jnp: 028606DSLLHCMHDMALEXIS VILLE 7423742[address]Tel: [address]WP: (800) (HP) [phone] (HP) (WP) 01/31/2018 Secondary [place] Mendez Insurance:HUMANAPolicy TEMPLEDOB: [facility] Number: Effective [id number] System Date:2017-12-27 [facility] 2034-24-22Htsf[address], Name:CD:[id number] [address]Qqi: [phone]: [phone] (HP) (WP) 01/31/2018 Tertiary [place] Mendez Insurance:TRICAREPolic TEMPLEDOB: [facility] y Number: Effective [id number] System Date:2017-12-27 [facility] 9383-85-57Xyio[address], Name:[facility] [place]OX [place] 091123GRPMJNPXWILLIAM VILLE [address]142[address]Tel: [place] [phone]: [phone] (HP) (WP) 01/16/2018 BRAD Primary BRAD Jewish TEMPLEDOB: Insurance:MedicarePoli TEMPLEDOB: [facility] S cy Number: Effective [id number] System [place] Date:2018-01-16 [facility], 1672-23-66ArlxM[place], [place] Name:CD:[id number] [facility] [address]Sfo: [id number], [place] [address]Dsa: [address]WP: (800) (HP) [phone] (HP) (WP) 01/16/2018 Secondary BRADANDREW Mendez Insurance:HUMANAPolicy TEMPLEDOB: [facility] Number: Effective [id number] System Date:2018-01-16 [facility] 4505-20-91OsrwSentara Halifax [facility], Name:CD:[id number] [address] [address]Kwi: [phone]: [phone] (HP) (WP) 01/16/2018 Tertiary BRADANDREW Mendez Insurance:TRICAREPolic TEMPLEDOB: [facility] y Number: Effective [id number] System Date:2018-01-16 [place] Repository 5081-95-27FrpfSentara Halifax Regional Hospital, Name:[address]EN[address] [facility] 879417UWXSCXIUCOULEE MEDICAL CENTER [address]Nfp: [place] [phone]: [phone] (HP) (WP) 01/16/2018 [place]TA A Primary [place] A [facility] TEMPLEDOB: Insurance:MEDICAREPoli TEMPLEDOB: [facility] Repository cy Number: [id number] [facility] [id number] [facility], Date:0760-08-19MYM J15 [place], [place] [address]Obl: PART A CLAIMSPO [facility] [address]Wab: [address]QBGFESPTA [place] (HP) [address]NM: [phone] (HP) [phone] 01/16/2018 Secondary [facility] Insurance:COMMERCIALPo TEMPLEDOB: Three Repository licy Number: [id number] [facility] Date:2015-10-03 - [facility], 1737-09-59AP [facility] [address]Fad: [address] [place] [address]WP: [phone] 01/16/2018 Tertiary [facility] Insurance:HUMANAPolicy TEMPLEDOB: Three Repository Number: [id number] [facility] Date:4363-59-87NP[address] [address]WP: 01/16/2018 [facility] Insurance:VAPolicy TEMPLEDOB: Three Repository Number: [id number] [facility] Date:8635-70-14XEVICTORIA VILLE [id number] [address]WP: 01/16/2018 [facility] Insurance:HUMANA TEMPLEDOB: Three Repository MANAGED MEDICAREPolicy [id number] Number: S [place] [id number] [place], [place]:2012-10-03 - [place] [address] 1110-10-92QY [address] [address]PC: 12/27/2017 MARIETTA MORALES [facility] ANN Jewish TEMPLEDOB: Insurance:MedicarePoli TEMPLEDOB: [facility] cy Number: Effective [id number] System [place] Date:2017-12-27 [facility], 1072-02-43Uxib [place] Name:CD:[id number] [address]OX [place] [id number]: [phone]: 790845XZQJTFVKVJ, [place] [address]QZ: (800) (HP)Tel: (000) (HP) [phone] (WP) 12/27/2017 Secondary MARIETTA Mendez Insurance:HUMANAPolicy TEMPLEDOB: [facility] Number: Effective [id number] System Date:2017-12-27 [facility] 2561-80-49XcdvSentara [facility], Name:CD:[id number] [facility] [id number]: [address]XPGZYIEAZ, [place] [address]JZ: (877) (HP) [phone] (WP) 12/27/2017 Tertiary MARIETTA Mendez Insurance:TRICAREPolic TEMPLEDOB: [facility] y Number: Effective [id number] System Date:2017-12-27 [facility] 7761-82-97PmlgSentara [facility]ifax [facility], Name:Government [address] [place] [address]Ncu: 627455SMIJONWKCOULEE MEDICAL CENTER [place] [phone]: (877) (HP) [phone] (WP) 12/27/2017 BRAD [facility] MARIETTA Nashtan TEMPLEDOB: Insurance:MedicarePoli TEMPLEDOB: [facility] S cy Number: Effective [id number] System [place] Date:2017-12-06 [facility], 6704-31-04QjzaM[place], [place] Name:CD:[id number] [address]OX [place] [address]Dof: [id number]: 439453ZSGUBWDMOW, [place] [address]FQ: (800) (HP)Tel: ([phone]) (HP) [phone] (WP) 12/27/2017 Secondary MARIETTA Mendez Insurance:HUMANAPolicy TEMPLEDOB: [facility] Number: Effective [id number] System Date:2017-12-06 [facility] JOHN Repository 2141-99-08HzcaSentara Halifax Regional Hospital, Name:CD:[id number] [address]OX [place] [address]Bdj: [address] [place] [id number]: (285) (HP) [phone] (WP) 12/27/2017 Tertiary MARIETTA Mendez Insurance:TRICAREPolic TEMPLEDOB: [facility] y Number: Effective [id number] System Date:2017-12-06 [place] Repository [id number] Halifax Regional Hospital, Name:[facility] BOX [place] [id number]: [id number] [place] [id number]: [phone]) (HP) 000-0000 (WP) 12/16/2017 MARIETTA Emily Primary MARIETTA Diaz [facility] TEMPLEDOB: Insurance:MEDICAREPoli TEMPLEDOB: Three Repository cy Number: [id number] [facility] [id number] [facility], Date:[id number] [address] [place], [place] [address]Jaw: [place] [place] [address]Wqm: [address]38[address]YSRUESVLS, [place] (HP) [address]XG: [phone] (HP) [phone] 12/16/2017 Secondary MARIETTA Diaz [facility] Insurance:HUMANAPolicy TEMPLEDOB: Three Repository Number: [id number] [facility] Date:[id number] [address] [id number]: 12/16/2017 Tertiary MARIETTA Diaz [facility] Insurance:VAPolicy TEMPLEDOB: Three Repository Number: [id number] S [place] Date:[id number] [id number]: 12/06/2017 BRAD [facility] MARIETTA Mendez TEMPLEDOB: Insurance:MedicarePoli TEMPLEDOB: [facility] S cy Number: Effective [id number] System [place] Date:2017-11-22 [facility], [id number] Name:[id number] [facility] [id number]: [id number]: [id number], [place] [address]WP: [phone]) (HP)Tel: [phone]) (HP) [phone] (WP) 12/06/2017 Secondary [facility]ETTA [facility] Insurance:HUMANAPolicy TEMPLEDOB: [facility] Number: Effective [id number] System Date:2017-11-22 [place] Repository [id number] [facility], Name:CD:[id number] [facility] [place] [id number]: [id number], [place] [id number]: ([phone]) (HP) 000-0000 (WP) 12/06/2017 Tertiary BRAD Jewish Insurance:TRICAREPolic TEMPLEDOB: [facility] y Number: Effective [id number] System Date:2017-11-22 [place] Repository 4239-05-33FwbySentara [facility], Name[facility] [facility] [place] [id number]: [id number] MEDICAL CENTER [place] [id number]: (457) (HP) 000-0000 (WP) 11/22/2017 BRAD Primary MARIETTA Mendez TEMPLEDOB: Insurance:MedicarePoli TEMPLEDOB: [facility] cy Number: Effective [id number] System [place] Date:2017-10-28 [facility], [id number] [place], [place] Name:CD:[id number] [address] [place] [id number]: [id number]: [id number] [place] [address]TF: (800) (HP)Tel: (000 (HP) [phone] (WP) 11/22/2017 Secondary MARIETTA Mendez Insurance:HUMANAPolicy TEMPLEDOB: [facility] Number: Effective [id number] System Date:2017-10-28 [facility] 9313-49-67AhtdSentara [facility], Name:CD:[id number] BOX [place] [id number]: [id number], [place] [id number]: (877) (HP) 000-0000 (WP) 11/22/2017 Tertiary MARIETTA Mendez Insurance:TRICAREPolic TEMPLEDOB: [facility] y Number: Effective [id number] System Date:2017-10-28 [facility] 1016-32-83NyjfSentara [facility], Name:GovernmentPO BOX [place] [id number]: [id number] MEDICAL CENTER [place] [id number]: (877) (HP) 000-0000 (WP) 10/28/2017 BRAD Primary MARIETTA Mendez TEMPLEDOB: Insurance:MedicarePoli TEMPLEDOB: [facility] cy Number: Effective [id number] System [place] Date:2017-10-24 [facility], 5307-36-06[place]ds[place], [place] Name:CD:[id number] BOX [place] [id number]: [id number]: [id number] [place] [address]WP: (800) (HP)Tel: 000HP) [phone] (WP) 10/28/2017 Secondary MARIETTA Vacaaritan Insurance:HUMANAPolicy TEMPLEDOB: [facility] Number: Effective [id number] System Date:2017-10-24 [place] Repository 2517-31-26FktvSentara [facility], Name:CD:[id number] [address]OX [place] [id number]: [id number], [place] [id number]: (874) (HP) 000-0000 (WP) 10/28/2017 Tertiary BRAD Jewish Insurance:TRICAREPolic TEMPLEDOB: [facility] y Number: Effective [id number] System Date:2017-10-24 [place] Repository 6417-82-27RdgcSentara [facility], Name:GovernmentPO [address]OX [place] [id number]: [id number] MEDICAL CENTER [place] [phone]: [phone]) (HP) 000-0000 (WP) 10/25/2017 [place]TA [facility] TEMPLEDOB: Insurance:MEDICAREPoli TEMPLEDOB: Three Repository cy Number: [id number] [facility] [id number] [facility], Date:6353-32-81RNY J15 [place], [place] [address]Mpl: PART A CLAIMSPO [place]OX [place] [address]Snf: 56168LZXABUOME, [place] (HP) [address]LG: ([phone]) (HP) [phone] 10/25/2017 Secondary [facility] Insurance:COMMERCIALPo TEMPLEDOB: Three Repository licy Number: [id number] Health [facility] Date:2015-10-03 [facility], [id number] [facility] [place] [address]Nvc: [address] [place] [address]WP: ([phone]) (HP) [phone] 10/25/2017 [facility] MARIETTA Diaz [place] [facility] Insurance:HUMANAPolicy TEMPLEDOB: Three Repository Number: [id number] S [facility] JOHN Date:2474-33-80VN [address] [address]WP: 10/25/2017 [facility] Emily [place] [facility] Insurance:VAPolicy TEMPLEDOB: Three Repository Number: [id number] S [facility] JOHN Date:[id number] [place] [address]CV: 10/25/2017 [facility] Insurance:HUMANA TEMPLEDOB: Three Repository MANAGED MEDICAREPoly [id number] Number: S [facility] JOHN [id number] [place], Date:2012-10-03 - [place] [address] [id number] [address] [address]GJ: 10/24/2017 BRAD Primary BRAD Jewish TEMPLEDOB: Insurance:MedicarePol TEMPLEDOB: [facility] S cy Number: Effective [id number] System [facility] JOHN Date:2017-10-24 [facility] JOHN Repository [facility] 5635-35-74Nndu[place], [place] Name:CD:[id number] [place] [id number]: [id number]: [id number] [place] [address]WP: (800) (HP)Tel: (000) (HP) [phone] (WP) 10/24/2017 Secondary MARIETTA Nashtan Insurance:HUMANAPolicy TEMPL[facility]OB[facility] Number: Effective [id number] System Date:2017-10-24 [facility] 4408-32-02FpqtSentara [facility], Name:CD:[id number] BOX [place] [id number]: [id number] [place] [id number]: (877) (HP) 000-0000 (WP) 10/24/2017 Tertiary BRAD Jewish Insurance:TRICAREPolic TEMPLEDOB: [facility] y Number: Effective [id number] System Date:2017-10-24 [facility] 1115-66-30Fswy[address] [place] [address], Name:[address] [place] [id number]: [id number] MEDICAL CENTER [place] [phone]: (877) (HP) 000-0000 (WP) 10/21/2017 BRAD Primary MARIETTA MORALES Jewish TEMPLEDOB: Insurance:MedicarePoli TEMPLEDOB: [facility] S cy Number: Effective [id number] System [place] Date:2017-10-19 [facility] 8138-63-87Hlwg[address] [place] [address] Name:CD:[id number] BOX [place] [id number]: [id number]: [id number], [place] [address]QF: (800) (HP)Tel: (000) (HP) [phone] (WP) 10/21/2017 Secondary BRAD Jewish Insurance:HUMANAPolicy TEMPLEDOB: [facility] Number: Effective [id number] System Date:2017-10-19 [facility] 8862-93-26Njbv[address] [place] [address], Name:CD:[id number] BOX [place] [id number]: [id number] [place] [address] [id number]: (877) (HP) 000-0000 (WP) 10/21/2017 Tertiary MARIETTA Mendez Insurance:TRICAREPolic TEMPLEDOB: [facility] y Number: Effective [id number] System Date:2017-10-19 [facility] JOHN Repository 8296-35-74HnqxSentara [facility], Name:EmmaPO BOX [place] [id number]: [id number] MEDICAL CENTER [place] [phone]: (877) (HP) 000-0000 (WP) 10/10/2017 BRAD Primary MARIETTA Mendez TEMPLEDOB: Insurance:MedicarePoli TEMPLEDOB: [facility] cy Number: Effective [id number] System [place] Date:2017-07-04 [facility] JOHNAlbert [facility]. [facility] 9111-31-18UrjvM[place], [place] Name:CD:[id number] [address]OX [place] [id number]: [id number]: [id number] [place] [address]BQ: (800) (HP)Tel: (000) (HP) [phone] (WP) 10/10/2017 Secondary MARIETTA Mendez Insurance:HUMANAPolicy TEMPLEDOB: [facility] Number: Effective [id number] System Date:2017-07-04 [place] Repository 6562-11-45UzfhSentara [facility]ifax [facility], Name:CD:[id number] BOX [place] [id number]: [address] [place] [address] [phone]: (877) (HP) 000-0000 (WP) 10/10/2017 Tertiary FLORIAN Mendez Insurance:TRICAREPolic TEMPLEDOB: [facility] y Number: Effective [id number] System Date:2017-07-04 ID Repository 6088-27-08Ydir [place] Name:[address], [place] [address]Zzw: [id number] MEDICAL CENTER [place] [phone]: (877) (HP) 000-0000 (WP) 10/04/2017 MARIETTA MORALES Primary MARIETTA Mendez TEMPLEDOB: Insurance:MedicarePoli TEMPLEDOB: [facility] cy Number: Effective [id number] System [place] Date:2017-09-30 [facility] 3495-06-65Ehle [place] Name:CD:[id number] [facility] [place] [id number]: [id number]: [id number], [place] [address]WP: (800) (HP)Tel: (000) (HP) [phone] (WP) 10/04/2017 Secondary MARIETTA Mendez Insurance:HUMANAPolicy TEMPLEDOB: [facility] Number: Effective [id number] System Date:2017-09-30 [facility] 7554-56-76HrzwSentara [facility], Name:CD:[id number] [facility] [place] [id number]: [id number] [place] [address] [phone]: (877) (HP) 000-0000 (WP) 10/04/2017 Tertiary MARIETTA Mendez Insurance:TRICAREPolic TEMPLEDOB: [facility] y Number: Effective [id number] System Date:2017-09-30 [facility] 1970-96-22QrinSentara [facility]ifax [facility], Name:[address] [place] [id number]: [id number] MEDICAL CENTER [place] [phone]: (875) (HP) 000-0000 (WP) 10/04/2017 BRAD Primary MARIETTA Mendez TEMPLEDOB: Insurance:MedicarePoli TEMPLEDOB: [facility] cy Number: Effective [id number] System [place] Date:2017-10-04 [facility], 5426-08-66Eggi [place] Name:CD:[id number] BOX [place] [id number]: [id number]: [id number], [place] [address]PN: (800) (HP)Tel: (000) (HP) [phone] (WP) 10/04/2017 Secondary MARIETTA Mendez Insurance:HUMANAPolicy TEMPLEDOB: [facility] Number: Effective [id number] System Date:2017-10-04 [facility] 2907-24-87NbdiSentara [facility], Name:CD:[id number] [facility] [place] [id number]: [address]346YGDOWIWVU, [place] [id number]: (877) (HP) 000-0000 (WP) 10/04/2017 Tertiary MARIETTA Nashtan Insurance:TRICAREPolic TEMPLEDOB: [facility] y Number: Effective [id number] System Date:2017-10-04 [facility] 1161-57-51CycvSentara [facility], Name:[address] [place] [id number]: [id number] MEDICAL CENTER [place] [phone]: (877) (HP) 000-0000 (WP) 09/30/2017 BRAD [facility] MARIETTA MORALES Jewish TEMPLEDOB: Insurance:MedicarePoli TEMPLEDOB: [facility] S cy Number: Effective [id number] System [place] Date:2017-09-28 [facility] 3649-80-90UpixM[place], [place] Name:CD:[id number] BOX [place] [id number]: [id number]: [id number], [place] [address]CL: (800) (HP)Tel: (000) (HP) [phone] (WP) 09/30/2017 Secondary MARIETTA Mendez Insurance:HUMANAPolicy TEMPLEDOB: [facility] Number: Effective [id number] System Date:2017-09-28 [facility] 0016-21-67Odts [facility], Name:CD:[id number] BOX [place] [id number]: [id number] [place] [address] [phone]: (877) (HP) 000-0000 (WP) 09/30/2017 Tertiary MARIETTA Mendez Insurance:TRICAREPolic TEMPLEDOB: [facility] y Number: Effective [id number] System Date:2017-09-28 [facility] 8355-65-92TkdpSentara [facility], Name:[address] [place] [place] [id number]: [id number] MEDICAL CENTER [place] [phone]: (877) (HP) 000-0000 (WP) 09/22/2017 BRAD Primary MARIETTA Mendez TEMPLEDOB: Insurance:MedicarePoli TEMPLEDOB: [facility] S cy Number: Effective [id number] System [place] Date:2017-09-05 [facility] 5468-36-54Lrca [place] Name:CD:[id number] BOX [place] [id number]: [id number]: [id number], [place] [address]SY: (800) (HP)Tel: (000) (HP) [phone] (WP) 09/22/2017 Secondary MARIETTA Mendez Insurance:HUMANAPolicy TEMPLEDOB: [facility] Number: Effective [id number] System Date:2017-09-05 [facility] 4209-80-98Risw [facility], Name:CD:[id number] [address]OX [place] [id number]: [id number] [place] [address] [phone]: (390) (HP) 000-0000 (WP) 09/22/2017 [facility] ANN Jewish Insurance:TRICAREPolic TEMPLEDOB: [facility] y Number: Effective [id number] System Date:2017-09-05 [facility] JOHNTustin Rehabilitation Hospital 8224-74-98DuudSentara [facility], Name:[facility] [id number]: [id number] [place] [phone]: (090) (HP) 000-0000 (WP)
== END ==
PROVIDERS: Family Provider Family Medicine; PCP Family Medicine; Referring Provider Student in an Organized Health Care Education/Training Program; Visit Provider Student in an Organized Health Care Education/Training Program
DX: C34.91 Malignant neoplasm of unspecified part of right bronchus or lung (principal)
CPT/HCPCS: 71260; 74160; 78306; Q9967; A4216

== ENCOUNTER → 2018-09-06 12:24 | Outpatient (CLI) | payer MEDICARE, OTHER, SELFPAY ==
[2018-04-13 09:34] VITALS: BMI 29.5
[2018-09-06 11:22] VITALS: BMI 28.0
--- NOTE | 2018-09-06 12:27 | CT_ITS ---
STUDY: CT SOFT TISSUE NECK WITH CONTRAST REASON FOR EXAM: Female, 78 years old. Right parotid mass found on PET scan. RADIATION DOSAGE (If Supplied By Facility): CTDIvol = ( 18.56 ) mGy, DLP = ( 635.18 ) mGycm TECHNIQUE: The patient was scanned in a multi-detector CT scanner. High resolution transaxial imaging was performed following intravenous administration of 100 ml of Isovue 300 contrast material. Sagittal and coronal images were reconstructed. Individualized dose optimization techniques were used for this CT. COMPARISON: The PET scan with the right parotid mass was not submitted for comparison. FINDINGS: 0.7 x 0.4 x 0.7 cm enhancing lymph node behind the posterior caudal surface of the right parotid gland rather than intraparotid mass such as benign mixed tumor or intraparotid lymph node (series 2, images 86-88; series 601, images 24-25; series 602, images 50-51). Normal bilateral parotid glands. Normal bilateral funeral director/embalmer spaces. Normal bilateral parapharyngeal spaces. No suspicious mass in both carotid sheaths. Calcified plaques in both internal carotid artery bulbs causing approximately 50% stenosis of the right internal carotid artery but the left internal carotid artery remains widely patent. Medial posterior pharyngeal course of both cervical internal carotid arteries are developmental variations of normal. Normal bilateral sublingual and submandibular glands and spaces. Normal visualized nasopharynx. Normal retropharyngeal space. Normal perivertebral space. Normal visualized bilateral faucial tonsils. The visualized tongue, tongue base and oropharynx are normal. The visualized cervical lymph nodes (levels I-) are within normal size limits, and maintain normal morphology. There is no demonstrated solid or cystic mass lesion. There is no abnormal contrast enhancement. Normal epiglottis, bilateral vallecula and hypopharynx. The pre-epiglottic and paraglottic adipose spaces are normal. Normal visualized bilateral piriform sinuses, aryepiglottic folds, vocal cords, and arytenoid-cricoid articulations. Normal subglottic trachea. 0.9 cm hyperdense nodule in the left thyroid lobe. Multiple intralobular cysts in both lung apices. Mild interlobular septal thickening of the lung apices. Normal visualized paranasal sinuses. Pronounced disc space height narrowing at C3-C4 down to C6-C7 disc space levels. Moderately pronounced left C2-C3 degenerative facet arthropathy. Moderate left C3-C4 and C4-C5 degenerative facet arthropathy. OPINION: 1. 0.7 x 0.4 x 0.7 cm enhancing lymph node behind the posterior cortical surface of the right parotid gland rather than an intraparotid enhancing lymph node or benign enhancing mixed tumor. 2. No definite CT evidence of intraparotid mass. 3. 0.9 cm hyperdense solid nodule in the left thyroid lobe. 4. Mild interlobular septal thickening of the lung apices with multiple small intralobular cysts. 5. Suspicious 50% stenosis of the right proximal internal carotid artery bulb due to calcified atherosclerotic plaques. 6. No definite CT evidence of any suspicious mass in the suprahyoid neck and infrahyoid neck. 7. Pronounced disc space height narrowing at C3-C4 down to C6-C7 disc space levels. 8. Moderately pronounced left C2-C3 degenerative facet hypertrophy. 9. Moderate left C3-C4 and left C4-C5 degenerative facet arthropathy. Electronically Signed: Chai Chen MD at 15:03 EST , Service support , CT/Soft Tissue Neck WITH Contrast
== END ==
PROVIDERS: Family Provider Family Medicine; PCP Family Medicine; Referring Provider Internal Medicine Hematology & Oncology; Visit Provider Internal Medicine Hematology & Oncology
DX: C34.91 Malignant neoplasm of unspecified part of right bronchus or lung (principal); C77.9 Secondary and unspecified malignant neoplasm of lymph node, unspecified; R59.0 Localized enlarged lymph nodes
CPT/HCPCS: 36591; 70491; 80053; 85025; Q9967; A4216

== ENCOUNTER → 2019-03-08 | Outpatient (CLI) | payer MEDICARE, OTHER, SELFPAY ==
[2018-04-13 09:34] VITALS: BMI 29.5
[2019-02-27 09:47] VITALS: BMI 28.0
--- NOTE | 2019-03-08 15:52 | CT_ITS ---
STUDY: CT SOFT TISSUE NECK WITH CONTRAST REASON FOR EXAM: Female, 78 years old. Restaging non-small cell lung cancer. Prior radiation and chemotherapy as well as power port placement. History of hypertension. RADIATION DOSAGE (If Supplied By Facility): CTDIvol = ( 17.43 ) mGy, DLP = ( 2072.14 ) mGycm TECHNIQUE: The patient was scanned in a multi-detector CT scanner. High resolution transaxial imaging was performed following intravenous administration of 100mL IV Isovue 300. Sagittal and coronal images were reconstructed. Individualized dose optimization techniques were used for this CT. COMPARISON: CT soft tissues of the neck with contrast September 06, 2018. FINDINGS: Normal bilateral parotid glands. Normal bilateral iron assorter spaces. Normal bilateral parapharyngeal spaces. There is moderate calcific atherosclerotic plaquing of the bilateral carotid artery bifurcations, with 50-69% stenosis on the right and no greater than 50% narrowing on the left. Normal bilateral sublingual and submandibular glands and spaces. Normal visualized nasopharynx. Normal retropharyngeal space. Normal perivertebral space. Normal visualized bilateral faucial tonsils. The visualized tongue, tongue base and oropharynx are normal. The possible lymph node seen previously along the posterior caudal surface of the right parotid gland is no longer apparent. The visualized cervical lymph nodes (levels I-) are within normal size limits, and maintain normal morphology. There is no demonstrated solid or cystic mass lesion. There is no abnormal contrast enhancement. Normal epiglottis, bilateral vallecula and hypopharynx. The pre-epiglottic and paraglottic adipose spaces are normal. Normal visualized bilateral piriform sinuses, aryepiglottic folds, vocal cords, and arytenoid-cricoid articulations. Normal subglottic trachea. Mildly hyperenhancing 11.5 x 8.5 x 6 mm nodule in the left lobe of the thyroid gland is unchanged. Emphysematous changes again seen in the visualized lung apices. Spiculated mass lesion in the medial right apex is stable to borderline decreased in size, measuring 1.8 x 1.1 x 2.5 cm. The hub of the Port-A-Cath is again seen in the infraclavicular soft tissues of the medial anterior left chest wall, the catheter passing from the central left internal jugular vein with the superior vena cava and outside the [id number]. Normal visualized paranasal sinuses. There are stable diffuse degenerative changes of the cervical spine. CT/Soft Tissue Neck WITH Contrast IMPRESSION: 1. No new cervical mass or adenopathy. The small lymph nodes seen previously along the posterior caudal surface of the right parotid gland is no longer apparent. 2. Stable nodule in the left lobe of the thyroid gland. 3. Spiculated mass lesion in the medial right lung apex is grossly stable. 4. Left chest wall Port-A-Cath again noted. 5. Stable diffuse degenerative changes of the cervical spine. 6. Calcifications described plaquing again seen at the bilateral carotid arteries, with 50-69% stenosis on the right and no greater than 50% narrowing on the left. Electronically Signed: Mal Ortiz MD at 12:52 EDT , Service support ,
--- NOTE | 2019-03-08 15:52 | CT_ITS ---
STUDY: CT CHEST/THORAX WITH CONTRAST REASON FOR EXAM: Female, 78 years old. Restaging non-small cell lung cancer. Prior radiation and chemotherapy) Port placement. History of hypertension. RADIATION DOSAGE (If Supplied By Facility): CTDIvol = ( 17.43 ) mGy, DLP = ( 2072.14 ) mGycm TECHNIQUE: Transaxial imaging was performed following intravenous administration of 100mL IV Isovue 300. Multiplanar coronal and sagittal images were reformatted. Individualized dose optimization techniques were used for this CT. COMPARISON: CT chest with contrast September 04, 2018. FINDINGS: The hub of the Port-A-Cath is again seen in the infraclavicular subcutaneous tissues of the medial anterior left chest wall. Its catheter passes from the left internal jugular vein to the low superior vena cava. Emphysematous changes are again seen in both lung munoz, more prominent in the mid to upper lung zones. Spiculated medial right upper lobe mass lesion has decreased from 3.15 x 1.9 x 0.9 cm to 2.7 x 1.95 x 0.85 cm (variations in measurement compared to the report from previous exam reflect interobserver variability). A tail from the lesion to focal distortion/thickening in the medial pleural surface again noted. A spiculated 8mm nodule in the posterior upper left apex is unchanged. There is stable curvilinear scarring in the inferior lingula of the left upper lobe and minor subsegmental atelectasis in the medial periphery of the right middle lobe. There is no demonstrated pleural abnormality. Normal heart and pericardium. There are calcifications of the coronary arteries. There is calcification in the aortic valve annulus. There is a nonspecific 1.35 x 0.6 x 0.6 cm lymph node anterior to the proximal right mainstem bronchus. No clearly suspicious mediastinal or hilar adenopathy. Normal enhanced pulmonary arteries. There is stable atherosclerotic calcification of the aortic arch and descending thoracic aorta. There is stable 2.55 x 2.6 cm diameter in the proximal third of the descending thoracic segment, then 2.45 x 2.4 cm in its distal third. Normal osseous structures. Again seen are leads of an epidural stimulator entering the spinal canal at T11-12 and terminating at T7-8. There is stable mild anterior endplate spurring at T3-4. There is a stable 11.5 x 0.5 x 6 mm mildly hyperenhancing nodule in the left lobe of the thyroid gland. There is a stable small hiatal hernia. Marginally enhancing 11.5 mm lesion in the posterior dome of the liver and marginally enhancing 10.5 mm lesion in the posterior left lobe are consistent with hemangiomata. CT/Chest WITH Contrast IMPRESSION: 1. Stable to slight decreased size of spiculated medial right upper lobe mass. 8 mm spiculated nodule in the left superior sulcus is unchanged. 2. Emphysematous changes in both lung munoz as well as minor anterior basilar subsegmental atelectasis are stable. 3. No new adenopathy or pleural effusions. 4. Atherosclerotic vascular calcifications again noted. 5. Left chest wall Port-A-Cath as well as thoracic epidural stimulator again seen. 6. Stable hyperenhancing nodule in the left lobe of the thyroid gland. 7. Stable small hiatal hernia. 8. Stable probable hemangiomata in the right and left lobes of the liver. Electronically Signed: Mal Ortiz MD at 13:10 EDT , Service support ,
--- NOTE | 2019-03-08 15:52 | CT_ITS ---
STUDY: CT ABDOMEN WITH CONTRAST REASON FOR EXAM: Female, 78 years old. Restaging non-small cell lung cancer. Prior radiation and chemotherapy. History of hypertension. RADIATION DOSAGE (If Supplied By Facility): CTDIvol = ( 17.43 ) mGy, DLP = ( 2072.14 ) mGycm TECHNIQUE: Transaxial images were obtained post I.V. administration of 100mL IV Isovue 300, and without oral contrast. Sagittal and coronal images were reconstructed. Individualized dose optimization techniques were used for this CT. COMPARISON: CT abdomen September 04, 2018 FINDINGS: There is stable mild subsegmental atelectasis in the medial anterior right middle lobe as well as the inferior lingula of left upper lobe. The heart size is normal. There are atherosclerotic calcifications of the coronary arteries and visualized distal descending thoracic aorta. Lobulated, well-defined 4.55 x 3.6 x 3.6 cm subcapsular lesion of less than 15 Hounsfield unit density in the medial inferior right lobe of the liver suggesting a cyst is unchanged. A second probable subcentimeter cyst in the left lobe of liver on series 4 image 22 also is stable. An incompletely defined, likely partially enhancing 1.3 x 1.05 x 0.75 cm low density in the lateral posterior periphery of the right lobe of the liver (series 4 image 21, series 607 image 74) also unchanged. Partially enhancing 3 x 1.4 x 1.55 cm subcapsular low-density along the posterior medial margin of the upper right lobe versus lateral limb of the right adrenal gland (series 123, series 607 image 73) is grossly stable. Normal gallbladder and extrahepatic biliary system. Normal spleen. Normal pancreas. Normal left adrenal gland. Normal right kidney. Normal left kidney. No hydronephrosis. There is a stable small hiatal hernia. Normal small intestine. Normal colon. There is non-visualization of the appendix. There is diffuse atherosclerotic calcification of the abdominal aorta and proximal iliac arteries. 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 Greater than 70% stenoses suggested at the ostium of the right common iliac artery as well as in the distal third of both common iliac arteries. Normal inferior vena cava. Normal retroperitoneum. Normal abdominal wall. Again seen is prior posterior fusion of the spine from L3-S1. Transpedicular screws at those levels are connected on either side of the longitudinal rods, and there is osseous density bridging the posterior elements. Disc prostheses are present at L3-4, L4-5, and L5-S1 There is also stable osteopenia of the L3-S1 vertebra. There is degenerative disease at L2-3 with endplate osteophytes and facet arthropathies. There is stable 5 mm retrolisthesis of L2 on L3. Leads of a neural stimulator entering the spine at T12-L1, proceeding cephalad outside the field of view, the generator is in the subcutaneous tissues of the mid to lower right back. CT/Abdomen WITH IV Contrast IMPRESSION: 1. Stable low-density probable cyst in the liver. A 1.3 cm partially enhancing lesion in the lateral right lobe liver is also unchanged. 2. Stable elongated 3 cm partially enhancing lesion in the lateral limb of the right adrenal gland versus subcapsular margin of the medial posterior right hepatic lobe. 3. No new adenopathy or other findings suspicious for new metastatic disease. 4. Diffuse aortoiliac atherosclerotic calcific plaquing with stable 2.2 cm fusiform infrarenal aneurysm. Greater than 70% stenoses also suggested in the bilateral common iliac arteries. 5. Stable small hiatal hernia. The bowel is otherwise unremarkable without sign of obstruction. The appendix is not visualized. 6. Stable L3-S1 discectomies with placement of prosthesis as well as posterior spinal fusion L3-S1 with metal hardware. There is stable minimal osteopenia L3-S1. Stable degenerative changes including 5 mm retrolisthesis of L2 on L3. Electronically Signed: Mal Ortiz MD at 8:25 EDT , Service support ,
== END | disposition home or self-care (01) ==
LOC: CT 15:51
PROVIDERS: Family Provider Family Medicine; PCP Family Medicine; Referring Provider Internal Medicine Hematology & Oncology; Visit Provider Internal Medicine Hematology & Oncology
DX: C34.11 Malignant neoplasm of upper lobe, right bronchus or lung (principal); C34.91 Malignant neoplasm of unspecified part of right bronchus or lung; C77.9 Secondary and unspecified malignant neoplasm of lymph node, unspecified
CPT/HCPCS: 70491; 71260; 74160; Q9967; A4216

== ENCOUNTER → 2019-09-21 10:17 | Outpatient (CLI) | payer MEDICARE, OTHER, SELFPAY ==
[2018-04-13 09:34] VITALS: BMI 29.5
[2019-09-11 10:20] VITALS: BMI 29.2
--- NOTE | 2019-09-21 10:17 | NM_ITS ---
CLINICAL: 79-year-old female with reported history of primary lung carcinoma. WHOLE BODY 99m Tc MDP RADIONUCLIDE BONE SCINTIGRAPHY COMPARISON: Previous whole body bone scintigraphy study dated 09/04/2018, CT of the chest and abdomen reports 03/08/2019 FINDINGS: Following the intravenous administration of 20.0 mCi of 99m Tc MDP, whole body bone images reveal: 1. Persistent increased radiopharmaceutical concentration is noted in the cervical, thoracic and lumbar spine analogous to findings demonstrated on the study dated 09/04/2018, the acromioclavicular and sternoclavicular compartments of both shoulders, the left knee, right hip. 2. The remaining skeletal structures are scintigraphically unremarkable with normal-appearing renal images and urinary bladder activity identified. The visualized left hip prosthesis demonstrates no evidence of abnormal increased tracer uptake on meticulous inspection of the acetabular, trochanteric and femoral components. NM/Bone Scan Whole Body IMPRESSION: 1. The increase in radiopharmaceutical concentration defined in the cervical, thoracic and lumbar spine, bilateral shoulders, left knee and right hip articulation are most consistent with degenerative arthritis. 2. Overall compared to the previous whole body bone scintigraphy study dated 09/04/2018, there is no significant interval change. No current typical scintigraphic evidence of diffuse axial skeletal metastatic disease is identified on the current examination. Electronically Signed: Hans Mroan DO at 13:37 EST Tel , Service support ,
== END ==
PROVIDERS: Family Provider Family Medicine; PCP Family Medicine; Referring Provider Internal Medicine Hematology & Oncology; Visit Provider Internal Medicine Hematology & Oncology
DX: C34.11 Malignant neoplasm of upper lobe, right bronchus or lung (principal); M54.9 Dorsalgia, unspecified; G89.29 Other chronic pain
CPT/HCPCS: 78306

== ENCOUNTER → 2019-10-01 14:31 | Outpatient (CLI) | payer MEDICARE, OTHER, SELFPAY ==
[2018-04-13 09:34] VITALS: BMI 29.5
[2019-08-14 10:19] VITALS: BMI 28.8
[2019-09-24 10:23] VITALS: BMI 29.2
--- NOTE | 2019-10-01 14:34 | CT_ITS ---
STUDY: CT ABDOMEN WITH CONTRAST REASON FOR EXAM: Female, 79 years old. RESTAGING AND RECESSING RESPONSE TO CHEMO, LUNG CA-CHEMO AND RAD TX, PREV SMOKER, ECTOR/BSO, APPY, TUBAL , LT THR RADIATION DOSAGE (If Supplied By Facility): CTDIvol = ( 16.38 ) mGy, DLP = ( 1256.8 ) mGycm TECHNIQUE: Transaxial images were obtained post I.V. administration of IV 100mL Isovue-300, and with oral contrast. Sagittal and coronal images were reconstructed. Individualized dose optimization techniques were used for this CT. COMPARISON: 03/08/2019 FINDINGS: Base of the chest described on chest CT report, performed concurrently Lobulated, well-defined 4.6 x 3.6 x 3.6 cm subcapsular lesion (image 49) in the medial inferior right lobe of the liver suggesting a cyst is unchanged. A second probable subcentimeter cyst in the left lobe of liver on series 4 image 25 also is stable. An incompletely defined, likely partially enhancing 1.3 x 1.1 x 0.8 cm low density in the lateral posterior periphery of the right lobe of the liver (image 38 series 3) also unchanged. Partially enhancing 3 x 1.4 x 1.6 cm subcapsular low-density along the posterior medial margin of the upper right lobe versus lateral limb of the right adrenal gland (image 28) is grossly stable. Normal gallbladder and extrahepatic biliary system. Normal spleen. Normal pancreas. Normal left adrenal gland. Normal right kidney. Normal left kidney. No hydronephrosis. There is a stable small hiatal hernia. Normal visualized small intestine. Normal visualized colon. There is non-visualization of the appendix. There is diffuse atherosclerotic calcification of the abdominal aorta and proximal iliac arteries. There is stable 2.2 x 2.1 cm fusiform ectasia of the proximal infrarenal aorta. Atherosclerosis and steno-occlusive disease of the bilateral iliac arteries stable. Normal inferior vena cava. Normal retroperitoneum. Normal abdominal wall. Degenerative and operative changes of the lumbar spine stable. CT/Abdomen WITH IV Contrast IMPRESSION: 1. Since 03/08/2019, stable exam. Stable hepatic cyst, right hepatic hemangioma. 2. Stable elongated 3 cm partially enhancing lesion in the lateral limb of the right adrenal gland versus subcapsular margin of the medial posterior right hepatic lobe. 3. No new adenopathy or other findings suspicious for new metastatic disease. 4. Diffuse atherosclerosis with bilateral common iliac arteries steno-occlusive disease. 5. Additional chronic changes, stable as above. Electronically Signed: Heriberto Josue MD ([place]) at 13:23 EST , Service support ,
--- NOTE | 2019-10-01 14:35 | CT_ITS ---
STUDY: CT CHEST WITH CONTRAST REASON FOR EXAM: Female, 79 years old. RESTAGING AND RECESSING RESPONSE TO CHEMO, LUNG CA-HAD CHEMO AND RAD TX, PREV SMOKER, ECTOR/BSO, APPY, TUBAL , LT THR RADIATION DOSAGE (If Supplied By Facility): CTDIvol = ( 16.38 ) mGy, DLP = ( 1256.8 ) mGycm TECHNIQUE: Transaxial imaging was performed following intravenous administration of IV 100mL Isovue-300. Multiplanar coronal and sagittal images were reformatted. Individualized dose optimization techniques were used for this CT. COMPARISON: 03/08/2019 FINDINGS: Left chest port is stable with catheter terminating in the lower SVC. Emphysematous changes are stable, predominantly in the mid and upper lung zones. Spiculated medial right upper lobe mass lesion is stable, currently measuring 2.7 x 2.0 x 0.9 cm, when utilizing similar measurement technique on both studies. Small amount of fibrotic extension to the posterior medial right pleural surface is stable. A spiculated 8 mm nodule in the posterior upper left apex is unchanged. There is stable curvilinear scarring in the inferior lingula of the left upper lobe and minor subsegmental atelectasis in the medial periphery of the right middle lobe. There is no demonstrated pleural abnormality. Normal heart and pericardium. There are calcifications of the coronary arteries. There is calcification in the aortic valve annulus. [facility] Station 4 lymph node anterior to the right mainstem bronchus/sreedhar on CT image 60 of series 2 measuring 4 x 6 mm (measured 9 x 12 mm on prior study). Normal enhanced pulmonary arteries. There is stable atherosclerotic calcification of the aortic arch and descending thoracic aorta. No lytic or sclerotic bone lesions are seen. Degenerative changes of the thoracic spine similar with neurostimulator noted. Enhancing nodule in the inferior left thyroid lobe is stable. Upper abdomen described on abdomen CT report. CT/Chest WITH Contrast IMPRESSION: 1. Stable spiculated medial right upper lobe nodule. 8 mm spiculated nodule in the left superior sulcus is also stable. Significantly decreased patient for lymph node enlargement. 2. Stable chronic changes, as above Electronically Signed: Heriberto Josue MD ([place]) at 13:34 EST , Service support ,
[2019-10-01] MEDS: 0.9% Saline Lock 10 ML Syringe IV (15:23)
== END ==
PROVIDERS: Family Provider Family Medicine; PCP Family Medicine; Referring Provider Internal Medicine Hematology & Oncology; Visit Provider Internal Medicine Hematology & Oncology
DX: C34.11 Malignant neoplasm of upper lobe, right bronchus or lung (principal); C77.9 Secondary and unspecified malignant neoplasm of lymph node, unspecified
CPT/HCPCS: 71260; 74160; Q9967; A4216

== ENCOUNTER → 2020-03-12 13:14 | Outpatient (CLI) | payer MEDICARE, OTHER, SELFPAY ==
[2018-04-13 09:34] VITALS: BMI 29.5
[2019-10-15 12:51] VITALS: BMI 29.0
--- NOTE | 2020-03-12 13:16 | CT_ITS ---
STUDY: CT ABDOMEN WITH CONTRAST REASON FOR EXAM: Female, 79 years old. LUNG CANCER F/U. RADIATION AND CHEMO. LAST CHEMO OCT 2019 RADIATION DOSAGE (If Supplied By Facility): CTDIvol = ( 12.74 ) mGy, DLP = ( 971.66 ) mGycm TECHNIQUE: Transaxial images were obtained post I.V. administration of IV 75ML ISOVUE 370, and oral contrast. Sagittal and coronal images were reconstructed. Individualized dose optimization techniques were used for this CT. COMPARISON: Comparison is made with prior examination dated October 01, 2019. FINDINGS: Stable 1.9 cm x 1.1 cm density adjacent to the medial aspect of the right middle lobe suggestive of scarring. The visualized portions of the heart are within normal limits. Stable 2.6 cm x 1.2 cm hypodensity in the medial inferior subcapsular region of the liver. Stable 1 cm hypodense nodule in the inferior medial aspect of the liver. Stable 3.4 cm x 3.4 cm septated cyst in the inferior medial aspect of the right lobe of the liver. Low-level density is seen at the base of the gallbladder suggestive of either tiny gallstones are sludge. Normal spleen. Normal pancreas. Normal bilateral adrenal glands. Normal right kidney. Normal left kidney. There is a small hiatal hernia. Normal small intestine. Normal colon. There is non-visualization of the appendix. There is diffuse atherosclerotic calcification of the abdominal aorta, without a demonstrated aneurysm. Normal inferior vena cava. Normal retroperitoneum. Normal abdominal wall. There are diffuse degenerative changes of the visualized lumbar spine. Stable laminectomy and interpedicular screw and noah fixation of the L3-L4, L4-L5 and L5-S1 levels. CT/Abdomen WITH IV Contrast IMPRESSION: Stable examination. Electronically Signed: Misha Gore, at 15:08 EDT , Service support ,
--- NOTE | 2020-03-12 13:16 | CT_ITS ---
STUDY: CT CHEST WITH CONTRAST REASON FOR EXAM: Female, 79 years old. LUNG CANCER F/U . LAST CHEMO OCT 2019 AND RADIATION RADIATION DOSAGE (If Supplied By Facility): CTDIvol = ( 12.74 ) mGy, DLP = ( 971.66 ) mGycm TECHNIQUE: Transaxial imaging was performed following intravenous administration of IV 75ML ISOVUE 370. Multiplanar coronal and sagittal images were reformatted. Individualized dose optimization techniques were used for this CT. COMPARISON: Comparison is made with prior examination dated October 01, 2019. FINDINGS: The left-sided jeff catheter has been removed. Stable small benign appearing bilateral axillary lymph nodes. Emphysematous changes. This is more prominent in the upper lobes with small bolus changes. Stable spiculated nodular density in the medial right upper lobe. Stable 8 mm spiculated nodule in the posterior upper left apex as seen on axial image #20. Stable scarring in the medial aspect of the right middle lobe. There is no demonstrated pleural abnormality. There are calcifications of the coronary arteries. Calcification of the aortic valve annulus. There are multiple small lymph nodes within the mediastinum, which are normal in size and morphology most compatible with reactive lymph hyperplasia. Normal hilar regions. Normal enhanced pulmonary arteries. There is atherosclerotic calcification of the aortic arch with tortuosity and elongation of the aortic arch and descending thoracic aorta. There are multi-level degenerative changes of the thoracic spine. Upper abdominal findings described on the dedicated CT scan report. CT/Chest WITH Contrast IMPRESSION: Stable examination. Electronically Signed: Misha Gore, at 15:12 EDT , Service support ,
== END ==
PROVIDERS: PCP Family Medicine; Referring Provider Internal Medicine Hematology & Oncology; Visit Provider Internal Medicine Hematology & Oncology
DX: C34.11 Malignant neoplasm of upper lobe, right bronchus or lung (principal); C34.91 Malignant neoplasm of unspecified part of right bronchus or lung; C77.9 Secondary and unspecified malignant neoplasm of lymph node, unspecified; R91.1 Solitary pulmonary nodule
CPT/HCPCS: 71260; 74160; Q9967

== ENCOUNTER → 2020-03-18 10:22 | Outpatient (CLI) | payer MEDICARE, OTHER, SELFPAY ==
[2018-04-13 09:34] VITALS: BMI 29.5
[2019-10-15 12:51] VITALS: BMI 29.0
--- NOTE | 2020-03-18 10:30 | NM_ITS ---
CLINICAL: 79-year-old female with reported history of carcinoma of the lung. WHOLE BODY 99m Tc MDP RADIONUCLIDE BONE SCINTIGRAPHY COMPARISON: Previous whole body bone scintigraphy study dated 09/21/2019, CT of the chest and abdomen reports 03/12/2020 FINDINGS: Following the intravenous administration of 26.0 mCi of 99m Tc MDP, whole body bone images reveal: 1. Increased radiopharmaceutical concentration remains apparent in the mid cervical spine posteriorly on the left, third lumbar vertebra, visualized right elbow, shoulders and knees bilaterally, the right forefoot, right-left hands, both wrists. 2. The remaining skeletal structures are scintigraphically unremarkable with normal-appearing renal images and urinary bladder activity identified. An increase in tracer concentration is visualized in the bilateral maxilla most consistent with periodontal disease and/or periostitis. NM/Bone Scan Whole Body IMPRESSION: 1. The increase in radiopharmaceutical concentration identified in the cervical and lumbar spine, right elbow, right and left shoulders, both knees, right forefoot, bilateral hands, wrist articulations bilaterally is most consistent with degenerative arthritis. 2. Overall compared to the previous whole body bone scintigraphy study dated 09/21/2019, there is no significant interval change. No current typical scintigraphic evidence of diffuse axial skeletal metastatic disease is defined on the present examination. Electronically Signed: Hans Moran DO at 22:15 EDT Tel , Service support ,
== END ==
PROVIDERS: PCP Family Medicine; Referring Provider Internal Medicine Hematology & Oncology; Visit Provider Internal Medicine Hematology & Oncology
DX: C34.11 Malignant neoplasm of upper lobe, right bronchus or lung (principal); C34.91 Malignant neoplasm of unspecified part of right bronchus or lung; C77.9 Secondary and unspecified malignant neoplasm of lymph node, unspecified; G89.29 Other chronic pain; M54.9 Dorsalgia, unspecified; R91.1 Solitary pulmonary nodule
CPT/HCPCS: 78306

== ENCOUNTER → 2020-09-02 12:14 | Outpatient (CLI) | payer MEDICARE, OTHER, SELFPAY ==
[2018-04-13 09:34] VITALS: BMI 29.5
[2019-10-15 12:51] VITALS: BMI 29.0
[2020-06-03 13:05] VITALS: BMI 29.0
--- NOTE | 2020-09-02 12:16 | CT_ITS ---
STUDY: CT CHEST WITH CONTRAST REASON FOR EXAM: Female, 80 years old. LUNG CA F/U, LAST CHEMO WAS 2018, AND RAD TX 2018, HTN, SURG-ECTOR/BSO, APPY, TUBAL , LT THR, LUMBAR RADIATION DOSAGE (If Supplied By Facility): CTDIvol = ( 15.86 ) mGy, DLP = ( 1245.12 ) mGycm TECHNIQUE: Transaxial imaging was performed following intravenous administration of IV 100mL Isovue-300. Multiplanar coronal and sagittal images were reformatted. Individualized dose optimization techniques were used for this CT. COMPARISON: Comparison is made with prior study dated 03/12/2020. FINDINGS: Stable small benign-appearing bilateral axillary lymph nodes. There now is evidence of a 4.2 cm x 4.5 cm soft tissue mass in the right hilar region surrounding the right inferior mediastinum bronchus. This mass extends into the subcarinal region and middle mediastinum. There is also evidence of volume loss and infiltration in the right middle lobe and right lower lobe. Small right pleural effusion. This is superimposed on diffuse emphysematous change and bronchiectasis involving the medial aspect of the right upper lobe and in the right lower lobes suggestive of post radiation fibrosis. The left lung remains clear. There are calcifications of the coronary arteries. Normal enhanced pulmonary arteries. There is atherosclerotic calcification of the aortic arch with tortuosity and elongation of the aortic arch and descending thoracic aorta. There are multi-level degenerative changes of the thoracic spine. There is no demonstrated abnormality of the visualized upper abdomen. CT/Chest WITH Contrast IMPRESSION: Since prior study, there is a mass lesion in the right hilar region extending into the adjacent mediastinum with post obstructive pneumonitis involving the right middle lobe and right lower lobe with a small right pleural effusion. 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 Electronically Signed: Misha Gore, at 13:26 EST , Service support ,
--- NOTE | 2020-09-02 12:16 | CT_ITS ---
STUDY: CT ABDOMEN WITH CONTRAST REASON FOR EXAM: Female, 80 years old. LUNG CA F/U, LAST CHEMO WAS 2019, AND RAD TX 2018, HTN, SURG-ECTOR/BSO, APPY, TUBAL , LT THR, LUMBAR RADIATION DOSAGE (If Supplied By Facility): CTDIvol = ( 15.86 ) mGy, DLP = ( 1245.12 ) mGycm TECHNIQUE: Transaxial images were obtained post I.V. administration of IV 100mL Isovue-300, and without oral contrast. Sagittal and coronal images were reconstructed. Individualized dose optimization techniques were used for this CT. COMPARISON: None. FINDINGS: Right pleural effusion with underlying right basilar atelectasis. The visualized portions of the heart are within normal limits. Stable 2.2 cm x 2.2 cm cyst in the medial inferior aspect of the right lobe of the liver. Normal gallbladder and extrahepatic biliary system. Normal spleen. Normal pancreas. Normal bilateral adrenal glands. Normal right kidney. Normal left kidney. Normal visualized stomach. Normal small intestine. There are multiple colonic diverticula consistent with diverticulosis. The patient is status post appendectomy. There is diffuse atherosclerotic calcification of the abdominal aorta, without a demonstrated aneurysm. Normal inferior vena cava. Normal retroperitoneum. Normal abdominal wall. Prior laminectomy and fusion at the L3-L4, L4-L5 and L5-S1 levels. CT/Abdomen WITH IV Contrast IMPRESSION: Stable hepatic cyst. Right pleural effusion with right basilar atelectasis. Electronically Signed: Misha Gore, at 13:40 EST , Service support ,
[2020-09-02 12:40] LABS: CREATININE FINGERSTICK 1.2 mg/dL (0.55-1.02)
== END ==
PROVIDERS: PCP Family Medicine; Referring Provider Internal Medicine Hematology & Oncology; Visit Provider Internal Medicine Hematology & Oncology
DX: C34.11 Malignant neoplasm of upper lobe, right bronchus or lung (principal); C34.91 Malignant neoplasm of unspecified part of right bronchus or lung; C77.9 Secondary and unspecified malignant neoplasm of lymph node, unspecified; R91.1 Solitary pulmonary nodule
CPT/HCPCS: 36415; 71260; 74160; 80053; 85025; Q9967

== ENCOUNTER → 2020-09-09 17:37 | Outpatient (CLI) | payer MEDICARE, OTHER, SELFPAY ==
[2018-04-13 09:34] VITALS: BMI 29.5
[2020-06-03 13:05] VITALS: BMI 29.0
--- NOTE | 2020-09-09 17:38 | MRI_ITS ---
STUDY: MRI BRAIN WITH AND WITHOUT CONTRAST REASON FOR EXAM: Female, 80 years old. Concern for recurrence of NSCLC, H/A''s, dizziness TECHNIQUE: Standardized multiplanar fat and water weighted pulse sequences were obtained. 16ml Dotarem via IV was administered for the contrast portion of the examination. COMPARISON: 04/12/2018 FINDINGS: Mild atrophy and advanced periventricular white matter ischemic changes. Focal gliosis in left parietal lobe without mass effect or restricted diffusion possibly due to old infarct. Tiny old lacunar infarct in the right basal ganglia.. Normal thalami. There is no extra-axial fluid accumulation. Normal flow voids within the major intracranial circulation suggesting patency by spin echo criteria. Normal venous enhancement. There is no enhancing intra-axial or extra-axial abnormality. Normal sella turcica, pituitary gland, infundibular stalk, optic chiasm and hypothalamus. Normal tectal plate and pineal gland. Normal midbrain, michelle and medulla. Normal cerebellum. Normal basal cisterns. Normal bilateral temporal bones. Normal bilateral internal auditory canals. Postsurgical changes of the orbits.. Normal visualized paranasal sinuses. Normal calvarium and skull base. Normal visualized soft tissue structures. Normal visualized upper cervical spine. There has been slight interval progression of the white matter disease since prior study. 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 Tiny old lacunar infarct in the right basal ganglia. No enhancing lesions to suggest presence of metastatic disease Electronically Signed: Alden Dunn MD at 20:36 EST , Service support ,
== END ==
PROVIDERS: PCP Family Medicine; Referring Provider Internal Medicine Hematology & Oncology; Visit Provider Internal Medicine Hematology & Oncology
DX: C34.11 Malignant neoplasm of upper lobe, right bronchus or lung (principal); C34.91 Malignant neoplasm of unspecified part of right bronchus or lung; C77.9 Secondary and unspecified malignant neoplasm of lymph node, unspecified; R59.0 Localized enlarged lymph nodes; R91.1 Solitary pulmonary nodule
CPT/HCPCS: 70553; A9575

== ENCOUNTER 2020-09-20 18:41 | Inpatient (IN) | payer MEDICARE, OTHER, SELFPAY ==
[2018-04-13 09:34] VITALS: BMI 29.5
[2020-06-03 13:05] VITALS: BMI 29.0
[2020-09-20] VITALS (9 sets, daily range): BP systolic 123–148; BP diastolic 49–91; PULSE 84–131; RESP 15–28; TEMP 36.4–37.1; O2SAT 84–95; BMI 30.7; BMI 28.9
--- NOTE | 2020-09-20 18:54 | EKG12_ITS ---
Test Reason : SOB Blood Pressure : / mmHG Vent. Rate : 108 BPM Atrial Rate : 108 BPM P-R Int : 132 ms QRS Dur : 076 ms QT Int : 330 ms P-R-T Axes : 074 054 038 degrees QTc Int : 442 ms Sinus tachycardia Low voltage QRS (Limb Leads) Confirmed by RODERICK BUTCHER, SYLVESTER ([id number]), assignment desk editor FAINA TINOCO ([id number]) on 09/24/2020 11:04:42 AM Referred By: ROMA Confirmed By:SYLVESTER VAUGHN MD
--- NOTE | 2020-09-20 18:54 | NURSING ---
Dr. Licona gave v.o to remove pt from precautions as sx have been worsening for weeks with a hx of lung ca.
[2020-09-20 19:11] LABS: Absolute Lymphocyte Count 0.67 X10^3/uL (0.83-4.51); Absolute Neutrophil Count 7.6 X10^3/uL (2.0-7.7); Basophil# 0.01 X10^3/uL; Basophil% 0.1 % (0-1); Eosinophils% 1.1 % (0-5); Hematocrit 37.4 % (37-47); Hemoglobin 12.1 g/dL (12.0-15.0); Lymphocyte # 0.67 X10^3/ul (4.0); Lymphocyte % 7.3 % (19-41); Mean Corp Hgb Conc 32.4 g/dL (32-36); Mean Corpuscular Volume 83.5 fL (81-99); Mean Platelet Vol. 11.7 fl (6.2-12.0); Monocyte# 0.69 X10^3/uL; Monocyte% 7.6 % (0-10); NRBC Flagged by Analyzer 0 % (0-5); Neutrophil # 7.62 X10^3/uL (2.7-7.7); Neutrophil % 83.6 % (47-70); Platelet Count 265 K/mm3 (150-450); RBC Distribution Width CV 15.5 % (11.6-14.6); RBC Distribution Width SD 46.8 fl (35.1-43.9); Red Blood Count 4.48 M/mm3 (4.2-5.4); White Blood Count 9.1 K/mm3 (4.4-11.0)
--- NOTE | 2020-09-20 19:11 | ED.DCSUM_ITS ---
History of Present Illness Chief Complaint: Shortness of Breath Informant: Patient Onset: Weeks Context: Gradual Onset Timing: Continuous Quality: Shortness of breath, pleuritic chest pain, lung cancer Location: Respiratory Current Severity: Mild Maximum Severity: Severe Worsened by: Activity Relieved by: Better at rest Associated Symptoms: Malaise and weakness - Past Medical History (1) GERD (gastroesophageal reflux disease) Status: Chronic (2) Hyperlipidemia Status: Chronic (3) Immunotherapy encounter Status: Acute (4) Non-small cell cancer of right lung Status: Acute (5) Primary cancer of right upper lobe of lung Status: Chronic (6) Regional lymph node metastasis present Status: Chronic Past Medical History - Allergies and Home Meds Allergies/Adverse Reactions: Allergies Sulfa (Sulfonamide Antibiotics) Adverse Reaction (Intermediate, Verified 09/20/20 18:45) Rash Prior records reviewed: Yes Surgical History: appendectomy, hysterectomy, - - Lateral cataract surgery, bronchoscopy Lives: Alone Smoking Status: Former smoker Alcohol: None Drugs: None - Family History Maternal Family History: Family History (Last Reviewed 09/04/20 @ 13:20 by Robyn Dhillon) Mother Uterine cancer Brain cancer Breast cancer Father Prostate cancer Brother Prostate cancer Leukemia Sister Breast cancer Other Cancer Family History: Reports: Cancer - Mother with a history of brain, breast and uterine cancer. Paternal Family History: Family History (Last Reviewed 09/04/20 @ 13:20 by Robyn Dhillon) Mother Uterine cancer Brain cancer Breast cancer Father Prostate cancer Brother Prostate cancer Leukemia Sister Breast cancer Other Cancer Family History: Reports: Cancer - Father with a history of prostate cancer. Review of Systems General: Reports: Malaise, Weight loss. Denies: Chills, Fever, Subjective, Sweats Eyes: Denies: Visual changes - bilaterally, Blurred Vision - bilaterally ENT: Denies: Bilateral ear pain, Rhinorrhea, Sore throat Cardiovascular: Reports: Chest pain, Palpitations. Denies: Heart racing Respiratory: Reports: Dyspnea, Dyspnea on exertion, Orthopnea - Patient sleeps in a hospital bed at 30 to 45 degrees angle. Denies: Cough, Sputum Gastrointestinal: Denies: Abdominal pain, Nausea, Vomiting, Constipation, Melena, Hematochezia Genitourinary: Denies: Dysuria, Hematuria, Frequency Musculoskeletal: Reports: Back pain - Chronic, Swelling. Denies: Myalgias, Arthralgias, Neck pain, Extremity Pain Skin: Denies: Rash, Wounds Neurological: Reports: Weakness. Denies: Headache Endocrine: Denies: Polyuria, Polydipsia Hematologic: Denies: Easy bruising Physical Exam Vital Signs/Narrative: Vital Signs Temp Pulse Resp BP Pulse Ox 09/20/20 18:55 93 20 H 147/55 H 95 09/20/20 18:50 84 09/20/20 18:42 97.6 F L 131 H 28 H 148/91 H 92 Inital Vital Signs reviewed: Yes General: Well nourished, Well developed, No Acute Distress - Patient is dyspneic and pulse ox read 84% on room air after transferring from wheelchair to bed. At rest pulse ox was 88%. Head: Normocephalic, Atraumatic Eyes: Perrl, EOMI, Pale conjunctiva. Negative for: Scleral icterus ENT: Moist mucous membranes, No rhinorrhea Neck: Supple, Nontender, No lymphadenopathy, No JVD Cardiovascular: Regular rhythm, No murmurs, Normal S1, Normal S2, Tachycardia Respiratory: Chest nontender, Rales - Bilateral, Rhonchi - On left only, Diminished, Decreased Air Movement. Negative for: No distress, CTA bilaterally Abdomen: Soft, Nontender, Nondistended, Normal bowel sounds Rectal: - - Formed stool that is brown. No blood or mucus noted. Back: Normal Inspection. Negative for: Nontender Extremities: Nontender, Edema - Pitting pedal edema 2 mm bilateral. Negative for: No edema Skin: No rash, Pallor. Negative for: Normal color, Cyanosis, Diaphoresis, Jaundice, No Trauma Neurological: Alert, Oriented x3, Cranial nerves II-XII grossly intact, Normal Strength, Normal Sensation. Negative for: Normal Gait - Unable to because of dyspnea and weakness Psychological: Normal Mood Diagnostic/Tx/Re-eval Chest X-Ray - ED: 2 View, Read by ED Physician, Normal, Heart, - - Double right pleural effusion, significant right hilar mass and interstitial changes right upper lobe x-ray was interpreted by me at 1929. Impressions Chest X-Ray 09/20/20 19:19 IMPRESSION: Increasing large right pleural effusion. Secured right lower lobe with known underlying lung cancer. Electronically Signed: Marcellus Hutchinson, at 19:48 EST Tel , Service support , Chest CTA 09/20/20 19:30 IMPRESSION: 1. No pulmonary embolism or arterial dissection. 2. Obstructive right middle and lower lobe atelectasis, increased from prior, due to mediastinal and hilar tumor. 3. Right pleural effusion. 4. COPD. 5. Left pulmonary nodule, nonspecific. Electronically Signed: Regla Russo MD at 21:14 EST Tel , Service support , 09/20/20 19:19 Chest PA and Lateral [RAD] Stat 09/20/20 19:30 CTA Chest W/WO Contrast [CT] Stat Laboratory Results 09/20/20 09/20/20 09/20/20 19:00 19:00 19:00 WBC 9.1 RBC 4.48 Hgb 12.1 Hct 37.4 MCV 83.5 MCH 27.0 MCHC 32.4 RDW Std Deviation 46.8 H RDW Coeff of Patricia 15.5 H Plt Count 265 MPV 11.7 Immature Gran % (Auto) 0.300 Neut % (Auto) 83.6 H Lymph % (Auto) 7.3 L [place] % (Auto) 7.6 Eos % (Auto) 1.1 Baso % (Auto) 0.1 Absolute Neuts (auto) 7.6 Absolute Lymphs (auto) 0.67 L Nucleated RBC % 0 Sodium 138 Potassium 3.4 L Chloride 103 Carbon Dioxide 27.0 Anion Gap 8 BUN 12 Creatinine 0.81 Estim Creat Clear Calc 48.63 Est GFR (MDRD) Af Amer 87 Est GFR (MDRD) Non-Af 72 BUN/Creatinine Ratio 14.8 Glucose 130 H Lactic Acid 2.2 H* Calcium 8.8 Total Bilirubin 0.60 AST 17 ALT 17 Alkaline Phosphatase 141 H Total Protein 7.2 Albumin 1.9 L Globulin 5.3 H Albumin/Globulin Ratio 0.4 L The pleural effusion is significantly larger than effusion noted on 09/02/2020. - EKG Initial EKG Interpretation: Sinus Tachycardia - Sinus tachycardia with ventricular rate of 108. AL interval is 132 ms. QS duration 76 ms. QT duration 330 ms. Fyffe is normal. The only abnormality is tachycardia. - Medical Decision Making With history of cancer shortness of breath need to evaluate for pneumonia versus pulmonary embolus versus pneumothorax and with pedal edema need to entertain possibility of congestive heart failure. Since patient is not anemic and complaining of pleuritic chest pain a CTA of the chest was obtained because PE is suspected with high pretest probability. Also will better delineate abnormality noted on chest x-ray. CTA was reviewed by me. There is a large pleural effusion with compression of the right upper, right middle and right lower lobe. There is no obvious pulmonary embolus. There is interstitial changes. Awaiting for prior CAT scan to load and compare. Plan is admission to the hospital. Patient is DNR comfort care no intubation. The hospitalist was made aware of my review of the CAT scan. If there is evidence of PE plan is IV heparin. ED Disposition - Plan for ED Patient: Disposition: Acute Care Hospital [facility] Diagnosis: Pleural effusion, malignant, Acute respiratory failure with hypoxia, Sinus tachycardia by electrocardiogram, Lactic acidosis, Obstruction right middle and lower lobe
--- NOTE | 2020-09-20 19:19 | RAD_ITS ---
STUDY: X-RAY CHEST REASON FOR EXAM: Female, 80 years old. WORSENING SOB x6 WEEKS, PLEURITIC CHEST PAIN, HYPOXIA -- HX OF LUNG CANCER TECHNIQUE: Frontal and lateral views of the chest COMPARISON: 02 September 2020 FINDINGS: Right mid to lower lung are completely opacified, likely combination of underlying tumor and enlarging pleural effusion. Left lung and pleural cavity are clear. Cardiac size is normal. There is no pulmonary edema or pneumothorax. Osseous structures are intact. There are spinal stimulation electrodes terminating in the midthoracic region. RAD/Chest PA and Lateral IMPRESSION: Increasing large right pleural effusion. Secured right lower lobe with known underlying lung cancer. Electronically Signed: Marcellus Hutchinson, at 19:48 EST Tel , Service support ,
--- NOTE | 2020-09-20 19:30 | CT_ITS ---
STUDY: CTA CHEST REASON FOR EXAM: Female, 80 years old. SOB X 6 WEEKS,PLEURITIC CHEST PAIN,ELEVATED LACTIC ACID -- HX:GERD,HLD,HTN,,RT LUNG CANCER WITH CHEMO AND RADIATION RADIATION DOSAGE (If Supplied By Facility): CTDIvol = ( 16.28 ) mGy, DLP = ( 519.96 ) mGycm TECHNIQUE: The examination was performed with the intravenous administration of IV 100mL Isovue-370. Post-processing of the angiographic images was performed, with multiplanar reformation and 3D reconstruction. Individualized dose optimization techniques were used for this CT. COMPARISON: 09/02/2020. FINDINGS: The heart and pericardium are normal. The aorta is normal in caliber. No aneurysm or dissection. There is no evidence of pulmonary embolus. Subcarinal and right peribronchial soft tissue density, with occlusion of the right lower lobe and middle lobe bronchi. Soft tissue mass is not discretely seen due to extensive obstructive atelectasis of the right lower and middle lobes. Increased markings in the right upper lobe consistent with atelectasis, postobstructive pneumonia, and/or tumor extension. Postobstructive atelectasis is significantly increased compared to the prior study. Moderate right pleural effusion, increased compared to prior. Mild centrilobular emphysema on the left. Small left adrenal nodule, nonspecific. There is no osseous abnormality. CT/CTA Chest W/WO Contrast IMPRESSION: 1. No pulmonary embolism or arterial dissection. 2. Obstructive right middle and lower lobe atelectasis, increased from prior, due to mediastinal and hilar tumor. 3. Right pleural effusion. 4. COPD. 5. Left pulmonary nodule, nonspecific. Electronically Signed: Regla Russo MD at 21:14 EST Tel , Service support ,
--- NOTE | 2020-09-20 19:39 | PCM.HP.STD ---
Problem List (1) Recurrent non-small cell lung cancer Status: Acute (2) Hypoxia Status: Acute (3) Pleuritic chest pain Status: Acute (4) HTN (hypertension) Status: Chronic Qualifiers: Hypertension type: essential hypertension Qualified Code(s): I10 - Essential (primary) hypertension (5) Rheumatoid arthritis Status: Chronic Qualifiers: Rheumatoid arthritis location: unspecified site Rheumatoid factor presence: unspecified presence Qualified Code(s): M06.9 - Rheumatoid arthritis, unspecified (6) Chronic back pain Status: Chronic Qualifiers: Back pain location: back pain in unspecified location Back pain laterality: unspecified Qualified Code(s): M54.9 - Dorsalgia, unspecified; G89.29 - Other chronic pain (7) GERD (gastroesophageal reflux disease) Status: Chronic Qualifiers: Esophagitis presence: esophagitis presence not specified Qualified Code(s): K21.9 - Gastro-esophageal reflux disease without esophagitis (8) Hyperlipidemia Status: Chronic Qualifiers: Hyperlipidemia type: unspecified Qualified Code(s): E78.5 - Hyperlipidemia, unspecified (9) Primary cancer of right upper lobe of lung Status: Chronic History of Present Illness Date of Admission: 09/20/20 Chief Complaint: Dyspnea, malaise, R sided chest pain. 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 s/p radiation/chemotherapy treatments who presents to the [facility] ED on 09/20/20 with history of progressively worsening dyspnea over the last 6 weeks, more severe with associated right-sided pleuritic chest pain, worse with inspiratory increased effort prompting ED evaluation with history of underlying lung cancer with recent CT scan 09/02/2020 with evidence of mass lesion in the right hilar region extending into the adjacent mediastinum with postobstructive pneumonitis involving the right middle lobe and right lower lobe as well as a small right pleural effusion as well as 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 Patient following with Dr. Loza with recent evaluation on 09/04/[address] scan with plan for ongoing durvalumab maintenance therapy through October 09, 2019 which would be 1 year roque and concern for local regional recurrence as well as probable right pleural space and new right pleural effusion associated with cancer with planned PET scan, CT and brain MRI for suspected recurrent disease. 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 Work-up in the ED with a 97.6, heart rate 131, BP 148/91, respiratory rate 28, initially 84% on room air with improvement to 95% on 2 L nasal cannula, CBC with WC 9.1, hemoglobin 12.1, platelet 265 with lymphopenia with no significant left shift noted, CMP pending at evaluation, lactic acid pending at evaluation, EKG with ST without acute evidence of ischemia, CXR with R sided likely mass/effusion, final read pending, reviewed with ED physician. Discussed case with ED physician and will obtain CTPA given her complaints and high risk for PE. If + will plan initiation of heparin drip as will likely need Bx/thoracentesis. Past Medical History Past Medical History (Chronic Problems): Chronic Problems (Last Reviewed 09/04/20 @ 13:20 by Robyn Dhillon) HTN (hypertension) (Chronic) Rheumatoid arthritis (Chronic) Chronic back pain (Chronic) GERD (gastroesophageal reflux disease) (Chronic) Hyperlipidemia (Chronic) Non-small cell lung cancer (Chronic) Primary cancer of right upper lobe of lung (Chronic) Regional lymph node metastasis present (Chronic) Nodule of left lung (Chronic) Medical History: Medical History (Last Reviewed 09/04/20 @ 13:20 by Robyn Dhillon) Non-small cell cancer of right lung (Acute) C34.91 Rheumatoid arthritis (Acute) M06.9 Chronic back pain (Acute) M54.9, G89.29 GERD (gastroesophageal reflux disease) (Acute) K21.9 Hyperlipidemia (Acute) E78.5 Cataracts, both eyes (Acute) H26.9 Non-small cell lung cancer (Chronic) C34.90 Localized enlarged lymph nodes (Acute) R59.0 Primary cancer of right upper lobe of lung (Chronic) C34.11 Regional lymph node metastasis present (Chronic) C77.9 Nodule of left lung (Chronic) R91.1 Allergies Sulfa (Sulfonamide Antibiotics) Adverse Reaction (Intermediate, Verified 09/20/20 18:45) Rash Home Medications: Ambulatory Orders Medication Instructions Recorded Amlodipine [Norvasc] 2.5 mg PO QHS 04/11/18 Atorvastatin Calcium [Lipitor] 40 mg PO QHS 04/11/18 Pantoprazole Sodium [Protonix] 40 mg PO DAILY 04/11/18 traMADol [Ultram (G)] 1 - 2 tab PO Q6H PRN PRN 04/11/18 Baclofen [Lioresal] 10 mg PO BID 11/07/18 Ondansetron HCl [Zofran] 4 mg PO Q8H PRN PRN 10 Days #30 tab 09/04/20 Morphine Sulfate [Morphine Sulfate 30 mg PO Q12H 09/20/20 ER] Surgical History: Surgical History (Last Reviewed 09/04/20 @ 13:20 by Robyn Dhillon) Hx of bilateral cataract extraction (Acute) Z98.41, Z98.42 History of bronchoscopy (Acute) Z98.890 Hx of appendectomy (Acute) Z90.49 History of back surgery (Acute) Z98.890 FUSIONS/ AMBROSIO PLACEMENT History of hysterectomy (Acute) Z90.710 Hip joint replacement status (Acute) Z96.649 2009 Surgical History: appendectomy, hysterectomy, - - Lateral cataract surgery, bronchoscopy Psychiatric History: No pertinent psych hx [employer]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 Tobacco Use: Non-smoker Alcohol: None Drugs: None - *Family History Maternal Family History: Family History (Last Reviewed 09/04/20 @ 13:20 by Robyn Dhillon) Mother Uterine cancer Brain cancer Breast cancer Father Prostate cancer Brother Prostate cancer Leukemia Sister Breast cancer Other Cancer History Items: Cancer - Mother with a history of brain, breast and uterine cancer. Paternal Family History: Family History (Last Reviewed 09/04/20 @ 13:20 by Robyn Dhillon) Mother Uterine cancer Brain cancer Breast cancer Father Prostate cancer Brother Prostate cancer Leukemia Sister Breast cancer Other Cancer History Items: Cancer - Father with a history of prostate cancer. Review of Systems Constitutional: Reports: Malaise, Weakness, Fatigue. Denies: Anorexia, Chills, Fever, Weight Change HEENT: Denies: Head Aches, Sinus Congestion, Sinus Drainage Cardiovascular: Reports: Chest Pain. Denies: Chest Pressure, Chest Tightness, Light Headedness, Orthopnea, Palpitations, Syncope Respiratory: Reports: Cough, Pleuritic Pain, Shortness of Breath, Shortness of breath at rest, Shortness of breath upon exertion, Sputum production. Denies: Wheezing Gastrointestinal: Reports: Dyspepsia, Nausea. Denies: Abdominal Pain, Vomiting Genitourinary: Denies: Dysuria Musculoskeletal: Reports: Back Pain, Joint Pain, Leg Pain. Denies: Joint Tenderness Skin: Denies: Rash, Wounds Neurological: Denies: Numbness, Tingling, Focal weakness Psychiatric: Denies: Anxiety, Depression, Homicidal Ideations, Suicidal Ideations Hematologic/ Lymphatic: Reports: Anemia. Denies: Easy Bruising, Easy Bleeding VTE Information - Inpt Only VTE Present on Admission: No VTE Mechan Device Prophylaxis: SCD's VTE Pharm Prophylaxis ordered?: Yes Patient Problems: Active and Suspected Problems (Last Reviewed 09/04/20 @ 13:20 by Robyn Dhillon) Immunotherapy encounter (Acute) Recurrent non-small cell lung cancer (Acute) Hypoxia (Acute) Pleuritic chest pain (Acute) Non-small cell cancer of right lung (Acute) Subjective: Patient seated upright in the ED bed, fatigued, uncomfortable appearing, notes ongoing right-sided chest discomfort, back pain with any movement additionally. Objective: Physical Examination: General: awake, alert, oriented x 3 and cooperative, seated upright in the ED bed, fatigued appearing, uncomfortable appearing. Skin: normal color, turgor, no icterus, cyanosis. HEENT: AT/NC, EOMI, PERRLA, dry MM, no carotid bruits or JVD noted. Lungs: Significantly reduced breath sounds, primarily right side, mid to base, rales bases, increased respiratory rate, currently improved with no evidence of distress but uncomfortable appearing, ongoing right-sided pleuritic pain per report, no wheezing currently. Heart: Mildly tachycardic with regular rhythm; no gallop, rub audible. Abdomen: soft, NTTP, ND, normal BS, no HSM. Extremities: no cyanosis, clubbing, or edema. Neurological: patient awake, alert, oriented as noted; cognitive function intact; pupils equally reactive to light and accomodation; cranial nerves II-XII grossly normal, moving all 4 extremities, no focal deficits, strength severely globally decreased secondary to acute presentation, pleuritic pain and underlying chronic back pain history. Psychiatric: affect appears fatigued, uncomfortable, no acute evidence of depressive or anxiety feelings. - Physical Exam Vitals/I&O's: Vital Signs Temp Pulse Resp BP Pulse Ox 97.6 F L 106 H 20 H 147/55 H 95 09/20/20 18:42 09/20/20 18:55 09/20/20 18:55 09/20/20 18:55 09/20/20 18:55 Oxygen Flow Rate (L/min) 2 Oxygen Delivery Method Nasal Cannula Weight: 179 lb Body Mass Index (BMI) 30.7 Laboratory Results 09/20/20 19:00: WBC 9.1, RBC 4.48, Hgb 12.1, Hct 37.4, MCV 83.5, MCH 27.0, MCHC 32.4, RDW Std Deviation 46.8 H, RDW Coeff of Patricia 15.5 H, Plt Count 265, MPV 11.7, Immature Gran % (Auto) 0.300, Neut % (Auto) 83.6 H, Lymph % (Auto) 7.3 L, [place] % (Auto) 7.6, Eos % (Auto) 1.1, Baso % (Auto) 0.1, Absolute Neuts (auto) 7.6, Absolute Lymphs (auto) 0.67 L, Nucleated RBC % 0 09/20/20 19:00: Sodium Pending, Potassium Pending, Chloride Pending, Carbon Dioxide Pending, Anion Gap Pending, BUN Pending, Creatinine Pending, Est GFR (MDRD) Af Amer Pending, Est GFR (MDRD) Non-Af Pending, BUN/Creatinine Ratio Pending, Glucose Pending, Calcium Pending, Total Bilirubin Pending, AST Pending, ALT Pending, Alkaline Phosphatase Pending, Total Protein Pending, Albumin Pending 09/20/20 19:00: Lactic Acid Pending Current Medications Sodium Chloride 1,000 ml/ N/A 1,000 mls @ 243.579 mls/hr IV .Q4H7M SAM Stop: 09/21/20 02:36 Assessment/Plan All Active Problems (Last Reviewed 09/04/20 @ 13:20 by Robyn Dhillon) Educational circumstance (Acute) Chemotherapy management, encounter for (Acute) Exertional dyspnea (Acute) Immunotherapy encounter (Acute) Pleural effusion, right (Acute) Recurrent non-small cell lung cancer (Acute) Hypoxia (Acute) Pleuritic chest pain (Acute) Hx of bilateral cataract extraction (Acute) Non-small cell cancer of right lung (Acute) History of bronchoscopy (Acute) Hx of appendectomy (Acute) History of back surgery (Acute) History of hysterectomy (Acute) Hip joint replacement status (Acute) Cataracts, both eyes (Acute) Localized enlarged lymph nodes (Acute) 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 1. Acute Hypoxia, Progressively Worsening Dyspnea secondary to Suspected Recurrent Non-Small Cell Adenocarcinoma (locoregional recurrence) with associated pleuritic pain, Possible PE: Will admit to PCU as high risk new onset PE pending CTPA as noted, maintain on telemetry monitoring, maintain on oxygen with likely need for home oxygenation, continue ATC duonebs, PRN albuterol, trend CBC, obtain procal, HOB, IS parameters, request consultation with patient Oncologist to determine next course in care plan given severity of her symptoms and hypoxia, expect likely Bx/aspiration effusion for tissue confirmation and molecular studies but will await their input, if + PE will per discussion with ED physician plan start heparin drip given possible hold need 09/22/20 for Bx/thoracentesis possibly, as needed pain regimen above patient chronic baseline scheduled regimen given pleuritic discomfort. May consider Pulmonary consultation also. Will set-up orders for possible R sided thoracentesis Tuesday which may be altered/cancelled. 2. Chronic Back Pain with Spinal Stenosis: We will continue patient home baclofen, scheduled chronic morphine ER regimen with as needed agents as needed. 3. Hypertension: Continue home regimen including amlodipine with hold parameters, PRN hydralazine. 4. Hyperlipidemia: Continue home statin regimen. 5. GERD: We will continue patient home PPI. 6. Former tobacco use: Encourage continued tobacco cessation. 7. DVT prophylaxis: SCDs, Heparin, possibly drip if CTPA + as noted above. Would need to hold for Bx/Thoracentesis if amenable per Oncology. 8. CODE status: Patient HCPOA is her son and daughter and living will is currently in place. Discussed CODE status at length including difference between FULL code, DNR-CCA and DNR-CC status. Following discussions about the differences in these status, requested DNR-CCA, no intubation status. Advanced Care Planning Face to Face Time: 16 minutes. Inpatient E&M: 11223 Init Hosp L3 Procedures: 93904 Advncd Care Plan 30 Min
[2020-09-20 19:41] LABS: ALB/GLOB Ratio 0.4 RATIO (0.9-2.4); AST(SGOT) 17 U/L (15-37); Alanine Aminotransfer ALT/SGPT 17 U/L (13-56); Albumin, Serum 1.9 g/dL (3.2-5.0); Alkaline Phosphatase 141 U/L (45-117); Anion Gap 8 (5-15); BUN 12 mg/dL (7-18); BUN/Creat Ratio 14.8 RATIO (10-20); Calcium,Total 8.8 mg/dL (8.5-10.1); Chloride 103 mmol/L (98-107); Creatinine, Serum 0.81 mg/dL (0.55-1.02); EST Glomerular Filtration Rate 72 mL/min (>60); Est Glom Filt Rate - Afr Amer 87 mL/min (>60); Estimated Creatinine Clearance 48.63 ml/min; Globulin 5.3 g/dL (2.2-4.2); Glucose 130 mg/dL (74-106); Potassium 3.4 mmol/L (3.5-5.1); Protein, Total 7.2 g/dL (6.4-8.2); Sodium Level 138 mmol/L (136-145)
[2020-09-20 19:42] LABS: Lactic Acid 2.2 mmol/L (0.4-1.9)
--- NOTE | 2020-09-20 21:18 | ED.RN ---
Attempted to call son Praful that brought pt to ED without success; phoned pt's daughter to update her with admit room number and Nurse's station phone number.
[2020-09-20 22:18] LABS: International Normalized Ratio 1.2; Prothrombin Time (Protime)PT. 14.2 SECONDS (11.7-14.9)
[2020-09-20 22:19] LABS: Partial Thromboplast Time 37.8 Seconds (24.1-36.2)
[2020-09-20 22:32] LABS: LDH 153 U/L (84-246); Magnesium 1.9 mg/dL (1.6-2.6)
[2020-09-20] MEDS: Ipratropium/Albuterol Sulfate 3 ML AMPUL.NEB INHALATION (22:33)
[2020-09-20] MEDS: 0.9% Normal Saline 1,000 ML 100 ML IV (22:55)
[2020-09-20] MEDS: amLODIPine 2.5 MG Tablet PO (22:57)
[2020-09-20] MEDS: Atorvastatin Calcium 40 MG Tablet PO (22:57)
[2020-09-20] MEDS: Heparin Injection (Vial) 5,000 UNIT/ML VIAL 5000 UNIT SC (22:57)
[2020-09-20] MEDS: Baclofen 10 MG Tablet PO (22:58)
[2020-09-20 23:08] LABS: Reflex Lactate? Y
[2020-09-20 23:56] LABS: Lactic Acid 1.8 mmol/L (0.4-1.9)
[2020-09-21] VITALS (13 sets, daily range): BP systolic 91–106; BP diastolic 55–64; PULSE 82–111; RESP 12–26; TEMP 36.3–36.7; O2SAT 89–94
--- NOTE | 2020-09-21 00:05 | PCS.PANDOC ---
PANDEMIC DOCUMENTATION INITIATED: Date: 09/20/20 Time: 2199
[2020-09-21 00:19] LABS: Procalcitonin 0.26 ng/mL (0.00-0.09)
[2020-09-21] MEDS: oxyCODONE 5 MG Tablet 10 MG PO (01:04)
[2020-09-21] MEDS: Acetaminophen 325 MG Tablet 650 MG PO (01:05)
[2020-09-21] MEDS: Albuterol 2.5 MG/3 ML VIAL.NEB. INHALATION ×2 (01:31→09:39)
--- NOTE | 2020-09-21 01:36 | CPS ---
PATIENT RECIEVED PRN TREATMENT DUE TO SOB.
[2020-09-21 05:16] LABS: Absolute Lymphocyte Count 0.73 X10^3/uL (0.83-4.51); Absolute Neutrophil Count 6.3 X10^3/uL (2.0-7.7); Basophil# 0.02 X10^3/uL; Basophil% 0.3 % (0-1); Eosinophil# 0.05 X10^3/uL; Eosinophils% 0.6 % (0-5); Hematocrit 33.9 % (37-47); Hemoglobin 10.7 g/dL (12.0-15.0); Lymphocyte # 0.73 X10^3/ul (4.0); Lymphocyte % 9.3 % (19-41); Mean Corp Hgb Conc 31.6 g/dL (32-36); Mean Corpuscular Hgb 26.8 pg (27.0-32.0); Mean Platelet Vol. 11.4 fl (6.2-12.0); Monocyte# 0.67 X10^3/uL; Monocyte% 8.6 % (0-10); NRBC Flagged by Analyzer 0 % (0-5); Neutrophil # 6.33 X10^3/uL (2.7-7.7); Neutrophil % 80.8 % (47-70); Platelet Count 242 K/mm3 (150-450); RBC Distribution Width CV 15.7 % (11.6-14.6); RBC Distribution Width SD 47.8 fl (35.1-43.9); Red Blood Count 3.99 M/mm3 (4.2-5.4); White Blood Count 7.8 K/mm3 (4.4-11.0)
[2020-09-21] MEDS: Heparin Injection (Vial) 5,000 UNIT/ML VIAL 5000 UNIT SC (05:19)
[2020-09-21 05:39] LABS: ALB/GLOB Ratio 0.4 RATIO (0.9-2.4); AST(SGOT) 17 U/L (15-37); Alanine Aminotransfer ALT/SGPT 15 U/L (13-56); Albumin, Serum 1.7 g/dL (3.2-5.0); Alkaline Phosphatase 125 U/L (45-117); Anion Gap 6 (5-15); BUN 10 mg/dL (7-18); BUN/Creat Ratio 14.1 RATIO (10-20); Calcium,Total 8.5 mg/dL (8.5-10.1); Chloride 105 mmol/L (98-107); Creatinine, Serum 0.71 mg/dL (0.55-1.02); EST Glomerular Filtration Rate 84 mL/min (>60); Est Glom Filt Rate - Afr Amer 102 mL/min (>60); Estimated Creatinine Clearance 41.05 ml/min; Globulin 4.7 g/dL (2.2-4.2); Glucose 93 mg/dL (74-106); Protein, Total 6.4 g/dL (6.4-8.2); Sodium Level 139 mmol/L (136-145)
[2020-09-21] MEDS: Ipratropium/Albuterol Sulfate 3 ML AMPUL.NEB INHALATION ×2 (06:42→13:23)
--- NOTE | 2020-09-21 06:42 | CPS ---
Estrada. talked to RN about stopping fluid because pt's lung sounds are now coarse crackles. Suggested talking to Dr about a one time diuretic.
[2020-09-21] MEDS: Gabapentin 100 MG Capsule PO (08:12)
[2020-09-21] MEDS: Pantoprazole Sodium 40 MG Tablet PO (08:12)
[2020-09-21] MEDS: Baclofen 10 MG Tablet PO (08:12)
[2020-09-21] MEDS: Ondansetron 4 MG/2 ML Vial IV (09:22)
--- NOTE | 2020-09-21 09:55 | CPS ---
Tried BIPAP but pt was unable to tolerate, pt states she does not want a ventilator and is a DNR. Anusha talked with Sushila RAMSEY about patients wishes and her not being able to tolerate BIPAP.
[2020-09-21] MEDS: Furosemide 40 MG/4 ML Vial IV (10:35)
--- NOTE | 2020-09-21 10:41 | PCM.DC.SUM ---
<LarrySushila DRAW FURNACE TENDER - Last Filed: 09/21/20 10:56> Discharge Date and Diagnosis - Problem List Patient Problems: Active and Suspected Problems (Last Reviewed 09/04/20 @ 13:20 by Robyn Dhillon) Immunotherapy encounter (Acute) Recurrent non-small cell lung cancer (Acute) Hypoxia (Acute) Pleuritic chest pain (Acute) Pleural effusion, malignant (Acute) Acute respiratory failure with hypoxia (Acute) Sinus tachycardia by electrocardiogram (Acute) Lactic acidosis (Acute) Non-small cell cancer of right lung (Acute) Date of Admission: 09/20/20 Date of Discharge: 09/21/20 - Primary Discharge Diagnosis Acute Problems: Active Problems (Last Reviewed 09/04/20 @ 13:20 by Robyn Dhillon) 1. 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 Chronic back pain, spinal stenosis 3. Hypertension 4. Hyperlipidemia 5. GERD 6. Former tobacco use 7. Hospice transition - Secondary Discharge Diagnosis Chronic Problems: Chronic Problems (Last Reviewed 09/04/20 @ 13:20 by Robyn Dhillon) HTN (hypertension) (Chronic) Rheumatoid arthritis (Chronic) Chronic back pain (Chronic) GERD (gastroesophageal reflux disease) (Chronic) Hyperlipidemia (Chronic) Non-small cell lung cancer (Chronic) Primary cancer of right upper lobe of lung (Chronic) Regional lymph node metastasis present (Chronic) Nodule of left lung (Chronic) Hospital Course and Treatment Imaging Results: Diagnostic Data Chest X-Ray 09/20/20 19:19 IMPRESSION: Increasing large right pleural effusion. Secured right lower lobe with known underlying lung cancer. Electronically Signed: Marcellus Hutchinson at 19:48 EST Tel , Service support , Chest CTA 09/20/20 19:30 IMPRESSION: 1. No pulmonary embolism or arterial dissection. 2. Obstructive right middle and lower lobe atelectasis, increased from prior, due to mediastinal and hilar tumor. 3. Right pleural effusion. 4. COPD. 5. Left pulmonary nodule, nonspecific. Electronically Signed: Regla Russo MD at 21:14 EST Tel , Service support , Operations: None Procedures: None Summary of Care Provided: The patient is a 80 year old F admitted 09/20/2020 due to dyspnea and right-sided chest pain. 1. Acute hypoxic respiratory failure secondary to suspected recurrence of non-small cell adenocarcinoma with mediastinal and hilar tumor-CTA demonstrates obstructive right middle and lower lobe atelectasis, increased from prior secondary to mediastinal and hilar tumor. Patient previously treated for non-small cell adenocarcinoma right upper lobe in 2018 with chemotherapy and radiation. Recent follow-up with oncology CT of chest imaging showed mass lesion in the right hilar region extending into the adjacent mediastinum with postobstructive pneumonitis involving the right middle lobe and right lower lobe. Patient states she does not want to undergo treatment and wants to be kept comfortable. Due to shortness of breath and anxiety, patient was found to be appropriate for inpatient hospice facility. 2. Chronic back pain, spinal stenosis-as needed pain regimen. 3. Hypertension-on amlodipine. 4. Hyperlipidemia-on statin. 5. GERD-on PPI. 6. Former tobacco use 7. Hospice transition Patient seen and examined prior to discharge. Physical assessment as noted below. This patient was seen by JOEY García under the supervision of Dr. Coe. Patient Problems: Active and Suspected Problems (Last Reviewed 09/04/20 @ 13:20 by Robyn Dhillon) Immunotherapy encounter (Acute) Recurrent non-small cell lung cancer (Acute) Hypoxia (Acute) Pleuritic chest pain (Acute) Pleural effusion, malignant (Acute) Acute respiratory failure with hypoxia (Acute) Sinus tachycardia by electrocardiogram (Acute) Lactic acidosis (Acute) Non-small cell cancer of right lung (Acute) - Physical Exam Vitals/I&O's: Vital Signs Temp Pulse Resp BP Pulse Ox 97.5 F L 111 H 26 H 101/63 92 09/21/20 08:04 09/21/20 09:45 09/21/20 09:45 09/21/20 08:04 09/21/20 09:45 Oxygen Flow Rate (L/min) 6 Oxygen Delivery Method Nasal Cannula Weight: 173 lb 15.115 oz Body Mass Index (BMI) 28.9 Intake and Output for Last 24 Hours 09/19/20 09/20/20 09/21/20 23:59 23:59 23:59 Intake Total 250 / 370 1048.33 / 1048.33 Output Total 550 / 550 Balance 250 / -180 498.33 / 498.33 General: Alert, Oriented x3, Cooperative, - - Appears dyspneic HEENT: Atraumatic, PERRLA, EOMI, Normocephalic Neck: Supple, No JVD, Negative Carotid Bruits Lungs: Clear to auscultation, Diminished, Tachypneic, Using Accessory Muscles Cardiovascular: Regular rate, No murmurs Abdomen: Bowel Sounds Present, Soft, Non Tender, Non-Distended Extremities: No clubbing, No cyanosis, No edema, Capillary Refill Less than 3 Seconds Skin: No rashes, No breakdown Musculoskeletal: No Tenderness to Palpation of Joints or Extremities Neurological: Cranial nerves II-XII grossly intact, Neuro grossly intact Psych/Mental Status: Normal Affect, Appropriate Microbiology Past 72 Hours 09/20/20 22:10 Mucosa - Nose Respiratory Panel (PCR) - Final 09/20/20 23:30 Urine Catheter - Catheter Streptococcus pneumoniae Antigen (M - Final 09/20/20 23:30 Urine Catheter - Catheter Legionella Antigen - Final Laboratory Results 09/20/20 19:00: WBC 9.1, RBC 4.48, Hgb 12.1, Hct 37.4, MCV 83.5, MCH 27.0, MCHC 32.4, RDW Std Deviation 46.8 H, RDW Coeff of Patricia 15.5 H, Plt Count 265, MPV 11.7, Immature Gran % (Auto) 0.300, Neut % (Auto) 83.6 H, Lymph % (Auto) 7.3 L, [place] % (Auto) 7.6, Eos % (Auto) 1.1, Baso % (Auto) 0.1, Absolute Neuts (auto) 7.6, Absolute Lymphs (auto) 0.67 L, Nucleated RBC % 0 09/20/20 19:00: Sodium 138, Potassium 3.4 L, Chloride 103, Carbon Dioxide 27.0, Anion Gap 8, BUN 12, Creatinine 0.81, Estim Creat Clear Calc 48.63, Est GFR (MDRD) Af Amer 87, Est GFR (MDRD) Non-Af 72, BUN/Creatinine Ratio 14.8, Glucose 130 H, Calcium 8.8, Total Bilirubin 0.60, AST 17, ALT 17, Alkaline Phosphatase 141 H, Total Protein 7.2, Albumin 1.9 L, Globulin 5.3 H, Albumin/Globulin Ratio 0.4 L 09/20/20 19:00: Lactic Acid 2.2 H* 09/20/20 19:00: Magnesium 1.9, Lactate Dehydrogenase 153, Total Protein Cancelled, Globulin Cancelled, Albumin/Globulin Ratio Cancelled 09/20/20 19:00: PT 14.2, INR 1.2, APTT 37.8 H 09/20/20 22:58: Procalcitonin 0.26 H 09/20/20 23:21: Lactic Acid 1.8 09/21/20 05:03: WBC 7.8, RBC 3.99 L, Hgb 10.7 L, Hct 33.9 L, MCV 85.0, MCH 26.8 L, MCHC 31.6 L, RDW Std Deviation 47.8 H, RDW Coeff of Patricia 15.7 H, Plt Count 242, MPV 11.4, Immature Gran % (Auto) 0.400, Neut % (Auto) 80.8 H, Lymph % (Auto) 9.3 L, [place] % (Auto) 8.6, Eos % (Auto) 0.6, Baso % (Auto) 0.3, Absolute Neuts (auto) 6.3, Absolute Lymphs (auto) 0.73 L, Nucleated RBC % 0 09/21/20 05:03: Sodium 139, Potassium 4.0, Chloride 105, Carbon Dioxide 28.0, Anion Gap 6, BUN 10, Creatinine 0.71, Estim Creat Clear Calc 41.05, Est GFR (MDRD) Af Amer 102, Est GFR (MDRD) Non-Af 84, BUN/Creatinine Ratio 14.1, Glucose 93, Calcium 8.5, Total Bilirubin 0.50, AST 17, ALT 15, Alkaline Phosphatase 125 H, Total Protein 6.4, Albumin 1.7 L, Globulin 4.7 H, Albumin/Globulin Ratio 0.4 L Current Medications Acetaminophen (Acetaminophen 325 Mg Tablet) 650 mg PO Q6H PRN PRN PRN Reason: Pain Score 1-10/Temp > 100.7 F Last Admin: 09/21/20 01:05 Dose: 650 mg Documented by: Al Hydroxide/Mg Hydroxide (Mag Hydrox/Al Hydrox/Simeth 30 Ml Udc) 30 ml PO Q6H PRN PRN PRN Reason: Gastric Burning Albuterol Sulfate (Albuterol 2.5 Mg/3 Ml Vial.Neb.) 2.5 mg INHALATION Q2H PRN PRN PRN Reason: Dyspnea, wheezing Last Admin: 09/21/20 09:39 Dose: 2.5 mg Documented by: Albuterol/Ipratropium (Ipratropium/Albuterol Sulfate 3 Ml Ampul.Neb) 3 ml INHALATION Q6HWA.RT [facility] Last Admin: 09/21/20 06:42 Dose: 3 ml Documented by: Amlodipine Besylate (Amlodipine 2.5 Mg Tablet) 2.5 mg PO QHS [facility] Last Admin: 09/20/20 22:57 Dose: 2.5 mg Documented by: Atorvastatin Calcium (Atorvastatin Calcium 40 Mg Tablet) 40 mg PO QHS [facility] Last Admin: 09/20/20 22:57 Dose: 40 mg Documented by: Baclofen (Baclofen 10 Mg Tablet) 10 mg PO BID [facility] Last Admin: 09/21/20 08:12 Dose: 10 mg Documented by: Gabapentin (Gabapentin 100 Mg Capsule) 100 mg PO TIDCM [facility] Last Admin: 09/21/20 08:12 Dose: 100 mg Documented by: Guaifenesin (Guaifenesin 10 Ml Udc (200mg/10ml)) 20 ml PO Q4H PRN PRN PRN Reason: COUGH Heparin Sodium (Porcine) (Heparin Injection (Vial) 5,000 Unit/Ml Vial) 5,000 unit SC Q8 [facility] Last Admin: 09/21/20 05:19 Dose: 5,000 unit Documented by: Hydralazine HCl (Hydralazine 20 Mg/Ml Vial) 10 mg IV Q4H PRN PRN PRN Reason: SBP > 160 Hydromorphone HCl (Hydromorphone 0.5 Mg/0.5 Ml Syringe) 0.5 mg IV Q4H PRN PRN PRN Reason: Pain Score 6-10 Lidocaine (Lidocaine 5% Patch) 2 patch TOPICAL DAILY [facility]; Protocol Last Admin: 09/21/20 08:12 Dose: Not Given Documented by: Magnesium Hydroxide (Magnesium Hydroxide 30 Ml Udc) 30 ml PO DAILY PRN PRN PRN Reason: Constipation Melatonin (Melatonin 3 Mg Tablet) 3 mg PO QHS PRN PRN PRN Reason: INSOMNIA Morphine Sulfate (Morphine Sr 30 Mg Tablet) 30 mg PO Q12 [facility] Last Admin: 09/21/20 08:11 Dose: 30 mg Documented by: Nitroglycerin (Nitroglycerin (Inpatient Use) 0.4 Mg Tab.Subl) 0.4 mg SUBLINGUAL Q5M PRN PRN Reason: CARDIAC/CHEST PAIN Ondansetron HCl (Ondansetron 4 Mg/2 Ml Vial) 4 mg IV Q8H PRN PRN PRN Reason: NAUSEA/VOMITING Last Admin: 09/21/20 09:22 Dose: 4 mg Documented by: Oxycodone HCl (Oxycodone 5 Mg Tablet) 10 mg PO Q4H PRN PRN PRN Reason: Pain Score 4-5 Last Admin: 09/21/20 01:04 Dose: 10 mg Documented by: Pantoprazole Sodium (Pantoprazole Sodium 40 Mg Tablet) 40 mg PO DAILY [facility] Last Admin: 09/21/20 08:12 Dose: 40 mg Documented by: Prochlorperazine Edisylate (Prochlorperazine 10 Mg/2 Ml Vial) 5 mg IV Q4H PRN PRN PRN Reason: Breakthrough Nausea/Vomiting Psyllium Hydrophilic Mucilloid (Psyllium 1 Packet) 1 packet PO DAILY PRN PRN PRN Reason: Constipation Senna/Docusate Sodium (Senna/Docusate Sodium 1 Tablet) 2 tablet PO BID PRN PRN PRN Reason: Constipation Throat Lozenges (Benzocaine/Menthol 1 Lozenge) 1 lozenge MUCOUS MEM Q2H PRN PRN PRN Reason: SORE THROAT Home Medications: Medications to take at Discharge Amlodipine [Norvasc] 2.5 mg PO QHS 04/11/18 Atorvastatin Calcium [Lipitor] 40 mg PO QHS 04/11/18 Pantoprazole Sodium [Protonix] 40 mg PO DAILY 04/11/18 traMADol [Ultram (G)] 1 - 2 tab PO Q6H PRN PRN 04/11/18 Baclofen [Lioresal] 10 mg PO BID 11/07/18 Ondansetron HCl [Zofran] 4 mg PO Q8H PRN PRN 10 Days #30 tab 09/04/20 Morphine Sulfate [Morphine Sulfate ER] 30 mg PO Q12H 09/20/20 Primary Care Physician: Rick Macias MD [Primary Care Provider] - Disposition: Hospice Medical Facility Minutes spent on discharge:: 35 Patient Condition:: Guarded Medical Necessity - Tobacco Use Smoking Status: Former smoker Tobacco Use: Cigarettes Meaningful Use Info Meaningful Use Diagnoses (Choose all that apply): None applicable <Rick Coe - Last Filed: 09/21/20 11:31> Discharge Date and Diagnosis - Primary Discharge Diagnosis Acute Problems: Active Problems (Last Reviewed 09/04/20 @ 13:20 by Robyn Dhillon) Immunotherapy encounter (Acute) Recurrent non-small cell lung cancer (Acute) Hypoxia (Acute) Pleuritic chest pain (Acute) Pleural effusion, malignant (Acute) Acute respiratory failure with hypoxia (Acute) Sinus tachycardia by electrocardiogram (Acute) Lactic acidosis (Acute) Non-small cell cancer of right lung (Acute) - Secondary Discharge Diagnosis Chronic Problems: Chronic Problems (Last Reviewed 09/04/20 @ 13:20 by Robyn Dhillon) HTN (hypertension) (Chronic) Rheumatoid arthritis (Chronic) Chronic back pain (Chronic) GERD (gastroesophageal reflux disease) (Chronic) Hyperlipidemia (Chronic) Non-small cell lung cancer (Chronic) Primary cancer of right upper lobe of lung (Chronic) Regional lymph node metastasis present (Chronic) Nodule of left lung (Chronic) Hospital Course and Treatment Imaging Results: 09/22/20 07:00 Thoracentesis W US [US] Routine Summary of Care Provided: This patient was seen in conjunction with JOEY García . I have independently interviewed and examined the patient and reviewed pertinent historical, laboratory, and other data. Please refer to JOEY García note for details of this patient's presentation, findings, and recommendations. I have reviewed JOEY García note and concur with documented findings. In brief, 80-year-old lady admitted with progressive shortness of breath and assessment of acute hypoxic respiratory failure secondary to recurrence of non-small cell adenocarcinoma with mediastinal and hilar tumor involving the lung made admitted to a monitored bed for subsequent management. Consultation was placed to the hospice team. Patient was discharged to inpatient hospice facility for subsequent care Hospital course as documented above - Physical Exam Vitals/I&O's: Vital Signs Temp Pulse Resp BP Pulse Ox 97.5 F L 111 H 26 H 101/63 92 09/21/20 08:04 09/21/20 09:45 09/21/20 09:45 09/21/20 08:04 09/21/20 09:45 Oxygen Flow Rate (L/min) 6 Oxygen Delivery Method Nasal Cannula Weight: 78.9 kg Body Mass Index (BMI) 28.9 Intake and Output for Last 24 Hours 09/19/20 09/20/20 09/21/20 23:59 23:59 23:59 Intake Total 250 / 370 1048.33 / 1048.33 Output Total 550 / 550 Balance 250 / -180 498.33 / 498.33 Microbiology Past 72 Hours 09/21/20 10:20 Mucosa - Nose SARS-CoV-2 Antigen (Rapid) - Final 09/20/20 22:10 Mucosa - Nose Respiratory Panel (PCR) - Final 09/20/20 23:30 Urine Catheter - Catheter Streptococcus pneumoniae Antigen (M - Final 09/20/20 23:30 Urine Catheter - Catheter Legionella Antigen - Final Laboratory Results 09/20/20 19:00: WBC 9.1, RBC 4.48, Hgb 12.1, Hct 37.4, MCV 83.5, MCH 27.0, MCHC 32.4, RDW Std Deviation 46.8 H, RDW Coeff of Patricia 15.5 H, Plt Count 265, MPV 11.7, Immature Gran % (Auto) 0.300, Neut % (Auto) 83.6 H, Lymph % (Auto) 7.3 L, [place] % (Auto) 7.6, Eos % (Auto) 1.1, Baso % (Auto) 0.1, Absolute Neuts (auto) 7.6, Absolute Lymphs (auto) 0.67 L, Nucleated RBC % 0 09/20/20 19:00: Sodium 138, Potassium 3.4 L, Chloride 103, Carbon Dioxide 27.0, Anion Gap 8, BUN 12, Creatinine 0.81, Estim Creat Clear Calc 48.63, Est GFR (MDRD) Af Amer 87, Est GFR (MDRD) Non-Af 72, BUN/Creatinine Ratio 14.8, Glucose 130 H, Calcium 8.8, Total Bilirubin 0.60, AST 17, ALT 17, Alkaline Phosphatase 141 H, Total Protein 7.2, Albumin 1.9 L, Globulin 5.3 H, Albumin/Globulin Ratio 0.4 L 09/20/20 19:00: Lactic Acid 2.2 H* 09/20/20 19:00: Magnesium 1.9, Lactate Dehydrogenase 153, Total Protein Cancelled, Globulin Cancelled, Albumin/Globulin Ratio Cancelled 09/20/20 19:00: PT 14.2, INR 1.2, APTT 37.8 H 09/20/20 22:58: Procalcitonin 0.26 H 09/20/20 23:21: Lactic Acid 1.8 09/21/20 05:03: WBC 7.8, RBC 3.99 L, Hgb 10.7 L, Hct 33.9 L, MCV 85.0, MCH 26.8 L, MCHC 31.6 L, RDW Std Deviation 47.8 H, RDW Coeff of Patricia 15.7 H, Plt Count 242, MPV 11.4, Immature Gran % (Auto) 0.400, Neut % (Auto) 80.8 H, Lymph % (Auto) 9.3 L, [place] % (Auto) 8.6, Eos % (Auto) 0.6, Baso % (Auto) 0.3, Absolute Neuts (auto) 6.3, Absolute Lymphs (auto) 0.73 L, Nucleated RBC % 0 09/21/20 05:03: Sodium 139, Potassium 4.0, Chloride 105, Carbon Dioxide 28.0, Anion Gap 6, BUN 10, Creatinine 0.71, Estim Creat Clear Calc 41.05, Est GFR (MDRD) Af Amer 102, Est GFR (MDRD) Non-Af 84, BUN/Creatinine Ratio 14.1, Glucose 93, Calcium 8.5, Total Bilirubin 0.50, AST 17, ALT 15, Alkaline Phosphatase 125 H, Total Protein 6.4, Albumin 1.7 L, Globulin 4.7 H, Albumin/Globulin Ratio 0.4 L Current Medications Acetaminophen (Acetaminophen 325 Mg Tablet) 650 mg PO Q6H PRN PRN PRN Reason: Pain Score 1-10/Temp > 100.7 F Last Admin: 09/21/20 01:05 Dose: 650 mg Documented by: Al Hydroxide/Mg Hydroxide (Mag Hydrox/Al Hydrox/Simeth 30 Ml Udc) 30 ml PO Q6H PRN PRN PRN Reason: Gastric Burning Albuterol Sulfate (Albuterol 2.5 Mg/3 Ml Vial.Neb.) 2.5 mg INHALATION Q2H PRN PRN PRN Reason: Dyspnea, wheezing Last Admin: 09/21/20 09:39 Dose: 2.5 mg Documented by: Albuterol/Ipratropium (Ipratropium/Albuterol Sulfate 3 Ml Ampul.Neb) 3 ml INHALATION Q6HWA.RT [facility] Last Admin: 09/21/20 06:42 Dose: 3 ml Documented by: Amlodipine Besylate (Amlodipine 2.5 Mg Tablet) 2.5 mg PO QHS [facility] Last Admin: 09/20/20 22:57 Dose: 2.5 mg Documented by: Atorvastatin Calcium (Atorvastatin Calcium 40 Mg Tablet) 40 mg PO QHS [facility] Last Admin: 09/20/20 22:57 Dose: 40 mg Documented by: Baclofen (Baclofen 10 Mg Tablet) 10 mg PO BID [facility] Last Admin: 09/21/20 08:12 Dose: 10 mg Documented by: Gabapentin (Gabapentin 100 Mg Capsule) 100 mg PO TIDCM [facility] Last Admin: 09/21/20 08:12 Dose: 100 mg Documented by: Guaifenesin (Guaifenesin 10 Ml Udc (200mg/10ml)) 20 ml PO Q4H PRN PRN PRN Reason: COUGH Heparin Sodium (Porcine) (Heparin Injection (Vial) 5,000 Unit/Ml Vial) 5,000 unit SC Q8 [facility] Last Admin: 09/21/20 05:19 Dose: 5,000 unit Documented by: Hydralazine HCl (Hydralazine 20 Mg/Ml Vial) 10 mg IV Q4H PRN PRN PRN Reason: SBP > 160 Hydromorphone HCl (Hydromorphone 0.5 Mg/0.5 Ml Syringe) 0.5 mg IV Q4H PRN PRN PRN Reason: Pain Score 6-10 Lidocaine (Lidocaine 5% Patch) 2 patch TOPICAL DAILY [facility]; Protocol Last Admin: 09/21/20 08:12 Dose: Not Given Documented by: Lorazepam (Lorazepam 2 Mg/Ml Syringe) 0.5 mg IV X1 ONE Stop: 09/21/20 11:31 Magnesium Hydroxide (Magnesium Hydroxide 30 Ml Udc) 30 ml PO DAILY PRN PRN PRN Reason: Constipation Melatonin (Melatonin 3 Mg Tablet) 3 mg PO QHS PRN PRN PRN Reason: INSOMNIA Morphine Sulfate (Morphine Sr 30 Mg Tablet) 30 mg PO Q12 [facility] Last Admin: 09/21/20 08:11 Dose: 30 mg Documented by: Nitroglycerin (Nitroglycerin (Inpatient Use) 0.4 Mg Tab.Subl) 0.4 mg SUBLINGUAL Q5M PRN PRN Reason: CARDIAC/CHEST PAIN Ondansetron HCl (Ondansetron 4 Mg/2 Ml Vial) 4 mg IV Q8H PRN PRN PRN Reason: NAUSEA/VOMITING Last Admin: 09/21/20 09:22 Dose: 4 mg Documented by: Oxycodone HCl (Oxycodone 5 Mg Tablet) 10 mg PO Q4H PRN PRN PRN Reason: Pain Score 4-5 Last Admin: 09/21/20 01:04 Dose: 10 mg Documented by: Pantoprazole Sodium (Pantoprazole Sodium 40 Mg Tablet) 40 mg PO DAILY [facility] Last Admin: 09/21/20 08:12 Dose: 40 mg Documented by: Prochlorperazine Edisylate (Prochlorperazine 10 Mg/2 Ml Vial) 5 mg IV Q4H PRN PRN PRN Reason: Breakthrough Nausea/Vomiting Psyllium Hydrophilic Mucilloid (Psyllium 1 Packet) 1 packet PO DAILY PRN PRN PRN Reason: Constipation Senna/Docusate Sodium (Senna/Docusate Sodium 1 Tablet) 2 tablet PO BID PRN PRN PRN Reason: Constipation Throat Lozenges (Benzocaine/Menthol 1 Lozenge) 1 lozenge MUCOUS MEM Q2H PRN PRN PRN Reason: SORE THROAT Inpatient E&M: [id number] [facility]
[2020-09-21] MEDS: LORazepam 2 MG/ML Syringe 0.5 MG IV (14:02)
== END 2020-09-21 14:45 | disposition hospice, inpatient (51) | DRG 180 ==
LOC: ED 20:39 → PCU 21:03
PROVIDERS: Admitting Provider Family Medicine; Emergency Provider Emergency Medicine; PCP Family Medicine; Visit Provider Internal Medicine
DX: C34.31 Malignant neoplasm of lower lobe, right bronchus or lung (principal); J96.01 Acute respiratory failure with hypoxia; J91.0 Malignant pleural effusion; J98.11 Atelectasis; E87.2 Acidosis; R00.0 Tachycardia, unspecified; K21.9 Gastro-esophageal reflux disease without esophagitis; M06.9 Rheumatoid arthritis, unspecified; J44.9 Chronic obstructive pulmonary disease, unspecified; M48.00 Spinal stenosis, site unspecified; E78.5 Hyperlipidemia, unspecified; F41.9 Anxiety disorder, unspecified; I10 Essential (primary) hypertension; Z87.891 Personal history of nicotine dependence; Z86.73 Personal history of transient ischemic attack (TIA), and cerebral infarction without residual deficits; G89.29 Other chronic pain; H26.9 Unspecified cataract; Z79.899 Other long term (current) drug therapy; Z85.118 Personal history of other malignant neoplasm of bronchus and lung
CPT/HCPCS: 71046; 71275; 80053; 83605; 83615; 83735; 84145; 85025; 85610; 85730; 87070; 87205; 87426; 87449; 87633; 93005; 94002; 94640; 99251; 99285; J7030; J7050; Q9967; A4216; G0463; J1940; J2405